=== PATIENT | male | born 1985 | race Two or more races ===

== ENCOUNTER 2022-04-24 22:23 | Emergency (ER) | payer OTHER ==
[2022-04-24 23:12] VITALS: BP 162/109; PULSE 64; RESP 20; TEMP 97.5
--- NOTE | 2022-04-25 01:37 | ED ---
Psych HPI - General Chief Complaint: Psychiatric Symptoms Stated Complaint: psych eval Time Seen by Provider: 04/25/22 01:37 Source: patient Mode of arrival: ambulatory - Related Data Allergies Allergy/AdvReac Type Severity Reaction Status Date / Time No Known Allergies Allergy Verified 04/24/22 23:11 Review of Systems ROS Statement: Those systems with pertinent positive or pertinent negative responses have been documented in the HPI. ROS Other: All systems not noted in ROS Statement are negative. Past Medical History Past Medical History: No Reported History History of Any Multi-Drug Resistant Organisms: None Reported Additional Past Surgical History / Comment(s): plastic surgery on left lip Past Psychological History: ADD/ADHD Smoking Status: Current every day smoker Past Alcohol Use History: Occasional Past Drug Use History: Marijuana General Exam Limitations: no limitations Course Vital Signs 04/24/22 23:01 Temperature 97.5 F L Pulse Rate 64 Respiratory 20 Rate Blood Pressure 162/109 O2 Sat by Pulse 97 Oximetry Disposition Clinical Impression: Depression Disposition: HOME SELF-CARE Condition: Fair Instructions (If sedation given, give patient instructions): Depression (ED) Is patient prescribed a controlled substance at d/c from ED?: No Referrals: None,Stated [Primary Care Provider] - 1-2 days
== END 2022-04-25 06:24 | disposition home or self-care (01) ==
LOC: EC 22:23
DX: F32.A Depression, unspecified (principal); F17.200 Nicotine dependence, unspecified, uncomplicated; F12.90 Cannabis use, unspecified, uncomplicated
CPT/HCPCS: 82075; 99284

== ENCOUNTER 2022-05-21 15:39 | Observation (INO) | payer OTHER ==
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
[2022-05-21 16:08] LABS: Basophils # (A) 0.1 k/uL (0-0.2); Basophils % (A) 1 %; Eosinophils # (A) 0.2 k/uL (0-0.7); Eosinophils % (A) 2 %; HCT 49.1 % (39.0-53.0); HGB 16.1 gm/dL (13.0-17.5); Lymphocytes # (A) 3.9 k/uL (1.0-4.8); Lymphocytes % (A) 37 %; MCH 32.7 pg (25.0-35.0); MCHC 32.7 g/dL (31.0-37.0); MCV 100.1 fL (80.0-100.0); Mean Platelet Volume 7.1; Monocytes # (A) 0.2 k/uL (0-1.0); Monocytes % (A) 1 %; Neutrophils # (A) 5.9 k/uL (1.3-7.7); Neutrophils % (A) 57 %; Platelet Count 395 k/uL (150-450); RBC 4.91 m/uL (4.30-5.90); RDW 11.9 % (11.5-15.5); WBC 10.4 k/uL (3.8-10.6)
[2022-05-21 16:19] LABS: ALT 20 U/L (4-49); AST 32 U/L (17-59); African American GFR (CKD) >90 (>60 ml/min/1.73 sqM); Albumin 4.4 g/dL (3.5-5.0); Alkaline Phosphatase 72 U/L (38-126); Anion Gap 19 mmol/L; Blood Urea Nitrogen 12 mg/dL (9-20); Calcium 8.8 mg/dL (8.4-10.2); Carbon Dioxide 21 mmol/L (22-30); Chloride 108 mmol/L (98-107); Creatine Kinase 205 U/L (55-170); Glucose 82 mg/dL (74-99); Lipase 129 U/L (23-300); Magnesium 1.8 mg/dL (1.6-2.3); Non-African American GFR(CKD) >90 (>60 ml/min/1.73 sqM); Potassium 3.7 mmol/L (3.5-5.1); Sodium 148 mmol/L (137-145); Total Bilirubin 0.5 mg/dL (0.2-1.3); Total Protein 6.7 g/dL (6.3-8.2)
[2022-05-21 16:35] LABS: Alcohol 499 mg/dL
[2022-05-21] MEDS ORDERED: NALOXONE 0.4 MG/ML 1 ML VIAL IV PRN (17:10)
[2022-05-21] MEDS ORDERED: LORazepam 2 MG/ML INJ IV PRN ×3 (17:11)
[2022-05-21] MEDS ORDERED: THIAMINE 100 MG/ML 2 ML VIAL IM STA (17:11)
[2022-05-21] MEDS ORDERED: chlordiazePOXIDE 25 MG CAP PO PRN ×4 (17:25)
[2022-05-21] MEDS: SODIUM CHLORIDE 0.9% 1,000 ML IV SCH (18:28)
--- NOTE | 2022-05-21 18:30 | P.HPIM ---
History of Present Illness H&P Date: 05/21/22 Chief Complaint: ETOH intoxication 36-year-old man with medical history of ADHD and alcohol dependence presented with acute alcohol intoxication. Patient says that he typically drinks a pint of vodka to a fifth of vodka daily, however, he had excessive alcohol intake today because he was perturbed about breaking up with his girlfriend, denies any thoughts of suicide at this time. His review of systems is limited due to severe alcohol intoxication. In the emergency room, patient was afebrile, 146/108, heart rate 101, 99% on room air. CBC was unremarkable. Chemistry show hypernatremia to 148, chloride of 108, bicarb 21. Liver function tests are unremarkable. Creatinine kinase is slightly elevated at 205. Serum alcohol level was 499. See HPI regarding limitation of review of systems Gen: Awake, conversive, but quite intoxicated HEENT: normocephalic, atraumatic, good hearing acuity, dry mucous membranes Resp: good air exchange, breathing comfortably with no accessory muscle use CVS: good distal perfusion x 4, GI: soft, NTTP, ND : no SPT, no CVAT, singletary catheter not present MSK: no pitting edema, no clubbing Neuro: non-focal, moving all extremities Psych: cooperative, euthymic mood Labs and imaging reviewed as above Assessment/plan: Alcohol intoxication Alcohol dependence -Admit to observation -Multivitamin, thiamine, folate -Alcohol cessation counseling -Librium when necessary should patient develop withdrawal symptoms -[facility] protocol ADHD -Hold home Adderall Patient is full code Past Medical History Past Medical History: No Reported History History of Any Multi-Drug Resistant Organisms: None Reported Additional Past Surgical History / Comment(s): plastic surgery on left lip Past Psychological History: ADD/ADHD Smoking Status: Current every day smoker Past Alcohol Use History: Occasional Past Drug Use History: Marijuana Medications and Allergies Home Medications Medication Instructions Recorded Confirmed Type Dextroamphetamine/Amphetamine 30 mg PO BID 05/21/22 05/21/22 History [Adderall] Allergies Allergy/AdvReac Type Severity Reaction Status Date / Time No Known Allergies Allergy Verified 05/21/22 18:07 Physical Exam Osteopathic Statement: *. No significant issues noted on an osteopathic structural exam other than those noted in the History and Physical/Consult. Vitals: Vital Signs Temp Pulse Resp BP Pulse Ox 05/21/22 18:00 88 20 132/87 98 05/21/22 16:52 98 16 132/87 98 05/21/22 15:50 97.4 F L 101 H 16 146/108 99 Intake and Output 05/21/22 05/21/22 05/21/22 06:59 14:59 22:59 Other: Weight 81.647 kg Results CBC & Chem 7: 05/21/22 16:00 05/21/22 16:00 Labs: Abnormal Lab Results - Last 24 Hours (Table) 05/21/22 05/21/22 Range/Units 16:00 16:00 MCV 100.1 H (80.0-100.0) fL Sodium 148 H (137-145) mmol/L Chloride 108 H (98-107) mmol/L Carbon Dioxide 21 L (22-30) mmol/L Creatine Kinase 205 H (55-170) U/L Serum Alcohol 499 H* mg/dL
[2022-05-21] MEDS: THIAMINE 100 MG TAB PO SCH (21:50)
[2022-05-22 03:12] VITALS: RESP 16
[2022-05-22] MEDS: THIAMINE 100 MG TAB PO SCH (07:46)
[2022-05-22] MEDS: SODIUM CHLORIDE 0.9% 1,000 ML IV SCH (07:46)
[2022-05-22 08:00] VITALS: BP 137/84; PULSE 66; TEMP 99
[2022-05-22] MEDS ORDERED: FOLIC ACID 1 MG TAB PO SCH (09:00)
[2022-05-22] MEDS ORDERED: MULTIVITAMINS, THERA 1 EACH TAB PO SCH (09:00)
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
== END 2022-05-22 13:26 | disposition home or self-care (01) ==
LOC: EC 15:39 → 6NMEDSUR 17:10 → 4SSUR 19:14
PROVIDERS: ADMIT Internal Medicine; ATTEND Internal Medicine
DX: F10.229 Alcohol dependence with intoxication, unspecified (principal); E87.0 Hyperosmolality and hypernatremia; F90.9 Attention-deficit hyperactivity disorder, unspecified type; F17.200 Nicotine dependence, unspecified, uncomplicated; Y90.8 Blood alcohol level of 240 mg/100 ml or more; R74.8 Abnormal levels of other serum enzymes; M25.511 Pain in right shoulder; M54.6 Pain in thoracic spine; V18.4XXA Pedal cycle driver injured in noncollision transport accident in traffic accident, initial encounter; Y93.55 Activity, bike riding; Z91.81 History of falling; Z71.41 Alcohol abuse counseling and surveillance of alcoholic; Z79.899 Other long term (current) drug therapy
CPT/HCPCS: 96361 ×3; 96360; 99285; 36415; 80053; 82550; 83690; 83735; 85025; 72070; 73030; G0378 ×3; G0480; 80320

== ENCOUNTER 2023-03-29 10:54 | Emergency (ER) | payer OTHER ==
[2023-03-29 11:12] VITALS: TEMP 98.6
[2023-03-29] MEDS ORDERED: SODIUM CHLORIDE 0.9% 1,000 ML IV STA (11:43)
[2023-03-29] MEDS ORDERED: METOCLOPRAMIDE 5 MG/ML 2 ML VIAL IVP STA (11:43)
[2023-03-29] MEDS ORDERED: LORazepam 2 MG/ML INJ IV STA (11:43)
[2023-03-29 12:34] LABS: Basophils % (A) 0 %; Eosinophils # (A) 0.1 k/uL (0-0.7); Eosinophils % (A) 1 %; HCT 40.6 % (39.0-53.0); HGB 13.8 gm/dL (13.0-17.5); Lymphocytes # (A) 0.5 k/uL (1.0-4.8); Lymphocytes % (A) 3 %; MCH 31.3 pg (25.0-35.0); MCV 92.2 fL (80.0-100.0); Mean Platelet Volume 7.8; Monocytes # (A) 0.4 k/uL (0-1.0); Monocytes % (A) 3 %; Neutrophils % (A) 93 %; Platelet Count 350 k/uL (150-450); RDW 12.2 % (11.5-15.5)
[2023-03-29] MEDS ORDERED: FAMOTIDINE 20 MG/2 ML VIAL IV STA (12:37)
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
[2023-03-29 12:52] LABS: ALT 68 U/L (4-49); AST 78 U/L (17-59); African American GFR (CKD) >90 (>60 ml/min/1.73 sqM); Albumin 3.8 g/dL (3.5-5.0); Alcohol <10 mg/dL; Alkaline Phosphatase 79 U/L (38-126); Amylase 63 U/L (30-110); Anion Gap 15 mmol/L; Blood Urea Nitrogen 18 mg/dL (9-20); Calcium 8.5 mg/dL (8.4-10.2); Carbon Dioxide 24 mmol/L (22-30); Chloride 95 mmol/L (98-107); Glucose 119 mg/dL (74-99); Lipase 146 U/L (23-300); Magnesium 1.3 mg/dL (1.6-2.3); Non-African American GFR(CKD) >90 (>60 ml/min/1.73 sqM); Potassium 3.9 mmol/L (3.5-5.1); Sodium 134 mmol/L (137-145); Total Bilirubin 3.1 mg/dL (0.2-1.3); Total Protein 5.8 g/dL (6.3-8.2)
[2023-03-29 13:00] LABS: INR 1.1 (<1.2); Prothrombin Time 11.5 sec (9.0-12.0)
[2023-03-29] MEDS ORDERED: MAGNESIUM OXIDE 400 MG TAB PO STA (13:06)
[2023-03-29 13:37] VITALS: BP 149/83; PULSE 97; RESP 20
[2023-03-29] MEDS ORDERED: ONDANSETRON 4 MG ODT STARTER PACK 2 TAB BTL PO STA (16:25)
== END 2023-03-29 16:50 | disposition home or self-care (01) ==
LOC: EC 10:54
DX: F10.10 Alcohol abuse, uncomplicated (principal); E83.42 Hypomagnesemia; F17.200 Nicotine dependence, unspecified, uncomplicated; Y90.0 Blood alcohol level of less than 20 mg/100 ml
CPT/HCPCS: 99284 ×2; 96374 ×2; 96375 ×3; 96361 ×2; 36415; 80053; 82150; 83690; 83735; 85025; 85610; G0480; J2060; J2765; S0119; 80320

== ENCOUNTER 2024-05-27 06:00 | Observation (INO) | payer OTHER ==
[~2024-05-27 06:00] MED LIST: SODIUM CHLORIDE 0.9% 1,000 ML BAG ONE
[2024-05-27] MEDS ORDERED: IBUPROFEN 400 MG TAB ONE (16:05)
[2024-05-27] MEDS ORDERED: LORazepam 1 MG TAB ONE (21:14)
[2024-05-27] MEDS ORDERED: CEPHALEXIN 500 MG CAP ONE (21:15)
[2024-05-28] MEDS ORDERED: CEPHALEXIN 500 MG CAP ONE (08:21)
[2024-05-28] MEDS ORDERED: LORazepam 2 MG/ML INJ ONE (17:06)
[2024-05-28] MEDS ORDERED: ceFAZolin 1,000 MG VIAL (IM USE) IM ONE (20:02)
[2024-05-29] MEDS ORDERED: LORazepam 2 MG/ML INJ ONE (10:57)
== END 2024-05-29 15:02 | disposition left against medical advice (07) ==
LOC: UNDOADMOB 06:00 → 4SSUR 06:00 → UNDODISOB 06:00
PROVIDERS: ADMIT Urology; ATTEND Urology
DX: F10.129 Alcohol abuse with intoxication, unspecified (principal); L03.115 Cellulitis of right lower limb; Y90.8 Blood alcohol level of 240 mg/100 ml or more; R45.851 Suicidal ideations; Z59.00 Homelessness unspecified; Z53.29 Procedure and treatment not carried out because of patient's decision for other reasons
CPT/HCPCS: 96374; 96375; 96376; 99285

== ENCOUNTER 2024-05-31 03:37 | Emergency (ER) | payer OTHER ==
[2024-05-31] MEDS ORDERED: ONDANSETRON 4 MG/2 ML VIAL ONE (06:07)
[2024-05-31] MEDS ORDERED: SODIUM CHLORIDE 0.9% 1,000 ML BAG ONE (06:15)
== END 2024-05-31 12:45 | disposition home or self-care (01) ==
LOC: EC 03:37
DX: R11.10 Vomiting, unspecified (principal)
CPT/HCPCS: 96361; 96374; 99283

== ENCOUNTER 2024-06-11 10:46 | Emergency (ER) | payer OTHER ==
[2024-06-11 10:56] VITALS: TEMP 98
--- NOTE | 2024-06-11 11:29 | ED ---
General Adult HPI - General Chief complaint: Alcohol Stated complaint: ETOH Time Seen by Provider: 06/11/24 11:17 Source: patient, EMS, RN notes reviewed Mode of arrival: EMS Limitations: no limitations - History of Present Illness Initial comments: Patient is a 38-year-old male present emergency department with concerns with withdrawal. Patient last drank alcohol around 6 hours ago. Patient states he normally drinks 1 or 2/5 of alcohol daily. Patient has had nausea and vomiting. Patient did fall and hit his head and believes he lost consciousness. Patient is hearing music and seeing spots. Patient has been shaky. - Related Data Previous Rx's Medication Instructions Recorded Magnesium Oxide [Magnesium] 500 mg PO BID #14 cap 06/11/24 Allergies Allergy/AdvReac Type Severity Reaction Status Date / Time No Known Allergies Allergy Verified 06/11/24 12:39 Review of Systems ROS Statement: Those systems with pertinent positive or pertinent negative responses have been documented in the HPI. ROS Other: All systems not noted in ROS Statement are negative. Constitutional: Denies: fever Eyes: Denies: eye pain ENT: Denies: ear pain Respiratory: Denies: cough Cardiovascular: Denies: chest pain Endocrine: Denies: fatigue Gastrointestinal: Denies: abdominal pain Neurological: Denies: headache Psychiatric: Reports: as per HPI. Denies: suicidal thoughts Past Medical History Past Medical History: No Reported History Additional Past Medical History / Comment(s): ETOH History of Any Multi-Drug Resistant Organisms: None Reported Additional Past Surgical History / Comment(s): plastic surgery on left lip Past Psychological History: ADD/ADHD Smoking Status: Current every day smoker Past Alcohol Use History: Abuse, Daily, Heavy Past Drug Use History: Marijuana General Exam Limitations: no limitations General appearance: alert, in no apparent distress Head exam: Present: atraumatic, normocephalic Eye exam: Present: normal appearance, PERRL, EOMI ENT exam: Present: normal oropharynx Neck exam: Present: normal inspection. Absent: tenderness Respiratory exam: Present: normal lung sounds bilaterally Cardiovascular Exam: Present: regular rate, normal rhythm GI/Abdominal exam: Present: soft. Absent: tenderness Extremities exam: Present: normal inspection, full ROM. Absent: tenderness Back exam: Absent: vertebral tenderness Neurological exam: Present: alert. Absent: motor sensory deficit Expanded Neurological exam: Present: protecting the airway Speech: Present: fluid speech Motor strength exam: RUE: 5, LUE: 5, RLE: 5, LLE: 5 Eye Response: (4) open spontaneously Motor Response: (6) obeys commands Verbal Response: (5) oriented Psychiatric exam: Present: normal affect, normal mood Skin exam: Present: normal color Course Vital Signs 06/11/24 06/11/24 10:51 12:21 Temperature 98 F Pulse Rate 97 80 Respiratory 20 18 Rate Blood Pressure 153/116 144/97 O2 Sat by Pulse 99 99 Oximetry Medical Decision Making - Medical Decision Making Was pt. sent in by a medical professional or institution (, PA, DIRECT SERVICE WORKER, urgent care, hospital, or jail...) When possible be specific @ -No Did you speak to anyone other than the patient for history (EMS, parent, family, police, friend...)? What history was obtained from this source @ -No Did you review nursing and triage notes (agree or disagree)? Why? @ -I reviewed and agree with nursing and triage notes Were old charts reviewed (outside hosp., previous admission, EMS record, old EKG, old radiological studies, urgent care reports/EKG's, jail records)? Report findings @ -No old charts were reviewed Differential Diagnosis (chest pain, altered mental status, abdominal pain women, abdominal pain men, vaginal bleeding, weakness, fever, dyspnea, syncope, headache, dizziness, GI bleed, back pain, seizure, CVA, palpatations, mental hea lth, musculoskeletal)? @ -Differential Mental Health Depression, anxiety, bipolar, psychosis, schizophrenia, borderline personality, situational depression, adjustment disorder, behavioral disorder, brain tumor, malingering, substance abuse, encephalopathy, medication reaction, dementia, hypothyroidism, degenerative neurologic disorder, lupus.... This is not meant to be all-inclusive list EKG interpreted by me (3pts min.). @ -As above X-rays interpreted by me (1pt min.). @ -None done CT interpreted by me (1pt min.). @ -CT scan of the brain does not reveal acute intracranial abnormality U/S interpreted by me (1pt. min.). @ -None done What testing was considered but not performed or refused? (CT, X-rays, U/S, labs)? Why? @ -None What meds were considered but not given or refused? Why? @ -None Did you discuss the management of the patient with other professionals (professionals i.e. , PA, DIRECT SERVICE WORKER, lab, RT, psych nurse, social secretary, correctional case records supervisor, teacher, operations officer trust department, returned case inspector)? Give summary @ -No Was smoking cessation discussed for >3mins.? @ -No Was critical care preformed (if so, how long)? @ -No Were there social determinants of health that impacted care today? How? (Ho melessness, low income, unemployed, alcoholism, drug addiction, transportation, low edu. Level, literacy, decrease access to med. care, senior living, rehab)? @ -Patient is homeless and history of alcoholism Was there de-escalation of care discussed even if they declined (Discuss DNR or withdrawal of care, Hospice)? DNR status @ -No What co-morbidities impacted this encounter? (DM, HTN, Smoking, COPD, CAD, Cancer, CVA, ARF, Chemo, Hep., AIDS, mental health diagnosis, sleep apnea, morbid obesity)? @ -Alcoholism Was patient admitted / discharged? Hospital course, mention meds given and route, prescriptions, significant lab abnormalities, going to OR and other pertinent info. @ -Patient presents with concerns for alcohol withdrawal. Patient has had reported shaking and vomiting. None on evaluation or on reevaluation. CIWA is 2. patient is updated on results and recommendation for rehab center. Patient states he is going to go to [facility]. Patient does have low magnesium and advised to continue this for the next week. Prescription provided Undiagnosed new problem with uncertain prognosis? @ -No Drug Therapy requiring intensive monitoring for toxicity (Heparin, Nitro, Insulin, Cardizem)? @ -No Were any procedures done? @ -No Diagnosis/symptom? @ -Alcohol withdrawal, hypomagnesemia Acute, or Chronic, or Acute on Chronic? @ -Acute, acute Uncomplicated (without systemic symptoms) or Complicated (systemic symptoms)? @ -Complicated with hypomagnesemia Side effects of treatment? @ -No Exacerbation, Progression, or Severe Exacerbation? @ -No Poses a threat to life or bodily function? How? (Chest pain, USA, DE, pneumonia, PE, COPD, DKA, ARF, appy, cholecystitis, CVA, Diverticulitis, Homicidal, Suicidal, threat to staff... and all critical care pts) @ -No - Lab Data Result diagrams: 06/11/24 11:56 06/11/24 11:56 Lab Results 06/11/24 06/11/24 Range/Units 11:56 11:56 WBC 7.9 (3.8-10.6) k/uL RBC 4.46 (4.30-5.90) m/uL Hgb 16.0 (13.0-17.5) gm/dL Hct 44.0 (39.0-53.0) % MCV 98.9 (80.0-100.0) fL MCH 35.8 H (25.0-35.0) pg MCHC 36.3 (31.0-37.0) g/dL RDW 13.9 (11.5-15.5) % Plt Count 242 (150-450) k/uL MPV 8.2 Neutrophils % 76 % Lymphocytes % 14 % Monocytes % 6 % Eosinophils % 2 % Basophils % 0 % Neutrophils # 6.1 (1.3-7.7) k/uL Lymphocytes # 1.1 (1.0-4.8) k/uL Monocytes # 0.5 (0-1.0) k/uL Eosinophils # 0.2 (0-0.7) k/uL Basophils # 0.0 (0-0.2) k/uL Sodium 130 L (137-145) mmol/L Potassium 3.5 (3.5-5.1) mmol/L Chloride 98 (98-107) mmol/L Carbon Dioxide 24 (22-30) mmol/L Anion Gap 8 mmol/L BUN 10 (9-20) mg/dL Creatinine 0.67 (0.66-1.25) mg/dL Est GFR (CKD-EPI)AfAm >90 (>60 ml/min/1.73 sqM) Est GFR (CKD-EPI)NonAf >90 (>60 ml/min/1.73 sqM) Glucose 95 (74-99) mg/dL Calcium 9.7 (8.4-10.2) mg/dL Magnesium 1.2 L (1.6-2.3) mg/dL Total Bilirubin 3.5 H (0.2-1.3) mg/dL AST 209 H (17-59) U/L ALT 154 H (4-49) U/L Alkaline Phosphatase 74 (38-126) U/L Total Protein 6.6 (6.3-8.2) g/dL Albumin 4.1 (3.5-5.0) g/dL Amylase 60 (30-110) U/L Lipase 132 (23-300) U/L Serum Alcohol <10 mg/dL Disposition Clinical Impression: Alcohol withdrawal syndrome, Hypomagnesemia Disposition: HOME SELF-CARE Condition: Stable Instructions (If sedation given, give patient instructions): Alcohol Withdrawal (ED) Additional Instructions: Proceed to [facility] for rehab. Magnesium twice daily for the next week and have level rechecked at that point. Prescription sent to pharmacy. Return for seizure, weakness, shaking, uncontrolled vomiting, confusion or hallucinations, worsening symptoms or other concerns. Prescriptions: Magnesium Oxide [Magnesium] 500 mg PO BID #14 cap Is patient prescribed a controlled substance at d/c from ED?: No Referrals: Mando Duran DO [REFERRING] - 1-2 days Forms: AA Meetings [facility] [facility], AA Meetings [address] - [facility], Inp Substance Abuse Facilities, Area PCPs, [facility] Shel[facility] Time of Disposition: 14:01
[2024-06-11 12:07] LABS: Basophils % (A) 0 %; Eosinophils # (A) 0.2 k/uL (0-0.7); Eosinophils % (A) 2 %; Lymphocytes # (A) 1.1 k/uL (1.0-4.8); Lymphocytes % (A) 14 %; MCH 35.8 pg (25.0-35.0); MCHC 36.3 g/dL (31.0-37.0); MCV 98.9 fL (80.0-100.0); Mean Platelet Volume 8.2; Monocytes # (A) 0.5 k/uL (0-1.0); Monocytes % (A) 6 %; Neutrophils # (A) 6.1 k/uL (1.3-7.7); Neutrophils % (A) 76 %; Platelet Count 242 k/uL (150-450); RBC 4.46 m/uL (4.30-5.90); RDW 13.9 % (11.5-15.5); WBC 7.9 k/uL (3.8-10.6)
[2024-06-11 12:21] VITALS: BP 144/97; PULSE 80; RESP 18
[2024-06-11] MEDS: LORazepam 2 MG/ML INJ IV STA (12:23)
[2024-06-11] MEDS: THIAMINE 100 MG/ML 2 ML VIAL IM STA (12:23)
[2024-06-11] MEDS: FAMOTIDINE 20 MG/2 ML VIAL IV STA (12:23)
[2024-06-11] MEDS: SODIUM CHLORIDE 0.9% 1,000 ML IV STA (12:24)
[2024-06-11 12:25] LABS: ALT 154 U/L (4-49); AST 209 U/L (17-59); African American GFR (CKD) >90 (>60 ml/min/1.73 sqM); Albumin 4.1 g/dL (3.5-5.0); Alcohol <10 mg/dL; Alkaline Phosphatase 74 U/L (38-126); Amylase 60 U/L (30-110); Anion Gap 8 mmol/L; Blood Urea Nitrogen 10 mg/dL (9-20); Calcium 9.7 mg/dL (8.4-10.2); Carbon Dioxide 24 mmol/L (22-30); Chloride 98 mmol/L (98-107); Glucose 95 mg/dL (74-99); Lipase 132 U/L (23-300); Magnesium 1.2 mg/dL (1.6-2.3); Non-African American GFR(CKD) >90 (>60 ml/min/1.73 sqM); Potassium 3.5 mmol/L (3.5-5.1); Sodium 130 mmol/L (137-145); Total Bilirubin 3.5 mg/dL (0.2-1.3); Total Protein 6.6 g/dL (6.3-8.2)
[2024-06-11] MEDS: MAGNESIUM OXIDE 400 MG TAB PO STA (13:18)
[2024-06-11] MEDS: MAGNESIUM SULFATE-D5W PMX 1 GM in DEXTROSE/WATER 1 100ML.BAG IVPB SCH (13:26)
--- NOTE | 2024-06-11 13:56 | CT ---
EXAMINATION TYPE: CT brain wo con DATE OF EXAM: 06/11/2024 COMPARISON: None HISTORY: 38-year-old male fall/alcohol withdraw TECHNIQUE: Examination was done in axial plane without intravenous contrast. Coronal and sagittal r econstructions performed. CT DLP: 1138.8 mGycm Automated exposure control for dose reduction was used. FINDINGS: There is no evidence of acute intracranial hemorrhage, acute ischemic changes, mass, mass-effect, or extra-axial fluid collection. There is no effacement of cerebral sulci or basal subarachnoid cister ns. There is no hydrocephalus. There is no midline shift. Degroot-white matter distinction is preserv ed. Comminuted and angulated right-sided nasal bone fracture but without overlying soft tissue swelling, suspected chronic. Paranasal sinuses and mastoid air cells well pneumatized. Orbits and globes appear intact IMPRESSION: No acute intracranial abnormality seen. Comminuted and angulated right sided nasal bone fracture. Cli nically correlate to confirm old injury.
== END 2024-06-11 16:47 | disposition home or self-care (01) ==
LOC: EC 10:46
DX: F10.239 Alcohol dependence with withdrawal, unspecified (principal); E83.42 Hypomagnesemia; F17.200 Nicotine dependence, unspecified, uncomplicated
CPT/HCPCS: 36415; 70450; 80053; 80320; 82150; 83690; 83735; 85025; 96365; 96372; 96375; 99285

== ENCOUNTER 2024-07-20 12:45 | Emergency (ER) | payer OTHER ==
[2024-07-20 13:00] VITALS: TEMP 97.4
--- NOTE | 2024-07-20 13:14 | ED ---
General Adult HPI - General Chief complaint: Alcohol Stated complaint: ETOH Time Seen by Provider: 07/20/24 12:51 Source: patient, EMS, RN notes reviewed Mode of arrival: EMS Limitations: no limitations - History of Present Illness Initial comments: Patient is a 39-year-old male presenting to the emergency department for alcohol intoxication. Patient admits to drinking alcohol, approximately 1/5 of alcohol daily. Patient was found sleeping outside and EMS was called and brought patient to the emergency department. Patient has no complaints. Patient denies injury. - Related Data Previous Rx's Medication Instructions Recorded Magnesium Oxide [Magnesium] 500 mg PO BID #14 cap 06/11/24 Allergies Allergy/AdvReac Type Severity Reaction Status Date / Time No Known Allergies Allergy Verified 07/20/24 12:53 Review of Systems ROS Statement: Those systems with pertinent positive or pertinent negative responses have been documented in the HPI. ROS Other: All systems not noted in ROS Statement are negative. Constitutional: Denies: fever Eyes: Denies: eye pain Respiratory: Denies: dyspnea Cardiovascular: Denies: chest pain Gastrointestinal: Denies: abdominal pain Past Medical History Past Medical History: No Reported History Additional Past Medical History / Comment(s): ETOH History of Any Multi-Drug Resistant Organisms: None Reported Additional Past Surgical History / Comment(s): plastic surgery on left lip Past Psychological History: ADD/ADHD Smoking Status: Current every day smoker Past Alcohol Use History: Abuse, Daily, Heavy Past Drug Use History: Marijuana General Exam Limitations: no limitations General appearance: alert, in no apparent distress Head exam: Present: atraumatic, normocephalic Eye exam: Present: normal appearance, PERRL, EOMI, nystagmus ENT exam: Present: normal oropharynx Neck exam: Present: normal inspection. Absent: tenderness Respiratory exam: Present: normal lung sounds bilaterally Cardiovascular Exam: Present: regular rate, normal rhythm GI/Abdominal exam: Present: soft. Absent: tenderness Extremities exam: Present: normal inspection Neurological exam: Present: alert. Absent: motor sensory deficit Expanded Motor strength exam: RUE: 5, LUE: 5, RLE: 5, LLE: 5 Eye Response: (4) open spontaneously Motor Response: (6) obeys commands Verbal Response: (5) oriented Psychiatric exam: Present: normal affect, normal mood Skin exam: Present: normal color Course Vital Signs 07/20/24 07/20/24 12:50 13:00 Temperature 97.4 F L Pulse Rate 78 Respiratory 16 Rate Blood Pressure 126/80 O2 Sat by Pulse 97 Oximetry Medical Decision Making - Medical Decision Making Was pt. sent in by a medical professional or institution (, ZOLTAN, EMPLOYEE SERVICES MANAGER, urgent ca re, hospital, or [facility]...) When possible be specific @ -No Did you speak to anyone other than the patient for history (EMS, parent, family, police, friend...)? What history was obtained from this source @ -EMS provides history of patient being found Did you review nursing and triage notes (agree or disagree)? Why? @ -I reviewed and agree with nursing and triage notes Were old charts reviewed (outside hosp., previous admission, EMS record, old EKG, old radiological studies, urgent care reports/EKG's, [facility] records)? Report findings @ -No old charts were reviewed Differential Diagnosis (chest pain, altered mental status, abdominal pain women, abdominal pain men, vaginal bleeding, weakness, fever, dyspnea, syncope, headache, dizziness, GI bleed, back pain, seizure, CVA, palpatations, mental health, musculoskeletal)? @ -Differential Dizziness: Benign paroxysmal positional Vertigo, Meniere's disease, otitis media, acoustic neuroma, vertebrobasilar insufficiency, cerebellar stroke, encephalitis, hypovolemic, arrhythmia, coronary artery syndrome, anemia, this is not meant to be an all-inclusive list EKG interpreted by me (3pts min.). @ -As above X-rays interpreted by me (1pt min.). @ -None done CT interpreted by me (1pt min.). @ -None done U/S interpreted by me (1pt. min.). @ -None done What testing was considered but not performed or refused? (CT, X-rays, U/S, labs)? Why? @ -None What meds were considered but not given or refused? Why? @ -None Did you discuss the management of the patient with other professionals (professionals i.e. ZOLTAN Barrientos, EMPLOYEE SERVICES MANAGER, lab, RT, psych nurse, social science teacher, brine mixer operator, teacher, deputy probation officer, supportive employment case manager)? Give summary @ -No Was smoking cessation discussed for >3mins.? @ -No Was critical care preformed (if so, how long)? @ -No Were there social determinants of health that impacted care today? How? (Homelessness, low income, unemployed, alcoholism, drug addiction, transportation, low edu. Level, literacy, decrease access to med. care, [facility], rehab)? @ -No Was there de-escalation of care discussed even if they declined (Discuss DNR or withdrawal of care, Hospice)? DNR status @ -No What co-morbidities impacted this encounter? (DM, HTN, Smoking, COPD, CAD, Cancer, CVA, ARF, Chemo, Hep., AIDS, mental health diagnosis, sleep apnea, morbid obesity)? @ -None Was patient admitted / discharged? Hospital course, mention meds given and route, prescriptions, significant lab abnormalities, going to OR and other pertinent info. @ -Patient presents for alcohol intoxication. Patient is observed for several hours. Patient is ANO x 3 with steady gait. Patient will be discharged and recommended discontinuing alcohol Undiagnosed new problem with uncertain prognosis? @ -No Drug Therapy requiring intensive monitoring for toxicity (Heparin, Nitro, Insulin, Cardizem)? @ -No Were any procedures done? @ -No Diagnosis/symptom? @ -Alcohol intoxication Acute, or Chronic, or Acute on Chronic? @ -Acute on chronic Uncomplicated (without systemic symptoms) or Complicated (systemic symptoms)? @ -Default Side effects of treatment? @ -No Exacerbation, Progression, or Severe Exacerbation? @ -No Poses a threat to life or bodily function? How? (Chest pain, USA, [place], pneumonia, PE, COPD, DKA, ARF, appy, cholecystitis, CVA, Diverticulitis, Homicidal, Suicidal, threat to staff... and all critical care pts) @ -No - Lab Data Lab Results 07/20/24 Range/Units 13:10 Urine Opiates Screen Not Detected (NotDetected) Ur Oxycodone Screen Not Detected (NotDetected) Urine Methadone Screen Not Detected (NotDetected) Ur Barbiturates Screen Not Detected (NotDetected) U Tricyclic Antidepress Not Detected (NotDetected) Ur Phencyclidine Scrn Not Detected (NotDetected) Ur Amphetamines Screen Not Detected (NotDetected) U Methamphetamines Scrn Not Detected (NotDetected) U Benzodiazepines Scrn Detected H (NotDetected) Urine Cocaine Screen Not Detected (NotDetected) U Marijuana (THC) Screen Not Detected (NotDetected) Disposition Clinical Impression: Alcoholic intoxication Disposition: HOME SELF-CARE Condition: Stable Instructions (If sedation given, give patient instructions): Alcohol I ntoxication (ED) Additional Instructions: Discontinue alcohol use. Please follow-up with primary care physician in the next day or 2 for recheck. Return for worsening symptoms or other concerns. No driving. Is patient prescribed a controlled substance at d/c from ED?: No Referrals: Boo Beltran MD [STAFF PHYSICIAN] - 1-2 days Forms: Area PCPs Time of Disposition: 16:29
[2024-07-20 13:46] LABS: Amphetamine Screen,Urine Not Detected (NotDetected); Barbiturate Screen,Urine Not Detected (NotDetected); Benzodiazepines Screen,Urine Detected (NotDetected); Cocaine Screen,Urine Not Detected (NotDetected); Methadone Screen, Urine Not Detected (NotDetected); Opiate Screen,Urine Not Detected (NotDetected); Oxycodone Screen, Urine Not Detected (NotDetected); Phencyclidine Screen,Urine Not Detected (NotDetected); Tricyclic Antidepressant,Urine Not Detected (NotDetected); Urn Cannabinoid Scrn Not Detected (NotDetected)
[2024-07-20 16:59] VITALS: BP 143/95; PULSE 83; RESP 20
== END 2024-07-20 16:59 | disposition home or self-care (01) ==
LOC: EC 12:45
CPT/HCPCS: 80306; 82075; 99284

== ENCOUNTER 2024-07-20 23:56 | Inpatient (IN) | payer OTHER ==
--- NOTE | 2024-07-21 00:08 | ED ---
Psych HPI - General Chief Complaint: Psychiatric Symptoms Stated Complaint: Mental Health, LE Petition Time Seen by Provider: 07/21/24 00:07 Source: patient, police, RN notes reviewed, old records reviewed Mode of arrival: EMS Limitations: no limitations, altered mental status - History of Present Illness Initial Comments: This is a 39-year-old male presenting for police escort in regards to psychiatric illness under petition for psychiatric evaluation and treatment known history of severe alcohol abuse -: days(s) Associated Psychiatric Symptoms: depression, suicidal ideation History of same: Yes Quality: constant Improves With: none Worsens With: none Associated Symptoms: confusion Treatments Prior to Arrival: placed on mental health hold If Self Harm: admits thoughts of self harm - Related Data Previous Rx's Medication Instructions Recorded Omeprazole [PriLOSEC] 20 mg PO AC-BRKFST #30 cap 07/23/24 Allergies Allergy/AdvReac Type Severity Reaction Status Date / Time No Known Allergies Allergy Verified 07/21/24 10:27 Review of Systems ROS Statement: Those systems with pertinent positive or pertinent negative responses have been documented in the HPI. ROS Other: All systems not noted in ROS Statement are negative. Past Medical History Past Medical History: No Reported History Additional Past Medical History / Comment(s): ETOH History of Any Multi-Drug Resistant Organisms: None Reported Additional Past Surgical History / Comment(s): plastic surgery on left lip Past Psychological History: ADD/ADHD Smoking Status: Current every day smoker Past Alcohol Use History: Abuse, Daily, Heavy Past Drug Use History: Marijuana General Exam General appearance: alert, in no apparent distress, appears intoxicated, anxious Head exam: Present: atraumatic, normocephalic, normal inspection Eye exam: Present: normal appearance, PERRL, EOMI. Absent: scleral icterus, conjunctival injection, periorbital swelling ENT exam: Present: normal exam, mucous membranes moist Neck exam: Present: normal inspection. Absent: tenderness, meningismus, lymphadenopathy Respiratory exam: Present: normal lung sounds bilaterally. Absent: respiratory distress, wheezes, rales, rhonchi, stridor Cardiovascular Exam: Present: regular rate, normal rhythm, normal heart sounds. Absent: systolic murmur, diastolic murmur, rubs, gallop, clicks GI/Abdominal exam: Present: soft, normal bowel sounds. Absent: distended, tenderness, guarding, rebound, rigid Extremities exam: Present: normal inspection, full ROM, normal capillary refill. Absent: tenderness, pedal edema, joint swelling, calf tenderness Back exam: Present: normal inspection Neurological exam: Present: alert, oriented X3, CN II-XII intact Psychiatric exam: Present: normal affect, normal mood Skin exam: Present: warm, dry, intact, normal color. Absent: rash Course Vital Signs 07/21/24 07/21/24 07/21/24 00:00 00:51 04:03 Temperature 97.7 F Pulse Rate 101 H 65 81 Respiratory 18 18 15 Rate Blood Pressure 143/101 116/65 118/83 O2 Sat by Pulse 99 96 99 Oximetry - Reevaluation(s) Reevaluation #1: 07/21/24 00:14 Records reviewed Reevaluation #2: 07/21/24 02:52 Patient is severely intoxicated unable to medically clear Reevaluation #3: Was pt. sent in by a medical professional or institution (, PA, GEOLOGIC TECHNICIAN, urgent care, hospital, or [facility]...) When possible be specific @ -no Did you speak to anyone other than the patient for history (EMS, parent, family, police, friend...)? What history was obtained from this source @ -no Did you review nursing and triage notes (agree or disagree)? Why? @ -agree Are old charts reviewed (outside hosp., previous admission, EMS record, old EKG, old radiological studies, urgent care reports/EKG's, [facility] records)? Report findings @ -yes Differential Diagnosis (chest pain, altered mental status, abdominal pain women, abdominal pain men, vaginal bleeding, weakness, fever, dyspnea, syncope, headache, dizziness, GI bleed, back pain, seizure, CVA, palpatations, mental health, musculoskeletal)? @ -prior EKG interpreted by me (3pts min.). @ -yes X-rays interpreted by me (1pt min.). @ -no CT interpreted by me (1pt min.). @ -no U/S interpreted by me (1pt. min.). @ -no What testing was considered but not performed or refused? (CT, X-rays, U/S, labs)? Why? @ -none What meds were considered but not given or refused? Why? @ -none Did you discuss the management of the patient with other professionals (professionals i.e. , PA, GEOLOGIC TECHNICIAN, lab, RT, psych nurse, social services aide, geological engineer, teacher, special service officer, case maker)? Give summary @ -no Was smoking cessation discussed for >3mins.? @ -no Was critical care preformed (if so, how long)? @ -no Were there social determinants of health that impacted care today? How? (Homelessness, low income, unemployed, alcoholism, drug addiction, transportation, low edu. Level, literacy, decrease access to med. care, halfway, rehab)? @ -none Was there de-escalation of care discussed even if they declined (Discuss DNR or withdrawal of care, Hospice)? DNR status @ -no What co-morbidities impacted this encounter? (DM, HTN, Smoking, COPD, CAD, Cancer, CVA, ARF, Chemo, Hep., AIDS, mental health diagnosis, sleep apnea, morbid obesity)? @ -none Was patient admitted / discharged? Hospital course, mention meds given and route, prescriptions, significant lab abnormalities, going to OR and other pertinent info. @ - 39 male will be admitted for severe alcohol intoxication, patient will also need psychiatric evaluation and treatment Admitted alcohol intoxication depression and psychiatric illness Undiagnosed new problem with uncertain prognosis? @ -no Drug Therapy requiring intensive monitoring for toxicity (Heparin, Nitro, Insulin, Cardizem)? @ -no Were any procedures done? @ -no Diagnosis/symptom? @ -Acute alcohol intoxication with depression and suicidal thoughts Acute, or Chronic, or Acute on Chronic? @ -Acute Uncomplicated (without systemic symptoms) or Complicated (systemic symptoms)? @ -Complicated Side effects of treatment? @ -no Exacerbation, Progression, or Severe Exacerbation? @ -exacerbation Poses a threat to life or bodily function? How? (Chest pain, USA, ID, pneumonia, PE, COPD, DKA, ARF, appy, cholecystitis, CVA, Diverticulitis, Homicidal, Suicidal, threat to staff... and all critical care pts) @ -yes Reevaluation #4: Differential Mental Health Depression, anxiety, bipolar, psychosis, schizophrenia, borderline personality, situational depression, adjustment disorder, behavioral disorder, brain tumor, malingering, substance abuse, encephalopathy, medication reaction, dementia, hypothyroidism, degenerative neurologic disorder, lupus.... This is not meant to be all-inclusive list Reevaluation #5: Differential Altered Mental Status: Hypoglycemia, DKA, hypercapnia, ETOH, overdose, CO poisoning, trauma, myxedema coma, HTN encephalopathy, infection, encephalitis, psychosis, intercranial hemorrhage, hepatic encephalopathy, meningitis, CVA, this is not meant to be an all-inclusive list - Consultations Consultation #1: Spoke with [facility] who agrees to admit this patient Medical Decision Making - Medical Decision Making 39 male will be admitted for severe alcohol intoxication, patient will also need psychiatric evaluation and treatment - Lab Data Result diagrams: 07/22/24 02:39 07/23/24 02:37 Lab Results 07/21/24 07/21/24 07/21/24 Range/Units 00:07 00:34 00:34 WBC 7.1 (3.8-10.6) k/uL RBC 4.54 (4.30-5.90) m/uL Hgb 15.9 (13.0-17.5) gm/dL Hct 46.1 (39.0-53.0) % MCV 101.6 H (80.0-100.0) fL MCH 35.1 H (25.0-35.0) pg MCHC 34.5 (31.0-37.0) g/dL RDW 13.2 (11.5-15.5) % Plt Count 264 (150-450) k/uL MPV 7.5 Neutrophils % 49 % Lymphocytes % 38 % Monocytes % 5 % Eosinophils % 4 % Basophils % 0 % Neutrophils # 3.5 (1.3-7.7) k/uL Lymphocytes # 2.7 (1.0-4.8) k/uL Monocytes # 0.4 (0-1.0) k/uL Eosinophils # 0.3 (0-0.7) k/uL Basophils # 0.0 (0-0.2) k/uL Macrocytosis Slight Sodium 143 (137-145) mmol/L Potassium (3.5-5.1) mmol/L Chloride 110 H (98-107) mmol/L Carbon Dioxide 24 (22-30) mmol/L Anion Gap 9 mmol/L BUN 10 (9-20) mg/dL Creatinine 0.59 L (0.66-1.25) mg/dL Est GFR (CKD-EPI)AfAm >90 (>60 ml/min/1.73 sqM) Est GFR (CKD-EPI)NonAf >90 (>60 ml/min/1.73 sqM) Glucose 98 (74-99) mg/dL Calcium 8.6 (8.4-10.2) mg/dL Phosphorus 4.3 (2.5-4.5) mg/dL Magnesium 2.0 (1.6-2.3) mg/dL Total Bilirubin 1.3 (0.2-1.3) mg/dL AST 127 H (17-59) U/L ALT 92 H (4-49) U/L Alkaline Phosphatase 40 (38-126) U/L Total Protein 7.0 (6.3-8.2) g/dL Albumin 4.8 (3.5-5.0) g/dL Lipase 369 H (23-300) U/L Urine Color Yellow Urine Appearance Clear (Clear) Urine pH 6.5 (5.0-8.0) Ur Specific [place] 1.019 (1.001-1.035) Urine Protein Negative (Negative) Urine Glucose (UA) Negative (Negative) Urine Ketones Negative (Negative) Urine Blood Negative (Negative) Urine Nitrite Negative (Negative) Urine Bilirubin Negative (Negative) Urine Urobilinogen <2.0 (<2.0) mg/dL Ur Leukocyte Esterase Negative (Negative) Urine Opiates Screen Not Detected (NotDetected) Ur Oxycodone Screen Not Detected (NotDetected) Urine Methadone Screen Not Detected (NotDetected) Ur Barbiturates Screen Not Detected (NotDetected) U Tricyclic Antidepress Not Detected (NotDetected) Ur Phencyclidine Scrn Not Detected (NotDetected) Ur Amphetamines Screen Not Detected (NotDetected) U Methamphetamines Scrn Not Detected (NotDetected) U Benzodiazepines Scrn Detected H (NotDetected) Urine Cocaine Screen Not Detected (NotDetected) U Marijuana (THC) Screen Not Detected (NotDetected) Serum Alcohol 428 H* mg/dL Disposition Clinical Impression: Depression, Alcoholic intoxication, Suicidal ideation, Acute anxiety Disposition: ADMITTED IP TO THIS HOSP Condition: Fair Is patient prescribed a controlled substance at d/c from ED?: No Time of Disposition: 02:45
[2024-07-21] MEDS: LORazepam 2 MG/ML INJ IV STA (00:43)
[2024-07-21] MEDS: SODIUM CHLORIDE 0.9% 1,000 ML IV STA (00:43)
[2024-07-21 00:51] LABS: ALT 92 U/L (4-49); AST 127 U/L (17-59); African American GFR (CKD) >90 (>60 ml/min/1.73 sqM); Albumin 4.8 g/dL (3.5-5.0); Alkaline Phosphatase 40 U/L (38-126); Anion Gap 9 mmol/L; Blood Urea Nitrogen 10 mg/dL (9-20); Calcium 8.6 mg/dL (8.4-10.2); Carbon Dioxide 24 mmol/L (22-30); Chloride 110 mmol/L (98-107); Glucose 98 mg/dL (74-99); Lipase 369 U/L (23-300); Non-African American GFR(CKD) >90 (>60 ml/min/1.73 sqM); Phosphorus 4.3 mg/dL (2.5-4.5); Sodium 143 mmol/L (137-145); Total Bilirubin 1.3 mg/dL (0.2-1.3)
[2024-07-21 00:52] LABS: Basophils % (A) 0 %; Eosinophils # (A) 0.3 k/uL (0-0.7); Eosinophils % (A) 4 %; HCT 46.1 % (39.0-53.0); HGB 15.9 gm/dL (13.0-17.5); Lymphocytes # (A) 2.7 k/uL (1.0-4.8); Lymphocytes % (A) 38 %; MCH 35.1 pg (25.0-35.0); MCHC 34.5 g/dL (31.0-37.0); MCV 101.6 fL (80.0-100.0); Macrocytosis Slight; Mean Platelet Volume 7.5; Monocytes # (A) 0.4 k/uL (0-1.0); Monocytes % (A) 5 %; Neutrophils # (A) 3.5 k/uL (1.3-7.7); Neutrophils % (A) 49 %; Platelet Count 264 k/uL (150-450); RBC 4.54 m/uL (4.30-5.90); RDW 13.2 % (11.5-15.5); WBC 7.1 k/uL (3.8-10.6)
[2024-07-21 01:11] LABS: Alcohol 428 mg/dL
[2024-07-21] MEDS ORDERED: LORazepam 2 MG/ML INJ IV PRN ×2 (02:50)
[2024-07-21] MEDS ORDERED: LORazepam 0.5 MG TAB PO PRN (02:50)
[2024-07-21] MEDS ORDERED: LORazepam 1 MG TAB PO PRN ×3 (02:50)
[2024-07-21] MEDS ORDERED: ONDANSETRON 4 MG/2 ML VIAL IVP PRN (02:50)
[2024-07-21] MEDS ORDERED: NALOXONE 0.4 MG/ML 1 ML VIAL IV PRN (02:50)
[2024-07-21] MEDS: SODIUM CHLORIDE 0.9% 1,000 ML IV SCH (04:01)
--- NOTE | 2024-07-21 07:30 | P.HPIM ---
History of Present Illness This is a pleasant 39 years old male with past medical history of alcohol Use disorder and intoxication. Presents because he was petitioned by police. Patient could not remember what happened as his alcohol level was elevated 428 on admission. As per staff patient was making suicidal comments in the streets when the police found him and that is why he was petitioned. Patient currently is awake alert, comes, looks withdrawn in his room, with mild tremor from alcohol withdrawal, he looks home, he denies urge to hurt himself this morning. No other new complaint. When I talked to the patient about quitting alcohol he told me he intends to go to alcoholic rehab this coming week on . He smokes about half pack per day and he was counseled to quit and he agrees to the nicotine patch. He uses marijuana but denies other illicit drugs Patient is hemodynamically stable Labs reviewed showing unremarkable CBC, BMP Liver enzymes mildly elevated Serum alcohol level was 428 No images or EKG done or seen in the chart Patient currently was placed on CIWA thiamine Review of Systems Review of systems CONSTITUTIONAL: No fever, no malaise, no fatigue. HEENT: No recent visual problems or hearing problems. Denied any sore throat. CARDIOVASCULAR: No orthopnea, PND, no palpitations, no syncope. PULMONARY: No shortness of breath, no cough, no hemoptysis. GASTROINTESTINAL: No diarrhea, no nausea, no vomiting, no abdominal pain. Normoactive bowel sounds. NEUROLOGICAL: No headaches, no weakness, no numbness. HEMATOLOGICAL: Denies any bleeding or petechiae. GENITOURINARY: Denies any burning micturition, frequency, or urgency. MUSCULOSKELETAL/RHEUMATOLOGICAL: Denies any joint pain, swelling, or any muscle pain. ENDOCRINE: Denies any polyuria or polydipsia. Past Medical History Past Medical History: No Reported History Additional Past Medical History / Comment(s): ETOH History of Any Multi-Drug Resistant Organisms: None Reported Additional Past Surgical History / Comment(s): plastic surgery on left lip Past Psychological History: ADD/ADHD Smoking Status: Current every day smoker Past Alcohol Use History: Abuse, Daily, Heavy Past Drug Use History: Marijuana Medications and Allergies Home Medications Medication Instructions Recorded Confirmed Type Magnesium Oxide [Magnesium] 500 mg PO BID #14 cap 06/11/24 Rx Allergies Allergy/AdvReac Type Severity Reaction Status Date / Time No Known Allergies Allergy Verified 07/20/24 12:53 Physical Exam Vitals: Vital Signs Temp Pulse Resp BP Pulse Ox 07/21/24 04:03 81 15 118/83 99 07/21/24 00:51 65 18 116/65 96 07/21/24 00:00 97.7 F 101 H 18 143/101 99 Intake and Output 07/20/24 07/21/24 07/21/24 22:59 06:59 14:59 Other: Weight 83.915 kg -GENERAL: The patient is alert and oriented x3, not in any acute distress. Well developed, well nourished. Patient is sleepy HEENT: Pupils are round and equally reacting to light. EOMI. No scleral icterus. No conjunctival pallor. Normocephalic, atraumatic. No pharyngeal erythema. No thyromegaly. CARDIOVASCULAR: S1 and S2 present. No murmurs, rubs, or gallops. PULMONARY: Chest is clear to auscultation, no wheezing , no crackles. ABDOMEN: Soft, nontender, nondistended, normoactive bowel sounds. No palpable organomegaly. MUSCULOSKELETAL: No joint swelling or deformity. EXTREMITIES: No cyanosis, clubbing, or pedal edema. NEUROLOGICAL: Gross neurological examination did not reveal any focal deficits. SKIN: No rashes. no petechiae. Results CBC & Chem 7: 07/21/24 00:34 07/21/24 00:34 Labs: Abnormal Lab Results - Last 24 Hours (Table) 07/21/24 07/21/24 Range/Units 00:34 00:34 MCV 101.6 H (80.0-100.0) fL MCH 35.1 H (25.0-35.0) pg Chloride 110 H (98-107) mmol/L Creatinine 0.59 L (0.66-1.25) mg/dL AST 127 H (17-59) U/L ALT 92 H (4-49) U/L Lipase 369 H (23-300) U/L Serum Alcohol 428 H* mg/dL Assessment and Plan Assessment: Alcohol use disorder Severe depression with possible suicidal ideation Metabolic/toxic encephalopathy secondary to above, improving Alcoholic transaminitis Nicotine dependence Substance abuse with marijuana Plan: Continue with CIWA protocol and thiamine Monitor for signs and symptoms of alcohol withdrawal Patient was petitioned by police, CERT was placed and signed in the chart. Psych consult is requested Suicidal precaution Discussed with staff Labs and medication were reviewed.. Continue same treatment. Continue with symptomatic treatment. Monitor labs and vitals. DVT and GI prophylaxis. Further recommendations as per clinical course of the patient DVT prophylaxis: Subcutaneous heparin GI Prophylaxis: Pepcid Prognosis is guarded
[2024-07-21] MEDS: traZODone HCL 50 MG TAB PO ONE (11:27)
[2024-07-21] MEDS: PANTOPRAZOLE 40 MG/10 ML VIAL IV SCH (11:28)
[2024-07-21] MEDS: chlordiazePOXIDE 25 MG CAP PO PRN (11:35)
--- NOTE | 2024-07-21 15:34 | P.CN ---
Psychiatric Consult - . Consult date: 07/21/24 Consult:: 07/21/24 14:40 when the patient was admitted the evaluation was: This is a pleasant 39 years old male with past medical history of alcohol Use disorder and intoxication. Presents because he was petitioned by police. Patient could not remember what happened as his alcohol level was elevated 428 on admission. As per staff patient was making suicidal comments in the streets when the police found him and that is why he was petitioned. Patient currently is awake alert, comes, looks withdrawn in his room, with mild tremor from alcohol withdrawal, he looks home, he denies urge to hurt himself this morning. No other new complaint. When I talked to the patient about quitting alcohol he told me he intends to go to alcoholic rehab this coming week on . He smokes about half pack per day and he was counseled to quit and he agrees to the nicotine patch. He uses marijuana but denies other illicit drugs. The patient was seen chart reviewed and case discussed with nursing staff. History of present illness: When the patient was an abbreviated he made comments about suicidality. However at this point he denies and ongoing suicidal issue does not feel so suicidal at this time does not remember being suicidal. Acknowledges that he has some real stresses in life he is currently homeless. His plan is to go to a homeless long term which she has heard about and then get into a program where he can stay for a while he has skills were his worked in the past he was almost going to start her job but he didn't go to the physical exam he thinks he can get that job. And then slowly solve his problem. He denies a history of having taken antidepressants in the past does not want to take them at this time. He denies any psychotic symptoms urging him to do things he denies any pattern of a bipolar mood swings.he admits to alcohol problem but denies other problems. Objective patient is somewhat tired eye contact down in response times slightly slow. He says "I'm on my game". Is oriented to person place time and circum stance he knows who the president is he could name to the [facility] could subtract 7 from 93 but could not spell world backward he said, " I have trouble spelling things backwards." He did start with D and then got lost. when he was asked how cats and snakes were alikehe said that they have teeth and noses and there are animals. He understands that he is going to have to step alcohol if he is about put his life together. He is not acutely suicidal he does have some problems with alcohol and a plan to work on them know voices telling him to do things nothing that would take away his free well and not even that badly depressed now that his withdrawal is starting to clear. Assessment once he is finished with alcohol withdrawal and is safe from that he could be discharged to the [facility] and begin to work his program. Do not believe he needs medications at this time other than withdrawal medicine. 07/21/24 15:28 07/21/24 15:34
[2024-07-21 16:49] LABS: Appearance,Urine Clear (Clear); Bilirubin,Urine Negative (Negative); Blood,Urine Negative (Negative); Color,Urine Yellow; Glucose,Urine (UA) Negative (Negative); Ketones,Urine Negative (Negative); Leukocyte Esterase,Urine Negative (Negative); Nitrite,Urine Negative (Negative); PH, Urine 6.5 (5.0-8.0); Protein,Urine Negative (Negative); Specific Gravity,Urine 1.019 (1.001-1.035); Urobilinogen,Urine <2.0 mg/dL (<2.0)
[2024-07-21 17:09] LABS: Amphetamine Screen,Urine Not Detected (NotDetected); Barbiturate Screen,Urine Not Detected (NotDetected); Benzodiazepines Screen,Urine Detected (NotDetected); Cocaine Screen,Urine Not Detected (NotDetected); Methadone Screen, Urine Not Detected (NotDetected); Opiate Screen,Urine Not Detected (NotDetected); Oxycodone Screen, Urine Not Detected (NotDetected); Phencyclidine Screen,Urine Not Detected (NotDetected); Tricyclic Antidepressant,Urine Not Detected (NotDetected); Urn Cannabinoid Scrn Not Detected (NotDetected)
[2024-07-22] MEDS: chlordiazePOXIDE 25 MG CAP PO PRN ×3 (01:40→10:26)
[2024-07-22 08:36] LABS: Basophils # (A) 0.01 X 10*3/uL (0.00-0.10); Basophils % (A) 0.2 %; Eosinophils # (A) 0.25 X 10*3/uL (0.04-0.35); Eosinophils % (A) 4.4 %; HCT 39.5 % (39.6-50.0); HGB 13.7 g/dL (13.0-17.0); Lymphocytes # (A) 1.49 X 10*3/uL (0.90-5.00); Lymphocytes % (A) 26.5 %; MCH 35.8 pg (27.0-32.0); MCHC 34.7 g/dL (32.0-37.0); MCV 103.1 FL (80.0-97.0); Mean Platelet Volume 9.7 FL (9.5-12.2); Monocytes # (A) 0.62 X 10*3/uL (0.20-1.00); NRBC Per 100 WBC 0 X 10*3/uL (0.00-0.01); Neutrophils # (A) 3.24 X 10*3/uL (1.80-7.70); Neutrophils % (A) 57.5 %; Platelet Count 192 X 10*3/uL (140-440); RBC 3.83 X 10*6/uL (4.40-5.60); RDW 12.1 % (11.5-14.5); WBC 5.63 X 10*3/uL (4.50-10.00)
[2024-07-22 08:45] LABS: BUN/Creat Ratio 8.89 Ratio (12.00-20.00); Carbon Dioxide 25.1 mmol/L (21.6-31.8); Chloride 107 mmol/L (96-109); Glucose 102 mg/dL (70-110); Magnesium 1.5 mg/dL (1.5-2.4); Phosphorus 3.4 mg/dL (2.4-5.1); Potassium 3.5 mmol/L (3.5-5.5); Sodium 141 mmol/L (135-145)
[2024-07-22 08:46] LABS: ALT 68 U/L (10-49); AST 61 U/L (14-35); Albumin 3.3 g/dL (3.8-4.9); Alkaline Phosphatase 50 U/L (41-126); Calcium 7.7 mg/dL (8.7-10.3); Globulin 1.5 g/dL (1.6-3.3); Total Bilirubin 0.7 mg/dL (0.3-1.2); Total Protein 4.8 g/dL (6.2-8.2)
--- NOTE | 2024-07-22 09:22 | P.PN ---
Subjective This is a pleasant 39 years old male with past medical history of alcohol Use disorder and intoxication. Presents because he was petitioned by police. Patient could not remember what happened as his alcohol level was elevated 428 on admission. As per staff patient was making suicidal comments in the streets when the police found him and that is why he was petitioned. Patient currently is awake alert, comes, looks withdrawn in his room, with mild tremor from alcohol withdrawal, he looks home, he denies urge to hurt himself this morning. No other new complaint. When I talked to the patient about quitting alcohol he told me he intends to go to alcoholic rehab this coming week on . He smokes about half pack per day and he was counseled to quit and he agrees to the nicotine patch. He uses marijuana but denies other illicit drugs Patient is hemodynamically stable Labs reviewed showing unremarkable CBC, BMP Liver enzymes mildly elevated Serum alcohol level was 428 No images or EKG done or seen in the chart Patient currently was placed on CIWA thiamine 07/22 Patient since yesterday was denying suicidal ideation or comments and he was showing motivation to go to rehab and move on with his life. He was evaluated by psychiatrist yesterday, he cleared him from his perspective. Psych service also discontinued the bedside sitter This morning patient is awake alert but complaining from significant tremor and withdrawal symptoms, I talked to the patient and he agrees to stay and get treated for alcohol withdrawal, because yesterday he was thinking of leaving today but now he agrees to stay. He denies respiratory symptoms, abdomen is soft. Discussed with the staff we will going to add Librium and continue close monitoring Check labs in the morning Review of systems CONSTITUTIONAL: No fever, no malaise, no fatigue. HEENT: No recent visual problems or hearing problems. Denied any sore throat. CARDIOVASCULAR: No orthopnea, PND, no palpitations, no syncope. PULMONARY: No shortness of breath, no cough, no hemoptysis. GASTROINTESTINAL: No diarrhea, no nausea, no vomiting, no abdominal pain. Normoactive bowel sounds. NEUROLOGICAL: No headaches, no weakness, no numbness. HEMATOLOGICAL: Denies any bleeding or petechiae. GENITOURINARY: Denies any burning micturition, frequency, or urgency. MUSCULOSKELETAL/RHEUMATOLOGICAL: Denies any joint pain, swelling, or any muscle pain. ENDOCRINE: Denies any polyuria or polydipsia. Active Medications Generic Name Dose Route Start Last Admin Trade Name Freq PRN Reason Stop Dose Admin Chlordiazepoxide HCl 75 mg 07/21/24 02:50 Chlordiazepoxide 25 Mg Cap PO Q4HR PRN Ciwa 8 To 9 Chlordiazepoxide HCl 50 mg 07/21/24 02:50 Chlordiazepoxide 25 Mg Cap PO Q4HR PRN Ciwa 6 To 7 Chlordiazepoxide HCl 25 mg 07/21/24 02:50 07/21/24 16:30 Chlordiazepoxide 25 Mg Cap PO 25 mg Q4HR PRN Administration Ciwa 4 To 5 Chlordiazepoxide HCl 100 mg 07/21/24 02:50 07/22/24 01:46 Chlordiazepoxide 25 Mg Cap PO 100 mg Q4HR PRN Administration Ciwa 10 or greater Sodium Chloride 1,000 mls @ 130 mls/hr 07/21/24 03:00 07/22/24 05:15 Saline 0.9% IV 130 mls/hr .[id number] ADOLFO Administration Lorazepam 2 mg 07/21/24 02:50 Lorazepam 1 Mg Tab PO Q3HR PRN Ciwa 8 To 9 Lorazepam 2 mg 07/21/24 02:50 Lorazepam 1 Mg Tab PO Q2HR PRN Ciwa 10 or greater Lorazepam 1 mg 07/21/24 02:50 Lorazepam 1 Mg Tab PO Q4HR PRN Ciwa 6 To 7 Lorazepam 0.5 mg 07/21/24 02:50 Lorazepam 0.5 Mg Tab PO Q4HR PRN Ciwa 4 To 5 Lorazepam 2 mg 07/21/24 02:50 Lorazepam 2 Mg/Ml Inj IV 07/23/24 02:51 Q10M PRN CIWA 16 or higher Lorazepam 1 mg 07/21/24 02:50 Lorazepam 2 Mg/Ml Inj IV Q2HR PRN CIWA 8 or 9 Lorazepam 1 mg 07/21/24 02:50 Lorazepam 2 Mg/Ml Inj IV Q1HR PRN CIWA 10 to 15 Naloxone HCl 0.2 mg 07/21/24 02:50 Naloxone 0.4 Mg/Ml 1 Ml Vial IV Q2M PRN Opioid Reversal Ondansetron HCl 4 mg 07/21/24 02:50 Ondansetron 4 Mg/2 Ml Vial IVP Q8HR PRN Nausea And Vomiting Pantoprazole Sodium 40 mg 07/21/24 09:00 07/22/24 09:14 Pantoprazole 40 Mg/10 Ml Vial IV Not Given DAILY ADOLFO Objective - Vital Signs Vital signs: Vital Signs Temp 98.9 F 07/22/24 08:00 Pulse 55 L 07/22/24 08:00 Resp 16 07/22/24 08:00 BP 145/91 07/22/24 08:00 Pulse Ox 97 07/22/24 08:00 FiO2 Intake & Output 07/21/24 07/22/24 07/22/24 18:59 06:59 18:59 Output Total 350 750 Balance -350 -750 Weight 83.915 kg Output: Urine 350 750 - Exam -GENERAL: The patient is alert and oriented x3, not in any acute distress. Well developed, well nourished. Tremor HEENT: Pupils are round and equally reacting to light. EOMI. No scleral icterus. No conjunctival pallor. Normocephalic, atraumatic. No pharyngeal erythema. No thyromegaly. CARDIOVASCULAR: S1 and S2 present. No murmurs, rubs, or gallops. PULMONARY: Chest is clear to auscultation, no wheezing , no crackles. ABDOMEN: Soft, nontender, nondistended, normoactive bowel sounds. No palpable organomegaly. MUSCULOSKELETAL: No joint swelling or deformity. EXTREMITIES: No cyanosis, clubbing, or pedal edema. NEUROLOGICAL: Gross neurological examination did not reveal any focal deficits. SKIN: No rashes. no petechiae. - Labs CBC & Chem 7: 07/22/24 02:39 07/22/24 02:39 Labs: Abnormal Lab Results - Last 24 Hours (Table) 07/21/24 07/22/24 07/22/24 Range/Units 00:07 02:39 02:39 RBC 3.83 L (4.40-5.60) X 10*6/uL Hct 39.5 L (39.6-50.0) % MCV 103.1 H (80.0-97.0) FL MCH 35.8 H (27.0-32.0) pg BUN 8.0 L (9.0-27.0) mg/dL BUN/Creatinine Ratio 8.89 L (12.00-20.00) Ratio Calcium 7.7 L (8.7-10.3) mg/dL AST 61 H (14-35) U/L ALT 68 H (10-49) U/L Total Protein 4.8 L (6.2-8.2) g/dL Albumin 3.3 L (3.8-4.9) g/dL Globulin 1.5 L (1.6-3.3) g/dL U Benzodiazepines Scrn Detected H (NotDetected) Assessment and Plan Assessment: Alcohol use disorder depression with possible suicidal ideation, most likely related to substance abuse. This was cleared by psychiatrist Metabolic/toxic encephalopathy secondary to above, improving. Back to normal Alcoholic transaminitis Nicotine dependence Substance abuse with marijuana Plan: Continue with CIWA protocol and thiamine And Librium Patient does not meet criteria for inpatient psych admission, bedside sitter was discontinued by psychiatrist. Monitor for signs and symptoms of alcohol withdrawal Patient was petitioned by police, CERT was placed and signed in the chart. Psych consult is requested Suicidal precaution Discussed with staff Labs and medication were reviewed.. Continue same treatment. Continue with symptomatic treatment. Monitor labs and vitals. DVT and GI prophylaxis. Further recommendations as per clinical course of the patient DVT prophylaxis: Subcutaneous heparin GI Prophylaxis: Pepcid Prognosis is guarded
[2024-07-22] MEDS: LORazepam 2 MG/ML INJ IV PRN (12:38)
[2024-07-22] MEDS: traZODone HCL 100 MG TAB PO PRN (21:02)
[2024-07-22] MEDS ORDERED: traZODone HCL 50 MG TAB PO PRN (22:24)
[2024-07-23 04:30] VITALS: RESP 17
[2024-07-23 07:34] VITALS: BP 130/93; PULSE 62; TEMP 97.6
[2024-07-23 09:24] LABS: Albumin 3.5 g/dL (3.8-4.9); Albumin/Globulin Ratio 2.19 Ratio (1.60-3.17); Bilirubin, Conjugated 0.26 mg/dL (0.20-0.40); Bilirubin,Unconjugated 0.44 mg/dL (0.20-1.00); Globulin 1.6 g/dL (1.6-3.3); Magnesium 1.7 mg/dL (1.5-2.4); Potassium 3.6 mmol/L (3.5-5.5); Total Bilirubin 0.7 mg/dL (0.3-1.2); Total Protein 5.1 g/dL (6.2-8.2)
--- NOTE | 2024-07-23 20:32 | P.DS ---
Providers Date of admission: 07/21/24 02:50 Attending physician: Angelina Dotson Consults: 07/21/24 06:42 Consult Physician Urgent Consulting Provider: Kristie Cortez Consult Reason/Comments: depression , alcoholic , petetioned Do you want consulting provider notified?: Yes Primary care physician: Stated None Hospital Course: Diagnoses: Alcohol use disorder depression with possible suicidal ideation, most likely related to substance abuse. This was cleared by psychiatrist, patient is not suicidal upon discharge Metabolic/toxic encephalopathy secondary to above, improving. Back to normal Alcoholic transaminitis, improving with abstinence from alcohol Nicotine dependence Substance abuse with marijuana Hospital course: This is a pleasant 39 years old male with past medical history of alcohol Use disorder and intoxication. Presents because he was petitioned by police. Patient could not remember what happened as his alcohol level was elevated 428 on admission. As per staff patient was making suicidal comments in the streets when the police found him and that is why he was petitioned. Patient mentation improved and he woke up next day, as his mentation improved patient denies any suicidal or homicidal ideation, no overt signs symptoms of depression. Also patient evaluated by psychiatrist who found him does not meet criteria for inpatient psych admission. And he did him for discharge and follow-up outpatient Patient was treated for alcohol withdrawal for 2 days with WA protocol and Librium, patient showed interval improvement and today his withdrawal symptoms significantly improved, it was minimal, mentation back to normal, tolerates diet well, denies chest pain dyspnea, no abdominal pain. No other GI or symptoms. 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 Problems and management plan were discussed with the patient and he verbalized understanding and acceptance Patient was found stable and can be discharged home in guarded prognosis however he needs follow-up as an outpatient. Patient was instructed to follow up with PCP within one week and patient agrees Physical exam Gen: patient is a AAOx3, no distress CVS: S1-S2, RRR, no murmur Lungs: B/L CTA, no wheezing Abdomen: soft, no distention, no tenderness, positive bowel sounds Extremity: no leg edema or induration Time spent more than 35 minutes Patient Condition at Discharge: Fair Plan - Discharge Summary New Discharge Prescriptions: New Omeprazole [PriLOSEC] 20 mg PO AC-BRKFST #30 cap Discharge Medication List Omeprazole [PriLOSEC] 20 mg PO AC-BRKFST #30 cap 07/23/24 [Rx] Follow up Appointment(s)/Referral(s): None,Stated [Primary Care Provider] - 1-2 days Activity/Diet/Wound Care/Special Instructions: Heart healthy diet Activity is restricted till you see your doctor We recommend you call your health insurance provider to find a nearby PCP, please call to make an appointment in 1 week with your primary care doctor/PCP Discharge Disposition: HOME SELF-CARE
== END 2024-07-23 13:24 | disposition home or self-care (01) | DRG 775 ==
LOC: EC 23:56 → 4SSUR 07-21 02:50 → OBSVTOIN 07-21 02:50 → 4SSUR 07-21 04:09
PROVIDERS: ADMIT Hospitalist; ATTEND Hospitalist
DX: F10.129 Alcohol abuse with intoxication, unspecified (principal); F10.139 Alcohol abuse with withdrawal, unspecified; F17.210 Nicotine dependence, cigarettes, uncomplicated; F12.10 Cannabis abuse, uncomplicated; F32.A Depression, unspecified; F41.9 Anxiety disorder, unspecified; R74.01 Elevation of levels of liver transaminase levels; F90.9 Attention-deficit hyperactivity disorder, unspecified type; G92.8 Other toxic encephalopathy; R45.851 Suicidal ideations; Y90.8 Blood alcohol level of 240 mg/100 ml or more; Z59.01 Sheltered homelessness; Z71.6 Tobacco abuse counseling
CPT/HCPCS: 36415; 80053; 80076; 80306; 80320; 81003; 82075; 83690; 83735; 84100; 84132; 85025; 96361; 96374; 99285

== ENCOUNTER 2024-09-05 16:21 | Emergency (ER) | payer OTHER ==
[2024-09-05 16:39] VITALS: RESP 16; TEMP 97.4
--- NOTE | 2024-09-05 16:42 | ED ---
Alcohol HPI - General Chief Complaint: Alcohol Stated Complaint: ETOH-Fall Time Seen by Provider: 09/05/24 16:24 Source: patient, EMS, RN notes reviewed, old records reviewed Mode of arrival: EMS Limitations: no limitations - History of Present Illness Initial Comments: This is a 39 male who is presenting test for evaluation of pelvic intoxication found sleeping on a park bench, passerby's called for a well check and EMS brings patient to the ER, patient here in the ER states that he feels fine states he spent all night in the hospital yesterday and does not want to stay all day in the hospital again today, patient has no complaints of homicidal or suicidal thoughts. 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 ROS Other: All systems not noted in ROS Statement are negative. Past Medical History Past Medical History: No Reported History Additional Past Medical History / Comment(s): ETOH History of Any Multi-Drug Resistant Organisms: None Reported Additional Past Surgical History / Comment(s): plastic surgery on left lip Past Psychological History: ADD/ADHD Smoking Status: Current every day smoker Past Alcohol Use History: Abuse, Daily, Heavy Past Drug Use History: Marijuana General Exam General appearance: alert, in no apparent distress Head exam: Present: atraumatic, normocephalic, normal inspection Eye exam: Present: normal appearance, PERRL, EOMI. Absent: scleral icterus, conjunctival injection, periorbital swelling ENT exam: Present: normal exam, mucous membranes moist Neck exam: Present: normal inspection. Absent: tenderness, meningismus, lymphadenopathy Respiratory exam: Present: normal lung sounds bilaterally. Absent: respiratory distress, wheezes, rales, rhonchi, stridor Cardiovascular Exam: Present: regular rate, normal rhythm, normal heart sounds. Absent: systolic murmur, diastolic murmur, rubs, gallop, clicks GI/Abdominal exam: Present: soft, normal bowel sounds. Absent: distended, tenderness, guarding, rebound, rigid Extremities exam: Present: normal inspection, full ROM, normal capillary refill. Absent: tenderness, pedal edema, joint swelling, calf tenderness Back exam: Present: normal inspection Neurological exam: Present: alert, oriented X3, CN II-XII intact Psychiatric exam: Present: normal affect, normal mood Skin exam: Present: warm, dry, intact, normal color. Absent: rash Course Vital Signs 09/05/24 16:29 Temperature 97.4 F L Pulse Rate 82 Respiratory 16 Rate Blood Pressure 154/89 O2 Sat by Pulse 96 Oximetry - Reevaluation(s) Reevaluation #1: 09/05/24 16:41 Medical records reviewed Reevaluation #2: 09/05/24 16:41 Patient does not want to be in the hospital refusing hospital observation refusing lab testing or other further evaluations Reevaluation #3: 09/05/24 16:41 Patient informed of results and questions answered, he will be discharged Reevaluation #4: Was pt. sent in by a medical professional or institution (, PA, GRAPHIC PRE PRESS TRADES WORKER, urgent care, hospital, or intermediate...) When possible be specific @ -no Did you speak to anyone other than the patient for history (EMS, parent, family, police, friend...)? What history was obtained from this source @ -no Did you review nursing and triage notes (agree or disagree)? Why? @ -agree Are old charts reviewed (outside hosp., previous admission, EMS record, old EKG, old radiological studies, urgent care reports/EKG's, intermediate records)? Report findings @ -yes Differential Diagnosis (chest pain, altered mental status, abdominal pain women, abdominal pain men, vaginal bleeding, weakness, fever, dyspnea, syncope, headache, dizziness, GI bleed, back pain, seizure, CVA, palpatations, mental health, musculoskeletal)? @ -prior EKG interpreted by me (3pts min.). @ -yes X-rays interpreted by me (1pt min.). @ -yes negative for acute disease CT interpreted by me (1pt min.). @ -no U/S interpreted by me (1pt. min.). @ -no What testing was considered but not performed or refused? (CT, X-rays, U/S, labs)? Why? @ -none What meds were considered but not given or refused? Why? @ -none Did you discuss the management of the patient with other professionals (professionals i.e. , PA, GRAPHIC [employer] PRESS TRADES WORKER, lab, RT, psych nurse, long term care social worker, heat and vent aircraft mechanic, teacher, campus police officer, case worker)? Give summary @ -no Was smoking cessation discussed for >3mins.? @ -no Was critical care preformed (if so, how long)? @ -no Were there social determinants of health that impacted care today? How? (Homelessness, low income, unemployed, alcoholism, drug addiction, transportation, low edu. Level, literacy, decrease access to med. care, retirement, rehab)? @ -none Was there de-escalation of care discussed even if they declined (Discuss DNR or withdrawal of care, Hospice)? DNR status @ -no What co-morbidities impacted this encounter? (DM, HTN, Smoking, COPD, CAD, Cancer, CVA, ARF, Chemo, Hep., AIDS, mental health diagnosis, sleep apnea, morbid obesity)? @ -none Was patient admitted / discharged? Hospital course, mention meds given and route, prescriptions, significant lab abnormalities, going to OR and other pertinent info. @ - Undiagnosed new problem with uncertain prognosis? @ -no Drug Therapy requiring intensive monitoring for toxicity (Heparin, Nitro, Insulin, Cardizem)? @ -no Were any procedures done? @ -no Diagnosis/symptom? @ - Acute, or Chronic, or Acute on Chronic? @ -Acute Uncomplicated (without systemic symptoms) or Complicated (systemic symptoms)? @ -Complicated Side effects of treatment? @ -no Exacerbation, Progression, or Severe Exacerbation? @ -exacerbation Poses a threat to life or bodily function? How? (Chest pain, [place], [place], pneumonia, PE, COPD, DKA, ARF, appy, cholecystitis, CVA, Diverticulitis, Homicidal, Suicidal, threat to staff... and all critical care pts) @ -yes Medical Decision Making - Medical Decision Making 39 male brought to the ER positive intoxication, sleeping in public, patient is awake and alert here in the ER does not want hospital observation, states she does not want food or drink he just wants to be discharged, patient states he spent only in the hospital yesterday and does not want to do that again. Disposition Clinical Impression: Alcoholic intoxication Disposition: HOME SELF-CARE Condition: Fair Instructions (If sedation given, give patient instructions): Alcohol Intoxication (ED) Is patient prescribed a controlled substance at d/c from ED?: No Referrals: None,Stated [Primary Care Provider] - 1-2 days Time of Disposition: 16:45
[2024-09-05 16:59] VITALS: BP 138/95; PULSE 89
== END 2024-09-05 17:03 | disposition home or self-care (01) ==
LOC: EC 16:21
DX: F10.129 Alcohol abuse with intoxication, unspecified (principal); F17.200 Nicotine dependence, unspecified, uncomplicated
CPT/HCPCS: 99284

== ENCOUNTER 2024-09-09 20:22 | Observation (INO) | payer OTHER ==
--- NOTE | 2024-09-09 20:55 | ED ---
Alcohol HPI - General Chief Complaint: Alcohol Stated Complaint: ETOH Time Seen by Provider: 09/09/24 20:45 Source: patient, police, RN notes reviewed Mode of arrival: wheelchair Limitations: altered mental status - History of Present Illness Initial Comments: This is a 39-year-old male with a history of alcohol abuse presenting to the emergency department from police escort with concern of alcohol intoxication. Patient reports that [place] he is [place] and went up to a bystander and requested that they call 911 as he was scared to sleep outside in the cold. Patient states that he drinks at least a pint of vodka per day with his last drink shortly prior to arrival. Patient is quite tearful stating that he is attempted to get help in the past from rehab but would like further assistance at this time. He states he has gone through alcohol withdrawal in the past and DTs. Currently he is denying suicidal, homicidal fabienne ations, auditory visual hallucinations, nausea, vomiting, anxiety or tremors. - Related Data Previous Rx's Medication Instructions Recorded Omeprazole [PriLOSEC] 20 mg PO AC-BRKFST #30 cap 07/23/24 Allergies Allergy/AdvReac Type Severity Reaction Status Date / Time No Known Allergies Allergy Verified 09/09/24 20:30 Review of Systems ROS Statement: Those systems with pertinent positive or pertinent negative responses have been documented in the HPI. ROS Other: All systems not noted in ROS Statement are negative. Past Medical History Past Medical History: No Reported History Additional Past Medical History / Comment(s): ETOH History of Any Multi-Drug Resistant Organisms: None Reported Additional Past Surgical History / Comment(s): plastic surgery on left lip Past Psychological History: ADD/ADHD Smoking Status: Current every day smoker Past Alcohol Use History: Abuse, Daily, Heavy Past Drug Use History: Marijuana General Exam Limitations: altered mental status General appearance: alert, in no apparent distress, appears intoxicated Eye exam: Present: normal appearance, PERRL, EOMI. Absent: scleral icterus, conjunctival injection, periorbital swelling Neck exam: Present: normal inspection. Absent: tenderness, meningismus, lymphadenopathy Respiratory exam: Present: normal lung sounds bilaterally. Absent: respiratory distress, wheezes, rales, rhonchi, stridor Cardiovascular Exam: Present: regular rate, normal rhythm, normal heart sounds. Absent: systolic murmur, diastolic murmur, rubs, gallop, clicks GI/Abdominal exam: Present: soft, normal bowel sounds. Absent: distended, tenderness, guarding, rebound, rigid Extremities exam: Present: normal inspection, full ROM, normal capillary refill. Absent: tenderness, pedal edema, joint swelling, calf tenderness Back exam: Present: normal inspection Psychiatric exam: Present: normal mood, flat affect, suicidal ideation Course Vital Signs 09/09/24 09/09/24 20:28 23:29 Temperature 97.8 F Pulse Rate 105 H 100 Respiratory 20 18 Rate Blood Pressure 135/80 116/81 O2 Sat by Pulse 100 100 Oximetry Medical Decision Making - Medical Decision Making Was pt. sent in by a medical professional or institution (, PA, TUBING MACHINE OPERATOR, urgent care, hospital, or prison...) When possible be specific @ -No Did you speak to anyone other than the patient for history (EMS, parent, family, police, friend...)? What history was obtained from this source @ -No Did you review nursing and triage notes (agree or disagree)? Why? @ -I reviewed and agree with nursing and triage notes Were old charts reviewed (outside hosp., previous admission, EMS record, old EKG, old radiological studies, urgent care reports/EKG's, prison records)? Report findings @ -Reviewed patient's prior emergency department visit where he was offered admission however declined workup and stated that he would like to leave. Differential Diagnosis (chest pain, altered mental status, abdominal pain women, abdominal pain men, vaginal bleeding, weakness, fever, dyspnea, syncope, headache, dizziness, GI bleed, back pain, seizure, CVA, palpatations, mental health, musculoskeletal)? @ -Differential Mental Health Depression, anxiety, bipolar, psychosis, schizophrenia, borderline personality, situational depression, adjustment disorder, behavioral disorder, brain tumor, malingering, substance abuse, encephalopathy, medication reaction, dementia, hypothyroidism, degenerative neurologic disorder, lupus.... This is not meant to be all-inclusive list EKG interpreted by me (3pts min.). @ -None X-rays interpreted by me (1pt min.). @ -None done CT interpreted by me (1pt min.). @ -None done U/S interpreted by me (1pt. min.). @ -None done What testing was considered but not performed or refused? (CT, X-rays, U/S, labs)? Why? @ -None What meds were considered but not given or refused? Why? @ -None Did you discuss the management of the patient with other professionals (professionals i.e. , PA, TUBING MACHINE OPERATOR, lab, RT, psych nurse, social insurance analyst, ground transportation operator, teacher, senior commercial loan officer, corrections caseworker)? Give summary @ -Spoke with on-call physician with sound who has agreed to admission Was smoking cessation discussed for >3mins.? @ -No Was critical care preformed (if so, how long)? @ -No Were there social determinants of health that impacted care today? How? (Homelessness, low income, unemployed, alcoholism, drug addiction, transportation, low edu. Level, literacy, decrease access to med. care, prison, rehab)? @ -No Was there de-escalation of care discussed even if they declined (Discuss DNR or withdrawal of care, Hospice)? DNR status @ -No What co-morbidities impacted this encounter? (DM, HTN, Smoking, COPD, CAD, Cancer, CVA, ARF, Chemo, Hep., AIDS, mental health diagnosis, sleep apnea, morbid obesity)? @ -None Was patient admitted / discharged? Hospital course, mention meds given and route, prescriptions, significant lab abnormalities, going to OR and other pertinent info. @ -Admitted. 39-year-old male with alcohol abuse and intoxication. On discussion patient appears to be intoxicated. Patient is given liter fluid bolus pending laboratory results. patient's serum alcohol remarkable for 370 which correlates to diabetes over 15 hours later. Patient will be admitted to internal medicine with alcohol withdrawal protocol in place and consult to psychiatry in regard to suicidal ideation. Discussed with Dr. Galvez Undiagnosed new problem with uncertain prognosis? @ -No Drug Therapy requiring intensive monitoring for toxicity (Heparin, Nitro, Insulin, Cardizem)? @ -No Were any procedures done? @ -No Diagnosis/symptom? @ -alcohol abuse, impending DTs, suicidal ideation Acute, or Chronic, or Acute on Chronic? @ -acute Uncomplicated (without systemic symptoms) or Complicated (systemic symptoms)? @ -uncomplicated Side effects of treatment? @ -No Exacerbation, Progression, or Severe Exacerbation? @ -No Poses a threat to life or bodily function? How? (Chest pain, USA, DE, pneumonia, PE, COPD, DKA, ARF, appy, cholecystitis, CVA, Diverticulitis, Homicidal, Suic idal, threat to staff... and all critical care pts) @ -No - Lab Data Result diagrams: 09/09/24 21:38 09/09/24 21:38 Lab Results 09/09/24 09/09/24 Range/Units 21:38 21:38 WBC 7.1 (3.8-10.6) k/uL RBC 4.63 (4.30-5.90) m/uL Hgb 15.8 (13.0-17.5) gm/dL Hct 46.3 (39.0-53.0) % MCV 100.0 (80.0-100.0) fL MCH 34.2 (25.0-35.0) pg MCHC 34.2 (31.0-37.0) g/dL RDW 12.1 (11.5-15.5) % Plt Count 268 (150-450) k/uL MPV 7.7 Neutrophils % 60 % Lymphocytes % 32 % Monocytes % 4 % Eosinophils % 3 % Basophils % 0 % Neutrophils # 4.3 (1.3-7.7) k/uL Lymphocytes # 2.3 (1.0-4.8) k/uL Monocytes # 0.3 (0-1.0) k/uL Eosinophils # 0.2 (0-0.7) k/uL Basophils # 0.0 (0-0.2) k/uL Sodium 145 (137-145) mmol/L Potassium 4.6 (3.5-5.1) mmol/L Chloride 110 H (98-107) mmol/L Carbon Dioxide 21 L (22-30) mmol/L Anion Gap 14 mmol/L BUN 13 (9-20) mg/dL Creatinine 0.74 (0.66-1.25) mg/dL Est GFR (CKD-EPI)AfAm >90 (>60 ml/min/1.73 sqM) Est GFR (CKD-EPI)NonAf >90 (>60 ml/min/1.73 sqM) Glucose 67 L (74-99) mg/dL Calcium 9.2 (8.4-10.2) mg/dL Magnesium 1.8 (1.6-2.3) mg/dL Total Bilirubin 1.7 H (0.2-1.3) mg/dL AST 86 H (17-59) U/L ALT 46 (4-49) U/L Alkaline Phosphatase 59 (38-126) U/L Total Protein 7.6 (6.3-8.2) g/dL Albumin 4.9 (3.5-5.0) g/dL Serum Alcohol 370 H* mg/dL Disposition Clinical Impression: Alcohol intoxication, Alcohol abuse, Suicidal ideation Disposition: ADMITTED IP TO THIS [facility] Condition: Serious Decision to Admit Reason: Admit from EC Decision Date: 09/09/24 Decision Time: 23:43
[2024-09-09 21:44] LABS: Basophils % (A) 0 %; Eosinophils # (A) 0.2 k/uL (0-0.7); Eosinophils % (A) 3 %; HCT 46.3 % (39.0-53.0); HGB 15.8 gm/dL (13.0-17.5); Lymphocytes # (A) 2.3 k/uL (1.0-4.8); Lymphocytes % (A) 32 %; MCH 34.2 pg (25.0-35.0); MCHC 34.2 g/dL (31.0-37.0); Mean Platelet Volume 7.7; Monocytes # (A) 0.3 k/uL (0-1.0); Monocytes % (A) 4 %; Neutrophils # (A) 4.3 k/uL (1.3-7.7); Neutrophils % (A) 60 %; Platelet Count 268 k/uL (150-450); RBC 4.63 m/uL (4.30-5.90); RDW 12.1 % (11.5-15.5); WBC 7.1 k/uL (3.8-10.6)
[2024-09-09] MEDS: SODIUM CHLORIDE 0.9% 1,000 ML IV STA (21:45)
[2024-09-09 22:05] LABS: ALT 46 U/L (4-49); African American GFR (CKD) >90 (>60 ml/min/1.73 sqM); Anion Gap 14 mmol/L; Blood Urea Nitrogen 13 mg/dL (9-20); Calcium 9.2 mg/dL (8.4-10.2); Carbon Dioxide 21 mmol/L (22-30); Chloride 110 mmol/L (98-107); Glucose 67 mg/dL (74-99); Non-African American GFR(CKD) >90 (>60 ml/min/1.73 sqM); Sodium 145 mmol/L (137-145); Total Bilirubin 1.7 mg/dL (0.2-1.3)
[2024-09-09 22:34] LABS: AST 86 U/L (17-59); Albumin 4.9 g/dL (3.5-5.0); Alkaline Phosphatase 59 U/L (38-126); Magnesium 1.8 mg/dL (1.6-2.3); Potassium 4.6 mmol/L (3.5-5.1); Total Protein 7.6 g/dL (6.3-8.2)
[2024-09-09 22:49] LABS: Alcohol 370 mg/dL
[2024-09-09] MEDS ORDERED: NALOXONE 0.4 MG/ML 1 ML VIAL IV PRN (23:43)
[2024-09-09] MEDS ORDERED: ONDANSETRON 4 MG/2 ML VIAL IVP PRN (23:43)
[2024-09-09] MEDS ORDERED: LORazepam 1 MG TAB PO PRN (23:44)
[2024-09-09] MEDS ORDERED: LORazepam 2 MG/ML INJ IV PRN ×2 (23:44)
[2024-09-10] MEDS: SODIUM CHLORIDE 0.9% 1,000 ML IV SCH (00:35)
--- NOTE | 2024-09-10 02:38 | P.HPIM ---
History of Present Illness H&P Date: 09/10/24 Chief Complaint: Alcohol intoxication Patient is a 39-year-old male with past medical history of alcohol abuse presented to the emergency department with police escort for alcohol intoxication. Patient is homeless and was sitting [place] the river when he asked a bystander to call 911 as patient was scared to sleep outside in the cold. Patient has a history of alcohol abuse, alcohol withdrawal and delirium tremens. He drinks 1/5 of vodka per day with last drink prior to arrival. Patient denied nausea, vomiting, diarrhea, constipation, fever. Reported chills and urinary incontinence when he came in to the ED. Patient also reported loss of sensation due to the cold weather in his fingers and toes bilaterally. Patient states that he has been dealing with alcohol abuse problem for the past several years. Per ED note, patient stated that he has attempted to get help in the past from rehab but would like further assistance at this time. Patient denies any loss of muscle strength, numbness or tingling. Patient denies homicidal ideations, auditory/visual hallucinations, nausea, vomiting, anxiety. Patient reportedly expressed suicidal ideation in the ED. ED documentation reviewed. In the ED patient was treated with normal saline at 75 cc an hour. Vitals on admission temperature 97.8, heart rate 100, respiratory rate 18, blood pressure 116/81, oxygen saturation at 100% on room air Labs on admission show WBC of 7.1, hemoglobin 15.8, hematocrit 46.3, platelet 268, sodium 145, potassium 4.6, chloride 110, carbon dioxide 21, BUN 13, creatinine 0.74, glucose 67, AST 86, total bili 1.7, serum alcohol 370 Review of systems: Pertinent positives and negatives as discussed in HPI, a complete review of systems was performed and all other systems are negative. PMH: Alcohol abuse PSH: Plastic surgery on left lip FMH: Family history not obtained Allergies: No known drug allergies Social history: Tobacco: Currently every day smoker Alcohol: Heavy alcohol use on a daily basis drinks at least a fifth of vodka per day Recreational drugs: Marijuana Travel: No travel history Sick contacts: No sick contacts Physical examination: Vital signs reviewed General: nontoxic, no distress, appears at stated age, somewhat tremulous Derm: warm, dry, intact Head: atraumatic, normocephalic, symmetric Eyes: EOMI, anicteric sclera Mouth: no lip lesion, mucus membranes moist, no tongue fasciculations noted Cardiovascular: S1 S2 reg, no murmur Lungs: CTA bilateral, no rhonchi, no rales, no accessory muscle use Abdominal: soft, non-tender to palpation Extremities: No cyanosis, clubbing, or pedal edema. Neuro: Alert, Oriented, Gross neurological examination did not reveal any focal deficits. No outstretched hand tremor. Resting tremor noted in left hand. Loss of sensation in fingers and toes bilaterally. Psych: well appearing, appropriate affect Assessment/Plan: 39-year-old male with past medical history of alcohol abuse presented to the emergency department for alcohol intoxication. Active: #. Alcohol intoxication with impending withdrawal Continue IV fluids NS 75 mL/hr CIWA score of 3 at time of interview C/w CIWA with Ativan IVP prn C/w Thiamine, Folic acid, MV Cardiac monitoring Fall precautions, seizure precautions Monitor electrolytes daily Social work consult #. Abnormal LFTs, likely due to above EtOH abuse Monitor CMP for now #. Suicidal ideation Psychiatry consult F: None E: Replete as needed N: Regular diet A: Wheelchair DVT prophylaxis: Lovenox The patient is admitted with an anticipated less than 2 midnight stay for evaluation of alcohol intoxication CODE STATUS: Full code Discussed with: Dr. Gonzalez Anticipated discharge place: Home Past Medical History Past Medical History: No Reported History Additional Past Medical History / Comment(s): ETOH History of Any Multi-Drug Resistant Organisms: None Reported Additional Past Surgical History / Comment(s): plastic surgery on left lip Past Psychological History: ADD/ADHD Smoking Status: Current every day smoker Past Alcohol Use History: Abuse, Daily, Heavy Past Drug Use History: Marijuana Medications and Allergies Home Medications Medication Instructions Recorded Confirmed Type Omeprazole [PriLOSEC] 20 mg PO AC-BRKFST #30 cap 07/23/24 Rx Allergies Allergy/AdvReac Type Severity Reaction Status Date / Time No Known Allergies Allergy Verified 09/09/24 20:30 Physical Exam Vitals: Vital Signs Temp Pulse Resp BP Pulse Ox 09/09/24 23:29 97.8 F 100 18 116/81 100 09/09/24 20:28 105 H 20 135/80 100 Intake and Output 09/09/24 09/09/24 09/10/24 14:59 22:59 06:59 Other: Weight 72.575 kg Results CBC & Chem 7: 09/09/24 21:38 09/09/24 21:38 Labs: Abnormal Lab Results - Last 24 Hours (Table) 09/09/24 Range/Units 21:38 Chloride 110 H (98-107) mmol/L Carbon Dioxide 21 L (22-30) mmol/L Glucose 67 L (74-99) mg/dL Total Bilirubin 1.7 H (0.2-1.3) mg/dL AST 86 H (17-59) U/L Serum Alcohol 370 H* mg/dL
[2024-09-10] MEDS: MULTIVITAMINS, THERA 1 EACH TAB PO SCH (08:47)
[2024-09-10] MEDS: FOLIC ACID 1 MG TAB PO SCH (08:47)
[2024-09-10] MEDS: PANTOPRAZOLE 40 MG/10 ML VIAL IV SCH (08:47)
[2024-09-10] MEDS: THIAMINE 100 MG TAB PO SCH (08:47)
[2024-09-10] MEDS: ENOXAPARIN 40 MG/0.4 ML SYRINGE SQ SCH (08:47)
[2024-09-10] MEDS: LORazepam 2 MG/ML INJ IV PRN (09:01)
[2024-09-10 09:17] LABS: ALT 34 U/L (10-49); AST 47 U/L (14-35); Albumin 3.7 g/dL (3.8-4.9); Albumin/Globulin Ratio 2.31 Ratio (1.60-3.17); Alkaline Phosphatase 47 U/L (41-126); BUN/Creat Ratio 14.86 Ratio (12.00-20.00); Blood Urea Nitrogen 10.4 mg/dL (9.0-27.0); Carbon Dioxide 21.5 mmol/L (21.6-31.8); Chloride 106 mmol/L (96-109); Globulin 1.6 g/dL (1.6-3.3); Glucose 88 mg/dL (70-110); Potassium 3.4 mmol/L (3.5-5.5); Sodium 143 mmol/L (135-145); Total Protein 5.3 g/dL (6.2-8.2)
[2024-09-10] MEDS: POTASSIUM CHLORIDE ER 10 MEQ TAB.ER.PRT PO STA (09:46)
[2024-09-10 15:31] LABS: Amphetamine Screen,Urine Not Detected (NotDetected); Cocaine Screen,Urine Not Detected (NotDetected); Opiate Screen,Urine Not Detected (NotDetected); Phencyclidine Screen,Urine Not Detected (NotDetected); Urn Cannabinoid Scrn Not Detected (NotDetected)
[2024-09-10 15:32] LABS: Barbiturate Screen,Urine Not Detected (NotDetected); Benzodiazepines Screen,Urine Detected (NotDetected); Methadone Screen, Urine Not Detected (NotDetected); Oxycodone Screen, Urine Not Detected (NotDetected); Tricyclic Antidepressant,Urine Not Detected (NotDetected)
[2024-09-10] MEDS: chlordiazePOXIDE 25 MG CAP PO STA (16:01)
[2024-09-10] MEDS: traZODone HCL 50 MG TAB PO PRN (22:39)
[2024-09-11] MEDS: chlordiazePOXIDE 25 MG CAP PO SCH (00:35)
[2024-09-11 09:24] LABS: ALT 34 U/L (10-49); AST 41 U/L (14-35); Albumin 3.7 g/dL (3.8-4.9); Albumin/Globulin Ratio 2.31 Ratio (1.60-3.17); Alkaline Phosphatase 49 U/L (41-126); BUN/Creat Ratio 11.38 Ratio (12.00-20.00); Blood Urea Nitrogen 9.1 mg/dL (9.0-27.0); Calcium 8.9 mg/dL (8.7-10.3); Carbon Dioxide 22.1 mmol/L (21.6-31.8); Chloride 104 mmol/L (96-109); Globulin 1.6 g/dL (1.6-3.3); Glucose 93 mg/dL (70-110); Potassium 3.7 mmol/L (3.5-5.5); Sodium 138 mmol/L (135-145); Total Bilirubin 1.9 mg/dL (0.3-1.2); Total Protein 5.3 g/dL (6.2-8.2)
--- NOTE | 2024-09-11 09:29 | P.PN ---
Subjective Progress Note Date: 09/11/24 Patient is a 39-year-old male with past medical history of alcohol abuse presented to the emergency department with police escort for alcohol intoxication. Patient is homeless and was sitting by the river when he asked a bystander to call 911 as patient was scared to sleep outside in the cold. Patient has a history of alcohol abuse, alcohol withdrawal and delirium tremens. He drinks 1/5 of vodka per day with last drink prior to arrival. Patient denied nausea, vomiting, diarrhea, constipation, fever. Reported chills and urinary incontinence when he came in to the ED. Patient also reported loss of sensation due to the cold weather in his fingers and toes bilaterally. Patient states that he has been dealing with alcohol abuse problem for the past several years. Per ED note, patient stated that he has attempted to get help in the past from rehab but would like further assistance at this time. Patient denies any loss of muscle strength, numbness or tingling. Patient denies homicidal ideations, auditory/visual hallucinations, nausea, vomiting, anxiety. Patient reportedly expressed suicidal ideation in the ED. ED documentation reviewed. In the ED patient was treated with normal saline at 75 cc an hour. Vitals on admission temperature 97.8, heart rate 100, respiratory rate 18, blood pressure 116/81, oxygen saturation at 100% on room air Labs on admission show WBC of 7.1, hemoglobin 15.8, hematocrit 46.3, platelet 268, sodium 145, potassium 4.6, chloride 110, carbon dioxide 21, BUN 13, creatinine 0.74, glucose 67, AST 86, total bili 1.7, serum alcohol 370 09/11/2024 patient seen and examined at bedside. Patient reported still having a headache and tremors on interview. No acute events overnight. Sodium 138 potassium 3.7 bicarb 22.1 BUN 9.1 creatinine 0.8 glucose 93 calcium 8.9 total bilirubin 1.9 AST 41 ALT 34 albumin 3.7. UDS shows positive for benzodiazepines. Review of systems: Pertinent positives and negatives as discussed in HPI, a complete review of systems was performed and all other systems are negative. Pertinent imaging and labs reviewed. Physical examination: Vital signs reviewed General: non toxic, no distress Derm: no unusual rashes/lesions, warm Head: atraumatic, normocephalic, symmetric Eyes: EOMI, anicteric sclera, pupils equal round reactive to light ENT: Nose and ears atraumatic Neck: No cervical lymphadenopathy, trachea midline, supple Mouth: no lip lesion, mucus membranes moist Cardiovascular: S1S2 reg, no murmur Lungs: CTA bilateral, no rhonchi, no rales, no accessory muscle use Abdominal: soft, nontender to palpation, no guarding Ext: muscle strength 5 out of 5 in all 4 extremities grossly, no gross muscle atrophy, no contractures, positive dorsalis pedis pulse bilateral, no edema, generalized tremors Neuro: CN II-XI grossly intact, no gross focal neuro deficits Psych: Alert and oriented x3, appropriate affect and mood Assessment/Plan: 39-year-old male with past medical history of alcohol abuse presented to the emergency department for alcohol intoxication. #. Alcohol intoxication with impending withdrawal Continue IV fluids NS 75 mL/hr C/w CIWA with Ativan IVP prn C/w Thiamine, Folic acid, MV Cardiac monitoring Fall precautions, seizure precautions Monitor electrolytes daily Social work consult #. Abnormal LFTs, likely due to above EtOH abuse Monitor CMP for now #. Suicidal ideation Psychiatry consult Chronic conditions: #. Depression Resume trazodone 50 mg p.o. nightly Potassium now at 3.7#. Hypokalemia, resolved -Potassium 30 mEq p.o. given 09/10 F: 0.9% normal saline 75 cc/h E: Replete as needed N: Regular diet A: Wheelchair DVT prophylaxis: Lovenox The patient is admitted with an anticipated less than 2 midnight stay for evaluation of alcohol intoxication CODE STATUS: Full code Anticipated discharge place: Home Rachelle Mcneill MD PGY-1/[employer] Dictation was produced using [email or web address] dictation software. please excuse any grammatical, word or spelling errors. Objective - Vital Signs Vital signs: Vital Signs Temp 98.0 F 09/11/24 07:24 Pulse 62 09/11/24 07:24 Resp 16 09/11/24 07:24 BP 123/75 09/11/24 07:24 Pulse Ox 96 09/11/24 07:24 FiO2 Intake & Output 09/10/24 09/11/24 09/11/24 18:59 06:59 18:59 Intake Total 3240 Output Total 1700 Balance 1540 Intake: Oral 3240 Output: Urine 1700 Other: Voiding Method Toilet Urinal # Voids 2 - Labs CBC & Chem 7: 09/09/24 21:38 09/10/24 15:46 Labs: Abnormal Lab Results - Last 24 Hours (Table) 09/10/24 09/10/24 Range/Units 04:30 11:30 Potassium 3.4 L (3.5-5.5) mmol/L Carbon Dioxide 21.5 L (21.6-31.8) mmol/L Anion Gap 15.50 H (4.00-12.00) mmol/L Calcium 8.0 L (8.7-10.3) mg/dL AST 47 H (14-35) U/L Total Protein 5.3 L (6.2-8.2) g/dL Albumin 3.7 L (3.8-4.9) g/dL U Benzodiazepines Scrn Detected H (NotDetected)
--- NOTE | 2024-09-11 12:59 | P.CN ---
Psychiatric Consult - . Consult date: 09/11/24 Consult:: 09/11/24 12:39 IDENTIFYING DATA: This patient is a 39-year-old male, he is single, he has no kids, he is homeless and unemployed REASON FOR REFERRAL: Psychiatry was consulted for "SI" HISTORY OF PRESENT ILLNESS: The patient presented to the hospital on 09/09 late at night brought in by police escort. Apparently patient was intoxicated from alcohol blood alcohol level was 370 on admission. Patient reported in the ER that he was been drinking about a pint of vodka a day, he was endorsing depression and also a history of withdrawals and also claimed that he was suicidal. Patient was admitted medically placed on alcohol withdrawal on CIWA protocol. He is also on Librium taper. Patient was seen today laying in bed he had a sitter at his side. He was fairly concrete, poor eye contact. He states that he has been finding it difficult being homeless, claims that he has been homeless since last Monday. States that he asked someone to call to bring him to the hospital as he was not able to sleep outside. He states that he was at [facility] for 2 weeks and then got kicked out due to drinking. He states that he is having some mild depression and endorsing anxiety. Claims that his withdrawal symptoms have been improving. Claims that his sleep has been poor appetite has been fair. At this time patient denies any suicidal or homical ideations, intent or plan. Patient denies any auditory, visual hallucinations and denies any paranoia or delusions. Patients admits to using alcohol daily drinking a pint of vodka a day, denies any other recreational drug use. PAST PSYCHIATRIC HISTORY: Patient has a a history of alcohol use disorder depression and anxiety. Patient claims that he was previously on trazodone 150 mg at nighttime. Patient denies any previous psychiatric hospitalizations. Patient denies any psychiatric outpatient follow-up. Patient denies any history of suicide attempts in the past. Past Medical History: No Reported History Additional Past Medical History / Comment(s): ETOH History of Any Multi-Drug Resistant Organisms: None Reported Additional Past Surgical History / Comment(s): plastic surgery on left lip Past Psychological History: ADD/ADHD Smoking Status: Current every day smoker Past Alcohol Use History: Abuse, Daily, Heavy Past Drug Use History: Marijuana ALLERGIES: as per EMR. CHEMICAL DEPENDENCY HISTORY: as per HPI. FAMILY PSYCHIATRIC/SUBSTANCE USE HISTORY: Denies SOCIAL HISTORY: Patient was born and raised in [facility], claims that he is currently unemployed he is homeless, he is single he has no kids. He completed high school, he denies any legal history. MENTAL STATUS EXAM: General Appearance: Patient appears to have some tattoos, be stated age is alert, temps to be cooperative. Patient appears to have fair hygiene and grooming wearing hospital gown with poor eye contact. Behavior: Patient is calmly lying in bed without any agitated behavior. Speech: Patient's speech is fluent and nonpressured. soft tone Mood/Affect: Patient reports their mood is "[a bit depressed but mostly just anxious", affect is congruent Suicidality/Homicidality: Patient denies having any suicidal or homicidal ideation intent or plan. Perceptions: Patient denies any visual hallucinations and denies any auditory hallucinations Though content/process: There is no evidence of any delusional thought content and thought process is linear and goal-directed. concrete Memory and concentration: AOX3, grossly intact for the purposes of this session. Can spell "WORLD" backwards Judgment and insight: fair IMPRESSIONS: Adjustment disorder mixed depressed mood and anxiety Alcohol use disorder homelessness PLAN: -At this time patient DOES NOT meet criteria for inpatient psychiatric admission. -Would recommend the following medication changes/additions: Continuing to taper down Librium, will decrease down to 20 mg 3 times daily scheduled for alcohol withdrawal. He is not interested in anticraving medication such as ReVia. Agreeable to have his trazodone increased to 100 mg nightly for mood/insomnia. Also agreeable to try Zoloft 50 mg daily for mood/anxiety. -CIWA protocol with PRN Ativan for alcohol withdrawal. Continue to monitor vital signs. -Can discontinue 1:1 sitter at this time as patient is not currently an imminent threat to themselves -vegetable worker to provide patient with outpatient mental health/psychiatry resources for appropriate follow up upon discharge -Furnace Operator And Tender spoke with patient about substance abuse and the harmful effects on medical and mental health, patient verbally understood and agreed. -vegetable worker to provide patient substance use treatment resources including AA/NA meetings in the community. -vegetable worker to provide patient with access line number to call for inpatient substance rehab -Communicated plan to patient's nurse -Psychiatry will sign off at this time -Please contact with any questions. 09/11/24 12:54
[2024-09-11 13:50] VITALS: BP 164/96; PULSE 68; RESP 18; TEMP 97.7
[2024-09-11] MEDS: SERTRALINE 50 MG TAB PO SCH (13:52)
--- NOTE | 2024-09-11 15:39 | P.DS ---
Providers Date of admission: 09/10/24 00:08 Attending physician: Yasmine Gonzalez MD Consults: 09/09/24 23:43 Consult Physician Routine Consulting Provider: Jefferson Gonzales Consult Reason/Comments: SI Do you want consulting provider notified?: Already Contacted Primary care physician: Stated None Hospital Course: Hospital Course: Patient is a 39-year-old male with past medical history of alcohol abuse pre sented to the emergency department with police escort for alcohol intoxication. Labs on admission show WBC of 7.1, hemoglobin 15.8, hematocrit 46.3, platelet 268, sodium 145, potassium 4.6, chloride 110, carbon dioxide 21, BUN 13, creatinine 0.74, glucose 67, AST 86, total bili 1.7, serum alcohol 370 Patient was admitted for the evaluation of alcohol intoxication with impending withdrawal and suicidal ideation. Psychiatry consulted, IV fluids initiated, Ativan per CIWA protocol initiated, providing thiamine folic acid multivitamins, and placed on cardiac monitoring and seizure precautions. Patient also given Librium oral. Patient did not meet criteria for inpatient psychiatric admission and advised patient regarding resources for alcohol intake cessation. Patient symptoms improved throughout hospital stay. Transaminase levels also improved. No new complications occurred. Patient discharged today with sertraline and trazodone for mood stabilization, and advised to pursue alcohol intake cessation on outpatient basis. Final Diagnosis: #. Alcohol intoxication with impending withdrawal, resolved #. Elevated LFTs, likely due to above EtOH abuse, improved #. Adjustment disorder mixed depressed mood and anxiety with suicidal ideation, stable #. Alcohol use disorder Physical examination: Vital signs reviewed General: non toxic, no distress Derm: no unusual rashes/lesions, warm Head: atraumatic, normocephalic, symmetric Eyes: EOMI, anicteric sclera, pupils equal round reactive to light ENT: Nose and ears atraumatic Neck: No cervical lymphadenopathy, trachea midline, supple Mouth: no lip lesion, mucus membranes moist Cardiovascular: S1S2 reg, no murmur Lungs: CTA bilateral, no rhonchi, no rales, no accessory muscle use Abdominal: soft, nondistended, nontender to palpation, no guarding Ext: muscle strength 5 out of 5 in all 4 extremities grossly, no gross muscle atrophy, no contractures, positive dorsalis pedis pulse bilateral, no edema Neuro: CN II-XI grossly intact, no gross focal neuro deficits Psych: Alert, oriented, appropriate affect and mood I saw and evaluated the patient during the dailey and critical portions of this encounter, and discussed the case in detail with the resident author of this note, I agree with the Assessment and Plan, and my changes, if any, are noted below. Psyc cleared for discharge. Hemodynamically stable. Prescribed Sertraline and Trazadone x 10 days on discharged. Advised alcohol cessation. Follow up with PCP within 1-2 days of discharge. Patient Condition at Discharge: Stable Plan - Discharge Summary Discharge Rx Participant: No New Discharge Prescriptions: New traZODone HCL [Desyrel] 100 mg PO HS #10 tab Sertraline [Zoloft] 50 mg PO DAILY #10 tab Continue Omeprazole [PriLOSEC] 20 mg PO AC-BRKFST #30 cap Discontinued traZODone HCL [Desyrel] 50 mg PO HS PRN PRN Reason: Insomnia Discharge Medication List Omeprazole [PriLOSEC] 20 mg PO AC-BRKFST #30 cap 07/23/24 [Rx] Sertraline [Zoloft] 50 mg PO DAILY #10 tab 09/11/24 [Rx] traZODone HCL [Desyrel] 100 mg PO HS #10 tab 09/11/24 [Rx] Follow up Appointment(s)/Referral(s): None,Stated [Primary Care Provider] - 1-2 days Discharge/Stand Alone Forms: AA Meetings [place], [facility] Shelters, Who Do I Call?, Community Resources, Outpatient Counseling Discharge Disposition: HOME SELF-CARE
[2024-09-11] MEDS ORDERED: traZODone HCL 100 MG TAB PO SCH (21:00)
[2024-09-12] MEDS ORDERED: PANTOPRAZOLE 40 MG TABLET PO SCH (07:30)
== END 2024-09-11 14:51 | disposition home or self-care (01) ==
LOC: EC 20:22 → 5NMEDONC 09-10 00:08
PROVIDERS: ADMIT Internal Medicine; ATTEND Internal Medicine
DX: F10.129 Alcohol abuse with intoxication, unspecified (principal); R79.89 Other specified abnormal findings of blood chemistry; R45.851 Suicidal ideations; F43.23 Adjustment disorder with mixed anxiety and depressed mood; E87.6 Hypokalemia; F17.200 Nicotine dependence, unspecified, uncomplicated; Y90.8 Blood alcohol level of 240 mg/100 ml or more; Z56.0 Unemployment, unspecified; Z59.00 Homelessness unspecified; Z79.899 Other long term (current) drug therapy
CPT/HCPCS: 96372; 96374; 96375; 99285; 36415; 80053 ×3; 83735; 84132; 85025; 80306; G0378 ×2; G0480; J2060; J1650; J2470; 80320

== ENCOUNTER 2024-09-12 03:50 | Observation (INO) | payer OTHER ==
[2024-09-12] MEDS ORDERED: ONDANSETRON 4 MG/2 ML VIAL IVP PRN ×2 (04:09→05:09)
[2024-09-12] MEDS: SODIUM CHLORIDE 0.9% 1,000 ML IV STA (04:22)
[2024-09-12 04:27] LABS: Basophils % (A) 0 %; Eosinophils # (A) 0.3 k/uL (0-0.7); Eosinophils % (A) 3 %; HCT 42.7 % (39.0-53.0); HGB 14.7 gm/dL (13.0-17.5); Lymphocytes # (A) 1.7 k/uL (1.0-4.8); Lymphocytes % (A) 20 %; MCH 33.5 pg (25.0-35.0); MCHC 34.3 g/dL (31.0-37.0); MCV 97.5 fL (80.0-100.0); Mean Platelet Volume 7.5; Monocytes # (A) 0.3 k/uL (0-1.0); Monocytes % (A) 4 %; Neutrophils # (A) 6.2 k/uL (1.3-7.7); Neutrophils % (A) 72 %; Platelet Count 303 k/uL (150-450); RBC 4.38 m/uL (4.30-5.90); RDW 12.1 % (11.5-15.5); WBC 8.7 k/uL (3.8-10.6)
[2024-09-12 04:43] LABS: ALT 62 U/L (4-49); AST 86 U/L (17-59); African American GFR (CKD) >90 (>60 ml/min/1.73 sqM); Albumin 4.5 g/dL (3.5-5.0); Alkaline Phosphatase 57 U/L (38-126); Anion Gap 8 mmol/L; Blood Urea Nitrogen 6 mg/dL (9-20); Calcium 9.1 mg/dL (8.4-10.2); Carbon Dioxide 23 mmol/L (22-30); Chloride 111 mmol/L (98-107); Glucose 90 mg/dL (74-99); Lipase 154 U/L (23-300); Magnesium 1.8 mg/dL (1.6-2.3); Non-African American GFR(CKD) >90 (>60 ml/min/1.73 sqM); Potassium 3.9 mmol/L (3.5-5.1); Sodium 142 mmol/L (137-145); Total Bilirubin 0.8 mg/dL (0.2-1.3); Total Protein 6.8 g/dL (6.3-8.2)
[2024-09-12 04:54] LABS: Alcohol 329 mg/dL
[2024-09-12] MEDS ORDERED: NALOXONE 0.4 MG/ML 1 ML VIAL IV PRN (05:09)
--- NOTE | 2024-09-12 05:09 | ED ---
Alcohol HPI - General Chief Complaint: Alcohol Stated Complaint: ETOH Time Seen by Provider: 09/12/24 04:00 Source: EMS Mode of arrival: EMS - History of Present Illness Initial Comments: 39-year-old male presents emergency department for alcohol intoxication. Patient was found [facility] minimally responsive. He did admit to drinking. Patient was just discharged from the hospital. He denies any injuries while intoxicated. Denies any suicidal or homicidal ideations. States that he is homeless. Denies any other drug use. No other alleviating, precipitating or modifying factors - Related Data Previous Rx's Medication Instructions Recorded Omeprazole [PriLOSEC] 20 mg PO AC-BRKFST #30 cap 07/23/24 Sertraline [Zoloft] 50 mg PO DAILY #10 tab 09/11/24 traZODone HCL [Desyrel] 100 mg PO HS #10 tab 09/11/24 Allergies Allergy/AdvReac Type Severity Reaction Status Date / Time No Known Allergies Allergy Verified 09/12/24 06:18 Review of Systems ROS Statement: Those systems with pertinent positive or pertinent negative responses have been documented in the HPI. ROS Other: All systems not noted in ROS Statement are negative. Past Medical History Past Medical History: No Reported History Additional Past Medical History / Comment(s): ETOH History of Any Multi-Drug Resistant Organisms: None Reported Additional Past Surgical History / Comment(s): plastic surgery on left lip Past Psychological History: ADD/ADHD Smoking Status: Current every day smoker Past Alcohol Use History: Abuse, Daily, Heavy Past Drug Use History: Marijuana General Exam General appearance: alert, appears intoxicated Head exam: Present: atraumatic, normocephalic, normal inspection Eye exam: Present: normal appearance, PERRL, EOMI. Absent: scleral icterus, conjunctival injection, periorbital swelling ENT exam: Present: normal exam, mucous membranes moist Neck exam: Present: normal inspection. Absent: tenderness, meningismus, lymphadenopathy Respiratory exam: Present: normal lung sounds bilaterally. Absent: respiratory distress, wheezes, rales, rhonchi, stridor Cardiovascular Exam: Present: regular rate, normal rhythm, normal heart sounds. Absent: systolic murmur, diastolic murmur, rubs, gallop, clicks GI/Abdominal exam: Present: soft, normal bowel sounds. Absent: distended, tenderness, guarding, rebound, rigid Extremities exam: Present: normal inspection, full ROM, normal capillary refill. Absent: tenderness, pedal edema, joint swelling, calf tenderness Back exam: Present: normal inspection Neurological exam: Present: alert, altered, CN II-XII intact Psychiatric exam: Present: normal affect, normal mood Skin exam: Present: warm, dry, intact, normal color. Absent: rash Course Vital Signs 09/12/24 09/12/24 03:54 06:04 Temperature 97.8 F Pulse Rate 90 69 Respiratory 18 18 Rate Blood Pressure 122/97 105/81 O2 Sat by Pulse 98 94 L Oximetry Medical Decision Making - Medical Decision Making Was pt. sent in by a medical professional or institution (, PA, FUNDING COORDINATOR, urgent care, hospital, or prison...) When possible be specific @ -No Did you speak to anyone other than the patient for history (EMS, parent, family, police, friend...)? What history was obtained from this source @ -Spoke with EMS for history Did you review nursing and triage notes (agree or disagree)? Why? @ -I reviewed and agree with nursing and triage notes Were old charts reviewed (outside hosp., previous admission, EMS record, old EKG, old radiological studies, urgent care reports/EKG's, prison records)? Report findings @ -I reviewed the discharge summary from yesterday Differential Diagnosis (chest pain, altered mental status, abdominal pain women, abdominal pain men, vaginal bleeding, weakness, fever, dyspnea, syncope, headache, dizziness, GI bleed, back pain, seizure, CVA, palpatations, mental health, musculoskeletal)? @ -Alcohol intoxication, polysubstance abuse, head injury EKG interpreted by me (3pts min.). @ -Not done X-rays interpreted by me (1pt min.). @ -None done CT interpreted by me (1pt min.). @ -None done U/S interpreted by me (1pt. min.). @ -None done What testing was considered but not performed or refused? (CT, X-rays, U/S, labs)? Why? @ -None What meds were considered but not given or refused? Why? @ -None Did you discuss the management of the patient with other professionals (professionals i.e. , ZOLTAN, FUNDING COORDINATOR, lab, RT, psych nurse, social security benefits interviewer, skiagrapher, teacher, credit or loans officer, sample case porter)? Give summary @ -Spoke with Dr. Gonzalez for admission Was smoking cessation discussed for >3mins.? @ -No Was critical care preformed (if so, how long)? @ -No Were there social determinants of health that impacted care today? How? (Homelessness, low income, unemployed, alcoholism, drug addiction, transportation, low edu. Level, literacy, decrease access to med. care, senior care, rehab)? @ -Patient is homeless Was there de-escalation of care discussed even if they declined (Discuss DNR or withdrawal of care, Hospice)? DNR status @ -No What co-morbidities impacted this encounter? (DM, HTN, Smoking, COPD, CAD, Cancer, CVA, ARF, Chemo, Hep., AIDS, mental health diagnosis, sleep apnea, morbid obesity)? @ -Alcohol abuse Was patient admitted / discharged? Hospital course, mention meds given and route, prescriptions, significant lab abnormalities, going to OR and other pertinent info. @ -Upon arrival patient seen and evaluated in room 3. Thorough history and physical exam was performed. Patient significantly intoxicated. IV is established and he is given intravenous fluids. Alcohol level and basic labs are performed. Patient significantly intoxicated and will be admitted for alcohol detoxification Undiagnosed new problem with uncertain prognosis? @ -No Drug Therapy requiring intensive monitoring for toxicity (Heparin, Nitro, Insulin, Cardizem)? @ -No Were any procedures done? @ -No Diagnosis/symptom? @ -Acute toxic encephalopathy, acute alcohol intoxication Acute, or Chronic, or Acute on Chronic? @ -Acute on chronic Uncomplicated (without systemic symptoms) or Complicated (systemic symptoms)? @ -Complicated Side effects of treatment? @ -No Exacerbation, Progression, or Severe Exacerbation? @ -No Poses a threat to life or bodily function? How? (Chest pain, USA, HI, pneumonia, PE, COPD, DKA, ARF, appy, cholecystitis, CVA, Diverticulitis, Homicidal, Suicidal, threat to staff... and all critical care pts) @ -No - Lab Data Result diagrams: 09/13/24 05:12 09/13/24 05:12 Lab Results 09/12/24 09/12/24 Range/Units 04:20 04:20 WBC 8.7 (3.8-10.6) k/uL RBC 4.38 (4.30-5.90) m/uL Hgb 14.7 (13.0-17.5) gm/dL Hct 42.7 (39.0-53.0) % MCV 97.5 (80.0-100.0) fL MCH 33.5 (25.0-35.0) pg MCHC 34.3 (31.0-37.0) g/dL RDW 12.1 (11.5-15.5) % Plt Count 303 (150-450) k/uL MPV 7.5 Neutrophils % 72 % Lymphocytes % 20 % Monocytes % 4 % Eosinophils % 3 % Basophils % 0 % Neutrophils # 6.2 (1.3-7.7) k/uL Lymphocytes # 1.7 (1.0-4.8) k/uL Monocytes # 0.3 (0-1.0) k/uL Eosinophils # 0.3 (0-0.7) k/uL Basophils # 0.0 (0-0.2) k/uL Sodium 142 (137-145) mmol/L Potassium 3.9 (3.5-5.1) mmol/L Chloride 111 H (98-107) mmol/L Carbon Dioxide 23 (22-30) mmol/L Anion Gap 8 mmol/L BUN 6 L (9-20) mg/dL Creatinine 0.71 (0.66-1.25) mg/dL Est GFR (CKD-EPI)AfAm >90 (>60 ml/min/1.73 sqM) Est GFR (CKD-EPI)NonAf >90 (>60 ml/min/1.73 sqM) Glucose 90 (74-99) mg/dL Calcium 9.1 (8.4-10.2) mg/dL Magnesium 1.8 (1.6-2.3) mg/dL Total Bilirubin 0.8 (0.2-1.3) mg/dL AST 86 H (17-59) U/L ALT 62 H (4-49) U/L Alkaline Phosphatase 57 (38-126) U/L Total Protein 6.8 (6.3-8.2) g/dL Albumin 4.5 (3.5-5.0) g/dL Lipase 154 (23-300) U/L Serum Alcohol 329 H* mg/dL Disposition Clinical Impression: Alcoholic intoxication Disposition: ADMITTED IP TO THIS [facility] Condition: Stable Is patient prescribed a controlled substance at d/c from ED?: No Time of Disposition: 05:09 Decision to Admit Reason: Admit from EC Decision Date: 09/12/24 Decision Time: 05:09
[2024-09-12] MEDS ORDERED: LORazepam 2 MG/ML INJ IV PRN ×2 (05:13)
[2024-09-12] MEDS ORDERED: LORazepam 1 MG TAB PO PRN ×2 (05:13→08:25)
[2024-09-12] MEDS: SODIUM CHLORIDE 0.9% 1,000 ML IV SCH (06:10)
[2024-09-12] MEDS: LORazepam 2 MG/ML INJ IV PRN (07:02)
[2024-09-12] MEDS ORDERED: LORazepam 0.5 MG TAB PO PRN (08:25)
[2024-09-12] MEDS: PANTOPRAZOLE 40 MG TABLET PO SCH (09:28)
[2024-09-12] MEDS: FOLIC ACID 1 MG TAB PO SCH (09:28)
[2024-09-12] MEDS: SERTRALINE 50 MG TAB PO SCH (09:28)
[2024-09-12] MEDS: MULTIVITAMINS, THERA 1 EACH TAB PO SCH (09:28)
--- NOTE | 2024-09-12 14:39 | P.HPIM ---
History of Present Illness H&P Date: 09/12/24 History of Presenting Illness: Patient is a 39-year-old male with a past medical history of daily alcohol abuse. Patient was discharged from our facility on 10/01 after being admitted for alcohol intoxication and after discharge left facility continue to drink and was reportedly found at [facility] minimally responsive EMS was called for transport to the hospital. Patient reports that he is homeless and was sleeping at [facility] because it is cold outside. Patient denies having any injury or complaints at this time. He denies having any headache, lightheadedness, dizziness, chest pain, palpitations, shortness of breath, abdominal pain, nausea, vomiting, or experiencing any numbness/tingling/weakness/swelling in his extremities. Patient admits to daily alcohol use but denies any other drug use. Upon arrival to our facility, patient underwent evaluation in the emergency department. Vital signs upon arrival show blood pressure 122/97, heart rate 90, respiratory rate 18, temperature 97.8 F, and SpO2 of 98% on room air. Labs completed and reviewed. CBC unremarkable. BMP showing hyperchloremia with chloride 111 otherwise normal findings. Blood glucose was 90. Magnesium 1.8. Liver profile showing elevated AST of 86 and ALT of 62. Serum alcohol is elevated at 329. Patient admitted to observation unit under our services for EtOH intoxication pending withdrawal. Review of systems: Pertinent positives and negatives as discussed in HPI, a complete review of systems was performed and all other systems are negative. Physical exam: Vital signs reviewed and stable. General: Nontoxic, no distress and appears stated age. Derm: Skin warm and dry, normal coloration for ethnicity. Head: Atraumatic, normocephalic and symmetric. Eyes: EOM's intact, no lid lag, and anicteric sclera Mouth: no lip lesions, mucus membranes moist Cardiovascular: regular rate and rhythm with normal S1S2, no murmur, positive posterior tibial pulses bilaterally, and cap refill < 2 seconds. Lungs: Respirations even, regular, and unlabored on room air. Lungs CTA bilaterally, no rhonchi, no rales, no wheezing, and no accessory muscle usage. Abdominal: soft, nontender to palpation, no guarding, no appreciable organomegaly Ext: ROM intact. No gross muscle atrophy, no edema, no contractures Neuro: Speech clear, face symmetrical and CN II-XII grossly intact with no noted focal neuro deficits Psych: Alert and oriented to person, place, time, and situation. Appropriate and pleasant affect. Assessment and Plan of Care: Alcohol intoxication in active alcoholic Transaminitis, secondary to daily alcohol abuse -Order placed for monitoring of CIWA scores and patient to be medicated with Ativan 0.5 mg every 4 hours as needed for CIWA score of 4-5, Ativan 1 mg every 4 hours for CIWA score of 6-7, Ativan 2 mg every 3 hours CIWA score of 8-9, and Ativan 2 mg every 2 hours forr CIWA score of 10 or greater. -Continuous IV hydration. -Thiamine 100 mg daily, and Multivitamin daily, and Folate 1 mg daily -Seizure, fall, aspiration, and elopement precautions in place. -Urine drug screen -Continued close monitoring of electrolytes and replace as needed. -Telemetry monitoring. Nicotine dependence -Order placed for nicotine patch 21 mg daily and patient encouraged and strongly educated on the importance of smoking cessation. Data and imaging reviewed: As stated above in HPI CODE STATUS: Full code DVT prophylaxis: Lovenox Anticipated discharge date: Likely within the next [address]: Home Patient was seen independently by Nurse Practitioner. This document was prepared using [employer] dictation software. Please allow for errors in mushroom grower while rare they do occur. Trevin Patel NP rendered care for this patient independently, reviewed the findings and plan as documented in the note above and agree with plan. I did not physically speak with or examine the patient on this date. Past Medical History Past Medical History: No Reported History Additional Past Medical History / Comment(s): ETOH History of Any Multi-Drug Resistant Organisms: None Reported Additional Past Surgical History / Comment(s): plastic surgery on left lip Past Anesthesia/Blood Transfusion Reactions: No Reported Reaction Past Psychological History: ADD/ADHD, Depression Smoking Status: Current every day smoker Past Alcohol Use History: Abuse, Daily, Heavy Additional Past Alcohol Use History / Comment(s): drinks a pint-5th/day. Past Drug Use History: Marijuana Medications and Allergies Home Medications Medication Instructions Recorded Confirmed Type Omeprazole [PriLOSEC] 20 mg PO AC-BRKFST #30 cap 07/23/24 09/12/24 Rx Sertraline [Zoloft] 50 mg PO DAILY #10 tab 09/11/24 09/12/24 Rx traZODone HCL [Desyrel] 100 mg PO HS #10 tab 09/11/24 09/12/24 Rx Allergies Allergy/AdvReac Type Severity Reaction Status Date / Time No Known Allergies Allergy Verified 09/12/24 06:18 Physical Exam Vitals: Vital Signs Temp Pulse Pulse Resp BP BP Pulse Ox 09/12/24 07:53 96.6 F L 97 15 116/62 95 09/12/24 06:37 97.3 F L 16 124/79 09/12/24 06:04 69 18 105/81 94 L 09/12/24 03:54 97.8 F 90 18 122/97 98 Intake and Output 09/11/24 09/12/24 09/12/24 22:59 06:59 14:59 Intake Total 240 Balance 240 Intake: Oral 240 Other: Weight 77.111 kg Results CBC & Chem 7: 09/12/24 04:20 09/12/24 04:20 Labs: Abnormal Lab Results - Last 24 Hours (Table) 09/12/24 Range/Units 04:20 Chloride 111 H (98-107) mmol/L BUN 6 L (9-20) mg/dL AST 86 H (17-59) U/L ALT 62 H (4-49) U/L Serum Alcohol 329 H* mg/dL
[2024-09-12] MEDS: NICOTINE 21MG/24HR PATCH TRANSDERM SCH (17:27)
[2024-09-12] MEDS: ACETAMINOPHEN TAB 325 MG TAB PO PRN (20:51)
[2024-09-12] MEDS: traZODone HCL 100 MG TAB PO SCH (20:51)
[2024-09-13 08:43] LABS: Basophils # (A) 0.02 X 10*3/uL (0.00-0.10); Basophils % (A) 0.4 %; Eosinophils % (A) 5.3 %; HCT 35.2 % (39.6-50.0); Lymphocytes % (A) 33.3 %; MCH 34.5 pg (27.0-32.0); MCHC 34.1 g/dL (32.0-37.0); MCV 101.1 FL (80.0-97.0); Mean Platelet Volume 9.9 FL (9.5-12.2); Monocytes # (A) 0.42 X 10*3/uL (0.20-1.00); Monocytes % (A) 7.4 %; NRBC Per 100 WBC 0 X 10*3/uL (0.00-0.01); Neutrophils # (A) 3.06 X 10*3/uL (1.80-7.70); Neutrophils % (A) 53.4 %; Platelet Count 211 X 10*3/uL (140-440); RBC 3.48 X 10*6/uL (4.40-5.60); RDW 11.5 % (11.5-14.5); WBC 5.71 X 10*3/uL (4.50-10.00)
[2024-09-13 09:03] LABS: ALT 48 U/L (10-49); AST 61 U/L (14-35); Albumin 3.3 g/dL (3.8-4.9); Albumin/Globulin Ratio 2.36 Ratio (1.60-3.17); Alkaline Phosphatase 42 U/L (41-126); Blood Urea Nitrogen 8.8 mg/dL (9.0-27.0); Calcium 8.4 mg/dL (8.7-10.3); Carbon Dioxide 22.5 mmol/L (21.6-31.8); Chloride 107 mmol/L (96-109); Globulin 1.4 g/dL (1.6-3.3); Glucose 84 mg/dL (70-110); Magnesium 1.2 mg/dL (1.5-2.4); Potassium 3.8 mmol/L (3.5-5.5); Sodium 140 mmol/L (135-145); Total Protein 4.7 g/dL (6.2-8.2)
[2024-09-13] MEDS: THIAMINE 100 MG TAB PO SCH (09:35)
[2024-09-13] MEDS: ENOXAPARIN 40 MG/0.4 ML SYRINGE SQ SCH (09:37)
[2024-09-13] MEDS: MAGNESIUM SULFATE-D5W PMX 1 GM in DEXTROSE/WATER 1 100ML.BAG IVPB SCH (13:01)
[2024-09-13 13:04] VITALS: BP 135/76; PULSE 55; RESP 17; TEMP 98.5
--- NOTE | 2024-09-13 18:44 | P.DS ---
Providers Date of admission: 09/12/24 05:12 Expected date of discharge: 09/13/24 Attending physician: Yasmine Gonzalez MD Primary care physician: Stated None Hospital Course: Discharge Diagnosis: Alcohol intoxication in active alcoholic Transaminitis, secondary to daily alcohol abuse Hypomagnesemia Nicotine dependence Hospital Course: Patient is a 39-year-old male with a past medical history of daily alcohol abuse. Patient was discharged from our facility on 10/01 after being admitted for alcohol intoxication and after discharge left facility continue to drink and was reportedly found at [facility] [employer] minimally responsive EMS was called for transport to the hospital. Patient reports that he is homeless and was sleeping at [employer] because it is cold outside. Patient denies having any injury or complaints at this time. He denies having any headache, lightheadedness, dizziness, chest pain, palpitations, shortness of breath, abdominal pain, nausea, vomiting, or experiencing any numbness/tingling/weakness/swelling in his extremities. Patient admits to daily alcohol use but denies any other drug use. Upon arrival to our facility, patient underwent evaluation in the emergency department. Vital signs upon arrival show blood pressure 122/97, heart rate 90, respiratory rate 18, temperature 97.8 F, and SpO2 of 98% on room air. Labs completed and reviewed. CBC unremarkable. BMP showing hyperchloremia with chloride 111 otherwise normal findings. Blood glucose was 90. Magnesium 1.8. Liver profile showing elevated AST of 86 and ALT of 62. Serum alcohol is elevated at 329. Patient admitted to observation unit under our services for EtOH intoxication pending withdrawal. Patient monitored overnight and is clinically sober at this time. His magnesium was replaced. Patient was provided with resources for shelters and was offered a cab voucher for transport to custodial. Patient declining stating he is going to stay at his parents house. Patient showing no signs of withdrawal at this time. Current CIWA score is 0. Patient medically stable for discharge at this time strongly encouraged to avoid any and all alcohol use. Physical Exam: Vital signs reviewed and stable. General: Nontoxic, no distress and appears stated age. Derm: Skin warm and dry, normal coloration for ethnicity. Head: Atraumatic, normocephalic and symmetric. Eyes: EOM's intact, no lid lag, and anicteric sclera Mouth: no lip lesions, mucus membranes moist Cardiovascular: regular rate and rhythm with normal S1S2, no murmur, positive posterior tibial pulses bilaterally, and cap refill < 2 seconds. Lungs: Respirations even, regular, and unlabored on room air. Lungs CTA bilaterally, no rhonchi, no rales, no wheezing, and no accessory muscle usage. Abdominal: soft, nontender to palpation, no guarding, no appreciable organomegaly Ext: ROM intact. No gross muscle atrophy, no edema, no contractures Neuro: Speech clear, face symmetrical and CN II-XII grossly intact with no noted focal neuro deficits Psych: Alert and oriented to person, place, time, and situation. Appropriate and pleasant affect. A total of 31 minutes of time were spent preparing this complex discharge summary. Pt was discharged on 09/13/2024 at 4:44 PM Patient was seen independently by Nurse Practitioner. This document was prepared using [employer] dictation software. Please allow for errors in contractor field hauling while rare they do occur. Trevin Patel NP rendered care for this patient independently, reviewed the f indings and plan as documented in the note above. I did not physically speak with or examine the patient on this date. Patient Condition at Discharge: Stable Plan - Discharge Summary Discharge Rx Participant: No New Discharge Prescriptions: Continue traZODone HCL [Desyrel] 100 mg PO HS #10 tab Sertraline [Zoloft] 50 mg PO DAILY #10 tab Omeprazole [PriLOSEC] 20 mg PO AC-BRKFST #30 cap Discharge Medication List Omeprazole [PriLOSEC] 20 mg PO AC-BRKFST #30 cap 07/23/24 [Rx] Sertraline [Zoloft] 50 mg PO DAILY #10 tab 09/11/24 [Rx] traZODone HCL [Desyrel] 100 mg PO HS #10 tab 09/11/24 [Rx] Follow up Appointment(s)/Referral(s): [facility] [NON-STAFF] - 1 Week Patient Instructions/Handouts: Abuse of Alcohol (DC) Activity/Diet/Wound Care/Special Instructions: Activity: As tolerated. Take breaks as needed. Diet: Heart healthy and carb consistent diet. Avoid salts, or foods with hidden salts such as canned or boxed foods and frozen dinners. Extra salt makes your heart work harder and traps the fluid in your body for longer. Special Instructions: Strongly recommend avoidance of any and all alcohol use. Thank you for allowing us to participate in your care, it was truly a pleasure having you for our patient!!! . Discharge/Stand Alone Forms: AA Meetings [facility], AA Meetings [facility], [facility] Shelters, Community Resources, In Substance Abuse Facilities Discharge Disposition: HOME SELF-CARE
== END 2024-09-13 19:27 | disposition home or self-care (01) ==
LOC: EC 03:50 → 5NMEDONC 05:12
PROVIDERS: ADMIT Internal Medicine; ATTEND Internal Medicine
DX: F10.229 Alcohol dependence with intoxication, unspecified (principal); E83.42 Hypomagnesemia; G92.9 Unspecified toxic encephalopathy; Y90.8 Blood alcohol level of 240 mg/100 ml or more; E87.8 Other disorders of electrolyte and fluid balance, not elsewhere classified; R74.01 Elevation of levels of liver transaminase levels; F17.200 Nicotine dependence, unspecified, uncomplicated; Z79.899 Other long term (current) drug therapy; Z59.00 Homelessness unspecified; Z71.6 Tobacco abuse counseling
CPT/HCPCS: 96361 ×2; 96365; 96366; 96375; 99285; 36415; 80053 ×2; 83690; 83735 ×2; 85025 ×2; G0378 ×2; G0480; J2060; J3475; 80320

== ENCOUNTER 2024-09-24 11:55 | Inpatient (IN) | payer MEDICAID ==
[~2024-09-24 11:55] MED LIST changes: +HALOPERIDOL LACTATE 5 MG/ML 1 ML VIAL IM PRN; +LORazepam 1 MG TAB PO PRN; +LORazepam 2 MG/ML INJ IM PRN; +MAG HYDROX/AL HYDROX/SIMETH 355 ML BOTTLE PO PRN; +MAGNESIUM HYDROXIDE 2,400 MG/30 ML CUP PO PRN; -SODIUM CHLORIDE 0.9% 1,000 ML BAG ONE; +haloperidoL 5 MG TAB PO PRN
[2024-09-24] MEDS: THIAMINE 100 MG TAB PO SCH (12:41)
[2024-09-24] MEDS: ACETAMINOPHEN TAB 325 MG TAB PO PRN (12:41)
[2024-09-24] MEDS: MULTIVITAMINS, THERA 1 EACH TAB PO SCH (12:41)
[2024-09-24] MEDS: FOLIC ACID 1 MG TAB PO SCH (12:41)
[2024-09-24 13:21] LABS: Amorphous Sediment,Urine Moderate /hpf; Appearance,Urine Cloudy (Clear); Bilirubin,Urine Negative (Negative); Blood,Urine Negative (Negative); Color,Urine Yellow; Glucose,Urine (UA) Negative (Negative); Ketones,Urine Negative (Negative); Leukocyte Esterase,Urine Trace (Negative); Mucus,Urine Many /hpf; Nitrite,Urine Negative (Negative); PH, Urine 6.5 (5.0-8.0); Protein,Urine Trace (Negative); RBC,Urine <1 /hpf (0-5); Specific Gravity,Urine 1.029 (1.001-1.035); WBC,Urine 3 /hpf (0-5)
[2024-09-24 22:20] LABS: Urine Alcohol Negative (Negative); Urine Barbiturate Negative (Negative); Urine Cocaine Negative (Negative); Urine Methadone Negative (Negative); Urine Opiates Negative (Negative); Urine Phencyclidine Negative (Negative)
[2024-09-24] MEDS: LORazepam 1 MG TAB PO PRN (23:08)
--- NOTE | 2024-09-25 03:17 | P.CONS ---
History of Present Illness - Reason for Consult Consult date: 09/25/24 - History of Present Illness The patient is a 39-year-old male currently experiencing homelessness with a PMH of alcohol abuse who was transferred to the emergency room from [facility] emergency room where the patient had presented for alcohol intoxication. The patient had reported suicidal ideation to the staff while being severely intoxicated with a serum alcohol level of 518. The patient was admitted to our mental health facility where he was seen and evaluated. Patient notes that he currently drinks 1/5 of hard liquor daily currently and is living in the [facility]. He also reports having a difficult time being homeless right now due to the extreme cold weather. He reports his last drink was 2 days ago. Denies any history of alcohol withdrawal or delirium tremens. Denies any active complaints at the time of interview. Denied experiencing chest discomfort, shortness of breath, fever, chills, cough, nausea, vomiting, abdominal pain, diarrhea. Review of systems: Pertinent positives and negatives as discussed in HPI, a complete review of systems was performed and all other systems are negative. Physical examination: General: non toxic, no distress, appears at stated age, normal weight Derm: no unusual rashes/lesions, no unusual ecchymoses, warm, dry Head: atraumatic, normocephalic, symmetric Eyes: EOMI, no lid lag, anicteric sclera ENT: Nose and ears atraumatic, no thrush, no pharyngeal erythema Neck: trachea midline, supple Mouth: no lip lesion, mucus membranes moist Cardiovascular: S1S2 reg, no murmur, no edema Lungs: CTA bilateral, no rhonchi, no rales , no accessory muscle use Abdominal: soft, nontender to palpation, no guarding Ext: no gross muscle atrophy, no contractures, Neuro: No gross focal neuro deficits noted Psych: Alert, oriented, appropriate affect Assessment: Alcohol abuse Marijuana abuse Depression and suicidal ideation Data Review: Reviewed with urine toxicology positive for benzodiazepines and cannabinoids Plan: Advised on the importance of cessation from alcohol and substance use Defer management of depression and suicidal ideation to the primary psychiatry service Monitor for signs of withdrawal from alcohol Continue with thiamine and folic acid Thank you for allowing us to participate in the care of this patient. We will follow peripherally. Do not hesitate to contact us with questions. Someone can be reached from the [facility] hospitalist group at all hours of the day at [phone]. Past Medical History Past Medical History: No Reported History Additional Past Medical History / Comment(s): ETOH History of Any Multi-Drug Resistant Organisms: None Reported Additional Past Surgical History / Comment(s): plastic surgery on left lip Past Anesthesia/Blood Transfusion Reactions: No Reported Reaction Smoking Status: Former smoker Medications and Allergies Home Medications Medication Instructions Recorded Confirmed Type Omeprazole [PriLOSEC] 20 mg PO DIRECTED 09/24/24 09/24/24 History Sertraline [Zoloft] 50 mg PO DIRECTED 09/24/24 09/24/24 History traZODone HCL [Desyrel] 100 mg PO DIRECTED 09/24/24 09/24/24 History Allergies Allergy/AdvReac Type Severity Reaction Status Date / Time No Known Allergies Allergy Verified 09/24/24 13:16 Physical Exam Vitals: Vital Signs Temp Pulse BP Pulse Ox 09/24/24 12:33 97.8 F 84 116/65 98 Intake and Output 09/24/24 09/24/24 09/25/24 14:59 22:59 06:59 Other: Weight 72.688 kg Results Labs: Abnormal Lab Results - Last 24 Hours (Table) 09/24/24 09/24/24 Range/Units 12:59 12:59 Urine Protein Trace H (Negative) Ur Leukocyte Esterase Trace H (Negative) Amorphous Sediment Moderate H (None) /hpf Urine Mucus Many H (None) /hpf U Benzodiazepines Scrn Positive A (Negative) U Cannabinoids Screen Positive A (Negative)
[2024-09-25 08:22] LABS: Basophils % (A) 1 %; Eosinophils # (A) 0.2 k/uL (0-0.7); Eosinophils % (A) 4 %; HCT 40.2 % (39.0-53.0); Lymphocytes # (A) 1.7 k/uL (1.0-4.8); Lymphocytes % (A) 27 %; MCH 33.2 pg (25.0-35.0); MCHC 32.4 g/dL (31.0-37.0); MCV 102.4 fL (80.0-100.0); Macrocytosis Slight; Mean Platelet Volume 7.5; Monocytes # (A) 0.3 k/uL (0-1.0); Monocytes % (A) 5 %; Neutrophils # (A) 3.7 k/uL (1.3-7.7); Neutrophils % (A) 60 %; Platelet Count 274 k/uL (150-450); RBC 3.93 m/uL (4.30-5.90); RDW 12.6 % (11.5-15.5); WBC 6.2 k/uL (3.8-10.6)
[2024-09-25 08:32] LABS: ALT 112 U/L (4-49); AST 97 U/L (17-59); African American GFR (CKD) >90 (>60 ml/min/1.73 sqM); Albumin 4.1 g/dL (3.5-5.0); Alkaline Phosphatase 44 U/L (38-126); Anion Gap 5 mmol/L; Blood Urea Nitrogen 10 mg/dL (9-20); Carbon Dioxide 28 mmol/L (22-30); Chloride 104 mmol/L (98-107); Glucose 93 mg/dL (74-99); Non-African American GFR(CKD) >90 (>60 ml/min/1.73 sqM); Potassium 4.2 mmol/L (3.5-5.1); Sodium 137 mmol/L (137-145); Total Bilirubin 0.7 mg/dL (0.2-1.3)
[2024-09-25] MEDS: SERTRALINE 50 MG TAB PO SCH (10:04)
[2024-09-25 15:07] LABS: Chol/HDL Ratio 1.89 Ratio; LDL Cholesterol,Calculated 69.6 mg/dL (0.0-131.0)
--- NOTE | 2024-09-25 15:29 | P.HP ---
Psychiatric H&P - . H&P Date: 09/25/24 History & Physical: Allergies Allergy/AdvReac Type Severity Reaction Status Date / Time No Known Allergies Allergy Verified 09/24/24 13:16 Vital Signs Temp 97.8 F 09/24/24 12:33 Pulse 84 09/24/24 12:33 Resp BP 116/65 09/24/24 12:33 Pulse Ox 98 09/24/24 12:33 FiO2 Intake & Output 09/24/24 09/25/24 09/25/24 18:59 06:59 18:59 Weight 72.688 kg Laboratory Last Values Urine Color Yellow 09/24/24 12:59 Urine Appearance Cloudy (Clear) 09/24/24 12:59 Urine pH 6.5 (5.0-8.0) 09/24/24 12:59 Ur Specific [place] 1.029 (1.001-1.035) 09/24/24 12:59 Urine Protein Trace (Negative) H 09/24/24 12:59 Urine Glucose (UA) Negative (Negative) 09/24/24 12:59 Urine Ketones Negative (Negative) 09/24/24 12:59 Urine Blood Negative (Negative) 09/24/24 12:59 Urine Nitrite Negative (Negative) 09/24/24 12:59 Urine Bilirubin Negative (Negative) 09/24/24 12:59 Urine Urobilinogen 3.0 mg/dL (<2.0) 09/24/24 12:59 Ur Leukocyte Esterase Trace (Negative) H 09/24/24 12:59 Urine RBC <1 /hpf (0-5) 09/24/24 12:59 Urine WBC 3 /hpf (0-5) 09/24/24 12:59 Amorphous Sediment Moderate /hpf (None) H 09/24/24 12:59 Urine Mucus Many /hpf (None) H 09/24/24 12:59 Urine Opiates Screen Negative (Negative) 09/24/24 12:59 Urine Methadone Screen Negative (Negative) 09/24/24 12:59 Ur Propoxyphene Screen Negative (Negative) 09/24/24 12:59 Urine Barbiturates Negative (Negative) 09/24/24 12:59 Ur Phencyclidine Scrn Negative (Negative) 09/24/24 12:59 Ur Amphetamine Screen Negative (Negative) 12/17/24 12:59 U Benzodiazepines Scrn Positive (Negative) A 09/24/24 12:59 Urine Cocaine Screen Negative (Negative) 09/24/24 12:59 U Cannabinoids Screen Positive (Negative) A 09/24/24 12:59 Urine Alcohol Negative (Negative) 09/24/24 12:59 U Creatinine Drug Scrn 472.0 mg/dL (>=20.0) 09/24/24 12:59 Dictation was produced using [employer] dictation software. Please excuse any grammatical, word or spelling errors. IDENTIFYING DATA: Patient is a 39 years old homeless male with past psychiatric history of alcohol abuse, he is a transfer from [facility] initially presented with alcohol intoxication, and reported suicidal thoughts. HPI: Patient presented initially to [facility] for alcohol intoxication. Patient was endorsing suicidal ideation and he was transferred to [facility]. His UDS was positive for cannabis and benzodiazepine. Patient was petition by RN since he had nonspecific plans to end his life reported that he is feeling anxious and depressed with suicidal ideation, clinical certification was done as well. Upon evaluation in the unit the patient states that he is currently homeless, reported that he was drinking alcohol and was laying down on the ground behind [employer], states that he was picked up by police, he states that he did not have shoes or coat and did not feel safe to leave the hospital so he that he is suicidal. States that he does not have any suicidal ideation, intention or plan, reported that has been homeless for 2 weeks and prior to that he was at substance use rehab. He states that he has a plan to go stay with a friend. He states that depression and anxiety are at the low to moderate side. Reported that his sleep was not that great since he was sleeping in the street with denied any previous suicidal attempt in the past. He states that he regrets what he said in the emergency room. He admitted to moderate anxiety. He denied any auditory or visual hallucination, paranoia or delusion, denied any manic or hypomanic symptoms. He admits to using alcohol for a long time, and reported multiple inpatient rehab in the past including few weeks ago. PAST PSYCHIATRIC HISTORY: - Inpatient Hospitalizations: Denies - Outpatient Care: Denies - Current Psychotropics: Denies - Prior Psychotropics/Therapy: Zoloft 50 mg p.o. daily, trazodone 100 mg p.o. at bedtime, not compliant only took the meds at the hospital. Adderall 2 yrs ago - Prior Psychiatric dx: depression - Suicidal Attempts: Denies - Trauma History: Denies PMH: as per ER note Past Medical History: No Reported History Additional Past Medical History / Comment(s): ETOH History of Any Multi-Drug Resistant Organisms: None Reported Additional Past Surgical History / Comment(s): plastic surgery on left lip Past Anesthesia/Blood Transfusion Reactions: No Reported Reaction Smoking Status: Former smoker ALLERGIES: as per EMR CHEMICAL DEPENDENCY HISTORY: as per HPI - Tobacco: quit 2 months, 5 cigs per day - Alcohol: 1/5 per day vodka, on and off for all of his life, minor black outs, multiple inpatient rehab, does not consider medication to help - Illicit Drugs: none - Cannabis: 5 times in the past 2 weeks FAMILY PSYCHIATRIC/SUBSTANCE USE HISTORY: pt denies SOCIAL HISTORY: Patient was born and raised in [facility], went to [place] when he was 24 to 36 yo, 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 Unemployed, have food stamps, lost his card, no other financial support. Has HS diploma. Single, no children, parents lives around, not having good connection with them. 1 sister, no relationship. Multiple times in long term for substance related issues, was in long term when he was 23 yo, violation of probation, not currently on probation. MENTAL STATUS EXAM: General Appearance: Patient appears to be at stated age is alert, directable, and attempts to cooperate. Patient appears to have fair hygiene and grooming. Behavior: Patient is seated without any agitated behavior. Speech: Patient's speech is fluent and nonpressured. Mood/Affect: Patient reports their mood is fine, affect is congruent and constricted. Suicidality/Homicidality: Patient denies having any homicidal ideation intent or plan. Denies any suicidal ideations intent or plan Perceptions: Patient denies any visual hallucinations and denies any auditory hallucinations Though content/process: There is no evidence of any delusional thought content and thought process is linear and goal-directed. Memory and concentration: AOX3, grossly intact for the purposes of this session. Can spell "WORLD" backwards Judgment and insight: fair STRENGTHS/WEAKNESSES: strength is that patient is resilient. Weakness is that patient [has poor judgment and is impulsive] INTELLECT: average IMPRESSIONS: -Adjustment disorder with anxious and depressed mood -Anxiety disorder unspecified -Alcohol use disorder -Cannabis use disorder PLAN: -Patient is admitted under voluntary status to MHU for stabilization of psychiatric symptoms and safety. -Medications : Start Zoloft 50 mg p.o. daily Start trazodone 50 mg p.o. at bedtime -Ativan and Haldol PRN for agitation/aggression -Started thiamine, MVM for etoh use -CIWA protocol with Ativan PRN for ETOH withdrawal. -Patient was counselled on substance abuse and desired to cut back on use -Offer patient subtance use rehab however patient declined at this time -Patient was informed of the risks, benefits and side effects of the medication and patient verbally consented to taking the medications. Patient signed med consent form and was placed in chart. -Internal Medicine consult to perform medical evaluation and physical. -NRT -nicotine patch -SW on board for discharge planning. Encourage patient to participate in groups to work on coping skills. 09/25/24 15:14
[2024-09-25] MEDS: traZODone HCL 50 MG TAB PO SCH (21:23)
--- NOTE | 2024-09-26 15:22 | P.PN ---
Progress Note - Text Progress Note Date: 09/26/24 Dictation was produced using [employer] dictation software. Please excuse any grammatical, word or spelling errors. Interval History: States that he is feeling "okay" today, he reported that depression and anxiety at the moderate side, he rated depression at 8 per 10, and anxiety at 9 per 10. He reported that he does not have any current suicidal or homicidal thoughts or behavior, reported that he slept well overnight and admitted to lack of sleep prior to coming to the hospital giving his current situation of being homeless. Admitted to good appetite. He denied any current auditory or visual hallucination. He states that he tried to get in contact with friend that he was planning to stay with however he was out of town. He states that he does not know what he will do when he leaves from here and reported " [facility] Is updated that we will try to get him enrolled with [facility] better outpatient support. He states that he has been taking his medication, denied any current side effects. He is getting along well with everyone in the unit. No other concern at this time. MENTAL STATUS EXAM: General Appearance: Patient appears to be at stated age is alert, directable, and attempts to cooperate. Patient appears to have fair hygiene and grooming. Behavior: Patient is seated without any agitated behavior. Speech: Patient's speech is fluent and nonpressured. Mood/Affect: Patient reports their mood is okay, affect is congruent and constricted. Suicidality/Homicidality: Patient denies having any homicidal ideation intent or plan. Denies any suicidal ideations intent or plan Perceptions: Patient denies any visual hallucinations and denies any auditory hallucinations Though content/process: There is no evidence of any delusional thought content and thought process is linear and goal-directed. Memory and concentration: AOX3, grossly intact for the purposes of this session. Can spell "WORLD" backwards Judgment and insight: fair IMPRESSIONS: -Adjustment disorder with anxious and depressed mood -Anxiety disorder unspecified -Alcohol use disorder -Cannabis use disorder PLAN: -Patient is admitted under voluntary status to MHU for stabilization of psychiatric symptoms and safety. -Medications : Continue Zoloft 50 mg p.o. daily Increase trazodone to 100 mg p.o. at bedtime -Ativan and Haldol PRN for agitation/aggression -Started thiamine, MVM for etoh use -CIWA protocol with Ativan PRN for ETOH withdrawal. -Patient was counselled on substance abuse and desired to cut back on use -Offer patient subtance use rehab however patient declined at this time -Patient was informed of the risks, benefits and side effects of the medication and patient verbally consented to taking the medications. Patient signed med consent form and was placed in chart. -Internal Medicine consult to perform medical evaluation and physical. -NRT -nicotine patch -SW on board for discharge planning. Encourage patient to participate in groups to work on coping skills.
[2024-09-26] MEDS: traZODone HCL 100 MG TAB PO SCH (21:57)
--- NOTE | 2024-09-27 12:43 | P.PN ---
Progress Note - Text Progress Note Date: 09/27/24 Dictation was produced using [employer] dictation software. Please excuse any grammatical, word or spelling errors. Interval History: Patient states that he will have high depression and anxiety, rated both today at 89 per 10. He reported that he slept well overnight, admitted to good appetite. States that he continue to be overwhelmed about his living situation, reported that he would like to have outpatient follow-up when he leaves. Was educated on considering inpatient rehab for alcohol use however declined at this time. Will continue to encourage patient. He denied any current suicidal, homicidal thoughts or behavior. Denied any AVH. Reported that he has been taking his medication, denied any side effects, reported that he is feeling better since we increased trazodone. He is getting along well with everyone in the unit. No other concern at this time. MENTAL STATUS EXAM: General Appearance: Patient appears to be at stated age is alert, directable, and attempts to cooperate. Patient appears to have fair hygiene and grooming. Behavior: Patient is seated without any agitated behavior. Speech: Patient's speech is fluent and nonpressured. Mood/Affect: Patient reports their mood is okay, affect is congruent and constricted. Suicidality/Homicidality: Patient denies having any homicidal ideation intent or plan. Denies any suicidal ideations intent or plan Perceptions: Patient denies any visual hallucinations and denies any auditory hallucinations Though content/process: There is no evidence of any delusional thought content and thought process is linear and goal-directed. Memory and concentration: AOX3, grossly intact for the purposes of this session. Can spell "WORLD" backwards Judgment and insight: fair IMPRESSIONS: -Adjustment disorder with anxious and depressed mood -Anxiety disorder unspecified -Alcohol use disorder -Cannabis use disorder PLAN: -Patient is admitted under voluntary status to MHU for stabilization of psychiatric symptoms and safety. -Medications : Continue Zoloft 50 mg p.o. daily Continue trazodone 100 mg p.o. at bedtime -Ativan and Haldol PRN for agitation/aggression -Started thiamine, MVM for etoh use -CIWA protocol with Ativan PRN for ETOH withdrawal. -Patient was counselled on substance abuse and desired to cut back on use -Offer patient subtance use rehab however patient declined at this time -Patient was informed of the risks, benefits and side effects of the medication and patient verbally consented to taking the medications. Patient signed med consent form and was placed in chart. -Internal Medicine consult to perform medical evaluation and physical. -NRT -nicotine patch -SW on board for discharge planning. Encourage patient to participate in groups to work on coping skills. Patient is tentative for discharge on Monday if he continue to improve over the weekend.
[2024-09-27] MEDS: IBUPROFEN 600 MG TAB PO PRN (21:46)
[2024-09-28 06:51] VITALS: RESP 17
--- NOTE | 2024-09-28 12:34 | P.PN ---
Progress Note - Text Progress Note Date: 09/28/24 Interval history: Patient was seen laying in his bed today and was directable and agreeable to speak with underwriter mortgage loan. He states that he is doing a bit better today. Claims that he was feeling like he was having an upset stomach yesterday mild nausea however today that is improving. He was fairly concrete, superficial. Claims that his mood and anxiety been improving since yesterday. Claims that he slept fairly last night has an improving affect and appetite. At this time patient denies any suicidal or homicidal ideations intent or plan. Denies any Auditory or visual hallucinations. Patient denies any side effects from the medications and has been compliant with meds. Mental status exam: General Appearance: Patient appears to be stated age is alert, directable, and cooperative. Behavior: No agitated behavior. Patient is calm and directable ems to cooperate Speech: Patient's speech is fluent and nonpressured. Mood/Affect: Mood is improving mildly, affect is congruent and improving Suicidality/Homicidality: Patient denies having any suicidal or homicidal ideation intent or plan. Perceptions: Patient denies any auditory or visual hallucinations. Though content/process: There is no evidence of any delusional thought content and thought process is linear and goal-directed. Focused on medications Memory and concentration: AOX3, grossly intact for the purposes of this session Judgment and insight: improving mildly Assessment/Plan: Continue with current diagnosis. Patient continues to meet criteria for inpatient psychiatric admission for symptom stabilization and safety. Patient will be maintained on current psychotropic medication regimen. Monitor for medication compliance and for any psychotropic medication side effects. Will continue to monitor ongoing response to treatment. Encouraged participation in milieu.
[2024-09-29 08:31] VITALS: TEMP 97
--- NOTE | 2024-09-29 11:19 | P.PN ---
Progress Note - Text Progress Note Date: 09/29/24 Interval history: Patient was seen laying in his bed today and was directable and agreeable to speak with bid writer. He states that he is doing a bit better today and did not report any overnight complaints.. Claims that his mood and anxiety been improving. He was fairly concrete, superficial, improving. Claims that he slept fairly last night has an improving affect and appetite. At this time patient denies any suicidal or homicidal ideations intent or plan. Denies any Auditory or visual hallucinations. Patient denies any side effects from the medications and has been compliant with meds. Mental status exam: General Appearance: Patient appears to be stated age is alert, directable, and cooperative. Behavior: No agitated behavior. Patient is calm and directable ems to cooperate, improving Speech: Patient's speech is fluent and nonpressured. Mood/Affect: Mood is improving mildly, affect is congruent and improving Suicidality/Homicidality: Patient denies having any suicidal or homicidal ideation intent or plan. Perceptions: Patient denies any auditory or visual hallucinations. Though content/process: There is no evidence of any delusional thought content and thought process is linear and goal-directed. less Focused on medications Memory and concentration: AOX3, grossly intact for the purposes of this session Judgment and insight: improving mildly Assessment/Plan: Continue with current diagnosis. Patient continues to meet criteria for inpatient psychiatric admission for symptom stabilization and safety. Patient will be maintained on current psychotropic medication regimen. Monitor for medication compliance and for any psychotropic medication side effects. Will continue to monitor ongoing response to treatment. Encouraged participation in milieu.
[2024-09-30 08:33] VITALS: BP 105/68; PULSE 68
--- NOTE | 2024-09-30 14:09 | P.DS ---
Providers Date of admission: 09/24/24 11:55 Expected date of discharge: 09/30/24 Attending physician: Kristie Cortez MD Consults: 09/24/24 01:09 Consult Physician Routine Consulting Provider: Sandra Townsend Consult Reason/Comments: H&P and medical Do you want consulting provider notified?: Yes Primary care physician: Stated None - Discharge Diagnosis(es) (1) Adjustment disorder with mixed anxiety and depressed mood Current Visit: Yes Status: Acute Priority: High (2) Cannabis use disorder Current Visit: Yes Status: Acute Priority: Medium (3) Alcohol abuse Current Visit: Yes Status: Acute Priority: High Hospital Course: Admission HPI: Admission note was completed by Dr. Garcia "Patient presented initially to [facility] for alcohol intoxication. Patient was endorsing suicidal ideation and he was transferred to [facility]. His UDS was positive for cannabis and benzodiazepine. Patient was petition by RN since he had nonspecific plans to end his life reported that he is feeling anxious and depressed with suicidal ideation, clinical certification was done as well. Upon evaluation in the unit the patient states that he is currently homeless, reported that he was drinking alcohol and was laying down on the ground behind [employer], states that he was picked up by police, he states that he did not have shoes or coat and did not feel safe to leave the hospital so he that he is suicidal. States that he does not have any suicidal ideation, intention or plan, reported that has been homeless for 2 weeks and prior to that he was at substance use rehab. He states that he has a plan to go stay with a friend. He states that depression and anxiety are at the low to moderate side. Reported that his sleep was not that great since he was sleeping in the street with denied any previous suicidal attempt in the past. He states that he regrets what he said in the emergency room. He admitted to moderate anxiety. He denied any auditory or visual hallucination, paranoia or delusion, denied any manic or hypomanic symptoms. He admits to using alcohol for a long time, and reported multiple inpatient rehab in the past including few weeks ago." Hospital course: Upon admission to the unit patient was directable and agreeable to commence treatment and signed adult voluntary form.. Patient got along well with other patients on the unit and followed unit protocol. Patient was compliant with the medications and denied any side effects throughout hospital course. Patient was started on Zoloft 50 mg daily for depression/anxiety, trazodone 100 mg at bedtime for sleep. Patient spoke of his stressors and engaged in therapy both group and individual. Patient was also seen by medical team for history and physical exam. Throughout the course of the hospitalization patient gradually improved with regards to mood, anxiety, sleep and returned back to their baseline level of functioning. On the day of discharge patient denied any suicidal or homicidal ideations intent or plan denied any auditory or visual hallucinations. The patient denied any access to guns or weapons. Patient denied any paranoia and did not endorse any delusions. Patient does have a significant history of substance abuse and was counseled on abstaining from all substances including alcohol and marijuana. Patient was offered however declined inpatient substance-abuse rehab. Patient was also counseled on the medications and need for regular compliance and was encouraged to follow-up with their outpatient appointment for mental health and also for primary care. Patient to be discharged home with friend today with [facility] follow-up. Mental status exam: General Appearance: Patient appears to be stated age is alert, pleasant, and cooperative. Patient is in no acute distress and has improved hygiene and grooming Behavior: Patient is calmly seated without any agitated behavior. Speech: Patient's speech is fluent and nonpressured. Mood/Affect: Patient reports their mood is "better", affect is congruent and euthymic. Suicidality/Homicidality: Patient denies having any suicidal or homicidal ideation intent or plan. Perceptions: Patient denies any auditory or visual hallucinations. Though content/process: There is no evidence of any delusional thought content and thought process is linear and goal-directed. Memory and concentration: AOX3, grossly intact for the purposes of this session. Can spell "WORLD" backwards correctly. Judgment and insight: improved with guarded prognosis Impression: Adjustment disorder with anxious and depressed mood Alcohol abuse Cannabis use disorder Plan: -Continue with discharge today as patient has improved and stabilized psychiatrically and is not currently an imminent threat to themself and/or others. Patient will remain at chronically elevated risk for harm to self and/or others due to their impulsivity and substance abuse. -Continue medications: Zoloft 50 mg daily, trazodone 100 mg at bedtime -Patient was counseled on the need for medication compliance and appropriate follow-up at mental health and also primary care for medical issues. Patient verbalized understanding and agreed. -Social work to help coordinate patients discharge today. also to ensure safe home environment that guns/weapons are either removed from the home or locked away. Social work also to arrange for patients follow up appointments with [facility] for psychiatric care along with follow up with primary care provider. -Patient counseled on abstaining from recreational drugs and marijuana and alcohol. Was informed/educated on the adverse effects on their physical and mental health. Patient verbally agreed and understood. Patient was offered substance abuse treatment however declined at this time. -Patient was instructed to return to the hospital or seek immediate medical care if their psychiatric or medical symptoms do worsen or reoccur. Abnormal Labs 09/24/24 09/24/24 09/25/24 12:59 12:59 07:47 RBC 3.93 L MCV 102.4 H AST ALT Total Protein HDL Cholesterol Urine Protein Trace H Ur Leukocyte Esterase Trace H Amorphous Sediment Moderate H Urine Mucus Many H U Benzodiazepines Scrn Positive A U Cannabinoids Screen Positive A 09/25/24 07:47 RBC MCV AST 97 H ALT 112 H Total Protein 6.0 L HDL Cholesterol 101.00 H Urine Protein Ur Leukocyte Esterase Amorphous Sediment Urine Mucus U Benzodiazepines Scrn U Cannabinoids Screen Vital Signs Temp 97.0 F L 09/29/24 08:30 Pulse 68 09/30/24 08:00 Resp 17 09/28/24 05:00 BP 105/68 09/30/24 08:00 Pulse Ox 100 09/30/24 08:00 FiO2 Intake & Output 09/29/24 09/30/24 09/30/24 18:59 06:59 18:59 Weight 72.5 kg Allergies Allergy/AdvReac Type Severity Reaction Status Date / Time No Known Allergies Allergy Verified 09/24/24 13:16 Patient Condition at Discharge: Stable Plan - Discharge Summary New Discharge Prescriptions: New Folic Acid 1 mg PO DAILY 30 Days #30 tab Multivitamins, Thera [Multivitamin (formulary)] 1 each PO DAILY 30 Days #30 tab Thiamine [Vitamin B-1] 100 mg PO DAILY 30 Days #30 tab traZODone HCL [Desyrel] 100 mg PO HS 30 Days #30 tab Sertraline [Zoloft] 50 mg PO DAILY 30 Days #30 tab Continue traZODone HCL [Desyrel] 100 mg PO DIRECTED Sertraline [Zoloft] 50 mg PO DIRECTED Discontinued Omeprazole [PriLOSEC] 20 mg PO DIRECTED Discharge Medication List Sertraline [Zoloft] 50 mg PO DIRECTED 09/24/24 [History] traZODone HCL [Desyrel] 100 mg PO DIRECTED 09/24/24 [History] Folic Acid 1 mg PO DAILY 30 Days #30 tab 09/30/24 [Rx] Multivitamins, Thera [Multivitamin (formulary)] 1 each PO DAILY 30 Days #30 tab 09/30/24 [Rx] Sertraline [Zoloft] 50 mg PO DAILY 30 Days #30 tab 09/30/24 [Rx] Thiamine [Vitamin B-1] 100 mg PO DAILY 30 Days #30 tab 09/30/24 [Rx] traZODone HCL [Desyrel] 100 mg PO HS 30 Days #30 tab 09/30/24 [Rx] Follow up Appointment(s)/Referral(s): [facility] [Outside] - 10/03/24 10:00 am (with [facility]) Activity/Diet/Wound Care/Special Instructions: [facility] Discharge Info Avoid the use of street drugs and alcohol. Take all medications as prescribed. When you are in need of refills on your medications, please contact your outpatient medical provider and/or outpatient psychiatrist. Please go to your scheduled outpatient appointments for aftercare treatment. If symptoms return or become worse, call the crisis line at or and/or visit the nearest emergency room for assistance. National Suicide and Crisis Lifeline - call or text 439
[2024-09-30 15:02] VITALS: BMI 22.9
== END 2024-09-30 16:33 | disposition home or self-care (01) | DRG 755 ==
LOC: 3MHU 11:55
PROVIDERS: ADMIT Psychiatry & Neurology Psychiatry; ATTEND Psychiatry & Neurology Psychiatry
DX: F43.23 Adjustment disorder with mixed anxiety and depressed mood (principal); F12.10 Cannabis abuse, uncomplicated; F10.129 Alcohol abuse with intoxication, unspecified; R45.851 Suicidal ideations; Y90.8 Blood alcohol level of 240 mg/100 ml or more; Z59.00 Homelessness unspecified; Z87.891 Personal history of nicotine dependence; Z56.0 Unemployment, unspecified; Z79.899 Other long term (current) drug therapy
CPT/HCPCS: 80053; 80061; 80306; 81001; 83036; 84443; 85025

== ENCOUNTER 2024-11-02 17:04 | Inpatient (IN) | payer MEDICAID, OTHER ==
[2024-11-02] MEDS ORDERED: LORazepam 1 MG TAB PO PRN ×3 (17:24)
[2024-11-02] MEDS ORDERED: LORazepam 0.5 MG TAB PO PRN (17:24)
[2024-11-02] MEDS ORDERED: LORazepam 2 MG/ML INJ IV PRN ×3 (17:24)
--- NOTE | 2024-11-02 17:25 | ED ---
Psych HPI - General Chief Complaint: Psychiatric Symptoms Stated Complaint: Back pain/Mental Health/ETOH Time Seen by Provider: 11/02/24 17:09 Source: patient, EMS, RN notes reviewed, old records reviewed Mode of arrival: EMS - History of Present Illness Initial Comments: This is a 39-year-old male with multiple complaints including suicidal thoughts. Patient is severely intoxicated MD Complaint: suicidal ideation, feels depressed -: unknown Associated Psychiatric Symptoms: depression, suicidal ideation History of same: Yes Quality: constant Improves With: none Worsens With: none Context: recent alcohol abuse Associated Symptoms: denies other symptoms Treatments Prior to Arrival: placed on mental health hold If Self Harm: admits thoughts of self harm - Related Data Previous Rx's Medication Instructions Recorded Folic Acid 1 mg PO DAILY 30 Days #30 tab 09/30/24 Acetaminophen Tab [Tylenol] 650 mg PO Q8HR PRN 15 Days #90 tab 11/07/24 Ibuprofen [Motrin] 800 mg PO TID PRN 15 Days #45 tab 11/07/24 Multivitamins, Thera [Multivitamin 1 each PO DAILY tab 11/07/24 (formulary)] Sertraline [Zoloft] 100 mg PO DAILY 30 Days #30 tab 11/07/24 Thiamine [Vitamin B-1] 100 mg PO DAILY tab 11/07/24 traZODone HCL 150 mg PO HS 30 Days #30 tab 11/07/24 Allergies Allergy/AdvReac Type Severity Reaction Status Date / Time No Known Allergies Allergy Verified 11/02/24 19:54 Review of Systems ROS Statement: Those systems with pertinent positive or pertinent negative responses have been documented in the HPI. ROS Other: All systems not noted in ROS Statement are negative. Past Medical History Past Medical History: No Reported History Additional Past Medical History / Comment(s): ETOH History of Any Multi-Drug Resistant Organisms: None Reported Additional Past Surgical History / Comment(s): plastic surgery on left lip Past Anesthesia/Blood Transfusion Reactions: No Reported Reaction Past Psychological History: ADD/ADHD Smoking Status: Current every day smoker Past Alcohol Use History: Abuse Past Drug Use History: Marijuana General Exam General appearance: alert, in no apparent distress, appears intoxicated, anxious Head exam: Present: atraumatic, normocephalic, normal inspection Eye exam: Present: normal appearance, PERRL, EOMI. Absent: scleral icterus, conjunctival injection, periorbital swelling ENT exam: Present: normal exam, mucous membranes moist Neck exam: Present: normal inspection. Absent: tenderness, meningismus, lymphadenopathy Respiratory exam: Present: normal lung sounds bilaterally. Absent: respiratory distress, wheezes, rales, rhonchi, stridor Cardiovascular Exam: Present: regular rate, normal rhythm, normal heart sounds. Absent: systolic murmur, diastolic murmur, rubs, gallop, clicks GI/Abdominal exam: Present: soft, normal bowel sounds. Absent: distended, tenderness, guarding, rebound, rigid Extremities exam: Present: normal inspection, full ROM, normal capillary refill. Absent: tenderness, pedal edema, joint swelling, calf tenderness Back exam: Present: normal inspection Neurological exam: Present: alert, oriented X3, CN II-XII intact Psychiatric exam: Present: normal affect, normal mood Skin exam: Present: warm, dry, intact, normal color. Absent: rash Course Vital Signs 11/02/24 11/02/24 11/03/24 17:08 19:36 05:47 Temperature 98.4 F 97.7 F Pulse Rate 100 73 57 L Respiratory 20 18 20 Rate Blood Pressure 134/78 137/74 156/90 O2 Sat by Pulse 96 97 97 Oximetry - Reevaluation(s) Reevaluation #1: 11/02/24 17:58 Medical records reviewed Reevaluation #2: Patient is medically clear for psychiatric evaluation Reevaluation #3: Patient has no new complaints here in the ER Reevaluation #4: Was pt. sent in by a medical professional or institution (, PA, CORPORATE CONSULTANT, urgent care, hospital, or assisted...) When possible be specific @ -no Did you speak to anyone other than the patient for history (EMS, parent, family, police, friend...)? What history was obtained from this source @ -no Did you review nursing and triage notes (agree or disagree)? Why? @ -agree Are old charts reviewed (outside hosp., previous admission, EMS record, old EKG, old radiological studies, urgent care reports/EKG's, assisted records)? Report findings @ -yes Differential Diagnosis (chest pain, altered mental status, abdominal pain women, abdominal pain men, vaginal bleeding, weakness, fever, dyspnea, syncope, headache, dizziness, GI bleed, back pain, seizure, CVA, palpatations, mental health, musculoskeletal)? @ -prior EKG interpreted by me (3pts min.). @ -no X-rays interpreted by me (1pt min.). @ -yes negative for acute disease CT interpreted by me (1pt min.). @ -no U/S interpreted by me (1pt. min.). @ -no What testing was considered but not performed or refused? (CT, X-rays, U/S, labs)? Why? @ -none What meds were considered but not given or refused? Why? @ -none Did you discuss the management of the patient with other professionals (professionals i.e. Dr., PA, CORPORATE CONSULTANT, lab, RT, psych nurse, older adult social work specialist, mineralogy professor, teacher, juvenile corrections officer, gearcase assembler)? Give summary @ -no Was smoking cessation discussed for >3mins.? @ -no Was critical care preformed (if so, how long)? @ -no Were there social determinants of health that impacted care today? How? (Homelessness, low income, unemployed, alcoholism, drug addiction, transportation, low edu. Level, literacy, decrease access to med. care, penitentiary, rehab)? @ -none Was there de-escalation of care discussed even if they declined (Discuss DNR or withdrawal of care, Hospice)? DNR status @ -no What co-morbidities impacted this encounter? (DM, HTN, Smoking, COPD, CAD, Cancer, CVA, ARF, Chemo, Hep., AIDS, mental health diagnosis, sleep apnea, morbid obesity)? @ -none Was patient admitted / discharged? Hospital course, mention meds given and route, prescriptions, significant lab abnormalities, going to OR and other pertinent info. @ - 39 male with alcohol intoxication will be admitted for psychiatric evaluation and treatment Admitted Undiagnosed new problem with uncertain prognosis? @ -no Drug Therapy requiring intensive monitoring for toxicity (Heparin, Nitro, Insulin, Cardizem)? @ -no Were any procedures done? @ -no Diagnosis/symptom? @ -Severe alcohol intoxication Acute, or Chronic, or Acute on Chronic? @ -Acute Uncomplicated (without systemic symptoms) or Complicated (systemic symptoms)? @ -Complicated Side effects of treatment? @ -no Exacerbation, Progression, or Severe Exacerbation? @ -exacerbation Poses a threat to life or bodily function? How? (Chest pain, USA, CA, pneumonia, PE, COPD, DKA, ARF, appy, cholecystitis, CVA, Diverticulitis, Homicidal, Suicidal, threat to staff... and all critical care pts) @ -yes severe intoxication Reevaluation #5: Differential Mental Health Depression, anxiety, bipolar, psychosis, schizophrenia, borderline personality, situational depression, adjustment disorder, behavioral disorder, brain tumor, malingering, substance abuse, encephalopathy, medication reaction, dementia, hypothyroidism, degenerative neurologic disorder, lupus.... This is not meant to be all-inclusive list Medical Decision Making - Medical Decision Making 39 male with alcohol intoxication will be admitted for psychiatric evaluation and treatment - Lab Data Result diagrams: 11/02/24 17:47 11/02/24 17:47 Lab Results 11/02/24 11/02/24 11/02/24 Range/Units 17:47 17:47 17:47 WBC 10.6 (3.8-10.6) k/uL RBC 4.68 (4.30-5.90) m/uL Hgb 15.3 (13.0-17.5) gm/dL Hct 46.1 (39.0-53.0) % MCV 98.5 (80.0-100.0) fL MCH 32.7 (25.0-35.0) pg MCHC 33.2 (31.0-37.0) g/dL RDW 11.8 (11.5-15.5) % Plt Count 359 (150-450) k/uL MPV 6.7 Neutrophils % 74 % Lymphocytes % 20 % Monocytes % 3 % Eosinophils % 1 % Basophils % 0 % Neutrophils # 7.9 H (1.3-7.7) k/uL Lymphocytes # 2.1 (1.0-4.8) k/uL Monocytes # 0.3 (0-1.0) k/uL Eosinophils # 0.1 (0-0.7) k/uL Basophils # 0.0 (0-0.2) k/uL Sodium 142 (137-145) mmol/L Potassium 3.6 (3.5-5.1) mmol/L Chloride 102 (98-107) mmol/L Carbon Dioxide 23 (22-30) mmol/L Anion Gap 17 mmol/L BUN 5 L (9-20) mg/dL Creatinine 0.73 (0.66-1.25) mg/dL Est GFR (CKD-EPI)AfAm >90 (>60 ml/min/1.73 sqM) Est GFR (CKD-EPI)NonAf >90 (>60 ml/min/1.73 sqM) Glucose 115 H (74-99) mg/dL Calcium 10.1 (8.4-10.2) mg/dL Phosphorus 2.6 (2.5-4.5) mg/dL Magnesium 1.9 (1.6-2.3) mg/dL Total Bilirubin 0.7 (0.2-1.3) mg/dL AST 33 (17-59) U/L ALT 22 (4-49) U/L Alkaline Phosphatase 60 (38-126) U/L Total Protein 7.1 (6.3-8.2) g/dL Albumin 4.7 (3.5-5.0) g/dL Lipase 108 (23-300) U/L Urine Color Colorless Urine Appearance Clear (Clear) Urine pH 6.0 (5.0-8.0) Ur Specific [place] 1.001 (1.001-1.035) Urine Protein Negative (Negative) Urine Glucose (UA) Negative (Negative) Urine Ketones Negative (Negative) Urine Blood Negative (Negative) Urine Nitrite Negative (Negative) Urine Bilirubin Negative (Negative) Urine Urobilinogen <2.0 (<2.0) mg/dL Ur Leukocyte Esterase Negative (Negative) Urine Opiates Screen Not Detected (NotDetected) Ur Oxycodone Screen Not Detected (NotDetected) Urine Methadone Screen Not Detected (NotDetected) Ur Barbiturates Screen Not Detected (NotDetected) U Tricyclic Antidepress Not Detected (NotDetected) Ur Phencyclidine Scrn Not Detected (NotDetected) Ur Amphetamines Screen Not Detected (NotDetected) U Methamphetamines Scrn Not Detected (NotDetected) U Benzodiazepines Scrn Not Detected (NotDetected) Urine Cocaine Screen Not Detected (NotDetected) U Marijuana (THC) Screen Detected H (NotDetected) Serum Alcohol mg/dL SARS-CoV-2 (PCR) (Not Detectd) 11/02/24 11/03/24 Range/Units 18:46 05:57 WBC (3.8-10.6) k/uL RBC (4.30-5.90) m/uL Hgb (13.0-17.5) gm/dL Hct (39.0-53.0) % MCV (80.0-100.0) fL MCH (25.0-35.0) pg MCHC (31.0-37.0) g/dL RDW (11.5-15.5) % Plt Count (150-450) k/uL MPV Neutrophils % % Lymphocytes % % Monocytes % % Eosinophils % % Basophils % % Neutrophils # (1.3-7.7) k/uL Lymphocytes # (1.0-4.8) k/uL Monocytes # (0-1.0) k/uL Eosinophils # (0-0.7) k/uL Basophils # (0-0.2) k/uL Sodium (137-145) mmol/L Potassium (3.5-5.1) mmol/L Chloride (98-107) mmol/L Carbon Dioxide (22-30) mmol/L Anion Gap mmol/L BUN (9-20) mg/dL Creatinine (0.66-1.25) mg/dL Est GFR (CKD-EPI)AfAm (>60 ml/min/1.73 sqM) Est GFR (CKD-EPI)NonAf (>60 ml/min/1.73 sqM) Glucose (74-99) mg/dL Calcium (8.4-10.2) mg/dL Phosphorus (2.5-4.5) mg/dL Magnesium (1.6-2.3) mg/dL Total Bilirubin (0.2-1.3) mg/dL AST (17-59) U/L ALT (4-49) U/L Alkaline Phosphatase (38-126) U/L Total Protein (6.3-8.2) g/dL Albumin (3.5-5.0) g/dL Lipase (23-300) U/L Urine Color Urine Appearance (Clear) Urine pH (5.0-8.0) Ur Specific [place] (1.001-1.035) Urine Protein (Negative) Urine Glucose (UA) (Negative) Urine Ketones (Negative) Urine Blood (Negative) Urine Nitrite (Negative) Urine Bilirubin (Negative) Urine Urobilinogen (<2.0) mg/dL Ur Leukocyte Esterase (Negative) Urine Opiates Screen (NotDetected) Ur Oxycodone Screen (NotDetected) Urine Methadone Screen (NotDetected) Ur Barbiturates Screen (NotDetected) U Tricyclic Antidepress (NotDetected) Ur Phencyclidine Scrn (NotDetected) Ur Amphetamines Screen (NotDetected) U Methamphetamines Scrn (NotDetected) U Benzodiazepines Scrn (NotDetected) Urine Cocaine Screen (NotDetected) U Marijuana (THC) Screen (NotDetected) Serum Alcohol 261 H* mg/dL SARS-CoV-2 (PCR) Not Detected (Not Detectd) - Radiology Data Radiology results: report reviewed (X-ray chest with ribs negative for acute disease), image reviewed Disposition Clinical Impression: Alcohol use disorder, severe, dependence, Major depressive disorder without psychotic features, Depression, Alcohol abuse, Adjustment disorder with mixed anxiety and depressed mood, Acute anxiety, Suicidal ideation Disposition: TRANSFER TO PSYCH HOSP/UNIT Condition: Fair Is patient prescribed a controlled substance at d/c from ED?: No
[2024-11-02 17:55] LABS: Appearance,Urine Clear (Clear); Bilirubin,Urine Negative (Negative); Blood,Urine Negative (Negative); Color,Urine Colorless; Glucose,Urine (UA) Negative (Negative); Ketones,Urine Negative (Negative); Leukocyte Esterase,Urine Negative (Negative); Nitrite,Urine Negative (Negative); Protein,Urine Negative (Negative); Specific Gravity,Urine 1.001 (1.001-1.035); Urobilinogen,Urine <2.0 mg/dL (<2.0)
[2024-11-02 17:59] LABS: Basophils % (A) 0 %; Eosinophils # (A) 0.1 k/uL (0-0.7); Eosinophils % (A) 1 %; HCT 46.1 % (39.0-53.0); HGB 15.3 gm/dL (13.0-17.5); Lymphocytes # (A) 2.1 k/uL (1.0-4.8); Lymphocytes % (A) 20 %; MCH 32.7 pg (25.0-35.0); MCHC 33.2 g/dL (31.0-37.0); MCV 98.5 fL (80.0-100.0); Mean Platelet Volume 6.7; Monocytes # (A) 0.3 k/uL (0-1.0); Monocytes % (A) 3 %; Neutrophils # (A) 7.9 k/uL (1.3-7.7); Neutrophils % (A) 74 %; Platelet Count 359 k/uL (150-450); RBC 4.68 m/uL (4.30-5.90); RDW 11.8 % (11.5-15.5); WBC 10.6 k/uL (3.8-10.6)
[2024-11-02 18:06] LABS: Amphetamine Screen,Urine Not Detected (NotDetected); Barbiturate Screen,Urine Not Detected (NotDetected); Benzodiazepines Screen,Urine Not Detected (NotDetected); Cocaine Screen,Urine Not Detected (NotDetected); Methadone Screen, Urine Not Detected (NotDetected); Opiate Screen,Urine Not Detected (NotDetected); Oxycodone Screen, Urine Not Detected (NotDetected); Phencyclidine Screen,Urine Not Detected (NotDetected); Tricyclic Antidepressant,Urine Not Detected (NotDetected); Urn Cannabinoid Scrn Detected (NotDetected)
[2024-11-02] MEDS: SODIUM CHLORIDE 0.9% 500 ML 500 ML IV STA (18:12)
[2024-11-02] MEDS: SODIUM CHLORIDE 0.9% 1,000 ML IV STA (18:13)
[2024-11-02 18:14] LABS: ALT 22 U/L (4-49); AST 33 U/L (17-59); African American GFR (CKD) >90 (>60 ml/min/1.73 sqM); Albumin 4.7 g/dL (3.5-5.0); Alkaline Phosphatase 60 U/L (38-126); Anion Gap 17 mmol/L; Blood Urea Nitrogen 5 mg/dL (9-20); Calcium 10.1 mg/dL (8.4-10.2); Carbon Dioxide 23 mmol/L (22-30); Chloride 102 mmol/L (98-107); Glucose 115 mg/dL (74-99); Lipase 108 U/L (23-300); Magnesium 1.9 mg/dL (1.6-2.3); Non-African American GFR(CKD) >90 (>60 ml/min/1.73 sqM); Phosphorus 2.6 mg/dL (2.5-4.5); Potassium 3.6 mmol/L (3.5-5.1); Sodium 142 mmol/L (137-145); Total Bilirubin 0.7 mg/dL (0.2-1.3); Total Protein 7.1 g/dL (6.3-8.2)
[2024-11-03] MEDS: ACETAMINOPHEN TAB 500 MG TAB PO STA (05:25)
[2024-11-03] MEDS: LIDOCAINE 4% PATCH TOPICAL ONE (05:44)
--- NOTE | 2024-11-03 06:49 | XR ---
Chest and right ribs. HISTORY: Chest pain following fall. COMPARISON: None TECHNIQUE: 5 views of the right ribs and chest were obtained. FINDINGS: The lungs are clear. No pleural effusion or pneumothorax. Heart and pulmonary vasculature are normal. The osseous structures are intact. There is a healed right sixth rib laterally. There are no acute ri b fractures. IMPRESSION: 1. No acute cardiopulmonary disease. No pleural effusion or pneumothorax. 2. No acute rib fractures. Healed right sixth rib fracture. [facility], , 11/03/2024 6:47 AM
[2024-11-03] MEDS ORDERED: MAGNESIUM HYDROXIDE 2,400 MG/30 ML CUP PO PRN (07:53)
[2024-11-03] MEDS ORDERED: MAG HYDROX/AL HYDROX/SIMETH 355 ML BOTTLE PO PRN (07:53)
[2024-11-03] MEDS ORDERED: haloperidoL 5 MG TAB PO PRN (07:56)
[2024-11-03] MEDS ORDERED: HALOPERIDOL LACTATE 5 MG/ML 1 ML VIAL IM PRN (07:58)
[2024-11-03] MEDS ORDERED: LORazepam 1 MG TAB PO PRN ×4 (08:03→10:30)
[2024-11-03] MEDS ORDERED: LORazepam 2 MG/ML INJ IV PRN (08:03)
[2024-11-03] MEDS ORDERED: LORazepam 2 MG/ML INJ IM PRN (08:11)
[2024-11-03] MEDS ORDERED: PROCHLORPERAZINE INJ 10 MG/2 ML VIAL IM PRN (08:31)
[2024-11-03] MEDS: IBUPROFEN 600 MG TAB PO PRN (08:33)
[2024-11-03] MEDS: LORazepam 1 MG TAB PO PRN (08:33)
[2024-11-03] MEDS: SERTRALINE 100 MG TAB PO SCH (08:33)
[2024-11-03] MEDS ORDERED: ONDANSETRON ODT 8 MG TAB.RAPDIS PO PRN (08:50)
[2024-11-03] MEDS: KETOROLAC 15 MG/ML 1 ML VIAL IM STA (08:56)
[2024-11-03] MEDS ORDERED: THIAMINE 100 MG TAB PO SCH (09:00)
[2024-11-03] MEDS ORDERED: FOLIC ACID 1 MG TAB PO SCH (09:00)
[2024-11-03] MEDS ORDERED: MULTIVITAMINS, THERA 1 EACH TAB PO SCH (09:00)
[2024-11-03] MEDS: NICOTINE 21MG/24HR PATCH TRANSDERM SCH (09:11)
[2024-11-03] MEDS: chlordiazePOXIDE 25 MG CAP PO SCH (10:34)
--- NOTE | 2024-11-03 11:26 | P.CON ---
Consult Note - . Consult date: 11/03/24 Assessment/Plan:: Patient is a 39-year-old male with past medical history of alcoholism, homelessness,, recurrent admissions for alcohol intoxication, depression, anxiety, cannabis use disorder, who presented to the ER on 11/02/2024 with suicidal thoughts, was severely intoxicated with alcohol, was admitted to psychiatry unit. IM consulted for medical management. Patient usually drinks 1/5 of hard liquor daily, homeless right now, has been drinking more heavily in the past 5 days, also slipped on the ice and hurt the right side of his back. Denies chest pain, shortness of breath, fevers, chills, cough, abdominal pain. Admits having nausea He mentioned that he previously had alcohol withdrawal with mostly symptoms of shakiness, although also reported having hallucinations. Pertinent positives and negatives as discussed in HPI, a complete review of systems was performed and all other systems are negative. Patient seen and examined at bedside. Complaining of right-sided back pain Vital signs reviewed General: nontoxic, no distress, appears at stated age Derm: warm, dry Head: atraumatic, normocephalic, symmetric Eyes: EOMI, no lid lag, anicteric sclera, pupils equal round reactive to light ENT: Nose and ears atraumatic Neck: No thyromegaly, supple Mouth: no lip lesion, mucus membranes moist Cardiovascular: S1S2 reg, no murmur, no edema Lungs: clear to auscultation bilateral, no rhonchi, no rales, no wheeze, no accessory muscle use Abdominal: soft, nontender to palpation, no guarding, no appreciable organomegaly Ext: no gross muscle atrophy, muscle strength muscle strength 5 out of 5 in all 4 extremities, no contractures Right-sided back tenderness Neuro: CN II-XII grossly intact Psych: Alert, oriented, appropriate affect Data reviewed: CBC unremarkable, CMP with normal electrolytes, creatinine, normal AST and ALT, UA negative for UTI, urine toxicology positive for THC, serum alcohol 261, negative COVID Assessment/Plan: Alcohol intoxication Pending alcohol withdrawal Depression Suicidal ideations Marijuana use disorder -Management of depression, suicidal ideations defer to the primary psychiatry team -CIWA with Ativan, monitor for signs of withdrawal -Continue multivitamins, thiamine, folic acid -Nausea symptomatic management -Advised on the importance of cessation from alcohol, substance use, patient states that he is willing to quit Right-sided back pain, musculoskeletal -No fracture -Continue Tylenol, ibuprofen
--- NOTE | 2024-11-03 14:09 | P.HP ---
Psychiatric H&P - . H&P Date: 11/03/24 History & Physical: Allergies Allergy/AdvReac Type Severity Reaction Status Date / Time No Known Allergies Allergy Verified 11/02/24 19:54 Vital Signs Temp 97.9 F 11/03/24 08:46 Pulse 67 11/03/24 08:46 Resp 18 11/03/24 08:46 BP 135/90 11/03/24 08:46 Pulse Ox 97 11/03/24 08:46 FiO2 Intake & Output 11/02/24 11/03/24 11/03/24 18:59 06:59 18:59 Output Total 700 Balance -700 Weight 74.843 kg 72.802 kg Output: Urine 700 Other: # Bowel Movements 0 Laboratory Last Values WBC 10.6 k/uL (3.8-10.6) 11/02/24 17:47 RBC 4.68 m/uL (4.30-5.90) 11/02/24 17:47 Hgb 15.3 gm/dL (13.0-17.5) 11/02/24 17:47 Hct 46.1 % (39.0-53.0) 11/02/24 17:47 MCV 98.5 fL (80.0-100.0) 11/02/24 17:47 MCH 32.7 pg (25.0-35.0) 11/02/24 17:47 MCHC 33.2 g/dL (31.0-37.0) 11/02/24 17:47 RDW 11.8 % (11.5-15.5) 11/02/24 17:47 Plt Count 359 k/uL (150-450) 11/02/24 17:47 MPV 6.7 11/02/24 17:47 Neutrophils % 74 % 11/02/24 17:47 Lymphocytes % 20 % 11/02/24 17:47 Monocytes % 3 % 11/02/24 17:47 Eosinophils % 1 % 11/02/24 17:47 Basophils % 0 % 11/02/24 17:47 Neutrophils # 7.9 k/uL (1.3-7.7) H 11/02/24 17:47 Lymphocytes # 2.1 k/uL (1.0-4.8) 11/02/24 17:47 Monocytes # 0.3 k/uL (0-1.0) 11/02/24 17:47 Eosinophils # 0.1 k/uL (0-0.7) 11/02/24 17:47 Basophils # 0.0 k/uL (0-0.2) 11/02/24 17:47 Sodium 142 mmol/L (137-145) 11/02/24 17:47 Potassium 3.6 mmol/L (3.5-5.1) 11/02/24 17:47 Chloride 102 mmol/L (98-107) 11/02/24 17:47 Carbon Dioxide 23 mmol/L (22-30) 11/02/24 17:47 Anion Gap 17 mmol/L 11/02/24 17:47 BUN 5 mg/dL (9-20) L 11/02/24 17:47 Creatinine 0.73 mg/dL (0.66-1.25) 11/02/24 17:47 Est GFR (CKD-EPI)AfAm >90 (>60 ml/min/1.73 sqM) 11/02/24 17:47 Est GFR (CKD-EPI)NonAf >90 (>60 ml/min/1.73 sqM) 11/02/24 17:47 Glucose 115 mg/dL (74-99) H 11/02/24 17:47 Calcium 10.1 mg/dL (8.4-10.2) 11/02/24 17:47 Phosphorus 2.6 mg/dL (2.5-4.5) 11/02/24 17:47 Magnesium 1.9 mg/dL (1.6-2.3) 11/02/24 17:47 Total Bilirubin 0.7 mg/dL (0.2-1.3) 11/02/24 17:47 AST 33 U/L (17-59) 11/02/24 17:47 ALT 22 U/L (4-49) 11/02/24 17:47 Alkaline Phosphatase 60 U/L (38-126) 11/02/24 17:47 Total Protein 7.1 g/dL (6.3-8.2) 11/02/24 17:47 Albumin 4.7 g/dL (3.5-5.0) 11/02/24 17:47 Lipase 108 U/L (23-300) 11/02/24 17:47 Urine Color Colorless 11/02/24 17:47 Urine Appearance Clear (Clear) 11/02/24 17:47 Urine pH 6.0 (5.0-8.0) 11/02/24 17:47 Ur Specific [place] 1.001 (1.001-1.035) 11/02/24 17:47 Urine Protein Negative (Negative) 11/02/24 17:47 Urine Glucose (UA) Negative (Negative) 11/02/24 17:47 Urine Ketones Negative (Negative) 11/02/24 17:47 Urine Blood Negative (Negative) 11/02/24 17:47 Urine Nitrite Negative (Negative) 11/02/24 17:47 Urine Bilirubin Negative (Negative) 11/02/24 17:47 Urine Urobilinogen <2.0 mg/dL (<2.0) 11/02/24 17:47 Ur Leukocyte Esterase Negative (Negative) 11/02/24 17:47 Urine Opiates Screen Not Detected (NotDetected) 11/02/24 17:47 Ur Oxycodone Screen Not Detected (NotDetected) 11/02/24 17:47 Urine Methadone Screen Not Detected (NotDetected) 11/02/24 17:47 Ur Barbiturates Screen Not Detected (NotDetected) 11/02/24 17:47 U Tricyclic Antidepress Not Detected (NotDetected) 11/02/24 17:47 Ur Phencyclidine Scrn Not Detected (NotDetected) 11/02/24 17:47 Ur Amphetamines Screen Not Detected (NotDetected) 11/02/24 17:47 U Methamphetamines Scrn Not Detected (NotDetected) 11/02/24 17:47 U Benzodiazepines Scrn Not Detected (NotDetected) 11/02/24 17:47 Urine Cocaine Screen Not Detected (NotDetected) 11/02/24 17:47 U Marijuana (THC) Screen Detected (NotDetected) H 11/02/24 17:47 Serum Alcohol 261 mg/dL H* 11/02/24 18:46 SARS-CoV-2 (PCR) Not Detected (Not Detectd) 11/03/24 05:57 11/03/24 14:03 IDENTIFYING DATA: Patient is a 39 years old homeless male, presented with alcohol intoxication, and reported suicidal thoughts. Patient is single has no kids he is unemployed HPI: Patient presented to the ER earlier today, he was intoxicated from alcohol had a blood alcohol level of 261. He was reporting depression suicidal thoughts. He was recently released from the mental health unit over a week ago. He claims that he "got drunk" and then also slipped on the ice about 2 days ago and hurt his hip and back. Claims that he still dealing with back pain. Claims that he is upset revealing homeless, which is a constant stressor and also claims that recently he lost his phone which she is upset about. He had fairly poor eye contact, appeared to be disheveled in appearance, soft tone of voice. He states he has been drinking about 1/5 of vodka a day for the past 5 or so days. Claims that he does have a history of delirium tremens and hallucinations as well. Claims that he still feeling fairly depressed, was having suicidal thoughts however he has no specific plan at this time. Denying any homicidal ideations. Claims that his sleep and appetite are poor. He denied any auditory or visual hallucination, paranoia or delusion, denied any manic or hypomanic symptoms. He admits to using alcohol for a long time, currently drinking as noted above. And reported multiple inpatient rehab. Claims that he smokes marijuana regularly, also smokes cigarettes. Denies any other recreational drug use. PAST PSYCHIATRIC HISTORY: - Inpatient Hospitalizations: Last psychiatrically admitted in September 2024 - Outpatient Care: Claims he goes to [facility] - Current Psychotropics: He is currently on Zoloft and trazodone. - Prior Psychotropics/Therapy: Zoloft 50 mg p.o. daily, trazodone 100 mg p.o. at bedtime, not compliant only took the meds at the hospital. Adderall 2 yrs ago - Prior Psychiatric dx: depression and anxiety and also substance use - Suicidal Attempts: Denies - Trauma History: Denies PMH: as per ER note Past Medical History: No Reported History Additional Past Medical History / Comment(s): ETOH History of Any Multi-Drug Resistant Organisms: None Reported Additional Past Surgical History / Comment(s): plastic surgery on left lip Past Anesthesia/Blood Transfusion Reactions: No Reported Reaction Smoking Status: Former smoker ALLERGIES: as per EMR CHEMICAL DEPENDENCY HISTORY: as per HPI FAMILY PSYCHIATRIC/SUBSTANCE USE HISTORY: pt denies SOCIAL HISTORY: Patient was born and raised in [facility], went to [place] when he was 24 to 36 yo, 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 Unemployed, have food stamps, lost his card, no other financial support. Has HS diploma. Single, no children, parents lives around, not having good connection with them. 1 sister, no relationship. Multiple times in detention for substance related issues, was in detention when he was 23 yo, violation of probation, not currently on probation. He is currently homeless. MENTAL STATUS EXAM: General Appearance: Patient appears to have several tattoos, slouched position sitting down, poor eye contact. stated age is alert, directable, and attempts to cooperate. Patient appears to have poor hygiene and grooming. Behavior: Patient is seated without any agitated behavior. Attempts to cooperate. Speech: Patient's speech is fluent and nonpressured. Soft tone, monotone Mood/Affect: Patient reports their mood is depressed and anxious, affect is congruent and constricted. Suicidality/Homicidality: Patient denies having any homicidal ideation intent or plan. Admits to having suicidal ideations no intent or plan Perceptions: Patient denies any visual hallucinations and denies any auditory hallucinations Though content/process: There is no evidence of any delusional thought content and thought process is linear and goal-directed. [place], poverty of content. Minimizing. Memory and concentration: AOX3, grossly intact for the purposes of this session. Can spell "WORLD" backwards Judgment and insight: poor/impulsive STRENGTHS/WEAKNESSES: strength is that patient is resilient. Weakness is that patient [has poor judgment and is impulsive] INTELLECT: average IMPRESSIONS: Major depressive disorder, without psychotic features Anxiety disorder unspecified Alcohol use disorder, severe dependence, currently in withdrawal Cannabis use disorder Nicotine dependence Homelessness PLAN: -Patient is admitted under voluntary status to MHU for stabilization of psychiatric symptoms and safety. -Medications : Zoloft 100 mg p.o. daily for mood/anxiety trazodone 100 mg p.o. at bedtime for mood/insomnia Librium scheduled 50 mg 3 times daily for alcohol withdrawal, with plan to taper off He is refusing any anticraving medications at this time. -Ativan and Haldol PRN for agitation/aggression -thiamine, MVM for etoh use -CIWA protocol with Ativan PRN for ETOH withdrawal. -Patient was counselled on substance abuse and desired to cut back on use -Offer patient subtance use rehab however patient declined at this time -Patient was informed of the risks, benefits and side effects of the medication and patient verbally consented to taking the medications. Patient signed med consent form and was placed in chart. -Internal Medicine consult to perform medical evaluation and physical. -NRT -nicotine patch -SW on board for discharge planning. Encourage patient to participate in groups to work on coping skills. 11/03/24 14:06
[2024-11-03] MEDS ORDERED: traZODone HCL 50 MG TAB PO SCH (21:00)
[2024-11-03] MEDS: traZODone HCL 100 MG TAB PO SCH (21:24)
[2024-11-03] MEDS: ACETAMINOPHEN TAB 325 MG TAB PO PRN (21:25)
[2024-11-04 07:23] LABS: ALT 15 U/L (4-49); AST 19 U/L (17-59); Albumin 3.5 g/dL (3.5-5.0); Alkaline Phosphatase 52 U/L (38-126); Bilirubin, Delta 0.1 mg/dL (0.0-0.2); Bilirubin,Unconjugated 1.2 mg/dL (0.0-1.1); Total Bilirubin 1.3 mg/dL (0.2-1.3); Total Protein 5.7 g/dL (6.3-8.2)
[2024-11-04] MEDS: THIAMINE 100 MG TAB PO SCH (08:00)
[2024-11-04] MEDS: MULTIVITAMINS, THERA 1 EACH TAB PO SCH (08:00)
[2024-11-04] MEDS: FOLIC ACID 1 MG TAB PO SCH (08:00)
--- NOTE | 2024-11-04 11:58 | P.PN ---
Progress Note - Text Progress Note Date: 11/04/24 Interval history: Patient was seen today for psychiatric follow-up. He was taking part in group today doing a word search. States that he is still in some pain from the fall. Claims that he received a shot yesterday of ketorolac and that helped. He was agreeable to try that again later on today. Claims that his withdrawal symptoms have been improving, was agreeable to have the Librium decreased. States that his mood and anxiety have been mildly improving since yesterday, remains to have poor affect and poor eye contact. Hygiene and grooming improving. Claims that he is eating a bit better. States that he slept about 4 or 5 hours last night interrupted. At this time he is denying any auditory or visual hallucinations denying any suicidal homicidal ideations intent or plan. Not reporting any side effects with the medications. MENTAL STATUS EXAM: General Appearance: Patient appears to have several tattoos, slouched position sitting down, poor eye contact. stated age is alert, directable, and attempts to cooperate. Patient appears to have improving hygiene and grooming. Behavior: Patient is seated without any agitated behavior. Attempts to cooperate. Speech: Patient's speech is fluent and nonpressured. Soft tone, monotone, improving mildly Mood/Affect: Patient reports their mood is depressed, affect is congruent and constricted. Improving mildly Suicidality/Homicidality: Patient denies having any homicidal ideation intent or plan. Admits to having suicidal ideations no intent or plan Perceptions: Patient denies any visual hallucinations and denies any auditory hallucinations Though content/process: There is no evidence of any delusional thought content a nd thought process is linear and goal-directed. [place], poverty of content. Focused on his pain Memory and concentration: AOX3, grossly intact for the purposes of this session Judgment and insight: poor/impulsive, improving mildly IMPRESSIONS: Major depressive disorder, without psychotic features Anxiety disorder unspecified Alcohol use disorder, severe dependence, currently in withdrawal Cannabis use disorder Nicotine dependence Homelessness PLAN: -Patient is admitted under voluntary status to [facility]HU for stabilization of psychiatric symptoms and safety. -Medications : Zoloft 100 mg p.o. daily for mood/anxiety Increase trazodone 150 mg p.o. at bedtime for mood/insomnia Continuing with tapering Librium scheduled 25 mg 4 times daily for alcohol withdrawal -Ativan and Haldol PRN for agitation/aggression -thiamine, MVM for etoh use -CIWA protocol with Ativan PRN for ETOH withdrawal. -NRT -nicotine patch -SW on board for discharge planning. Encourage patient to participate in groups to work on coping skills. possible discharge -monday if he is improving. refusing rehab at this time
[2024-11-04] MEDS: chlordiazePOXIDE 25 MG CAP PO SCH (12:51)
[2024-11-04 15:19] LABS: Chol/HDL Ratio 2.15 Ratio; LDL Cholesterol,Calculated 71.5 mg/dL (0.0-131.0); VLDL Calculation 16.68 mg/dL (5.00-40.00)
[2024-11-04] MEDS: KETOROLAC 15 MG/ML 1 ML VIAL IM ONE (18:19)
[2024-11-04] MEDS: traZODone HCL 50 MG TAB PO SCH (21:18)
[2024-11-05 07:09] VITALS: RESP 14
[2024-11-05 11:20] VITALS: BMI 23.7
--- NOTE | 2024-11-05 12:28 | P.PN ---
Progress Note - Text Progress Note Date: 11/05/24 Interval history: Patient was seen today for psychiatric follow-up. Claims that he is going to groups during the day. Claims that his pain is also improving since yesterday. He claims that the Motrin has been helping more received the ketorolac injection yesterday. Claims that he is sleeping a bit better with the increased dose and trazodone. He is claiming that the withdrawals have been improving. Claims that the depression and anxiety have also been improving. Claims that he has a friend that he can stay with and would like to go there straight from the hospital. Improving affect and improving eye contact. Hygiene and grooming improving. Claims that he is eating a bit better. States that he slept about 6 hours last night uninterrupted. At this time he is denying any auditory or visual hallucinations denying any suicidal homicidal ideations intent or plan. Not reporting any side effects with the medications. MENTAL STATUS EXAM: General Appearance: Patient appears to have several tattoos, slouched position sitting down, improving eye contact. stated age is alert, directable, and attempts to cooperate. Patient appears to have improving hygiene and grooming. Behavior: Patient is seated without any agitated behavior. Attempts to cooperate. Speech: Patient's speech is fluent and nonpressured. Soft tone, monotone, improving mildly Mood/Affect: Patient reports their mood is depressed, improving mildly, affect is congruent and constricted. Improving mildly Suicidality/Homicidality: Patient denies having any homicidal ideation intent or plan. Denies any suicidal ideations no intent or plan Perceptions: Patient denies any visual hallucinations and denies any auditory hallucinations Though content/process: There is no evidence of any delusional thought content and thought process is linear and goal-directed. Focused on pain. Memory and concentration: AOX3, grossly intact for the purposes of this session Judgment and insight: poor/impulsive, improving mildly IMPRESSIONS: Major depressive disorder, without psychotic features Anxiety disorder unspecified Alcohol use disorder, severe dependence, currently in withdrawal Cannabis use disorder Nicotine dependence Homelessness PLAN: -Patient is admitted under voluntary status to [facility]HU for stabilization of psychiatric symptoms and safety. -Medications : Zoloft 100 mg p.o. daily for mood/anxiety trazodone 150 mg p.o. at bedtime for mood/insomnia Continuing with tapering Librium scheduled 20 mg 3 times daily for alcohol withdrawal -Ativan and Haldol PRN for agitation/aggression -thiamine, MVM for etoh use -CIWA protocol with Ativan PRN for ETOH withdrawal. -NRT -nicotine patch -SW on board for discharge planning. Encourage patient to participate in groups to work on coping skills. possible discharge if he is improving. refusing rehab at this time
[2024-11-06 06:59] VITALS: TEMP 98.1
--- NOTE | 2024-11-06 11:39 | P.PN ---
Progress Note - Text Progress Note Date: 11/06/24 Interval history: Patient was seen today for psychiatric follow-up. Was participating in group today. Claims that he is doing a bit better today with regards to his mood and anxiety. States that his withdrawals are also improving. We spoke about decreasing Librium which she is okay with. States that he was able to sleep fairly last night has been showering every day. Claims that his appetite is also improving. He remains fairly focused on discharge likely tomorrow. Hygiene and grooming improving. Claims that he is eating a bit better. At this time he is denying any auditory or visual hallucinations denying any suicidal homicidal ideations intent or plan. Not reporting any side effects with the medications. Claims that he is still having mild pain at this time, was requesting an increase in his Motrin dose. MENTAL STATUS EXAM: General Appearance: Patient appears to have several tattoos, slouched position sitting down, improving eye contact. stated age is alert, directable, and attempts to cooperate. Patient appears to have improving hygiene and grooming. Behavior: Patient is seated without any agitated behavior. Attempts to cooperate. Speech: Patient's speech is fluent and nonpressured. Soft tone, monotone, improving mildly Mood/Affect: Patient reports their mood is improving mildly, affect is congruent Improving mildly Suicidality/Homicidality: Patient denies having any homicidal ideation intent or plan. Denies any suicidal ideations no intent or plan Perceptions: Patient denies any visual hallucinations and denies any auditory hallucinations Though content/process: There is no evidence of any delusional thought content and thought process is linear and goal-directed. Memory and concentration: AOX3, grossly intact for the purposes of this session Judgment and insight: poor, improving mildly IMPRESSIONS: Major depressive disorder, without psychotic features Anxiety disorder unspecified Alcohol use disorder, severe dependence, currently in withdrawal Cannabis use disorder Nicotine dependence Homelessness PLAN: -Patient is admitted under voluntary status to [facility] for stabilization of psychiatric symptoms and safety. -Medications : Zoloft 100 mg p.o. daily for mood/anxiety trazodone 150 mg p.o. at bedtime for mood/insomnia Continuing with tapering Librium scheduled 10 mg 4 times daily for alcohol withdrawal, last dose will be tomorrow morning prior to discharge -Ativan and Haldol PRN for agitation/aggression -thiamine, MVM for etoh use -CIWA protocol with Ativan PRN for ETOH withdrawal. -NRT -nicotine patch -SW on board for discharge planning. Encourage patient to participate in groups to work on coping skills. possible discharge if he is improving. refusing rehab at this time
[2024-11-06] MEDS: IBUPROFEN 800 MG TAB PO PRN (21:48)
[2024-11-07 08:41] VITALS: BP 124/83; PULSE 105
--- NOTE | 2024-11-07 11:05 | P.DS ---
Providers Date of admission: 11/03/24 07:42 Expected date of discharge: 11/07/24 Attending physician: Jefferson Gonzales MD Consults: 11/03/24 07:58 Consult Physician Routine Consulting Provider: [facility] Consult Reason/Comments: H & P w/medical management Do you want consulting provider notified?: Yes Primary care physician: Stated None - Discharge Diagnosis(es) (1) Major depressive disorder without psychotic features Current Visit: Yes Status: Acute Priority: High (2) Anxiety disorder Current Visit: Yes Status: Acute Priority: Medium (3) Alcohol use disorder, severe, dependence Current Visit: Yes Status: Acute Priority: High (4) Cannabis use disorder Current Visit: Yes Status: Acute Priority: Medium (5) Homelessness Current Visit: Yes Status: Acute Priority: Medium (6) Nicotine dependence Current Visit: Yes Status: Acute Priority: Low Hospital Course: Admission HPI: Admission note was completed by proposal manager writer "Patient is a 39 years old homeless male, presented with alcohol intoxication, and reported suicidal thoughts. Patient is single has no kids he is unemployed. Patient presented to the ER earlier today, he was intoxicated from alcohol had a blood alcohol level of 261. He was reporting depression suicidal thoughts. He was recently released from the mental health unit over a week ago. He claims that he "got drunk" and then also slipped on the ice about 2 days ago and hurt his hip and back. Claims that he still dealing with back pain. Claims that he is upset revealing homeless, which is a constant stressor and also claims that recently he lost his phone which she is upset about. He had fairly poor eye contact, appeared to be disheveled in appearance, soft tone of voice. He states he has been drinking about 1/5 of vodka a day for the past 5 or so days. Claims that he does have a history of delirium tremens and hallucinations as well. Claims that he still feeling fairly depressed, was having suicidal thoughts however he has no specific plan at this time. Denying any homicidal ideations. Claims that his sleep and appetite are poor. He denied any auditory or visual hallucination, paranoia or delusion, denied any manic or hypomanic symptoms. He admits to using alcohol for a long time, currently drinking as noted above. And reported multiple inpatient rehab. Claims that he smokes marijuana regularly, also smokes cigarettes. Denies any other recreational drug use." Hospital course: Upon admission to the unit patient was directable and agreeable to commence treatment and signed adult voluntary form. Patient was initially isolative, depressed however with time and treatment eventually got along well with other patients on the unit and followed unit protocol. Patient was compliant with the medications and denied any side effects throughout hospital course. Patient was started on Librium for alcohol withdrawal however was gradually tapered off. Patient was also on [facility] protocol with as needed Ativan. Patient was started on Zoloft increased to dose of 100 mg daily for mood/anxiety, trazodone 150 mg nightly for mood/insomnia. Patient was offered anticraving medications for alcohol use however declined. Patient spoke of his stressors and engaged in therapy both group and individual. Patient was also seen by medical team for history and physical exam. Patient did have a x-ray of his hip and back which did not show any acute fractures. Patient was treated for back pain with Tylenol and NSAIDs which gradually improved with rest and treatment while on the unit. Throughout the course of the hospitalization patient gradually improved with regards to mood, anxiety, withdrawals, suicidal thoughts, sleep and returned back to their baseline level of functioning. On the day of discharge patient denied any suicidal or homicidal ideations intent or plan denied any auditory or visual hallucinations. Patient endorsed wanting to live for their health and sobriety. The patient denied any access to guns or weapons. Patient denied any paranoia and did not endorse any delusions. Patient does have a significant history of substance abuse and was counseled on abstaining from all substances including alcohol and marijuana. Patient was offered however declined inpatient substance-abuse rehab. Patient elected to do outpatient substance use treatment program through their outpatient provider.. Patient was also counseled on the medications and need for regular compliance and was encouraged to follow-up with their outpatient appointment for mental health and also for primary care. Mental status exam: General Appearance: Patient appears to be thin, stated age is alert, pleasant, and cooperative. Patient is in no acute distress and has improved hygiene and grooming Behavior: Patient is calmly seated without any agitated behavior. Speech: Patient's speech is fluent and nonpressured. Mood/Affect: Patient reports their mood is "good", affect is congruent and improving Suicidality/Homicidality: Patient denies having any suicidal or homicidal ideation intent or plan. Perceptions: Patient denies any auditory or visual hallucinations. Though content/process: There is no evidence of any delusional thought content and thought process is linear and goal-directed. More future oriented Memory and concentration: AOX3, grossly intact for the purposes of this session. Can spell "WORLD" backwards correctly. Judgment and insight: improved with guarded prognosis Impression: Major depressive disorder, without psychotic features Anxiety disorder unspecified Alcohol use disorder severe dependence Cannabis use disorder Homelessness Nicotine dependence Plan: -Continue with discharge today as patient has improved and stabilized psychiatrically and is not currently an imminent threat to themself and/or others. Patient will remain at chronically elevated risk for harm to self and/or others due to their impulsivity and substance abuse. -Continue medications: Zoloft 100 mg daily for mood/anxiety, trazodone 150 mg nightly for mood/insomnia. Patient was discontinued off of Librium and Ativan. Patient refusing any anticraving medications. Patient will also be discharged with as needed Tylenol and Motrin for back pain. -Patient was counseled on the need for medication compliance and appropriate follow-up at mental health and also primary care for medical issues. Patient verbalized understanding and agreed. -Social work to help coordinate patients discharge today he claims that he will be going to his friend's house, will also be given the [facility] information. also to ensure safe home environment that guns/weapons are either removed from the home or locked away. Social work also to arrange for patients follow up appointments with [facility] for psychiatric care along with follow up with primary care provider. -Patient counseled on abstaining from recreational drugs and marijuana and alcohol. Was informed/educated on the adverse effects on their physical and mental health. Patient verbally agreed and understood. Patient was offered substance abuse treatment however declined at this time. -Patient was instructed to return to the hospital or seek immediate medical care if their psychiatric or medical symptoms do worsen or reoccur. Allergies Allergy/AdvReac Type Severity Reaction Status Date / Time No Known Allergies Allergy Verified 11/02/24 19:54 Laboratory Results WBC 10.6 k/uL (3.8-10.6) 11/02/24 17:47 RBC 4.68 m/uL (4.30-5.90) 11/02/24 17:47 Hgb 15.3 gm/dL (13.0-17.5) 11/02/24 17:47 Hct 46.1 % (39.0-53.0) 11/02/24 17:47 MCV 98.5 fL (80.0-100.0) 11/02/24 17:47 MCH 32.7 pg (25.0-35.0) 11/02/24 17:47 MCHC 33.2 g/dL (31.0-37.0) 11/02/24 17:47 RDW 11.8 % (11.5-15.5) 11/02/24 17:47 Plt Count 359 k/uL (150-450) 11/02/24 17:47 MPV 6.7 11/02/24 17:47 Neutrophils % 74 % 11/02/24 17:47 Lymphocytes % 20 % 11/02/24 17:47 Monocytes % 3 % 11/02/24 17:47 Eosinophils % 1 % 11/02/24 17:47 Basophils % 0 % 11/02/24 17:47 Neutrophils # 7.9 k/uL (1.3-7.7) H 11/02/24 17:47 Lymphocytes # 2.1 k/uL (1.0-4.8) 11/02/24 17:47 Monocytes # 0.3 k/uL (0-1.0) 11/02/24 17:47 Eosinophils # 0.1 k/uL (0-0.7) 11/02/24 17:47 Basophils # 0.0 k/uL (0-0.2) 11/02/24 17:47 Sodium 142 mmol/L (137-145) 11/02/24 17:47 Potassium 3.6 mmol/L (3.5-5.1) 11/02/24 17:47 Chloride 102 mmol/L (98-107) 11/02/24 17:47 Carbon Dioxide 23 mmol/L (22-30) 11/02/24 17:47 Anion Gap 17 mmol/L 11/02/24 17:47 BUN 5 mg/dL (9-20) L 11/02/24 17:47 Creatinine 0.73 mg/dL (0.66-1.25) 11/02/24 17:47 Est GFR (CKD-EPI)AfAm >90 (>60 ml/min/1.73 sqM) 11/02/24 17:47 Est GFR (CKD-EPI)NonAf >90 (>60 ml/min/1.73 sqM) 11/02/24 17:47 Glucose 115 mg/dL (74-99) H 11/02/24 17:[address] Glu mg/dL 88 mg/dL 11/04/24 06:44 Hemoglobin A1c 4.7 % (<=6.0) 11/04/24 06:44 Calcium 10.1 mg/dL (8.4-10.2) 11/02/24 17:47 Phosphorus 2.6 mg/dL (2.5-4.5) 11/02/24 17:47 Magnesium 1.9 mg/dL (1.6-2.3) 11/02/24 17:47 Total Bilirubin 1.3 mg/dL (0.2-1.3) 11/04/24 06:44 Conjugated Bilirubin 0.0 mg/dL (0.0-0.3) 11/04/24 06:44 Unconjugated Bilirubin 1.2 mg/dL (0.0-1.1) H 11/04/24 06:44 Delta Bilirubin 0.1 mg/dL (0.0-0.2) 11/04/24 06:44 AST 19 U/L (17-59) 11/04/24 06:44 ALT 15 U/L (4-49) 11/04/24 06:44 Alkaline Phosphatase 52 U/L (38-126) 11/04/24 06:44 Total Protein 5.7 g/dL (6.3-8.2) L 11/04/24 06:44 Albumin 3.5 g/dL (3.5-5.0) 11/04/24 06:44 Triglycerides 83.40 mg/dL (0.00-149.00) 11/04/24 06:44 Cholesterol 165.00 mg/dL (0.00-200.00) 11/04/24 06:44 LDL Cholesterol, Calc 71.5 mg/dL (0.0-131.0) 11/04/24 06:44 VLDL Cholesterol, Calc 16.68 mg/dL (5.00-40.00) 11/04/24 06:44 HDL Cholesterol 76.80 mg/dL (40.00-60.00) H 11/04/24 06:44 Cholesterol/HDL Ratio 2.15 Ratio 11/04/24 06:44 Lipase 108 U/L (23-300) 11/02/24 17:47 TSH 0.940 mIU/L (0.465-4.680) 11/04/24 06:44 Urine Color Colorless 11/02/24 17:47 Urine Appearance Clear (Clear) 11/02/24 17:47 Urine pH 6.0 (5.0-8.0) 11/02/24 17:47 Ur Specific [place] 1.001 (1.001-1.035) 11/02/24 17:47 Urine Protein Negative (Negative) 11/02/24 17:47 Urine Glucose (UA) Negative (Negative) 11/02/24 17:47 Urine Ketones Negative (Negative) 11/02/24 17:47 Urine Blood Negative (Negative) 11/02/24 17:47 Urine Nitrite Negative (Negative) 11/02/24 17:47 Urine Bilirubin Negative (Negative) 11/02/24 17:47 Urine Urobilinogen <2.0 mg/dL (<2.0) 11/02/24 17:47 Ur Leukocyte Esterase Negative (Negative) 11/02/24 17:47 Urine Opiates Screen Not Detected (NotDetected) 11/02/24 17:47 Ur Oxycodone Screen Not Detected (NotDetected) 11/02/24 17:47 Urine Methadone Screen Not Detected (NotDetected) 11/02/24 17:47 Ur Barbiturates Screen Not Detected (NotDetected) 11/02/24 17:47 U Tricyclic Antidepress Not Detected (NotDetected) 11/02/24 17:47 Ur Phencyclidine Scrn Not Detected (NotDetected) 11/02/24 17:47 Ur Amphetamines Screen Not Detected (NotDetected) 11/02/24 17:47 U Methamphetamines Scrn Not Detected (NotDetected) 11/02/24 17:47 U Benzodiazepines Scrn Not Detected (NotDetected) 11/02/24 17:47 Urine Cocaine Screen Not Detected (NotDetected) 11/02/24 17:47 U Marijuana (THC) Screen Detected (NotDetected) H 11/02/24 17:47 Serum Alcohol 261 mg/dL H* 11/02/24 18:46 SARS-CoV-2 (PCR) Not Detected (Not Detectd) 11/03/24 05:57 Vital Signs Temp 98.1 F 11/06/24 06:58 Pulse 105 H 11/07/24 08:39 Resp 14 11/05/24 07:08 BP 124/83 11/07/24 08:39 Pulse Ox 99 11/06/24 06:58 FiO2 Patient Condition at Discharge: Stable Plan - Discharge Summary Discharge Rx Participant: No New Discharge Prescriptions: New Ibuprofen [Motrin] 800 mg PO TID PRN 15 Days #45 tab PRN Reason: Severe Pain (Scale 7 To 10) Multivitamins, Thera [Multivitamin (formulary)] 1 each PO DAILY tab Acetaminophen Tab [Tylenol] 650 mg PO Q8HR PRN 15 Days #90 tab PRN Reason: Mild Pain (Scale 1 To 3) Thiamine [Vitamin B-1] 100 mg PO DAILY tab Continue Folic Acid 1 mg PO DAILY 30 Days #30 tab traZODone HCL 150 mg PO HS 30 Days #30 tab Sertraline [Zoloft] 100 mg PO DAILY 30 Days #30 tab Discharge Medication List Folic Acid 1 mg PO DAILY 30 Days #30 tab 09/30/24 [Rx] Acetaminophen Tab [Tylenol] 650 mg PO Q8HR PRN 15 Days #90 tab 11/07/24 [Rx] Ibuprofen [Motrin] 800 mg PO TID PRN 15 Days #45 tab 11/07/24 [Rx] Multivitamins, Thera [Multivitamin (formulary)] 1 each PO DAILY tab 11/07/24 [Rx] Sertraline [Zoloft] 100 mg PO DAILY 30 Days #30 tab 11/07/24 [Rx] Thiamine [Vitamin B-1] 100 mg PO DAILY tab 11/07/24 [Rx] traZODone HCL 150 mg PO HS 30 Days #30 tab 11/07/24 [Rx] Follow up Appointment(s)/Referral(s): [facility] [Outside] - 11/12/24 9:00 am (11/12/2024 9:00AM - 10:00AM BRIAN SMITH 11/19/2024 10:00AM - 11:00AM JOHN CARDOZA 11/27/2024 1:00PM - 1:30PM LUCIANA GUERRERO [facility] [NON-STAFF] - 1 Week Patient Instructions/Handouts: How to Stop Smoking (DC), Depression (DC), Abuse of Alcohol (DC), Anxiety (GEN) Activity/Diet/Wound Care/Special Instructions: [facility] Discharge Info Avoid the use of street drugs and alcohol. Take all medications as prescribed. When you are in need of refills on your medications, please contact your outpatient medical provider and/or outpatient psychiatrist. Please go to your scheduled outpatient appointments for aftercare treatment. If symptoms return or become worse, call the crisis line at or and/or visit the nearest emergency room for assistance. National Suicide and Crisis Lifeline - call or text 668 Discharge Disposition: OTHER INSTITUTION NOT DEFINED
== END 2024-11-07 12:15 | disposition home or self-care (01) | DRG 751 ==
LOC: EC 17:04 → 3MHU 11-03 07:42
PROVIDERS: ADMIT Psychiatry & Neurology Psychiatry; ATTEND Psychiatry & Neurology Psychiatry
DX: F32.9 Major depressive disorder, single episode, unspecified (principal); F41.9 Anxiety disorder, unspecified; G47.00 Insomnia, unspecified; R45.851 Suicidal ideations; F10.229 Alcohol dependence with intoxication, unspecified; F10.239 Alcohol dependence with withdrawal, unspecified; F12.10 Cannabis abuse, uncomplicated; F17.200 Nicotine dependence, unspecified, uncomplicated; Y90.8 Blood alcohol level of 240 mg/100 ml or more; Z56.0 Unemployment, unspecified; Z59.00 Homelessness unspecified; Z79.899 Other long term (current) drug therapy; W00.0XXA Fall on same level due to ice and snow, initial encounter; M54.9 Dorsalgia, unspecified; Z71.3 Dietary counseling and surveillance; Z71.51 Drug abuse counseling and surveillance of drug abuser; Z71.41 Alcohol abuse counseling and surveillance of alcoholic; Z71.89 Other specified counseling; Z28.310 Unvaccinated for COVID-19; Z28.21 Immunization not carried out because of patient refusal; Z53.29 Procedure and treatment not carried out because of patient's decision for other reasons
CPT/HCPCS: 36415; 80053; 80061; 80076; 80306; 80320; 81003; 82075; 83036; 83690; 83735; 84100; 84443; 85025; 87635; 96360; 96361; 99285

== ENCOUNTER 2024-12-17 00:15 | Emergency (ER) | payer OTHER ==
[2024-12-17 00:22] VITALS: BP 149/78; PULSE 100; RESP 18; TEMP 97.9
[2024-12-17] MEDS ORDERED: LORazepam 1 MG TAB PO PRN ×3 (00:23)
[2024-12-17] MEDS ORDERED: LORazepam 0.5 MG TAB PO PRN (00:23)
[2024-12-17] MEDS ORDERED: LORazepam 2 MG/ML INJ IV PRN ×3 (00:23)
[2024-12-17] MEDS ORDERED: chlordiazePOXIDE 25 MG CAP PO PRN ×4 (00:23)
--- NOTE | 2024-12-17 00:30 | ED ---
Alcohol HPI - General Chief Complaint: Nausea/Vomiting/Diarrhea Stated Complaint: nausea Time Seen by Provider: 12/17/24 00:23 Source: patient, RN notes reviewed, old records reviewed Mode of arrival: ambulatory - History of Present Illness Initial Comments: This is a 39 male who presents to the ER today for evaluation regards to homelessness, alcohol intoxication. Patient states he had some nausea and vomiting and general not feeling well. 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) Previous Visits for Alcohol Intoxication?: Yes Recent Trauma: Yes Associated Symptoms: nausea, hematemesis Chronic Alcohol Use: Yes - Related Data Home Medications Medication Instructions Recorded Confirmed Multivitamins, Thera [Multivitamin 1 tab PO DAILY 11/11/24 11/14/24 (formulary)] Previous Rx's Medication Instructions Recorded Folic Acid 1 mg PO DAILY 30 Days #30 tab 09/30/24 Acetaminophen Tab [Tylenol] 650 mg PO Q8HR PRN 15 Days #90 tab 11/07/24 Ibuprofen [Motrin] 800 mg PO TID PRN 15 Days #45 tab 11/07/24 Sertraline [Zoloft] 100 mg PO DAILY 30 Days #30 tab 11/07/24 Thiamine [Vitamin B-1] 100 mg PO DAILY tab 11/07/24 traZODone HCL 150 mg PO HS 30 Days #30 tab 11/07/24 chlordiazePOXIDE HCl [Librium] 20 mg PO TID #6 cap 11/13/24 Allergies Allergy/AdvReac Type Severity Reaction Status Date / Time No Known Allergies Allergy Verified 11/19/24 18:49 Review of Systems ROS Statement: Those systems with pertinent positive or pertinent negative responses have been documented in the HPI. ROS Other: All systems not noted in ROS Statement are negative. Past Medical History Past Medical History: No Reported History Additional Past Medical History / Comment(s): ETOH History of Any Multi-Drug Resistant Organisms: None Reported Additional Past Surgical History / Comment(s): plastic surgery on left lip Past Anesthesia/Blood Transfusion Reactions: No Reported Reaction Past Psychological History: ADD/ADHD Smoking Status: Current every day smoker, Vaper Past Alcohol Use History: Abuse, Daily Past Drug Use History: Marijuana General Exam General appearance: appears intoxicated Head exam: Present: atraumatic, normocephalic, normal inspection Eye exam: Present: normal appearance, PERRL, EOMI. Absent: scleral icterus, conjunctival injection, periorbital swelling ENT exam: Present: normal exam, mucous membranes moist Neck exam: Present: normal inspection. Absent: tenderness, meningismus, lymphadenopathy Respiratory exam: Present: normal lung sounds bilaterally. Absent: respiratory distress, wheezes, rales, rhonchi, stridor Cardiovascular Exam: Present: regular rate, normal rhythm, normal heart sounds. Absent: systolic murmur, diastolic murmur, rubs, gallop, clicks GI/Abdominal exam: Present: soft, normal bowel sounds. Absent: distended, tenderness, guarding, rebound, rigid Extremities exam: Present: normal inspection, full ROM, normal capillary refill. Absent: tenderness, pedal edema, joint swelling, calf tenderness Back exam: Present: normal inspection Neurological exam: Present: alert, oriented X3, CN II-XII intact Psychiatric exam: Present: normal affect, normal mood Skin exam: Present: warm, dry, intact, normal color. Absent: rash Course Vital Signs 12/17/24 00:17 Temperature 97.9 F Pulse Rate 100 Respiratory 18 Rate Blood Pressure 149/78 O2 Sat by Pulse 98 Oximetry - Reevaluation(s) Reevaluation #1: 12/17/24 00:46 Medical records reviewed Reevaluation #2: 12/17/24 00:46 Patient symptoms continue to improve here in the ER Reevaluation #3: 12/17/24 00:46 Patient informed of results questions answered Reevaluation #4: Was pt. sent in by a medical professional or institution (, PA, HUMAN RESOURCES INTERN, urgent care, hospital, or group home...) When possible be specific @ -no Did you speak to anyone other than the patient for history (EMS, parent, family, police, friend...)? What history was obtained from this source @ -no Did you review nursing and triage notes (agree or disagree)? Why? @ -agree Are old charts reviewed (outside hosp., previous admission, EMS record, old EKG, old radiological studies, urgent care reports/EKG's, group home records)? Report findings @ -yes Differential Diagnosis (chest pain, altered mental status, abdominal pain women, abdominal pain men, vaginal bleeding, weakness, fever, dyspnea, syncope, headache, dizziness, GI bleed, back pain, seizure, CVA, palpatations, mental health, musculoskeletal)? @ -prior EKG interpreted by me (3pts min.). @ -yes X-rays interpreted by me (1pt min.). @ -yes negative for acute disease CT interpreted by me (1pt min.). @ -no U/S interpreted by me (1pt. min.). @ -no What testing was considered but not performed or refused? (CT, X-rays, U/S, labs)? Why? @ -none What meds were considered but not given or refused? Why? @ -none Did you discuss the management of the patient with other professionals (professionals i.e. Dr., PA, HUMAN RESOURCES INTERN, lab, RT, psych nurse, high school social science teacher, aerial photogrammetrist, teacher, code enforcement officer, disease case manager)? Give summary @ -no Was smoking cessation discussed for >3mins.? @ -no Was critical care preformed (if so, how long)? @ -no Were there social determinants of health that impacted care today? How? (Homelessness, low income, unemployed, alcoholism, drug addiction, tr ansportation, low edu. Level, literacy, decrease access to med. care, halfway, rehab)? @ -none Was there de-escalation of care discussed even if they declined (Discuss DNR or withdrawal of care, Hospice)? DNR status @ -no What co-morbidities impacted this encounter? (DM, HTN, Smoking, COPD, CAD, Cancer, CVA, ARF, Chemo, Hep., AIDS, mental health diagnosis, sleep apnea, morbid obesity)? @ -none Was patient admitted / discharged? Hospital course, mention meds given and route, prescriptions, significant lab abnormalities, going to OR and other pertinent info. @ - Undiagnosed new problem with uncertain prognosis? @ -no Drug Therapy requiring intensive monitoring for toxicity (Heparin, Nitro, Insulin, Cardizem)? @ -no Were any procedures done? @ -no Diagnosis/symptom? @ - Acute, or Chronic, or Acute on Chronic? @ -Acute Uncomplicated (without systemic symptoms) or Complicated (systemic symptoms)? @ -Complicated Side effects of treatment? @ -no Exacerbation, Progression, or Severe Exacerbation? @ -exacerbation Poses a threat to life or bodily function? How? (Chest pain, USA, MS, pneumonia, PE, COPD, DKA, ARF, appy, cholecystitis, CVA, Diverticulitis, Homicidal, Suicidal, threat to staff... and all critical care pts) @ -yes Medical Decision Making - Medical Decision Making 39 male to the ER for evaluation of altered mental status weakness and homelessness. Alcohol intoxication, patient does not want inpatient admission does not want to detox he is not homicidal or suicidal and can be discharged Disposition Clinical Impression: Alcohol abuse, Alcoholic intoxication Disposition: HOME SELF-CARE Condition: Fair Instructions (If sedation given, give patient instructions): Alcohol Intoxication (ED), Abuse of Alcohol (ED) Is patient prescribed a controlled substance at d/c from ED?: No Referrals: None,Stated [Primary Care Provider] - 1-2 days
[2024-12-17] MEDS: LORazepam 2 MG/ML INJ IV STA (00:35)
[2024-12-17] MEDS: PANTOPRAZOLE 40 MG/10 ML VIAL IV STA (00:35)
[2024-12-17] MEDS: ONDANSETRON 4 MG/2 ML VIAL IVP STA (00:35)
[2024-12-17] MEDS: SODIUM CHLORIDE 0.9% 1,000 ML IV STA (00:40)
[2024-12-17 00:49] LABS: Basophils # (A) 0.1 k/uL (0-0.2); Basophils % (A) 1 %; Eosinophils # (A) 0.2 k/uL (0-0.7); Eosinophils % (A) 1 %; HCT 51.5 % (39.0-53.0); HGB 16.4 gm/dL (13.0-17.5); Lymphocytes # (A) 4.6 k/uL (1.0-4.8); Lymphocytes % (A) 35 %; MCH 32.3 pg (25.0-35.0); MCHC 31.8 g/dL (31.0-37.0); MCV 101.5 fL (80.0-100.0); Macrocytosis Slight; Monocytes # (A) 0.6 k/uL (0-1.0); Monocytes % (A) 4 %; Neutrophils # (A) 7.3 k/uL (1.3-7.7); Neutrophils % (A) 56 %; Platelet Count 459 k/uL (150-450); RBC 5.07 m/uL (4.30-5.90)
[2024-12-17 01:02] LABS: ALT 40 U/L (4-49); AST 44 U/L (17-59); African American GFR (CKD) >90 (>60 ml/min/1.73 sqM); Albumin 5.2 g/dL (3.5-5.0); Alkaline Phosphatase 124 U/L (38-126); Anion Gap 19 mmol/L; Blood Urea Nitrogen 14 mg/dL (9-20); Calcium 9.5 mg/dL (8.4-10.2); Carbon Dioxide 23 mmol/L (22-30); Chloride 99 mmol/L (98-107); Glucose 82 mg/dL (74-99); Lipase 146 U/L (23-300); Magnesium 2.1 mg/dL (1.6-2.3); Non-African American GFR(CKD) >90 (>60 ml/min/1.73 sqM); Phosphorus 3.6 mg/dL (2.5-4.5); Potassium 4.1 mmol/L (3.5-5.1); Sodium 141 mmol/L (137-145); Total Bilirubin 0.8 mg/dL (0.2-1.3); Total Protein 7.9 g/dL (6.3-8.2)
[2024-12-17] MEDS ORDERED: MULTIVITAMINS, THERA 1 EACH TAB PO SCH (09:00)
[2024-12-17] MEDS ORDERED: FOLIC ACID 1 MG TAB PO SCH (09:00)
== END 2024-12-17 07:25 | disposition home or self-care (01) ==
LOC: EC 00:15
DX: F10.129 Alcohol abuse with intoxication, unspecified (principal); F17.290 Nicotine dependence, other tobacco product, uncomplicated
CPT/HCPCS: 36415; 80053; 83690; 83735; 84100; 85025; 96360; 99284

== ENCOUNTER 2024-12-18 05:37 | Observation (INO) | payer OTHER ==
--- NOTE | 2024-12-18 06:46 | ED ---
Psych HPI - General Chief Complaint: Psychiatric Symptoms Stated Complaint: Mental Health, ETOH Time Seen by Provider: 12/18/24 05:57 Source: patient, RN notes reviewed Mode of arrival: ambulatory Limitations: no limitations - History of Present Illness Initial Comments: 39-year-old male presents emergency department with police for psychiatric evaluation. Patient reportedly made some suicidal threats to other people. Patient was petition by police patient denies suicide ideation at this time does not alcohol abuse. Denies any physical complaints asthma to marijuana use. Denies being homicidal. - Related Data Home Medications Medication Instructions Recorded Confirmed Multivitamins, Thera [Multivitamin 1 tab PO DAILY 11/11/24 11/14/24 (formulary)] Previous Rx's Medication Instructions Recorded Folic Acid 1 mg PO DAILY 30 Days #30 tab 09/30/24 Acetaminophen Tab [Tylenol] 650 mg PO Q8HR PRN 15 Days #90 tab 11/07/24 Ibuprofen [Motrin] 800 mg PO TID PRN 15 Days #45 tab 11/07/24 Sertraline [Zoloft] 100 mg PO DAILY 30 Days #30 tab 11/07/24 Thiamine [Vitamin B-1] 100 mg PO DAILY tab 11/07/24 traZODone HCL 150 mg PO HS 30 Days #30 tab 11/07/24 chlordiazePOXIDE HCl [Librium] 20 mg PO TID #6 cap 11/13/24 Allergies Allergy/AdvReac Type Severity Reaction Status Date / Time No Known Allergies Allergy Verified 12/18/24 05:42 Review of Systems ROS Statement: Those systems with pertinent positive or pertinent negative responses have been documented in the HPI. ROS Other: All systems not noted in ROS Statement are negative. Past Medical History Past Medical History: No Reported History Additional Past Medical History / Comment(s): ETOH History of Any Multi-Drug Resistant Organisms: None Reported Additional Past Surgical History / Comment(s): plastic surgery on left lip Past Anesthesia/Blood Transfusion Reactions: No Reported Reaction Past Psychological History: ADD/ADHD Smoking Status: Current every day smoker, Vaper Past Alcohol Use History: Abuse, Daily Past Drug Use History: Marijuana General Exam Limitations: no limitations General appearance: alert, in no apparent distress, appears intoxicated Head exam: Present: atraumatic, normocephalic, normal inspection Eye exam: Present: normal appearance, PERRL, EOMI. Absent: scleral icterus, conjunctival injection, periorbital swelling ENT exam: Present: normal exam, normal oropharynx, mucous membranes moist Neck exam: Present: normal inspection, full ROM. Absent: tenderness, meningismus, lymphadenopathy Respiratory exam: Present: normal lung sounds bilaterally. Absent: respiratory distress, wheezes, rales, rhonchi, stridor Cardiovascular Exam: Present: regular rate, normal rhythm, normal heart sounds. Absent: systolic murmur, diastolic murmur, rubs, gallop, clicks GI/Abdominal exam: Present: soft, normal bowel sounds. Absent: distended, tenderness, guarding, rebound, rigid Neurological exam: Present: alert, oriented X3, CN II-XII intact, reflexes normal. Absent: motor sensory deficit Psychiatric exam: Present: flat affect Skin exam: Present: warm, dry, intact, normal color. Absent: rash Course Vital Signs 12/18/24 12/18/24 05:42 06:51 Temperature 97.3 F L 97.5 F L Pulse Rate 67 73 Respiratory 18 18 Rate Blood Pressure 143/89 97/62 O2 Sat by Pulse 94 L 95 Oximetry Medical Decision Making - Medical Decision Making Was pt. sent in by a medical professional or institution (, PA, CORE MAKER, urgent care, hospital, or half-way...) When possible be specific @ -No Did you speak to anyone other than the patient for history (EMS, parent, family, police, friend...)? What history was obtained from this source @ -No Did you review nursing and triage notes (agree or disagree)? Why? @ -I reviewed and agree with nursing and triage notes Were old charts reviewed (outside hosp., previous admission, EMS record, old EKG, old radiological studies, urgent care reports/EKG's, half-way records)? Report findings @ -No old charts were reviewed Differential Diagnosis (chest pain, altered mental status, abdominal pain women, abdominal pain men, vaginal bleeding, weakness, fever, dyspnea, syncope, headache, dizziness, GI bleed, back pain, seizure, CVA, palpatations, mental health, musculoskeletal)? @ -Differential Mental Health Depression, anxiety, bipolar, psychosis, schizophrenia, borderline personality, situational depression, adjustment disorder, behavioral disorder, brain tumor, malingering, substance abuse, encephalopathy, medication reaction, dementia, hypothyroidism, degenerative neurologic disorder, lupus.... This is not meant to be all-inclusive list EKG interpreted by me (3pts min.). @ -None X-rays interpreted by me (1pt min.). @ -None done CT interpreted by me (1pt min.). @ -None done U/S interpreted by me (1pt. min.). @ -None done What testing was considered but not performed or refused? (CT, X-rays, U/S, labs)? Why? @ -None What meds were considered but not given or refused? Why? @ -None Did you discuss the management of the patient with other professionals (professionals i.e. DrElif, PA, CORE MAKER, lab, RT, psych nurse, social services technician, bander, teacher, fire officer, case folder)? Give summary @ -EM for admission Was smoking cessation discussed for >3mins.? @ -No Was critical care preformed (if so, how long)? @ -No Were there social determinants of health that impacted care today? How? (Homelessness, low income, unemployed, alcoholism, drug addiction, trans portation, low edu. Level, literacy, decrease access to med. care, skilled nursing, rehab)? @ -No Was there de-escalation of care discussed even if they declined (Discuss DNR or withdrawal of care, Hospice)? DNR status @ -No What co-morbidities impacted this encounter? (DM, HTN, Smoking, COPD, CAD, Cancer, CVA, ARF, Chemo, Hep., AIDS, mental health diagnosis, sleep apnea, morbid obesity)? @ -None Was patient admitted / discharged? Hospital course, mention meds given and route, prescriptions, significant lab abnormalities, going to OR and other pertinent info. @ -Admitted patient has blood alcohol 386 patient is currently petition will be admitted for psychiatric evaluation pending sobriety. Undiagnosed new problem with uncertain prognosis? @ -No Drug Therapy requiring intensive monitoring for toxicity (Heparin, Nitro, Insulin, Cardizem)? @ -No Were any procedures done? @ -No Diagnosis/symptom? @ -Alcohol intoxication, depression, Acute, or Chronic, or Acute on Chronic? @ -Acute Uncomplicated (without systemic symptoms) or Complicated (systemic symptoms)? @ -Uncomplicated Side effects of treatment? @ -No Exacerbation, Progression, or Severe Exacerbation? @ -No Poses a threat to life or bodily function? How? (Chest pain, USA, MA, pneumonia, PE, COPD, DKA, ARF, appy, cholecystitis, CVA, Diverticulitis, Homicidal, Suicidal, threat to staff... and all critical care pts) @ -No - Lab Data Result diagrams: 12/18/24 06:41 12/18/24 06:41 Lab Results 12/18/24 12/18/24 Range/Units 06:41 06:41 WBC 8.4 (3.8-10.6) k/uL RBC 5.02 (4.30-5.90) m/uL Hgb 16.2 (13.0-17.5) gm/dL Hct 50.9 (39.0-53.0) % MCV 101.5 H (80.0-100.0) fL MCH 32.3 (25.0-35.0) pg MCHC 31.9 (31.0-37.0) g/dL RDW 13.3 (11.5-15.5) % Plt Count 379 (150-450) k/uL MPV 7.5 Neutrophils % 67 % Lymphocytes % 27 % Monocytes % 3 % Eosinophils % 1 % Basophils % 0 % Neutrophils # 5.7 (1.3-7.7) k/uL Lymphocytes # 2.3 (1.0-4.8) k/uL Monocytes # 0.3 (0-1.0) k/uL Eosinophils # 0.1 (0-0.7) k/uL Basophils # 0.0 (0-0.2) k/uL Macrocytosis Slight Sodium 146 H (137-145) mmol/L Potassium 4.1 (3.5-5.1) mmol/L Chloride 103 (98-107) mmol/L Carbon Dioxide 26 (22-30) mmol/L Anion Gap 17 mmol/L BUN 14 (9-20) mg/dL Creatinine 0.81 (0.66-1.25) mg/dL Est GFR (CKD-EPI)AfAm >90 (>60 ml/min/1.73 sqM) Est GFR (CKD-EPI)NonAf >90 (>60 ml/min/1.73 sqM) Glucose 91 (74-99) mg/dL Calcium 9.1 (8.4-10.2) mg/dL Magnesium 2.0 (1.6-2.3) mg/dL Total Bilirubin 0.7 (0.2-1.3) mg/dL AST 51 (17-59) U/L ALT 44 (4-49) U/L Alkaline Phosphatase 106 (38-126) U/L Total Protein 7.2 (6.3-8.2) g/dL Albumin 4.7 (3.5-5.0) g/dL Serum Alcohol 386 H* mg/dL Disposition Clinical Impression: Alcoholic intoxication, Depression Disposition: ADMITTED IP TO THIS HOSP Referrals: None,Stated [Primary Care Provider] - 1-2 days Time of Disposition: 09:22
[2024-12-18 07:20] LABS: ALT 44 U/L (4-49); AST 51 U/L (17-59); African American GFR (CKD) >90 (>60 ml/min/1.73 sqM); Albumin 4.7 g/dL (3.5-5.0); Alkaline Phosphatase 106 U/L (38-126); Anion Gap 17 mmol/L; Blood Urea Nitrogen 14 mg/dL (9-20); Calcium 9.1 mg/dL (8.4-10.2); Carbon Dioxide 26 mmol/L (22-30); Chloride 103 mmol/L (98-107); Glucose 91 mg/dL (74-99); Non-African American GFR(CKD) >90 (>60 ml/min/1.73 sqM); Potassium 4.1 mmol/L (3.5-5.1); Sodium 146 mmol/L (137-145); Total Bilirubin 0.7 mg/dL (0.2-1.3); Total Protein 7.2 g/dL (6.3-8.2)
[2024-12-18 07:29] LABS: Basophils % (A) 0 %; Eosinophils # (A) 0.1 k/uL (0-0.7); Eosinophils % (A) 1 %; HCT 50.9 % (39.0-53.0); HGB 16.2 gm/dL (13.0-17.5); Lymphocytes # (A) 2.3 k/uL (1.0-4.8); Lymphocytes % (A) 27 %; MCH 32.3 pg (25.0-35.0); MCHC 31.9 g/dL (31.0-37.0); MCV 101.5 fL (80.0-100.0); Macrocytosis Slight; Mean Platelet Volume 7.5; Monocytes # (A) 0.3 k/uL (0-1.0); Monocytes % (A) 3 %; Neutrophils # (A) 5.7 k/uL (1.3-7.7); Neutrophils % (A) 67 %; Platelet Count 379 k/uL (150-450); RBC 5.02 m/uL (4.30-5.90); RDW 13.3 % (11.5-15.5); WBC 8.4 k/uL (3.8-10.6)
[2024-12-18] MEDS ORDERED: NALOXONE 0.4 MG/ML 1 ML VIAL IV PRN (09:23)
[2024-12-18] MEDS ORDERED: LORazepam 2 MG/ML INJ IV PRN ×3 (09:24)
[2024-12-18] MEDS ORDERED: LORazepam 0.5 MG TAB PO PRN (09:24)
[2024-12-18] MEDS: SODIUM CHLORIDE 0.9% 1,000 ML IV SCH (09:33)
[2024-12-18 13:45] LABS: Amphetamine Screen,Urine Not Detected (NotDetected); Barbiturate Screen,Urine Not Detected (NotDetected); Benzodiazepines Screen,Urine Not Detected (NotDetected); Cocaine Screen,Urine Not Detected (NotDetected); Methadone Screen, Urine Not Detected (NotDetected); Opiate Screen,Urine Not Detected (NotDetected); Oxycodone Screen, Urine Not Detected (NotDetected); Phencyclidine Screen,Urine Not Detected (NotDetected); Tricyclic Antidepressant,Urine Not Detected (NotDetected); Urn Cannabinoid Scrn Detected (NotDetected)
[2024-12-18] MEDS ORDERED: LORazepam 1 MG TAB PO PRN ×3 (13:51)
--- NOTE | 2024-12-18 13:54 | P.HPIM ---
History of Present Illness H&P Date: 12/18/24 History of present illness; patient is a 39-year-old gentleman past medical history significant for alcohol abuse who was brought to the ER by police for psychiatric evaluation and suicidal ideations. Patient was recently undergoing alcohol rehab and was discharged. Patient stated that he went back to drinking fifth of liquor a day. Patient stated that he he has been going through a lot of stress at home. Patient stated that he consumed alcohol and went to gym to workout. Patient apparently made some suicidal threats to people over there. Police was called and patient brought to the ER. Patient denies any auditory or visual hallucination. Patient denies any homicidal thoughts. Initial lab work done in the ER showed WBC 8.4, hemoglobin 16.2, platelet count 379, sodium 146, potassium 4.1, BUN 14, creatinine 0.81, AST 15, ALT 44 urine drug screen positive for marijuana Serum alcohol level 386 Patient admitted to internal medicine service REVIEW OF SYSTEMS: CONSTITUTIONAL: No fever, no malaise, no fatigue. HEENT: No recent visual problems or hearing problems. Denied any sore throat. CARDIOVASCULAR: No chest pain, orthopnea, PND, no palpitations, no syncope. PULMONARY: No shortness of breath, no cough, no hemoptysis. GASTROINTESTINAL: No diarrhea, no nausea, no vomiting, no abdominal pain. NEUROLOGICAL: No headaches, no weakness, no numbness. HEMATOLOGICAL: Denies any bleeding or petechiae. GENITOURINARY: Denies any burning micturition, frequency, or urgency. MUSCULOSKELETAL/RHEUMATOLOGICAL: Denies any joint pain, swelling, or any muscle pain. ENDOCRINE: Denies any polyuria or polydipsia. The rest of the 14-point review of systems is negative. PHYSICAL EXAMINATION: GENERAL: The patient is alert and oriented x3, toxic looking HEENT: Pupils are round and equally reacting to light. EOMI. No scleral icterus. No conjunctival pallor. Normocephalic, atraumatic. No pharyngeal erythema. No thyromegaly. CARDIOVASCULAR: S1 and S2 present. No murmurs, rubs, or gallops. PULMONARY: Chest is clear to auscultation, no wheezing or crackles. ABDOMEN: Soft, nontender, nondistended, normoactive bowel sounds. No palpable organomegaly. MUSCULOSKELETAL: No joint swelling or deformity. EXTREMITIES: No cyanosis, clubbing, or pedal edema. NEUROLOGICAL: Gross neurological examination did not reveal any focal deficits. SKIN: No rashes. Assessment and plan Alcohol intoxication Impending alcohol detox Suicidal ideations Monitor vital signs Monitor CBC Monitor CMP Seizure precaution Suicide precautions Ordered CIWA protocol Ordered antiemetics Ordered high-dose thiamine and folic acid Ordered symptom triggered Ativan therapy Psych consulted Labs and medication were reviewed.. Continue same treatment. Continue with symptomatic treatment. Resume home medication. Monitor labs and vitals. DVT and GI prophylaxis. Further recommendations as per clinical course of the patient Dictation was produced using [employer] dictation software. please excuse any grammatical, word or spelling errors. Past Medical History Past Medical History: No Reported History Additional Past Medical History / Comment(s): ETOH History of Any Multi-Drug Resistant Organisms: None Reported Additional Past Surgical History / Comment(s): plastic surgery on left lip Past Anesthesia/Blood Transfusion Reactions: No Reported Reaction Past Psychological History: ADD/ADHD Smoking Status: Current every day smoker, Vaper Past Alcohol Use History: Abuse, Daily Past Drug Use History: Marijuana Medications and Allergies Home Medications Medication Instructions Recorded Confirmed Type traZODone HCL 150 mg PO HS 30 Days #30 tab 11/07/24 12/18/24 Rx Allergies Allergy/AdvReac Type Severity Reaction Status Date / Time No Known Allergies Allergy Verified 12/18/24 09:57 Physical Exam Vitals: Vital Signs Temp Pulse Pulse Resp BP BP Pulse Ox 12/18/24 12:07 97.6 F 93 16 147/90 98 12/18/24 11:17 98.8 F 72 18 126/72 98 12/18/24 06:51 97.5 F L 73 18 97/62 95 12/18/24 05:42 97.3 F L 67 18 143/89 94 L Intake and Output 12/17/24 12/18/24 12/18/24 22:59 06:59 14:59 Other: Weight 77.111 kg Results CBC & Chem 7: 12/18/24 06:41 12/18/24 06:41 Labs: Abnormal Lab Results - Last 24 Hours (Table) 12/18/24 12/18/24 12/18/24 Range/Units 06:41 06:41 13:14 MCV 101.5 H (80.0-100.0) fL Sodium 146 H (137-145) mmol/L U Marijuana (THC) Screen Detected H (NotDetected) Serum Alcohol 386 H* mg/dL
--- NOTE | 2024-12-18 14:04 | P.CN ---
Psychiatric Consult - . Consult date: 12/18/24 Consult:: 12/18/24 12:59 IDENTIFYING DATA: Patient is a 39 years old male, presented with alcohol intoxication, and reported suicidal thoughts. Patient is single has no kids he is unemployed Reason for consultation: Depression HPI: Patient presented to the hospital yesterday was petitioned by police for psychiatric evaluation. Apparently patient was intoxicated at [employer], was endorsing suicidal ideations, blood alcohol level was 386 he was intoxicated. He has had several medical and psychiatric admissions for alcohol use and depression. Patient was admitted medically, business writer saw patient at the bedside. Patient claims that he "regret coming to the hospital". Claims that he realizes he should not be drinking. He claims that he was doing well, he was at [facility] rehab for over 2 weeks and came back to the area. States that he relapsed recently on alcohol drinking about 1/5 of vodka. States that he is having very minor withdrawal symptoms very minor tremors, denies any other symptoms no withdrawal seizures. Claims that his sleep and appetite are fair. Not reporting any depression or anxiety at this time. He was fairly future oriented talked about wanting to be discharged so he can try to find a job and claims that he has stable housing now where he can live with a friend in [place]. Claims that he smokes marijuana occasionally, claims that he quit smoking cigarettes recently. He uses alcohol as noted above. Denies any other recreational drug use. PAST PSYCHIATRIC HISTORY: - Inpatient Hospitalizations: Last psychiatrically admitted in October 2024 - Outpatient Care: Claims he goes to [facility], recently missed his appointment - Current Psychotropics: He is currently on Zoloft and trazodone. States that he missed a few doses before coming into the hospital. - Prior Psychotropics/Therapy: Zoloft 100 mg p.o. daily, trazodone 150 mg p.o. at bedtime. 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 Unemployed, have food stamps, lost his card, no other financial support. Has HS diploma. Single, no children, parents lives around, not having good connection with them. 1 sister, no relationship. Multiple times in [facility] for substance related issues, was in [facility] when he was 23 yo, violation of probation, not currently on probation. He is currently staying at a friend's house in [place] MENTAL STATUS EXAM: General Appearance: Patient appears to have several tattoos, slouched position sitting down, fair eye contact. stated age is alert, directable, and attempts to cooperate. Patient appears to have poor hygiene and grooming. Behavior: Patient is laying in bed without any agitated behavior. Attempts to cooperate. focused on discharge Speech: Patient's speech is fluent and nonpressured. Soft tone, monotone Mood/Affect: Patient reports their mood is "fine", affect is congruent and constricted. Suicidality/Homicidality: Patient denies having any homicidal ideation intent or plan. denies any suicidal ideations no intent or plan Perceptions: Patient denies any visual hallucinations and denies any auditory hallucinations Though content/process: There is no evidence of any delusional thought content and thought process is linear and goal-directed. Sayre, focused on discharge, more future oriented. Memory and concentration: AOX3, grossly intact for the purposes of this session Judgment and insight: poor/impulsive chronically, improving mildly IMPRESSIONS: alxcohol use disorder severe dependence depressive disorder Anxiety disorder unspecified Cannabis use disorder PLAN: -At this time patient DOES NOT meet criteria for inpatient psychiatric admission. -Would recommend the following medication changes/additions: Restarted back on home medications Zoloft 100 mg daily for mood/anxiety, trazodone 150 mg nightly for insomnia/mood. Patient can be given a 2-week supply of these medications, then he can [facility]-up with [facility] for further refills and monitoring. patient was offered anticravings medications for etoh however patient declined them -WA protocol with PRN Ativan for alcohol withdrawal. Continue to monitor vital signs. -Cannot leave AMA at this time. Patient will need a petition and certification if attempting to leave AMA. -Tie Inspector spoke with patient about substance abuse and the harmful effects on medical and mental health, patient verbally understood and agreed. -curtain worker to provide patient substance use treatment resources including AA/NA meetings in the community. -curtain worker to provide patient with access line number to call for inpatient substance rehab -Communicated plan to patient's nurse -Psychiatry will sign off at this time -Please contact with any questions. 12/18/24 14:03
[2024-12-18] MEDS ORDERED: LORazepam 1 MG/0.5 ML VIAL IV PRN ×2 (14:07→14:12)
[2024-12-18] MEDS: SERTRALINE 100 MG TAB PO SCH (14:30)
[2024-12-18] MEDS: THIAMINE 500 MG in SODIUM CHLORIDE 0.9% 50 ML IVPB SCH (18:49)
[2024-12-18] MEDS: LORazepam 1 MG TAB PO PRN (18:49)
[2024-12-18] MEDS: ONDANSETRON 4 MG/2 ML VIAL IVP PRN (18:53)
[2024-12-18] MEDS: traZODone HCL 50 MG TAB PO SCH (19:45)
[2024-12-18] MEDS: LORazepam 1 MG/0.5 ML VIAL IV PRN (19:53)
[2024-12-19 07:57] VITALS: BP 125/76; PULSE 62; RESP 17; TEMP 98.1
[2024-12-19] MEDS ORDERED: THIAMINE 100 MG TAB PO SCH (09:00)
[2024-12-19] MEDS: FOLIC ACID 1 MG TAB PO SCH (09:08)
--- NOTE | 2024-12-19 13:08 | P.DS ---
Providers Date of admission: 12/18/24 09:28 Expected date of discharge: 12/19/24 Attending physician: Angelina Dotson Consults: 12/18/24 09:23 Consult Physician Routine Consulting Provider: Psychiatry - [facility] Psychiatry Consult Reason/Comments: depression Do you want consulting provider notified?: Yes Primary care physician: Stated None Hospital Course: Discharge diagnoses; Alcohol intoxication Impending alcohol detox Suicidal ideations Hospital course; patient is a 39-year-old gentleman past medical history significant for alcohol abuse who was brought to the ER by police for psychiatric evaluation and suicidal ideations. Patient was recently undergoing alcohol rehab and was discharged. Patient stated that he went back to drinking fifth of liquor a day. Patient stated that he he has been going through a lot of stress at home. Patient stated that he consumed alcohol and went to gym to workout. Patient apparently made some suicidal threats to people over there. Police was called and patient brought to the ER. Patient denies any auditory or visual hallucination. Patient denies any homicidal thoughts. Initial lab work done in the ER showed WBC 8.4, hemoglobin 16.2, platelet count 379, sodium 146, potassium 4.1, BUN 14, creatinine 0.81, AST 15, ALT 44 urine drug screen positive for marijuana Serum alcohol level 386 Patient admitted to internal medicine service Patient was eval by psychiatry, they recommended that patient does not meet criteria for inpatient psych admission. Patient was cleared by psychiatry for discharge. PHYSICAL EXAMINATION: GENERAL: The patient is alert and oriented x3, not in any acute distress. Well developed, well nourished. HEENT: Pupils are round and equally reacting to light. EOMI. No scleral icterus. No conjunctival pallor. Normocephalic, atraumatic. No pharyngeal erythema. No thyromegaly. CARDIOVASCULAR: S1 and S2 present. No murmurs, rubs, or gallops. PULMONARY: Chest is clear to auscultation, no wheezing or crackles. ABDOMEN: Soft, nontender, nondistended, normoactive bowel sounds. No palpable organomegaly. MUSCULOSKELETAL: No joint swelling or deformity. EXTREMITIES: No cyanosis, clubbing, or pedal edema. NEUROLOGICAL: Gross neurological examination did not reveal any focal deficits. SKIN: No rashes. Dictation was produced using [employer] software. please excuse any grammatical, word or spelling errors. Patient Condition at Discharge: Fair Plan - Discharge Summary New Discharge Prescriptions: New Thiamine [Vitamin B-1] 100 mg PO DAILY 30 Days #30 tablet Folic Acid 1 mg PO DAILY 30 Days #30 tab Sertraline [Zoloft] 100 mg PO DAILY 30 Days #30 tab Continue traZODone HCL 150 mg PO HS 30 Days #30 tab Discharge Medication List traZODone HCL 150 mg PO HS 30 Days #30 tab 11/07/24 [Rx] Folic Acid 1 mg PO DAILY 30 Days #30 tab 12/19/24 [Rx] Sertraline [Zoloft] 100 mg PO DAILY 30 Days #30 tab 12/19/24 [Rx] Thiamine [Vitamin B-1] 100 mg PO DAILY 30 Days #30 tablet 12/19/24 [Rx] Follow up Appointment(s)/Referral(s): None,Stated [Primary Care Provider] - 1-2 days Discharge/Stand Alone Forms: AA Ed Jay, Who Do I Call?, Community Resources, Outpatient Counseling, Inp Substance Abuse Facilities, Area PCPs Discharge Disposition: HOME SELF-CARE
[2024-12-20 18:02] LABS: Alcohol 386 mg/dL
== END 2024-12-19 12:00 | disposition home or self-care (01) ==
LOC: EC 05:37 → 6NMEDSUR 09:28
PROVIDERS: ADMIT Hospitalist; ATTEND Hospitalist
DX: F10.129 Alcohol abuse with intoxication, unspecified (principal); R45.851 Suicidal ideations; F32.A Depression, unspecified; F41.9 Anxiety disorder, unspecified; F12.10 Cannabis abuse, uncomplicated; F17.290 Nicotine dependence, other tobacco product, uncomplicated; Y90.8 Blood alcohol level of 240 mg/100 ml or more; Z56.0 Unemployment, unspecified; Z79.899 Other long term (current) drug therapy
CPT/HCPCS: 96365 ×2; 96366; 96375; 82075; 99285; 36415; 80053; 83735; 85025; 80306; G0378 ×2; G0480; J2060; J3411 ×2; J2405; 80320

== ENCOUNTER 2024-12-21 05:32 | Emergency (ER) | payer OTHER ==
--- NOTE | 2024-12-21 06:14 | ED ---
Headache HPI - General Chief Complaint: Headache Stated Complaint: headache Time Seen by Provider: 12/21/24 05:50 Source: patient, RN notes reviewed Mode of arrival: ambulatory Limitations: no limitations - History of Present Illness Initial Comments: 39-year-old male presenting to the emergency department for chief complaint of a headache that has been ongoing over the past few hours described as a throbbing sensation. He denies fevers, neck stiffness, cough, congestion, rhinorrhea. Patient states that he is currently homeless and walked from [place]. Additionally, patient is requesting food and water. He denies attempting medications to alleviate symptoms. - Related Data Previous Rx's Medication Instructions Recorded traZODone HCL 150 mg PO HS 30 Days #30 tab 11/07/24 Folic Acid 1 mg PO DAILY 30 Days #30 tab 12/19/24 Sertraline [Zoloft] 100 mg PO DAILY 30 Days #30 tab 12/19/24 Thiamine [Vitamin B-1] 100 mg PO DAILY 30 Days #30 tablet 12/19/24 Allergies Allergy/AdvReac Type Severity Reaction Status Date / Time No Known Allergies Allergy Verified 12/21/24 05:40 Review of Systems ROS Statement: Those systems with pertinent positive or pertinent negative responses have been documented in the HPI. ROS Other: All systems not noted in ROS Statement are negative. Past Medical History Past Medical History: No Reported History Additional Past Medical History / Comment(s): ETOH History of Any Multi-Drug Resistant Organisms: None Reported Additional Past Surgical History / Comment(s): plastic surgery on left lip Past Anesthesia/Blood Transfusion Reactions: No Reported Reaction Past Psychological History: ADD/ADHD Smoking Status: Current every day smoker, Vaper Past Alcohol Use History: Abuse, Daily Past Drug Use History: Marijuana General Exam Limitations: no limitations General appearance: alert, in no apparent distress Eye exam: Present: normal appearance, PERRL, EOMI. Absent: scleral icterus, conjunctival injection, periorbital swelling ENT exam: Present: normal exam, mucous membranes moist Neck exam: Present: normal inspection. Absent: tenderness, meningismus, lymphadenopathy Respiratory exam: Present: normal lung sounds bilaterally. Absent: respiratory distress, wheezes, rales, rhonchi, stridor Cardiovascular Exam: Present: regular rate, normal rhythm, normal heart sounds. Absent: systolic murmur, diastolic murmur, rubs, gallop, clicks GI/Abdominal exam: Present: soft, normal bowel sounds. Absent: distended, tenderness, guarding, rebound, rigid Extremities exam: Present: normal inspection, full ROM, normal capillary refill. Absent: tenderness, pedal edema, joint swelling, calf tenderness Neurological exam: Present: alert, oriented X3, CN II-XII intact Course Vital Signs 12/21/24 12/21/24 12/21/24 05:38 05:51 06:42 Temperature 97.4 F L 97.7 F Pulse Rate 75 64 77 Respiratory 18 16 18 Rate Blood Pressure 138/95 121/80 111/66 O2 Sat by Pulse 98 97 99 Oximetry Medical Decision Making - Medical Decision Making Was pt. sent in by a medical professional or institution (, PA, MANAGER WEB, urgent care, hospital, or jail...) When possible be specific @ -No Did you speak to anyone other than the patient for history (EMS, parent, family, police, friend...)? What history was obtained from this source @ -No Did you review nursing and triage notes (agree or disagree)? Why? @ -I reviewed and agree with nursing and triage notes Were old charts reviewed (outside hosp., previous admission, EMS record, old EKG, old radiological studies, urgent care reports/EKG's, jail records)? Report findings @ -No old charts were reviewed Differential Diagnosis (chest pain, altered mental status, abdominal pain women, abdominal pain men, vaginal bleeding, weakness, fever, dyspnea, syncope, headache, dizziness, GI bleed, back pain, seizure, CVA, palpatations, mental health, musculoskeletal)? @ -Differential Headache: Migraine, tension, cluster, carbon monoxide, central venous thrombosis, pension karma temporal arteritis, acute closure glaucoma, intercranial hemorrhage, mastoiditis, sinusitis, head injury, this is not meant to be an all-inclusive list. EKG interpreted by me (3pts min.). @ -None X-rays interpreted by me (1pt min.). @ -None done CT interpreted by me (1pt min.). @ -None done U/S interpreted by me (1pt. min.). @ -None done What testing was considered but not performed or refused? (CT, X-rays, U/S, labs)? Why? @ -None What meds were considered but not given or refused? Why? @ -None Did you discuss the management of the patient with other professionals (professionals i.e. , PA, MANAGER WEB, lab, RT, psych nurse, social sciences chair, site administrator, teacher, front desk officer, case resolution specialist)? Give summary @ -No Was smoking cessation discussed for >3mins.? @ -No Was critical care preformed (if so, how long)? @ -No Were there social determinants of health that impacted care today? How? (Homelessness, low income, unemployed, alcoholism, drug addiction, transportation, low edu. Level, literacy, decrease access to med. care, residential, rehab)? @ -No Was there de-escalation of care discussed even if they declined (Discuss DNR or withdrawal of care, Hospice)? DNR status @ -No What co-morbidities impacted this encounter? (DM, HTN, Smoking, COPD, CAD, Cancer, CVA, ARF, Chemo, Hep., AIDS, mental health diagnosis, sleep apnea, morbid obesity)? @ -None Was patient admitted / discharged? Hospital course, mention meds given and route, prescriptions, significant lab abnormalities, going to OR and other pertinent info. @ -Discharge. 39-year-old presenting with headache. Overall is well-appearing. Vitals are stable. Provided with food in addition to supportive treatment for headache. On reevaluation patient states that he is feeling better. He is discharged in stable condition. Case discussed with Dr. Galvez Undiagnosed new problem with uncertain prognosis? @ -No Drug Therapy requiring intensive monitoring for toxicity (Heparin, Nitro, Insulin, Cardizem)? @ -No Were any procedures done? @ -No Diagnosis/symptom? @ -headache Acute, or Chronic, or Acute on Chronic? @ -acute Uncomplicated (without systemic symptoms) or Complicated (systemic symptoms)? @ -uncomplicated Side effects of treatment? @ -No Exacerbation, Progression, or Severe Exacerbation? @ -No Poses a threat to life or bodily function? How? (Chest pain, [place], [place], pneumonia, PE, COPD, DKA, ARF, appy, cholecystitis, CVA, Diverticulitis, Homicidal, Suicidal, threat to staff... and all critical care pts) @ -No Disposition Clinical Impression: Headache Disposition: HOME SELF-CARE Condition: Good Instructions (If sedation given, give patient instructions): Acute Headache (ED) Additional Instructions: Please return to the Emergency Department if symptoms worsen or any other concerns. Is patient prescribed a controlled substance at d/c from ED?: No Referrals: None,Stated [Primary Care Provider] - 1-2 days Time of Disposition: 08:08
[2024-12-21 06:49] VITALS: RESP 18; TEMP 97.7
[2024-12-21] MEDS: ACETAMINOPHEN TAB 500 MG TAB PO STA (06:49)
[2024-12-21] MEDS: KETOROLAC 15 MG/ML 1 ML VIAL IVP STA (07:47)
[2024-12-21] MEDS: ONDANSETRON 4 MG/2 ML VIAL IVP STA (07:48)
[2024-12-21] MEDS: SODIUM CHLORIDE 0.9% 1,000 ML IV STA (07:49)
[2024-12-21 08:33] VITALS: BP 109/70; PULSE 65
== END 2024-12-21 08:46 | disposition home or self-care (01) ==
LOC: EC 05:32
DX: R51.9 Headache, unspecified (principal); Z59.00 Homelessness unspecified; F17.290 Nicotine dependence, other tobacco product, uncomplicated
CPT/HCPCS: 99284; 96374; 96375; 96361; J2405; J1885

== ENCOUNTER 2024-12-21 18:08 | Emergency (ER) | payer OTHER ==
[2024-12-21 19:18] VITALS: RESP 18
--- NOTE | 2024-12-21 19:44 | ED ---
Alcohol HPI - General Source: patient, RN notes reviewed, old records reviewed Mode of arrival: ambulatory Limitations: no limitations - History of Present Illness MD Complaint: alcohol intoxication Last Drink: just PHARMACY STUDENT -: minute(s) Previous Visits for Alcohol Intoxication?: Yes Recent Trauma: Yes Treatments Prior to Arrival: none Chronic Alcohol Use: Yes <Nile Maravilla - Last Filed: 12/21/24 21:50> <Piero Pearce - Last Filed: 12/22/24 06:30> - General Chief Complaint: Alcohol Stated Complaint: ETOH Time Seen by Provider: 12/21/24 19:40 - History of Present Illness Initial Comments: This is a 39 male to the ED who complains of ETOH itnoxication today. Multiple recent ER visits for alcohol intoxication (Nile Maravilla) 39-year-old male presenting for alcohol intoxication, patient is able to answer simple questions but is significantly intoxicated without complaint at the time of my initial evaluation. Patient well-known to this emergency department. (Piero Pearce) - Related Data Previous Rx's Medication Instructions Recorded traZODone HCL 150 mg PO HS 30 Days #30 tab 11/07/24 Folic Acid 1 mg PO DAILY 30 Days #30 tab 12/19/24 Sertraline [Zoloft] 100 mg PO DAILY 30 Days #30 tab 12/19/24 Thiamine [Vitamin B-1] 100 mg PO DAILY 30 Days #30 tablet 12/19/24 Allergies Allergy/AdvReac Type Severity Reaction Status Date / Time No Known Allergies Allergy Verified 12/21/24 19:18 Review of Systems ROS Other: All systems not noted in ROS Statement are negative. <Nile Maravilla - Last Filed: 12/21/24 21:50> ROS Other: All systems not noted in ROS Statement are negative. <Piero Pearce - Last Filed: 12/22/24 06:30> ROS Statement: Those systems with pertinent positive or pertinent negative responses have been documented in the HPI. Past Medical History Past Medical History: No Reported History Additional Past Medical History / Comment(s): ETOH History of Any Multi-Drug Resistant Organisms: None Reported Additional Past Surgical History / Comment(s): plastic surgery on left lip Past Anesthesia/Blood Transfusion Reactions: No Reported Reaction Past Psychological History: ADD/ADHD Smoking Status: Current every day smoker, Vaper Past Alcohol Use History: Abuse, Daily, Heavy Past Drug Use History: Marijuana <Nile Maravilla - Last Filed: 12/21/24 21:50> General Exam Limitations: no limitations General appearance: alert, in no apparent distress Head exam: Present: atraumatic, normocephalic, normal inspection Eye exam: Present: normal appearance, PERRL, EOMI. Absent: scleral icterus, conjunctival injection, periorbital swelling ENT exam: Present: normal exam, mucous membranes moist Neck exam: Present: normal inspection. Absent: tenderness, meningismus, lymphadenopathy Respiratory exam: Present: normal lung sounds bilaterally. Absent: respiratory distress, wheezes, rales, rhonchi, stridor Cardiovascular Exam: Present: regular rate, normal rhythm, normal heart sounds. Absent: systolic murmur, diastolic murmur, rubs, gallop, clicks GI/Abdominal exam: Present: soft, normal bowel sounds. Absent: distended, tenderness, guarding, rebound, rigid Extremities exam: Present: normal inspection, full ROM, normal capillary refill. Absent: tenderness, pedal edema, joint swelling, calf tenderness Back exam: Present: normal inspection Neurological exam: Present: alert, oriented X3, CN II-XII intact Psychiatric exam: Present: normal affect, normal mood Skin exam: Present: warm, dry, intact, normal color. Absent: rash <Nile Maravilla - Last Filed: 12/21/24 21:50> Course <Nile Maravilla - Last Filed: 12/21/24 21:50> <Piero Pearce - Last Filed: 12/22/24 06:30> Vital Signs 12/21/24 19:16 Temperature 98.1 F Pulse Rate 69 Respiratory 18 Rate Blood Pressure 139/92 O2 Sat by Pulse 99 Oximetry - Reevaluation(s) Reevaluation #1: 12/21/24 21:50 Medical records reviewed (Nile Maravilla) Reevaluation #2: 12/22/24 06:28 Patient observed in the emergency department for 12 hours, patient is sober and requesting discharge (Piero Pearce) Medical Decision Making <Piero Pearce - Last Filed: 12/22/24 06:30> - Medical Decision Making Was pt. sent in by a medical professional or institution (, ZOLTAN, EXOTIC DANCER, urgent care, hospital, or half-way...) When possible be specific @ -No Did you speak to anyone other than the patient for history (EMS, parent, family, police, friend...)? What history was obtained from this source @ -No Did you review nursing and triage notes (agree or disagree)? Why? @ -I reviewed and agree with nursing and triage notes Were old charts reviewed (outside hosp., previous admission, EMS record, old EKG, old radiological studies, urgent care reports/EKG's, half-way records)? Report findings @ -No old charts were reviewed Differential Diagnosis alcohol intoxication EKG interpreted by me (3pts min.). @ -As above X-rays interpreted by me (1pt min.). @ -None done CT interpreted by me (1pt min.). @ -None done U/S interpreted by me (1pt. min.). @ -None done What testing was considered but not performed or refused? (CT, X-rays, U/S, labs)? Why? @ -None What meds were considered but not given or refused? Why? @ -None Did you discuss the management of the patient with other professionals (professionals i.e. ZOLTAN Barrientos, EXOTIC DANCER, lab, RT, psych nurse, social sciences department chair, half sole fitter, teacher, plain clothes police officer, casework specialist)? Give summary @ -No Was smoking cessation discussed for >3mins.? @ -No Was critical care preformed (if so, how long)? @ -No Were there social determinants of health that impacted care today? How? (Homelessness, low income, unemployed, alcoholism, drug addiction, transportation, low edu. Level, literacy, decrease access to med. care, [facility], rehab)? @ -No Was there de-escalation of care discussed even if they declined (Discuss DNR or withdrawal of care, Hospice)? DNR status @ -No What co-morbidities impacted this encounter? (DM, HTN, Smoking, COPD, CAD, Cancer, CVA, ARF, Chemo, Hep., AIDS, mental health diagnosis, sleep apnea, morbid obesity)? @ -Alcohol abuse Was patient admitted / discharged? Hospital course, mention meds given and route, prescriptions, significant lab abnormalities, going to OR and other pertinent info. @ -39-year-old male with acute alcohol intoxication. Patient allowed to sleep in the emergency department awaiting sobriety and reevaluation. Patient is fed and is clinically sober stable for discharge. No complaints. Undiagnosed new problem with uncertain prognosis? @ -No Drug Therapy requiring intensive monitoring for toxicity (Heparin, Nitro, Insulin, Cardizem)? @ -No Were any procedures done? @ -No Diagnosis/symptom? @Alcohol intoxication Acute, or Chronic, or Acute on Chronic? @Acute on chronic Uncomplicated (without systemic symptoms) or Complicated (systemic symptoms)? @ -Default Side effects of treatment? @ -No Exacerbation, Progression, or Severe Exacerbation? @ -No Poses a threat to life or bodily function? How? (Chest pain, [place], [place], pneumonia, PE, COPD, DKA, ARF, appy, cholecystitis, CVA, Diverticulitis, Homicidal, Suicidal, threat to staff... and all critical care pts) @ -No (Piero Pearce) Disposition <Nile Maravilla - Last Filed: 12/21/24 21:50> Is patient prescribed a controlled substance at d/c from ED?: No Time of Disposition: 06:30 <Piero Pearce - Last Filed: 12/22/24 06:30> Clinical Impression: Alcohol abuse, Homelessness, Alcoholic intoxication Disposition: HOME SELF-CARE Condition: Fair Instructions (If sedation given, give patient instructions): Alcohol Intoxication (ED) Referrals: None,Stated [Primary Care Provider] - 1-2 days
[2024-12-22 06:43] VITALS: BP 130/85; PULSE 75; TEMP 98.5
== END 2024-12-22 06:43 | disposition home or self-care (01) ==
LOC: EC 18:08
DX: F10.129 Alcohol abuse with intoxication, unspecified (principal); Z59.00 Homelessness unspecified; F17.290 Nicotine dependence, other tobacco product, uncomplicated
CPT/HCPCS: 99284

== ENCOUNTER 2024-12-23 01:03 | Emergency (ER) | payer OTHER ==
--- NOTE | 2024-12-23 01:21 | ED ---
General Adult HPI - General Source: patient, EMS, RN notes reviewed Mode of arrival: EMS <Riri Newton - Last Filed: 12/23/24 02:15> <Piero Pearce - Last Filed: 12/23/24 02:50> - General Chief complaint: Recheck/Abnormal Lab/Rx Stated complaint: ETOH Time Seen by Provider: 12/23/24 01:19 - History of Present Illness Initial comments: 39-year-old male well-known to ER with history of chronic alcoholism presenting for acute alcohol intoxication. States he drinks about 1/5 per day. He states he was sitting on a bench for approximately 2 hours when he started to not feel well, then he believes he either went to a [place] [facility] or [employer] and asked them to call EMS. Denies any specific medical complaints. Denies suicidal or h omicidal ideation. States he is homeless and has nowhere to go. (Riri Newton) - Related Data Previous Rx's Medication Instructions Recorded traZODone HCL 150 mg PO HS 30 Days #30 tab 11/07/24 Folic Acid 1 mg PO DAILY 30 Days #30 tab 12/19/24 Sertraline [Zoloft] 100 mg PO DAILY 30 Days #30 tab 12/19/24 Thiamine [Vitamin B-1] 100 mg PO DAILY 30 Days #30 tablet 12/19/24 Allergies Allergy/AdvReac Type Severity Reaction Status Date / Time No Known Allergies Allergy Verified 12/23/24 01:10 Review of Systems ROS Other: All systems not noted in ROS Statement are negative. <Riri Newton - Last Filed: 12/23/24 02:15> ROS Other: All systems not noted in ROS Statement are negative. <Piero Pearce - Last Filed: 12/23/24 02:50> ROS Statement: Those systems with pertinent positive or pertinent negative responses have been documented in the HPI. Past Medical History Past Medical History: No Reported History Additional Past Medical History / Comment(s): ETOH History of Any Multi-Drug Resistant Organisms: None Reported Additional Past Surgical History / Comment(s): plastic surgery on left lip Past Anesthesia/Blood Transfusion Reactions: No Reported Reaction Past Psychological History: ADD/ADHD Smoking Status: Vaper Past Alcohol Use History: Abuse, Daily, Heavy <Riri Newton - Last Filed: 12/23/24 02:15> General Exam General appearance: alert, in no apparent distress, appears intoxicated Head exam: Present: atraumatic, normocephalic, normal inspection Respiratory exam: Present: normal lung sounds bilaterally. Absent: respiratory distress, wheezes, rales, rhonchi, stridor Cardiovascular Exam: Present: regular rate, normal rhythm, normal heart sounds. Absent: systolic murmur, diastolic murmur, rubs, gallop, clicks GI/Abdominal exam: Present: soft, normal bowel sounds. Absent: distended, tenderness, guarding, rebound, rigid Neurological exam: Present: alert, oriented X3 Psychiatric exam: Present: normal affect, normal mood. Absent: homicidal ideation, suicidal ideation Skin exam: Present: warm, dry, intact, normal color. Absent: rash <Riri Newton - Last Filed: 12/23/24 02:15> Course Vital Signs 12/23/24 01:04 Temperature 97.2 F L Pulse Rate 67 Respiratory 18 Rate Blood Pressure 126/78 O2 Sat by Pulse 98 Oximetry Medical Decision Making <AmanRiri - Last Filed: 12/23/24 02:15> - Medical Decision Making Was pt. sent in by a medical professional or institution (ZOLTAN Barrientos, INCLUSION TEACHER, urgent care, hospital, or [facility]...) When possible be specific @ -No Did you speak to anyone other than the patient for history (EMS, parent, family, police, friend...)? What history was obtained from this source @ -No Did you review nursing and triage notes (agree or disagree)? Why? @ -I reviewed and agree with nursing and triage notes Were old charts reviewed (outside hosp., previous admission, EMS record, old EKG, old radiological studies, urgent care reports/EKG's, [facility] records)? Report findings @ -No old charts were reviewed Differential Diagnosis (chest pain, altered mental status, abdominal pain women, abdominal pain men, vaginal bleeding, weakness, fever, dyspnea, syncope, headache, dizziness, GI bleed, back pain, seizure, CVA, palpatations, mental health, musculoskeletal)? @ -Not applicable EKG interpreted by me (3pts min.). @ -None X-rays interpreted by me (1pt min.). @ -None done CT interpreted by me (1pt min.). @ -None done U/S interpreted by me (1pt. min.). @ -None done What testing was considered but not performed or refused? (CT, X-rays, U/S, labs)? Why? @ -None What meds were considered but not given or refused? Why? @ -None Did you discuss the management of the patient with other professionals (professionals i.e. Dr., PA, INCLUSION TEACHER, lab, RT, psych nurse, social worker palliative care, landscape specialist, teacher, business services officer, bilingual case manager)? Give summary @ -No Was smoking cessation discussed for >3mins.? @ -No Was critical care preformed (if so, how long)? @ -No Were there social determinants of health that impacted care today? How? (Homelessness, low income, unemployed, alcoholism, drug addiction, transportation, low edu. Level, literacy, decrease access to med. care, skilled nursing, rehab)? @ -Homelessness Was there de-escalation of care discussed even if they declined (Discuss DNR or withdrawal of care, Hospice)? DNR status @ -No What co-morbidities impacted this encounter? (DM, HTN, Smoking, COPD, CAD, Cancer, CVA, ARF, Chemo, Hep., AIDS, mental health diagnosis, sleep apnea, morbid obesity)? @ -Alcohol use disorder Was patient admitted / discharged? Hospital course, mention meds given and ro iliamna, prescriptions, significant lab abnormalities, going to OR and other pertinent info. @ -Discharge. 39-year-old male with history of alcohol use disorder presenting for acute alcohol intoxication. Drinks approximately a fifth of alcohol per day. No other medical complaints at this time. Denies suicidal or homicidal ideation. Patient will sleep in the ER and will be discharged safely when c linically sober. Case was discussed with my ED attending Dr. Pearce. Undiagnosed new problem with uncertain prognosis? @ -No Drug Therapy requiring intensive monitoring for toxicity (Heparin, Nitro, Insulin, Cardizem)? @ -No Were any procedures done? @ -No Diagnosis/symptom? @ -Acute alcohol intoxication Acute, or Chronic, or Acute on Chronic? @ -Acute Uncomplicated (without systemic symptoms) or Complicated (systemic symptoms)? @ -Uncomplicated Side effects of treatment? @ -No Exacerbation, Progression, or Severe Exacerbation? @ -No Poses a threat to life or bodily function? How? (Chest pain, [place], [place], pneumonia, PE, COPD, DKA, ARF, appy, cholecystitis, CVA, Diverticulitis, Homicidal, Suicidal, threat to staff... and all critical care pts) @ -No (Riri Newton) Disposition Is patient prescribed a controlled substance at d/c from ED?: No Time of Disposition: 01:36 <Riri Newton - Last Filed: 12/23/24 02:15> Time of Disposition: 06:30 <Piero Pearce - Last Filed: 12/23/24 02:50> Clinical Impression: Acute alcohol intoxication Disposition: HOME SELF-CARE Condition: Stable Additional Instructions: Please return to the Emergency Department if symptoms worsen or any other concerns. Referrals: None,Stated [Primary Care Provider] - 1-2 days
[2024-12-23 07:04] VITALS: BP 112/67; PULSE 72; RESP 16; TEMP 97.8
== END 2024-12-23 07:04 | disposition home or self-care (01) ==
LOC: EC 01:03
DX: F10.129 Alcohol abuse with intoxication, unspecified (principal); F17.290 Nicotine dependence, other tobacco product, uncomplicated; Z59.00 Homelessness unspecified
CPT/HCPCS: 99284

== ENCOUNTER 2024-12-23 23:30 | Observation (INO) | payer OTHER ==
--- NOTE | 2024-12-24 00:03 | ED ---
Alcohol HPI - General Chief Complaint: Alcohol Stated Complaint: Hypothermia Time Seen by Provider: 12/23/24 23:55 Source: patient, EMS, RN notes reviewed Mode of arrival: EMS Limitations: no limitations - History of Present Illness Initial Comments: 39-year-old male with history of homelessness and alcohol use disorder presenting via EMS with concerns for hypothermia. Patient has history of alcohol use disorder in his been seen in the ER in the past 2 days for acute alcohol intoxication. Patient is very intoxicated on examination and states he was walking around in [place] for feeling "frozen". He believes he walked into the store and asked them to call EMS. - Related Data Previous Rx's Medication Instructions Recorded traZODone HCL 150 mg PO HS 30 Days #30 tab 11/07/24 Folic Acid 1 mg PO DAILY 30 Days #30 tab 12/19/24 Sertraline [Zoloft] 100 mg PO DAILY 30 Days #30 tab 12/19/24 Thiamine [Vitamin B-1] 100 mg PO DAILY 30 Days #30 tablet 12/19/24 Allergies Allergy/AdvReac Type Severity Reaction Status Date / Time No Known Allergies Allergy Verified 12/23/24 23:35 Review of Systems ROS Statement: Those systems with pertinent positive or pertinent negative responses have been documented in the HPI. ROS Other: All systems not noted in ROS Statement are negative. Past Medical History Past Medical History: No Reported History Additional Past Medical History / Comment(s): ETOH History of Any Multi-Drug Resistant Organisms: None Reported Additional Past Surgical History / Comment(s): plastic surgery on left lip Past Anesthesia/Blood Transfusion Reactions: No Reported Reaction Past Psychological History: ADD/ADHD Smoking Status: Vaper Past Alcohol Use History: Abuse, Daily, Heavy General Exam Limitations: no limitations General appearance: alert, in no apparent distress, appears intoxicated Head exam: Present: atraumatic, normocephalic, normal inspection Eye exam: Present: normal appearance, PERRL, EOMI. Absent: scleral icterus, conjunctival injection, periorbital swelling ENT exam: Present: normal exam, mucous membranes moist Respiratory exam: Present: normal lung sounds bilaterally. Absent: respiratory distress, wheezes, rales, rhonchi, stridor Cardiovascular Exam: Present: regular rate, normal rhythm, normal heart sounds. Absent: systolic murmur, diastolic murmur, rubs, gallop, clicks Neurological exam: Present: alert, oriented X3 Psychiatric exam: Present: normal affect, normal mood Skin exam: Present: warm, dry, intact, normal color. Absent: rash Course Vital Signs 12/23/24 12/23/24 12/24/24 23:31 23:36 00:56 Temperature 97.7 F Pulse Rate 75 63 Respiratory 16 18 Rate Blood Pressure 119/73 125/75 O2 Sat by Pulse 97 98 Oximetry Medical Decision Making - Medical Decision Making Was pt. sent in by a medical professional or institution (ZOLTAN Barrientos, ANTHROPOLOGY DEPARTMENT CHAIR, urgent care, hospital, or care home...) When possible be specific @ -No Did you speak to anyone other than the patient for history (EMS, parent, family, police, friend...)? What history was obtained from this source @ -No Did you review nursing and triage notes (agree or disagree)? Why? @ -I reviewed and agree with nursing and triage notes Were old charts reviewed (outside hosp., previous admission, EMS record, old EKG, old radiological studies, urgent care reports/EKG's, care home records)? Report findings @ -No old charts were reviewed Differential Diagnosis (chest pain, altered mental status, abdominal pain women, abdominal pain men, vaginal bleeding, weakness, fever, dyspnea, syncope, headache, dizziness, GI bleed, back pain, seizure, CVA, palpatations, mental health, musculoskeletal)? @ -Acute alcohol intoxication, hypothermia, frostbite, trench foot EKG interpreted by me (3pts min.). @ -As above X-rays interpreted by me (1pt min.). @ -None done CT interpreted by me (1pt min.). @ -None done U/S interpreted by me (1pt. min.). @ -None done What testing was considered but not performed or refused? (CT, X-rays, U/S, labs)? Why? @ -None What meds were considered but not given or refused? Why? @ -None Did you discuss the management of the patient with other professionals (professionals i.e. ZOLTAN Barrientos, ANTHROPOLOGY DEPARTMENT CHAIR, lab, RT, psych nurse, manager social responsibility, station operator, teacher, correctional security officer, dependency case manager)? Give summary @ -I spoke with Dr. Patterson from [facility] who accepts admission for acute alcohol intoxication Was smoking cessation discussed for >3mins.? @ -No Was critical care preformed (if so, how long)? @ -No Were there social determinants of health that impacted care today? How? (Homelessness, low income, unemployed, alcoholism, drug addiction, transp ortation, low edu. Level, literacy, decrease access to med. care, detention, rehab)? @ -Homelessness Was there de-escalation of care discussed even if they declined (Discuss DNR or withdrawal of care, Hospice)? DNR status @ -No What co-morbidities impacted this encounter? (DM, HTN, Smoking, COPD, CAD, Ca ncer, CVA, ARF, Chemo, Hep., AIDS, mental health diagnosis, sleep apnea, morbid obesity)? @ -Alcohol use disorder Was patient admitted / discharged? Hospital course, mention meds given and route, prescriptions, significant lab abnormalities, going to OR and other pertinent info. @ - admitted. 39-year-old male with history of homelessness and alcohol use disorder presents via EMS for concerns for hypokalemia. Patient is clearly intoxicated on examination. Patient has been seen the past few days in the ER for acute alcohol intoxication. Temperature upon arrival is 97.7. Physical examination is unremarkable. EKG reveals normal sinus rhythm with no ST changes. Lab work remarkable for elevated LFTs otherwise unremarkable. Serum alcohol is 486, will be sober in 21 hours at 9 PM on 318. Patient will be admitted to medicine for acute alcohol intoxication and CIWA protocol will be initiated. Case was discussed with my ED attending Dr. Coppola. Undiagnosed new problem with uncertain prognosis? @ -No Drug Therapy requiring intensive monitoring for toxicity (Heparin, Nitro, Insulin, Cardizem)? @ -No Were any procedures done? @ -No Diagnosis/symptom? @ -Acute alcohol intoxication Acute, or Chronic, or Acute on Chronic? @ -Acute Uncomplicated (without systemic symptoms) or Complicated (systemic symptoms)? @ -Uncomplicated Side effects of treatment? @ -No Exacerbation, Progression, or Severe Exacerbation? @ -No Poses a threat to life or bodily function? How? (Chest pain, USA, OR, pneumonia, PE, COPD, DKA, ARF, appy, cholecystitis, CVA, Diverticulitis, Homicidal, Suicidal, threat to staff... and all critical care pts) @ -Possibly - Lab Data Result diagrams: 12/24/24 00:06 12/24/24 00:06 Lab Results 12/24/24 12/24/24 Range/Units 00:06 00:06 WBC 6.8 (3.8-10.6) k/uL RBC 5.27 (4.30-5.90) m/uL Hgb 16.9 (13.0-17.5) gm/dL Hct 53.6 H (39.0-53.0) % MCV 101.7 H (80.0-100.0) fL MCH 32.0 (25.0-35.0) pg MCHC 31.5 (31.0-37.0) g/dL RDW 13.0 (11.5-15.5) % Plt Count 347 (150-450) k/uL MPV 7.6 Neutrophils % 46 % Lymphocytes % 46 % Monocytes % 3 % Eosinophils % 2 % Basophils % 0 % Neutrophils # 3.1 (1.3-7.7) k/uL Lymphocytes # 3.1 (1.0-4.8) k/uL Monocytes # 0.2 (0-1.0) k/uL Eosinophils # 0.2 (0-0.7) k/uL Basophils # 0.0 (0-0.2) k/uL Macrocytosis Slight Sodium 147 H (137-145) mmol/L Potassium 4.2 (3.5-5.1) mmol/L Chloride 105 (98-107) mmol/L Carbon Dioxide 26 (22-30) mmol/L Anion Gap 16 mmol/L BUN 7 L (9-20) mg/dL Creatinine 0.56 L (0.66-1.25) mg/dL Est GFR (CKD-EPI)AfAm >90 (>60 ml/min/1.73 sqM) Est GFR (CKD-EPI)NonAf >90 (>60 ml/min/1.73 sqM) Glucose 99 (74-99) mg/dL Calcium 9.7 (8.4-10.2) mg/dL Total Bilirubin 0.7 (0.2-1.3) mg/dL AST 75 H (17-59) U/L ALT 63 H (4-49) U/L Alkaline Phosphatase 87 (38-126) U/L Total Protein 7.7 (6.3-8.2) g/dL Albumin 5.0 (3.5-5.0) g/dL Serum Alcohol 486 H* mg/dL - EKG Data -: EKG Interpreted by Me EKG Comments: EKG reveals ventricular with no ST changes. Ventricular rate 74 bpm, AL interval 136, QRS duration 89, QT/QTc 420/447 Disposition Clinical Impression: Acute alcohol intoxication Disposition: ADMITTED IP TO THIS HOSP Referrals: None,Stated [Primary Care Provider] - 1-2 days Time of Disposition: 03:15
[2024-12-24 00:31] LABS: Basophils % (A) 0 %; Eosinophils # (A) 0.2 k/uL (0-0.7); Eosinophils % (A) 2 %; HCT 53.6 % (39.0-53.0); HGB 16.9 gm/dL (13.0-17.5); Lymphocytes # (A) 3.1 k/uL (1.0-4.8); Lymphocytes % (A) 46 %; MCHC 31.5 g/dL (31.0-37.0); MCV 101.7 fL (80.0-100.0); Macrocytosis Slight; Mean Platelet Volume 7.6; Monocytes # (A) 0.2 k/uL (0-1.0); Monocytes % (A) 3 %; Neutrophils # (A) 3.1 k/uL (1.3-7.7); Neutrophils % (A) 46 %; Platelet Count 347 k/uL (150-450); RBC 5.27 m/uL (4.30-5.90); WBC 6.8 k/uL (3.8-10.6)
[2024-12-24 00:58] LABS: ALT 63 U/L (4-49); AST 75 U/L (17-59); African American GFR (CKD) >90 (>60 ml/min/1.73 sqM); Alkaline Phosphatase 87 U/L (38-126); Anion Gap 16 mmol/L; Blood Urea Nitrogen 7 mg/dL (9-20); Calcium 9.7 mg/dL (8.4-10.2); Carbon Dioxide 26 mmol/L (22-30); Chloride 105 mmol/L (98-107); Glucose 99 mg/dL (74-99); Non-African American GFR(CKD) >90 (>60 ml/min/1.73 sqM); Potassium 4.2 mmol/L (3.5-5.1); Sodium 147 mmol/L (137-145); Total Bilirubin 0.7 mg/dL (0.2-1.3); Total Protein 7.7 g/dL (6.3-8.2)
[2024-12-24 01:23] LABS: Alcohol 486 mg/dL
[2024-12-24] MEDS ORDERED: NALOXONE 0.4 MG/ML 1 ML VIAL IV PRN (03:10)
[2024-12-24] MEDS ORDERED: ONDANSETRON 4 MG/2 ML VIAL IVP PRN (03:10)
[2024-12-24] MEDS ORDERED: KETOROLAC 15 MG/ML 1 ML VIAL IVP PRN (03:10)
[2024-12-24] MEDS ORDERED: HYDROmorphone 1 MG/ML 1 ML SYRINGE IVP PRN (03:10)
[2024-12-24] MEDS ORDERED: IBUPROFEN 400 MG TAB PO PRN (03:10)
[2024-12-24] MEDS ORDERED: LORazepam 1 MG TAB PO PRN ×4 (03:11)
[2024-12-24] MEDS ORDERED: LORazepam 0.5 MG TAB PO PRN (03:11)
[2024-12-24] MEDS: SODIUM CHLORIDE 0.9% 1,000 ML IV SCH (04:17)
[2024-12-24 11:41] LABS: African American GFR (CKD) >90 (>60 ml/min/1.73 sqM); Anion Gap 11 mmol/L; Blood Urea Nitrogen 8 mg/dL (9-20); Calcium 8.8 mg/dL (8.4-10.2); Carbon Dioxide 28 mmol/L (22-30); Chloride 103 mmol/L (98-107); Glucose 137 mg/dL (74-99); Non-African American GFR(CKD) >90 (>60 ml/min/1.73 sqM); Potassium 3.9 mmol/L (3.5-5.1); Sodium 142 mmol/L (137-145)
[2024-12-24 12:27] VITALS: BP 143/103; PULSE 85; RESP 16; TEMP 97.8
--- NOTE | 2024-12-25 10:26 | P.HPIM ---
History of Present Illness H&P Date: 12/24/24 This is a 39-year-old male who presented to the emergency department with alcohol intoxication and alcohol level was 486 on admission, sodium was 147, BUN/creatinine within normal limits at 0.56 and CBC was within normal limits. Patient does not have a primary care provider and reports is homeless although stays with friends and family and has been hospitalized very frequently and multiple ER visits for alcohol intoxication. Patient has no desire to quit and has been to rehab previously and does not want to go there. Patient denies any suicidal or homicidal ideation and reports he wants to leave. Patient does have a steady gait is alert and oriented and will be discharged. Patient denies any significant past medical history other than ADD/ADHD, heavy daily alcohol abuse, vapor, occasional marijuana. REVIEW OF SYSTEMS: CONSTITUTIONAL: No fever, no malaise, no fatigue. HEENT: No recent visual problems or hearing problems. Denied any sore throat. CARDIOVASCULAR: No chest pain, orthopnea, PND, no palpitations, no syncope. PULMONARY: No shortness of breath, no cough, no hemoptysis. GASTROINTESTINAL: No diarrhea, no nausea, no vomiting, no abdominal pain. NEUROLOGICAL: No headaches, no weakness, no numbness. HEMATOLOGICAL: Denies any bleeding or petechiae. GENITOURINARY: Denies any burning micturition, frequency, or urgency. MUSCULOSKELETAL/RHEUMATOLOGICAL: Denies any joint pain, swelling, or any muscle pain. ENDOCRINE: Denies any polyuria or polydipsia. The rest of the 14-point review of systems is negative. PHYSICAL EXAMINATION: GENERAL: The patient is alert and oriented x3, mildly anxious on exam as he wants to leave. Well developed, well nourished. HEENT: Pupils are round and equally reacting to light. EOMI. No scleral icterus. No conjunctival pallor. Normocephalic, atraumatic. No pharyngeal erythema. No thyromegaly. CARDIOVASCULAR: S1 and S2 present. No murmurs, rubs, or gallops. PULMONARY: Chest is clear to auscultation, no wheezing or crackles. ABDOMEN: Soft, nontender, nondistended, normoactive bowel sounds. No palpable organomegaly. MUSCULOSKELETAL: No joint swelling or deformity. EXTREMITIES: No cyanosis, clubbing, or pedal edema. NEUROLOGICAL: Gross neurological examination did not reveal any focal deficits. Steady gait on exam SKIN: No rashes. Assessment: Acute alcohol intoxication with concerns of acute alcohol withdrawal, alcohol level 486 on admission Hypernatremia, 147, improved with gentle hydration at 142 Transaminitis with an AST of 75, ALT is 63, secondary to continued ongoing alcohol abuse Vaping Noncompliance with medications and outpatient follow-up THC use History of ADD/ADHD GI prophylaxis DVT prophylaxis Full code Plan: Patient was admitted for alcohol intoxication started on CIWA protocol and reports to feeling well and would like to go home. Gait is steady on exam as patient has been up and down to the bathroom multiple times and reports he is not intoxicated and denies feeling of any withdrawals. Patient reports he was able to eat his breakfast this morning and would like to go home. Discussed with the patient about complete alcohol cessation and quitting alcohol and patient has no desire other than reporting that he will not drink alcohol until later today. Patient is medically stable and will be discharged today. Discussed with the patient about outpatient resources including inpatient alcohol rehab and patient reports he has been there before and has no desire to return Patient denies any suicidal or homicidal ideations and would like to leave. Patient has had multiple hospitalizations and frequent ER visits for continued ongoing alcohol abuse including multiple visits each week and sometimes a few times each day as patient also leaves AGAINST MEDICAL ADVICE very frequently Patient was instructed to establish with a primary care provider outpatient and strongly recommend at least a AA meetings and complete alcohol cessation. Patient again reports he has no desire to quit The impression and plan of care has been dictated by Rachelle Vieira, Nurse Practitioner as directed. Dr. Mauri MD I have performed a history and examination and MDM of this patient, discussed the same with the dictator, and agree with the dictator's assessment and plan a s written ,documented as a scribe. Based on total visit time, I have performed more than 50% of the visit. Past Medical History Past Medical History: No Reported History Additional Past Medical History / Comment(s): ETOH History of Any Multi-Drug Resistant Organisms: None Reported Additional Past Surgical History / Comment(s): plastic surgery on left lip Past Anesthesia/Blood Transfusion Reactions: No Reported Reaction Past Psychological History: ADD/ADHD Smoking Status: Vaper Past Alcohol Use History: Abuse, Daily, Heavy Medications and Allergies Home Medications Medication Instructions Recorded Confirmed Type Folic Acid 1 mg PO DAILY 30 Days #30 tab 12/19/24 12/24/24 Rx Sertraline [Zoloft] 100 mg PO DAILY 30 Days #30 tab 12/19/24 12/24/24 Rx Allergies Allergy/AdvReac Type Severity Reaction Status Date / Time No Known Allergies Allergy Verified 12/24/24 18:46 Physical Exam Vitals: Vital Signs Temp Pulse Resp BP Pulse Ox 12/24/24 07:26 68 18 12/24/24 06:00 68 16 104/71 97 12/24/24 04:00 66 16 102/61 97 12/24/24 02:00 68 18 114/81 97 12/24/24 00:56 63 18 125/75 98 12/23/24 23:36 75 16 119/73 97 12/23/24 23:31 97.7 F Intake and Output 12/23/24 12/24/24 12/24/24 22:59 06:59 14:59 Other: Weight 77.111 kg Results CBC & Chem 7: 12/24/24 00:06 12/24/24 10:24 Labs: Abnormal Lab Results - Last 24 Hours (Table) 12/24/24 12/24/24 Range/Units 00:06 00:06 Hct 53.6 H (39.0-53.0) % MCV 101.7 H (80.0-100.0) fL Sodium 147 H (137-145) mmol/L BUN 7 L (9-20) mg/dL Creatinine 0.56 L (0.66-1.25) mg/dL AST 75 H (17-59) U/L ALT 63 H (4-49) U/L Serum Alcohol 486 H* mg/dL
--- NOTE | 2024-12-25 10:28 | P.DS ---
Providers Date of admission: 12/24/24 06:02 Expected date of discharge: 12/24/24 Attending physician: Angelina Dotson Primary care physician: Stated None Hospital Course: Final diagnosis Acute alcohol intoxication with concerns of acute alcohol withdrawal, alcohol level 486 on admission Hypernatremia, 147, improved with gentle hydration at 142 Transaminitis with an AST of 75, ALT is 63, secondary to continued ongoing alcohol abuse Vaping Noncompliance with medications and outpatient follow-up THC use History of ADD/ADHD GI prophylaxis DVT prophylaxis Full code Discharge disposition Patient is being discharged in a stable condition with guarded prognosis to home . Patient will follow-up with Dr. Daniel Dotson to establish in the outpatient setting upon discharge. Patient is to continue with complete alcohol cessation and strongly recommend inpatient or at least partial outpatient alcohol rehab. Patient has reported he has no desire to go to these as he has been before and they do not help.. Total time taken is greater than 35 minutes. Hospital course This is a 39-year-old male who presented to the emergency department with alcohol intoxication and alcohol level was 486 on admission, sodium was 147, BUN/creatinine within normal limits at 0.56 and CBC was within normal limits. Patient does not have a primary care provider and reports is homeless although stays with friends and family and has been hospitalized very frequently and multiple ER visits for alcohol intoxication. Patient has no desire to quit and has been to rehab previously and does not want to go there. Patient denies any suicidal or homicidal ideation and reports he wants to leave. Patient does have a steady gait is alert and oriented and will be discharged. Patient denies any significant past medical history other than ADD/ADHD, heavy daily alcohol abuse, vapor, occasional marijuana. Currently no reports of chest pain, shortness of breath, or palpitations. Patient is afebrile. No reports of nausea or vomiting and patient is tolerating diet. Patient will be discharged today. Extremely high risk for readmissions as patient is noncompliant with continued alcohol abuse and has no desire to quit. PHYSICAL EXAMINATION: GENERAL: The patient is alert and oriented x3, mildly anxious on exam as he wants to leave. Well developed, well nourished. HEENT: Pupils are round and equally reacting to light. EOMI. No scleral icterus. No conjunctival pallor. Normocephalic, atraumatic. No pharyngeal erythema. No thyromegaly. CARDIOVASCULAR: S1 and S2 present. No murmurs, rubs, or gallops. PULMONARY: Chest is clear to auscultation, no wheezing or crackles. ABDOMEN: Soft, nontender, nondistended, normoactive bowel sounds. No palpable organomegaly. MUSCULOSKELETAL: No joint swelling or deformity. EXTREMITIES: No cyanosis, clubbing, or pedal edema. NEUROLOGICAL: Gross neurological examination did not reveal any focal deficits. Steady gait on exam SKIN: No rashes. Please refer to medication reconciliation sheet for a list of medications. The impression and plan of care has been dictated by Rachelle Vieira, Nurse Practitioner as directed. Dr. Mauri MD I have performed a history and examination and MDM of this patient, discussed the same with the dictator, and agree with the dictator's assessment and plan as written ,documented as a scribe. Based on total visit time, I have performed more than 50% of the visit. Patient Condition at Discharge: Fair Plan - Discharge Summary New Discharge Prescriptions: Continue Folic Acid 1 mg PO DAILY 30 Days #30 tab Sertraline [Zoloft] 100 mg PO DAILY 30 Days #30 tab Discharge Medication List Folic Acid 1 mg PO DAILY 30 Days #30 tab 12/19/24 [Rx] Sertraline [Zoloft] 100 mg PO DAILY 30 Days #30 tab 12/19/24 [Rx] Follow up Appointment(s)/Referral(s): Mehdi Martinez Jr, [Doctor of Osteopathic Medicine] - 1 Week (Contact a primary care office to become established with a provider. ) Patient Instructions/Handouts: Abuse of Alcohol (DC) Discharge/Stand Alone Forms: AA [facility], Outpatient Counseling, Inp Substance Abuse Facilities, Area PCPs Discharge Disposition: HOME SELF-CARE
== END 2024-12-24 12:35 | disposition home or self-care (01) ==
LOC: EC 23:30 → 6NMEDSUR 12-24 06:02
PROVIDERS: ADMIT Hospitalist; ATTEND Hospitalist
DX: F10.129 Alcohol abuse with intoxication, unspecified (principal); E87.0 Hyperosmolality and hypernatremia; R74.01 Elevation of levels of liver transaminase levels; F90.9 Attention-deficit hyperactivity disorder, unspecified type; Z79.899 Other long term (current) drug therapy; Z91.148 Patient's other noncompliance with medication regimen for other reason; Z59.00 Homelessness unspecified; Y90.8 Blood alcohol level of 240 mg/100 ml or more
CPT/HCPCS: 99284; 36415; 93005; 80053; 80048; 85025; G0378; G0480; 80320

== ENCOUNTER 2024-12-24 18:04 | Observation (INO) | payer OTHER ==
--- NOTE | 2024-12-24 18:38 | ED ---
General Adult HPI - General Chief complaint: Alcohol Stated complaint: ETOH,Suicidal Time Seen by Provider: 12/24/24 18:08 Source: patient, EMS Mode of arrival: EMS Limitations: no limitations - History of Present Illness Initial comments: Dictation was produced using [employer] dictation software. please excuse any grammatical, word or spelling errors. Chief Complaint: 39-year-old alcoholic homeless male presents to the emergency department for alcohol intoxication History of Present Illness: Patient 39-year-old male arrives via EMS. Patient here for alcohol intoxication. Was recently admitted left AMA earlier today. Patient states he drinks at least 1/5 of alcohol daily. Denies any pain. Denies any suicidal homicidal ideation. Patient is a poor historian secondary to inebriation The ROS documented in this emergency department record has been reviewed and confirmed by me. Those systems with pertinent positive or negative responses gaona ve been documented in the HPI. All other systems are other negative and/or noncontributory. - Related Data Previous Rx's Medication Instructions Recorded Folic Acid 1 mg PO DAILY 30 Days #30 tab 12/19/24 Sertraline [Zoloft] 100 mg PO DAILY 30 Days #30 tab 12/19/24 Allergies Allergy/AdvReac Type Severity Reaction Status Date / Time No Known Allergies Allergy Verified 12/24/24 18:46 Review of Systems ROS Statement: Those systems with pertinent positive or pertinent negative responses have been documented in the HPI. ROS Other: All systems not noted in ROS Statement are negative. Past Medical History Past Medical History: No Reported History Additional Past Medical History / Comment(s): ETOH History of Any Multi-Drug Resistant Organisms: None Reported Additional Past Surgical History / Comment(s): plastic surgery on left lip Past Anesthesia/Blood Transfusion Reactions: No Reported Reaction Past Psychological History: ADD/ADHD Smoking Status: Vaper Past Alcohol Use History: Abuse, Daily, Heavy General Exam - General Exam Comments Initial Comments: PHYSICAL EXAM: General Impression: Alert and oriented x3, not in acute distress, smells of EtOH HEENT: Normocephalic atraumatic, extra-ocular movements intact, pupils equal and reactive to light bilaterally, mucous membranes moist. Cardiovascular: Heart regular rate and rhythm Chest: Able to complete full sentences, no retractions, no tachypnea Abdomen: abdomen soft, non-tender, non-distended, no organomegaly Musculoskeletal: Pulses present and equal in all extremities, no peripheral edema Motor: no focal deficits noted Neurological: CN II-XII grossly intact, no focal motor or sensory deficits noted Skin: Intact with no visualized rashes Psych: Normal affect and mood Limitations: no limitations Course Vital Signs 12/24/24 18:17 Temperature 97.6 F Pulse Rate 82 Respiratory 20 Rate Blood Pressure 133/111 O2 Sat by Pulse 99 Oximetry EKG Findings - EKG Comments: EKG Findings:: My EKG interpretation: Ventricular rate 100, sinus tachycardia,. 136, QRS 94, QTc 4 6. No LA prolongation, no QTC prolongation, no ST or T-wave changes noted. Overall, this EKG is unremarkable Medical Decision Making - Medical Decision Making Was pt. sent in by a medical professional or institution (, PA, [employer]M CONSULTANT, urgent care, hospital, or [facility]...) When possible be specific @ -No Did you speak to anyone other than the patient for history (EMS, parent, family, police, friend...)? What history was obtained from this source @ -No Did you review nursing and triage notes (agree or disagree)? Why? @ -I reviewed and agree with nursing and triage notes Were old charts reviewed (outside hosp., previous admission, EMS record, old EKG, old radiological studies, urgent care reports/EKG's, [facility] records)? Report findings @ -No old charts were reviewed Differential Diagnosis (chest pain, altered mental status, abdominal pain women, abdominal pain men, vaginal bleeding, musculoskeletal, weakness, fever, dyspnea, syncope, headache, dizziness, GI bleed, back pain, seizure, CVA, palpatations, mental health)? @ -Differential Altered Mental Status: Hypoglycemia, DKA, hypercapnia, ETOH, overdose, CO poisoning, trauma, myxedema coma, HTN encephalopathy, infection, encephalitis, psychosis, intercranial hemorrhage, hepatic encephalopathy, meningitis, CVA, this is not meant to be an all-inclusive list EKG interpreted by me (3pts min.). @ -None done X-rays interpreted by me (1pt min.). @ -None done CT interpreted by me (1pt min.). @ -None done U/S interpreted by me (1pt. min.). @ -None done What testing was considered but not performed or refused? (CT, X-rays, U/S, labs)? Why? @ -None What meds were considered but not given or refused? Why? @ -None Was smoking cessation discussed for >3mins.? @ -No Were there social determinants of health that impacted care today? How? (Homelessness, low income, unemployed, alcoholism, drug addiction, transpo rtation, low edu. Level, literacy, decrease access to med. care, residential, rehab)? @ -Alcoholism Was there de-escalation of care discussed even if they declined (Discuss DNR or withdrawal of care, Hospice)? DNR status @ -No What co-morbidities impacted this encounter? (DM, HTN, Smoking, COPD, CAD, Can cer, CVA, ARF, Chemo, Hep., AIDS, mental health diagnosis, sleep apnea, morbid obesity)? @ -None Was patient admitted / discharged? Hospital course, mention meds given and route, prescriptions, significant lab abnormalities, going to OR and other pertinent info. @ -39-year-old male presents to the emergency department for alcohol intoxication. Patient well-known to the emergency department for frequent presentations for alcohol related issues. Vital signs stable. Physical examination shows a inebriated male in no acute distress. Patient sleeping at the bedside will be admitted for alcohol intoxication. Labs shows hyponatremia 146, serum alcohol of 551. No acidosis. Case discussed with hospitalist for admission Did you discuss the management of the patient with other professionals (professionals i.e. , PA, [employer]M CONSULTANT, lab, RT, psych nurse, pediatric social worker, imaging assistant, teacher, classifications officer cc/cm, shoe parts caser)? Give summary @ -No Was critical care preformed (if so, how long)? @ -No Undiagnosed new problem with uncertain prognosis? @ -No Drug Therapy requiring intensive monitoring for toxicity (Heparin, Nitro, Insulin, Cardizem)? @ -No Were any procedures done? @ -No Diagnosis/symptom? Acute, or Chronic, or Acute on Chronic? Uncomplicated (without systemic symptoms) or Complicated (systemic symptoms)? @ -Alcohol intoxication Side effects of treatment? @ -No Exacerbation, Progression, or Severe Exacerbation? @ -No Poses a threat to life or bodily function? How? (Chest pain, USA, MD, pneumonia, PE, COPD, DKA, ARF, appy, cholecystitis, CVA, Diverticulitis, Homicidal, Suicidal, threat to staff... and all critical care pts) @ -yes - Lab Data Result diagrams: 12/24/24 18:16 12/24/24 18:16 Lab Results 12/24/24 12/24/24 Range/Units 18:16 18:16 WBC 10.9 H (3.8-10.6) k/uL RBC 4.87 (4.30-5.90) m/uL Hgb 15.8 (13.0-17.5) gm/dL Hct 48.0 (39.0-53.0) % MCV 98.7 (80.0-100.0) fL MCH 32.4 (25.0-35.0) pg MCHC 32.8 (31.0-37.0) g/dL RDW 12.6 (11.5-15.5) % Plt Count 344 (150-450) k/uL MPV 7.2 Neutrophils % 60 % Lymphocytes % 31 % Monocytes % 4 % Eosinophils % 2 % Basophils % 0 % Neutrophils # 6.5 (1.3-7.7) k/uL Lymphocytes # 3.4 (1.0-4.8) k/uL Monocytes # 0.4 (0-1.0) k/uL Eosinophils # 0.3 (0-0.7) k/uL Basophils # 0.0 (0-0.2) k/uL Sodium 146 H (137-145) mmol/L Potassium 4.2 (3.5-5.1) mmol/L Chloride 104 (98-107) mmol/L Carbon Dioxide 30 (22-30) mmol/L Anion Gap 12 mmol/L BUN 7 L (9-20) mg/dL Creatinine 0.64 L (0.66-1.25) mg/dL Est GFR (CKD-EPI)AfAm >90 (>60 ml/min/1.73 sqM) Est GFR (CKD-EPI)NonAf >90 (>60 ml/min/1.73 sqM) Glucose 129 H (74-99) mg/dL Calcium 9.1 (8.4-10.2) mg/dL Magnesium 1.9 (1.6-2.3) mg/dL Total Bilirubin 0.7 (0.2-1.3) mg/dL AST 104 H (17-59) U/L ALT 72 H (4-49) U/L Alkaline Phosphatase 92 (38-126) U/L Total Protein 7.0 (6.3-8.2) g/dL Albumin 4.6 (3.5-5.0) g/dL Lipase 237 (23-300) U/L Serum Alcohol 551 H* mg/dL Disposition Clinical Impression: Alcohol intoxication Disposition: ADMITTED IP TO THIS HOSP Condition: Fair Referrals: None,Stated [Primary Care Provider] - 1-2 days Decision Time: 21:19
[2024-12-24 18:40] LABS: Basophils % (A) 0 %; Eosinophils # (A) 0.3 k/uL (0-0.7); Eosinophils % (A) 2 %; HGB 15.8 gm/dL (13.0-17.5); Lymphocytes # (A) 3.4 k/uL (1.0-4.8); Lymphocytes % (A) 31 %; MCH 32.4 pg (25.0-35.0); MCHC 32.8 g/dL (31.0-37.0); MCV 98.7 fL (80.0-100.0); Mean Platelet Volume 7.2; Monocytes # (A) 0.4 k/uL (0-1.0); Monocytes % (A) 4 %; Neutrophils # (A) 6.5 k/uL (1.3-7.7); Neutrophils % (A) 60 %; Platelet Count 344 k/uL (150-450); RBC 4.87 m/uL (4.30-5.90); RDW 12.6 % (11.5-15.5); WBC 10.9 k/uL (3.8-10.6)
[2024-12-24 18:43] LABS: ALT 72 U/L (4-49); AST 104 U/L (17-59); African American GFR (CKD) >90 (>60 ml/min/1.73 sqM); Albumin 4.6 g/dL (3.5-5.0); Alkaline Phosphatase 92 U/L (38-126); Anion Gap 12 mmol/L; Blood Urea Nitrogen 7 mg/dL (9-20); Calcium 9.1 mg/dL (8.4-10.2); Carbon Dioxide 30 mmol/L (22-30); Chloride 104 mmol/L (98-107); Glucose 129 mg/dL (74-99); Lipase 237 U/L (23-300); Magnesium 1.9 mg/dL (1.6-2.3); Non-African American GFR(CKD) >90 (>60 ml/min/1.73 sqM); Potassium 4.2 mmol/L (3.5-5.1); Sodium 146 mmol/L (137-145); Total Bilirubin 0.7 mg/dL (0.2-1.3)
[2024-12-24] MEDS ORDERED: NALOXONE 0.4 MG/ML 1 ML VIAL IV PRN (21:08)
[2024-12-24] MEDS ORDERED: LORazepam 2 MG/ML INJ IV PRN ×2 (21:09)
[2024-12-24] MEDS: SODIUM CHLORIDE 0.9% 1,000 ML IV SCH (21:16)
[2024-12-24] MEDS ORDERED: LORazepam 1 MG/0.5 ML VIAL IV PRN ×2 (23:06→23:07)
[2024-12-24] MEDS: LORazepam 2 MG/ML INJ IV PRN (23:12)
[2024-12-24] MEDS: LORazepam 1 MG/0.5 ML VIAL IV PRN (23:12)
[2024-12-25] MEDS: traZODone HCL 50 MG TAB PO SCH (02:37)
[2024-12-25 02:42] LABS: Alcohol 551 mg/dL
[2024-12-25 07:31] VITALS: RESP 16
[2024-12-25] MEDS ORDERED: LORazepam 1 MG TAB PO PRN (07:57)
[2024-12-25] MEDS ORDERED: LORazepam 0.5 MG TAB PO PRN (07:57)
--- NOTE | 2024-12-25 08:08 | P.HPIM ---
History of Present Illness H&P Date: 12/25/24 History of Presenting Illness: Patient is a 39-year-old male with a past medical history of daily alcohol abuse reportedly drinking 1/5 or more of liquor daily and nicotine dependence. He reports recently undergoing treatment at inpatient drug and alcohol r ehabilitation facility and was discharged 2 weeks ago. Patient states he is homeless and has been drinking at least 1/5 of alcohol daily. Reports he does not want to go back to rehab and plans for discharge once clinically sober. Patient informed that he will be clinically sober between 12 and 1 PM today and will plan for discharge after lunch. Patient states he was brought to the ER for alcohol intoxication by EMS, reports that he loves vodka and knows that he needs to get his life in order but again declined assistance with placement in rehab. Patient denies having any headache, lightheadedness, dizziness, chest pain, palpitations, shortness of breath, cough or congestion, nausea, vomiting, abdominal pain, or experiencing any numbness/tingling/weakness/swelling in his extremities. Upon arrival to our facility, patient underwent evaluation in the emergency department. Vital signs upon arrival show blood pressure 133/111, heart rate 82, respiratory rate 20, temp 97.6 F, and SpO2 of 99% on room air. EKG was completed showing normal sinus rhythm at 70 bpm with no significant T wave or ST abnormality showing no signs of acute ischemia upon personal review and interpretation. Labs completed and reviewed. CBC showing mild leukocytosis with WBC count of 10.9 otherwise normal findings. BMP showing mild hyponatremia with sodium of 146, anion gap of 12, blood glucose 129, and magnesium 1.9,. Liver profile showing elevated AST of 104 and ALT of 72 otherwise normal findings. Serum alcohol level was 551. Patient admitted under our services for alcohol intoxication. Review of systems: Pertinent positives and negatives as discussed in HPI, a complete review of systems was performed and all other systems are negative. Physical exam: Vital signs reviewed and stable. General: Nontoxic, no distress and appears stated age. Derm: Skin warm and dry, normal coloration for ethnicity. Head: Atraumatic, normocephalic and symmetric. Eyes: EOM's intact, no lid lag, and anicteric sclera Mouth: no lip lesions, mucus membranes moist Cardiovascular: regular rate and rhythm with normal S1S2, no murmur, positive posterior tibial pulses bilaterally, and cap refill < 2 seconds. Lungs: Respirations even, regular, and unlabored on room air. Lungs CTA bilaterally, no rhonchi, no rales, no wheezing, and no accessory muscle usage. Abdominal: soft, nontender to palpation, no guarding, no appreciable organomegaly Ext: ROM intact. No gross muscle atrophy, no edema, no contractures Neuro: Speech clear, face symmetrical and CN II-XII grossly intact with no noted focal neuro deficits Psych: Alert and oriented to person, place, time, and situation. Appropriate and pleasant affect. Assessment and Plan of Care: Alcohol intoxication in active alcoholic -Order placed for monitoring of CIWA scores and patient to be medicated with Ativan 0.5 mg every 4 hours as needed for CIWA score of 4-5, Ativan 1 mg every 4 hours for CIWA score of 6-7, Ativan 2 mg every 3 hours CIWA score of 8-9, and Ativan 2 mg every 2 hours forr CIWA score of 10 or greater. -Continuous IV hydration. -Thiamine 100 mg daily, and Multivitamin daily, and Folate 1 mg daily -Seizure, fall, aspiration, and elopement precautions in place. -Continued close monitoring of electrolytes and replace as needed. -Telemetry monitoring. Nicotine dependence -Recommend smoking cessation. Patient declined nicotine patch stating they do not help. Data and imaging reviewed: -As stated above in HPI The patient is admitted with an anticipated less than 2 midnight stay for evaluation of alcohol intoxication CODE STATUS: Full code Discussed with: Patient and RN Anticipated discharge date: Likely within the next 24 hours. Patient requesting discharge once clinically sober. Anticipated discharge place: Patient provided with information on local homeless shelters by social work and arrangements were made. Patient was seen independently by Nurse Practitioner. This document was prepared using [employer] dictation software. Please allow for errors in phys therapist while rare they do occur. Trevin Patel NP rendered care for this patient independently, reviewed the findings and plan as documented in the note above and agree with plan. I did not physically speak with or examine the patient on this date. Past Medical History Past Medical History: No Reported History Additional Past Medical History / Comment(s): ETOH History of Any Multi-Drug Resistant Organisms: None Reported Additional Past Surgical History / Comment(s): plastic surgery on left lip Past Anesthesia/Blood Transfusion Reactions: No Reported Reaction Smoking Status: Current every day smoker Medications and Allergies Home Medications Medication Instructions Recorded Confirmed Type Folic Acid 1 mg PO DAILY 30 Days #30 tab 12/19/24 12/24/24 Rx Sertraline [Zoloft] 100 mg PO DAILY 30 Days #30 tab 12/19/24 12/24/24 Rx Allergies Allergy/AdvReac Type Severity Reaction Status Date / Time No Known Allergies Allergy Verified 12/24/24 18:46 Physical Exam Vitals: Vital Signs Temp Pulse Pulse Resp BP BP Pulse Ox 12/25/24 07:29 97.8 F 69 16 131/80 98 12/25/24 02:00 95.5 F L 79 14 135/90 97 12/24/24 23:02 95.5 F L 79 14 135/90 97 12/24/24 22:00 16 12/24/24 21:41 97.2 F L 71 17 111/70 96 12/24/24 18:17 97.6 F 82 20 133/111 99 Intake and Output 12/24/24 12/25/24 12/25/24 22:59 06:59 14:59 Intake Total 2160 Balance 2160 Intake: Oral 2160 Other: Weight 80.286 kg 80.286 kg Results CBC & Chem 7: 12/25/24 09:16 12/24/24 18:16 Labs: Abnormal Lab Results - Last 24 Hours (Table) 12/24/24 12/24/24 Range/Units 18:16 18:16 WBC 10.9 H (3.8-10.6) k/uL Sodium 146 H (137-145) mmol/L BUN 7 L (9-20) mg/dL Creatinine 0.64 L (0.66-1.25) mg/dL Glucose 129 H (74-99) mg/dL AST 104 H (17-59) U/L ALT 72 H (4-49) U/L Serum Alcohol 551 H* mg/dL Thrombosis Risk Factor Assmnt - Choose All That Apply Any of the Below Risk Factors Present?: Yes Each Factor Represents 1 point: Obesity (BMI >25) Other Risk Factors: No Other congenital or acquired thrombophilia - If yes, enter type in comment: No Thrombosis Risk Factor Assessment Total Risk Factor Score: 1 Thrombosis Risk Factor Assessment Level: Low Risk
[2024-12-25] MEDS: FOLIC ACID 1 MG TAB PO SCH (09:04)
[2024-12-25] MEDS: MULTIVITAMINS, THERA 1 EACH TAB PO SCH (09:04)
[2024-12-25] MEDS: SERTRALINE 100 MG TAB PO SCH (09:04)
[2024-12-25 09:30] LABS: Basophils % (A) 0 %; Eosinophils % (A) 5 %; HCT 42.9 % (39.0-53.0); HGB 13.9 gm/dL (13.0-17.5); Lymphocytes % (A) 28 %; MCHC 32.4 g/dL (31.0-37.0); MCV 98.7 fL (80.0-100.0); Mean Platelet Volume 7.5; Monocytes % (A) 5 %; Neutrophils % (A) 60 %; Platelet Count 254 k/uL (150-450); RBC 4.35 m/uL (4.30-5.90); RDW 12.6 % (11.5-15.5)
[2024-12-25 09:31] LABS: Eosinophils # (A) 0.3 k/uL (0-0.7); Lymphocytes # (A) 1.4 k/uL (1.0-4.8); Monocytes # (A) 0.2 k/uL (0-1.0)
[2024-12-25] MEDS: MAGNESIUM SULFATE-D5W PMX 1 GM in DEXTROSE/WATER 1 100ML.BAG IVPB ONE (11:44)
[2024-12-25] MEDS: MAGNESIUM OXIDE 400 MG TAB PO STA (11:44)
[2024-12-25 12:07] VITALS: BP 128/76; PULSE 72; TEMP 98.1
--- NOTE | 2024-12-25 12:35 | P.DS ---
Providers Date of admission: 12/24/24 21:09 Expected date of discharge: 12/25/24 Attending physician: Josefina Patterson MD Primary care physician: Stated None Hospital Course: Discharge Diagnosis: Alcohol intoxication in active alcoholic Upon arrival. Patient clinically sober. CIWA score is 1. During discharge denies wanting to go to rehab. Provided with outpatient community resources available to him. Patient strongly encouraged cessation of any and all alcohol use. Transaminitis, secondary to daily alcohol abuse. Hypomagnesemia, replaced. Nicotine dependence Hospital Course: Patient is a 39-year-old male with a past medical history of daily alcohol abuse reportedly drinking 1/5 or more of liquor daily and nicotine dependence. He reports recently undergoing treatment at inpatient drug and alcohol rehabilitation facility and was discharged 2 weeks ago. Patient states he is homeless and has been drinking at least 1/5 of alcohol daily. Reports he does not want to go back to rehab and plans for discharge once clinically sober. Patient informed that he will be clinically sober between 12 and 1 PM today and will plan for discharge after lunch. Patient states he was brought to the ER for alcohol intoxication by EMS, reports that he loves vodka and knows that he needs to get his life in order but again declined assistance with placement in rehab. Patient denies having any headache, lightheadedness, dizziness, chest pain, palpitations, shortness of breath, cough or congestion, nausea, vomiting, abdominal pain, or experiencing any numbness/tingling/weakness/swelling in his extremities. Upon arrival to our facility, patient underwent evaluation in the emergency department. Vital signs upon arrival show blood pressure 133/111, heart rate 82, respiratory rate 20, temp 97.6 F, and SpO2 of 99% on room air. EKG was completed showing normal sinus rhythm at 70 bpm with no significant T wave or ST abnormality showing no signs of acute ischemia upon personal review and interpretation. Labs completed and reviewed. CBC showing mild leukocytosis with WBC count of 10.9 otherwise normal findings. BMP showing mild hyponatremia with sodium of 146, anion gap of 12, blood glucose 129, and magnesium 1.9,. Liver profile showing elevated AST of 104 and ALT of 72 otherwise normal findings. Serum alcohol level was 551. Patient admitted under our services for alcohol intoxication and provided with aggressive IV fluid hydration. Patient denied any symptoms of alcohol withdrawal. Current CIWA score is 1. Patient alert and oriented to person, place, time, and situation. Denies having any complaints or needs at this time. Denies suicidal or homicidal ideations. Patient was provided with list of local homeless shelters and arrangements were made by social work. Patient declined assistance with placement in drug and alcohol rehabilitation facility. He was provided with outpatient community resources available to him including AA meetings, counseling, and the list of inpatient drug and alcohol rehabilitation facilities if he changes his mind. Patient is clinically sober and medically optimized for discharge at this time. Physical exam: Vital signs reviewed and stable. General: Nontoxic, no distress and appears stated age. Derm: Skin warm and dry, normal coloration for ethnicity. Head: Atraumatic, normocephalic and symmetric. Eyes: EOM's intact, no lid lag, and anicteric sclera Mouth: no lip lesions, mucus membranes moist Cardiovascular: regular rate and rhythm with normal S1S2, no murmur, positive posterior tibial pulses bilaterally, and cap refill < 2 seconds. Lungs: Respirations even, regular, and unlabored on room air. Lungs CTA bilaterally, no rhonchi, no rales, no wheezing, and no accessory muscle usage. Abdominal: soft, nontender to palpation, no guarding, no appreciable organomegaly Ext: ROM intact. No gross muscle atrophy, no edema, no contractures Neuro: Speech clear, face symmetrical and CN II-XII grossly intact with no noted focal neuro deficits Psych: Alert and oriented to person, place, time, and situation. Appropriate and pleasant affect. A total of 31 minutes of time were spent preparing this complex discharge kirill franklin Pt was discharged on 12/25/2024 at 12:28 PM Patient was seen independently by Nurse Practitioner. This document was prepared using [employer] dictation software. Please allow for errors in cash accounting clerk while rare they do occur. Trevin Patel NP rendered care for this patient independently, reviewed the findings and plan as documented in the note above. I did not physically speak with or examine the patient on this date. Patient Condition at Discharge: Stable Plan - Discharge Summary New Discharge Prescriptions: New Multivitamins, Thera [Multivitamin (formulary)] 1 each PO DAILY 30 Days #30 tab Thiamine [Vitamin B-1] 100 mg PO DAILY 30 Days #30 tab Continue Folic Acid 1 mg PO DAILY 30 Days #30 tab Sertraline [Zoloft] 100 mg PO DAILY 30 Days #30 tab Discharge Medication List Folic Acid 1 mg PO DAILY 30 Days #30 tab 12/19/24 [Rx] Sertraline [Zoloft] 100 mg PO DAILY 30 Days #30 tab 12/19/24 [Rx] Multivitamins, Thera [Multivitamin (formulary)] 1 each PO DAILY 30 Days #30 tab 12/25/24 [Rx] Thiamine [Vitamin B-1] 100 mg PO DAILY 30 Days #30 tab 12/25/24 [Rx] Follow up Appointment(s)/Referral(s): [facility] [NON-STAFF] - 1 Week Patient Instructions/Handouts: Alcohol Intoxication (DC), Abuse of Alcohol (DC), Alcohol Withdrawal (DC) Activity/Diet/Wound Care/Special Instructions: Activity: As tolerated. Diet: Resume regular diet. Special Instructions: Strongly recommend cessation of any and all alcohol use. You were provided with a list of inpatient substance abuse facilities if you choose to change your mind, please reach out to one of the facilities as provided. You are also being provided with community resources available to you including outpatient counseling, AA meetings, and local shelters. Thank you for allowing us to participate in your care, it was truly a pleasure having you for our patient!!! . Discharge/Stand Alone Forms: AA Meetings [facility] Shelters, Community Resources, Outpatient Counseling, In Substance Abuse Facilities Discharge Disposition: HOME SELF-CARE
[2024-12-26] MEDS ORDERED: THIAMINE 100 MG TAB PO SCH (09:00)
== END 2024-12-25 13:20 | disposition home or self-care (01) ==
LOC: EC 18:04 → 5NMEDONC 21:09
PROVIDERS: ADMIT Internal Medicine; ATTEND Internal Medicine
DX: F10.220 Alcohol dependence with intoxication, uncomplicated (principal); E87.1 Hypo-osmolality and hyponatremia; E83.42 Hypomagnesemia; D72.829 Elevated white blood cell count, unspecified; Y90.8 Blood alcohol level of 240 mg/100 ml or more; R74.01 Elevation of levels of liver transaminase levels; E66.9 Obesity, unspecified; Z68.26 Body mass index [BMI] 26.0-26.9, adult; F17.290 Nicotine dependence, other tobacco product, uncomplicated; Z59.00 Homelessness unspecified; Z79.899 Other long term (current) drug therapy
CPT/HCPCS: 96374; 82075; 99285; 36415; 93005; 80053; 83690; 83735 ×2; 85025 ×2; G0378 ×2; G0480; J2060; J3475; 80320

== ENCOUNTER 2024-12-25 21:28 | Emergency (ER) | payer OTHER ==
--- NOTE | 2024-12-25 22:10 | ED ---
Alcohol HPI - General Chief Complaint: Alcohol Stated Complaint: ETOH Time Seen by Provider: 12/25/24 21:31 Source: patient, EMS Mode of arrival: EMS Limitations: no limitations - History of Present Illness Initial Comments: Patient is a 39-year-old man brought by EMS because he was found apparently intoxicated and passed out on a business property. The patient admits to drinking a lot of alcohol today. He states that he is drinking because he is ho meless and depressed. Patient denies falling or any injury. 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 -: hour(s) Previous Visits for Alcohol Intoxication?: Yes Recent Trauma: No Associated Symptoms: depression Treatments Prior to Arrival: none Chronic Alcohol Use: Yes - Related Data Previous Rx's Medication Instructions Recorded Folic Acid 1 mg PO DAILY 30 Days #30 tab 12/19/24 Sertraline [Zoloft] 100 mg PO DAILY 30 Days #30 tab 12/19/24 Multivitamins, Thera [Multivitamin 1 each PO DAILY 30 Days #30 tab 12/25/24 (formulary)] Thiamine [Vitamin B-1] 100 mg PO DAILY 30 Days #30 tab 12/25/24 Allergies Allergy/AdvReac Type Severity Reaction Status Date / Time No Known Allergies Allergy Verified 12/25/24 21:37 Review of Systems ROS Statement: Those systems with pertinent positive or pertinent negative responses have been documented in the HPI. ROS Other: All systems not noted in ROS Statement are negative. Constitutional: Denies: fever, chills Eyes: Denies: vision change Respiratory: Denies: cough, dyspnea Cardiovascular: Denies: chest pain, palpitations Gastrointestinal: Denies: abdominal pain, nausea, vomiting Genitourinary: Denies: dysuria, hematuria Musculoskeletal: Denies: back pain Neurological: Denies: headache, weakness Psychiatric: Reports: depression. Denies: auditory hallucinations, visual hallucinations, homicidal thoughts, suicidal thoughts Past Medical History Past Medical History: No Reported History Additional Past Medical History / Comment(s): ETOH History of Any Multi-Drug Resistant Organisms: None Reported Additional Past Surgical History / Comment(s): plastic surgery on left lip Past Anesthesia/Blood Transfusion Reactions: No Reported Reaction Past Psychological History: ADD/ADHD Smoking Status: Current every day smoker Past Alcohol Use History: Abuse, Daily, Heavy Past Drug Use History: None Reported General Exam Limitations: no limitations General appearance: alert, in no apparent distress Head exam: Present: atraumatic, normocephalic Eye exam: Present: normal appearance. Absent: scleral icterus, conjunctival injection ENT exam: Present: normal oropharynx Neck exam: Present: normal inspection Respiratory exam: Present: normal lung sounds bilaterally. Absent: respiratory distress, wheezes, rales, rhonchi, stridor, accessory muscle use Cardiovascular Exam: Present: regular rate, normal rhythm, normal heart sounds. Absent: systolic murmur, diastolic murmur, rubs, gallop GI/Abdominal exam: Present: soft. Absent: distended, tenderness, guarding, rebound, rigid, organomegaly, mass, pulsatile mass Extremities exam: Present: normal inspection, normal capillary refill. Absent: pedal edema, calf tenderness Back exam: Present: normal inspection. Absent: CVA tenderness (R), CVA tenderness (L) Neurological exam: Present: alert, oriented X3, CN II-XII intact. Absent: motor sensory deficit Skin exam: Present: warm, dry, intact, normal color. Absent: rash Course Vital Signs 12/25/24 12/25/24 12/26/24 21:30 23:34 01:00 Temperature 97.7 F Pulse Rate 63 75 66 Respiratory 18 16 16 Rate Blood Pressure 142/107 123/76 92/58 O2 Sat by Pulse 98 98 98 Oximetry 12/26/24 12/26/24 02:00 03:00 Temperature Pulse Rate 63 66 Respiratory 16 16 Rate Blood Pressure 111/73 112/76 O2 Sat by Pulse 98 98 Oximetry Medical Decision Making - Lab Data Result diagrams: 12/25/24 23:35 12/25/24 23:35 Lab Results 12/25/24 12/25/24 Range/Units 23:35 23:35 WBC 5.7 (3.8-10.6) k/uL RBC 4.30 (4.30-5.90) m/uL Hgb 13.8 (13.0-17.5) gm/dL Hct 43.0 (39.0-53.0) % MCV 99.9 (80.0-100.0) fL MCH 32.1 (25.0-35.0) pg MCHC 32.1 (31.0-37.0) g/dL RDW 13.0 (11.5-15.5) % Plt Count 249 (150-450) k/uL MPV 8.2 Neutrophils % 54 % Lymphocytes % 37 % Monocytes % 4 % Eosinophils % 3 % Basophils % 0 % Neutrophils # 3.1 (1.3-7.7) k/uL Lymphocytes # 2.1 (1.0-4.8) k/uL Monocytes # 0.2 (0-1.0) k/uL Eosinophils # 0.2 (0-0.7) k/uL Basophils # 0.0 (0-0.2) k/uL Sodium 142 (137-145) mmol/L Potassium 4.1 (3.5-5.1) mmol/L Chloride 104 (98-107) mmol/L Carbon Dioxide 26 (22-30) mmol/L Anion Gap 12 mmol/L BUN 6 L (9-20) mg/dL Creatinine 0.60 L (0.66-1.25) mg/dL Est GFR (CKD-EPI)AfAm >90 (>60 ml/min/1.73 sqM) Est GFR (CKD-EPI)NonAf >90 (>60 ml/min/1.73 sqM) Glucose 90 (74-99) mg/dL Calcium 8.6 (8.4-10.2) mg/dL Total Bilirubin 0.8 (0.2-1.3) mg/dL AST 158 H (17-59) U/L ALT 97 H (4-49) U/L Alkaline Phosphatase 66 (38-126) U/L Total Protein 6.4 (6.3-8.2) g/dL Albumin 4.0 (3.5-5.0) g/dL Serum Alcohol 382 H* mg/dL Disposition Clinical Impression: Alcoholic intoxication Disposition: HOME SELF-CARE Condition: Good Instructions (If sedation given, give patient instructions): Alcohol Intoxication (ED) Is patient prescribed a controlled substance at d/c from ED?: No Referrals: None,Stated [Primary Care Provider] - 1-2 days
[2024-12-25 23:54] LABS: Basophils % (A) 0 %; Eosinophils # (A) 0.2 k/uL (0-0.7); Eosinophils % (A) 3 %; HGB 13.8 gm/dL (13.0-17.5); Lymphocytes # (A) 2.1 k/uL (1.0-4.8); Lymphocytes % (A) 37 %; MCH 32.1 pg (25.0-35.0); MCHC 32.1 g/dL (31.0-37.0); MCV 99.9 fL (80.0-100.0); Mean Platelet Volume 8.2; Monocytes # (A) 0.2 k/uL (0-1.0); Monocytes % (A) 4 %; Neutrophils # (A) 3.1 k/uL (1.3-7.7); Neutrophils % (A) 54 %; Platelet Count 249 k/uL (150-450); WBC 5.7 k/uL (3.8-10.6)
[2024-12-26 00:11] LABS: ALT 97 U/L (4-49); AST 158 U/L (17-59); African American GFR (CKD) >90 (>60 ml/min/1.73 sqM); Alkaline Phosphatase 66 U/L (38-126); Anion Gap 12 mmol/L; Blood Urea Nitrogen 6 mg/dL (9-20); Calcium 8.6 mg/dL (8.4-10.2); Carbon Dioxide 26 mmol/L (22-30); Chloride 104 mmol/L (98-107); Glucose 90 mg/dL (74-99); Non-African American GFR(CKD) >90 (>60 ml/min/1.73 sqM); Potassium 4.1 mmol/L (3.5-5.1); Sodium 142 mmol/L (137-145); Total Bilirubin 0.8 mg/dL (0.2-1.3); Total Protein 6.4 g/dL (6.3-8.2)
[2024-12-26 01:17] LABS: Alcohol 382 mg/dL
[2024-12-26 06:31] VITALS: BP 114/74; PULSE 61; RESP 18; TEMP 97.8
== END 2024-12-26 06:29 | disposition home or self-care (01) ==
LOC: EC 21:28
DX: F10.129 Alcohol abuse with intoxication, unspecified (principal); F17.200 Nicotine dependence, unspecified, uncomplicated; Z59.00 Homelessness unspecified; Y90.8 Blood alcohol level of 240 mg/100 ml or more
CPT/HCPCS: 99284; 36415; 80053; 85025; G0480; 80320

== ENCOUNTER 2024-12-29 23:21 | Observation (INO) | payer OTHER ==
--- NOTE | 2024-12-29 23:49 | ED ---
Alcohol HPI - General Chief Complaint: Alcohol Stated Complaint: ETOH Time Seen by Provider: 12/29/24 23:27 Source: patient, EMS, RN notes reviewed Mode of arrival: EMS Limitations: no limitations - History of Present Illness Initial Comments: This is a 39-year-old male with history of EtOH abuse presenting for alcohol intoxication. Patient states he drank an entire fifth of Trell today prior to being picked up by EMS. Patient states he is homeless and unsure what he was doing prior to being picked up or why he was picked up. Patient states he has spent time at [facility] from until today was unable to provide the reason why he was admitted. Denies significant trauma, pain, dyspnea, chest pain, headache, neck pain, abdominal pain, N/V/D, dizziness. Denies SI/HI, drug use. 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 Recent Trauma: Yes (Left knee abrasion) Treatments Prior to Arrival: none Chronic Alcohol Use: Yes - Related Data Previous Rx's Medication Instructions Recorded Folic Acid 1 mg PO DAILY 30 Days #30 tab 12/19/24 Sertraline [Zoloft] 100 mg PO DAILY 30 Days #30 tab 12/19/24 Multivitamins, Thera [Multivitamin 1 each PO DAILY 30 Days #30 tab 12/25/24 (formulary)] Thiamine [Vitamin B-1] 100 mg PO DAILY 30 Days #30 tab 12/25/24 Allergies Allergy/AdvReac Type Severity Reaction Status Date / Time No Known Allergies Allergy Verified 12/25/24 21:37 Review of Systems ROS Statement: Those systems with pertinent positive or pertinent negative responses have been documented in the HPI. ROS Other: All systems not noted in ROS Statement are negative. Past Medical History Past Medical History: No Reported History Additional Past Medical History / Comment(s): ETOH History of Any Multi-Drug Resistant Organisms: None Reported Additional Past Surgical History / Comment(s): plastic surgery on left lip Past Anesthesia/Blood Transfusion Reactions: No Reported Reaction Past Psychological History: ADD/ADHD Smoking Status: Current every day smoker Past Alcohol Use History: Abuse, Daily, Heavy Past Drug Use History: None Reported General Exam Limitations: no limitations General appearance: alert, in no apparent distress, appears intoxicated Head exam: Present: atraumatic, normocephalic, normal inspection Eye exam: Present: normal appearance, PERRL, EOMI. Absent: scleral icterus, conjunctival injection, periorbital swelling ENT exam: Present: normal exam, mucous membranes moist Neck exam: Present: normal inspection. Absent: tenderness, meningismus, lymphadenopathy Respiratory exam: Present: normal lung sounds bilaterally. Absent: respiratory distress, wheezes, rales, rhonchi, stridor, accessory muscle use, decreased breath sounds, prolonged expiratory Cardiovascular Exam: Present: regular rate, normal rhythm, normal heart sounds. Absent: systolic murmur, diastolic murmur, rubs, gallop, clicks GI/Abdominal exam: Present: soft, normal bowel sounds. Absent: distended, tenderness, guarding, rebound, rigid Extremities exam: Present: normal inspection, full ROM, normal capillary refill, other (Positive left superior patellar abrasion without overlying crepitus, ecchymosis, deformity). Absent: tenderness, pedal edema, joint swelling, calf tenderness Back exam: Present: normal inspection Neurological exam: Present: alert, oriented X3, CN II-XII intact Psychiatric exam: Present: normal affect, normal mood Skin exam: Present: warm, dry, intact, normal color. Absent: rash Course Vital Signs 12/29/24 12/30/24 23:24 00:44 Temperature 97.6 F Pulse Rate 62 61 Respiratory 16 17 Rate Blood Pressure 130/103 117/83 O2 Sat by Pulse 97 95 Oximetry Medical Decision Making - Medical Decision Making Was pt. sent in by a medical professional or institution (ZOLTAN Barrientos, REGIONAL CONTROLLER, urgent care, hospital, or senior care...) When possible be specific @ -No Did you speak to anyone other than the patient for history (EMS, parent, family, police, friend...)? What history was obtained from this source @ -No Did you review nursing and triage notes (agree or disagree)? Why? @ -I reviewed and agree with nursing and triage notes Were old charts reviewed (outside hosp., previous admission, EMS record, old EKG, old radiological studies, urgent care reports/EKG's, senior care records)? Report findings @ -No old charts were reviewed Differential Diagnosis (chest pain, altered mental status, abdominal pain women, abdominal pain men, vaginal bleeding, weakness, fever, dyspnea, syncope, headache, dizziness, GI bleed, back pain, seizure, CVA, palpatations, mental health, musculoskeletal)? @ -Differential Altered Mental Status: Hypoglycemia, DKA, hypercapnia, ETOH, overdose, CO poisoning, trauma, myxedema coma, HTN encephalopathy, infection, encephalitis, psychosis, intercranial hemorrhage, hepatic encephalopathy, meningitis, CVA, this is not meant to be an all-inclusive list EKG interpreted by me (3pts min.). @ -Not done X-rays interpreted by me (1pt min.). @ -None done CT interpreted by me (1pt min.). @ -None done U/S interpreted by me (1pt. min.). @ -Liver ultrasound results pending later this a.m. What testing was considered but not performed or refused? (CT, X-rays, U/S, labs)? Why? @ -None What meds were considered but not given or refused? Why? @ -None Did you discuss the management of the patient with other professionals (professionals i.e. , PA, REGIONAL CONTROLLER, lab, RT, psych nurse, health and social care teacher, consultant technology, teacher, special loan officer, outsole caser)? Give summary @ -Spoke to Dr. Gonzalez from [facility] [place] who agreed to obs admission. Was smoking cessation discussed for >3mins.? @ -No Was critical care preformed (if so, how long)? @ -No Were there social determinants of health that impacted care today? How? (Homelessness, low income, unemployed, alcoholism, drug addiction, transportation, low edu. Level, literacy, decrease access to med. care, assisted, rehab)? @ -Alcoholism, homelessness Was there de-escalation of care discussed even if they declined (Discuss DNR or withdrawal of care, Hospice)? DNR status @ -No What co-morbidities impacted this encounter? (DM, HTN, Smoking, COPD, CAD, Cancer, CVA, ARF, Chemo, Hep., AIDS, mental health diagnosis, sleep apnea, morbid obesity)? @ -None Was patient admitted / discharged? Hospital course, mention meds given and route, prescriptions, significant lab abnormalities, going to OR and other pertinent info. @ -Lab work shows elevated LFTs in 200s, several times over what is usual for patient. Serum EtOH 366. Spoke to Dr. Gonzalez from [facility] [place] who agreed to obs admission. Liver ultrasound scheduled for a.m. Discussed patient with Dr. Richter. Undiagnosed new problem with uncertain prognosis? @ -Elevated LFTs Drug Therapy requiring intensive monitoring for toxicity (Heparin, Nitro, Insulin, Cardizem)? @ -No Were any procedures done? @ -No Diagnosis/symptom? @ -EtOH intoxication Acute, or Chronic, or Acute on Chronic? @ -Acute Uncomplicated (without systemic symptoms) or Complicated (systemic symptoms)? @ -Uncomplicated Side effects of treatment? @ -No Exacerbation, Progression, or Severe Exacerbation? @ -No Poses a threat to life or bodily function? How? (Chest pain, [place], [place], pneumonia, PE, COPD, DKA, ARF, appy, cholecystitis, CVA, Diverticulitis, Homicidal, Suicidal, threat to staff... and all critical care pts) @ -No - Lab Data Result diagrams: 12/30/24 00:09 12/30/24 00:07 Lab Results 12/30/24 12/30/24 12/30/24 Range/Units 00:07 00:09 01:34 WBC 7.0 (3.8-10.6) k/uL RBC 5.06 (4.30-5.90) m/uL Hgb 16.7 (13.0-17.5) gm/dL Hct 49.8 (39.0-53.0) % MCV 98.5 (80.0-100.0) fL MCH 32.9 (25.0-35.0) pg MCHC 33.4 (31.0-37.0) g/dL RDW 13.1 (11.5-15.5) % Plt Count 224 (150-450) k/uL MPV 7.4 Neutrophils % 68 % Lymphocytes % 21 % Monocytes % 5 % Eosinophils % 2 % Basophils % 0 % Neutrophils # 4.8 (1.3-7.7) k/uL Lymphocytes # 1.4 (1.0-4.8) k/uL Monocytes # 0.4 (0-1.0) k/uL Eosinophils # 0.2 (0-0.7) k/uL Basophils # 0.0 (0-0.2) k/uL Sodium 145 (137-145) mmol/L Potassium 4.4 (3.5-5.1) mmol/L Chloride 104 (98-107) mmol/L Carbon Dioxide 25 (22-30) mmol/L Anion Gap 16 mmol/L BUN 7 L (9-20) mg/dL Creatinine 0.66 (0.66-1.25) mg/dL Est GFR (CKD-EPI)AfAm >90 (>60 ml/min/1.73 sqM) Est GFR (CKD-EPI)NonAf >90 (>60 ml/min/1.73 sqM) Glucose 96 (74-99) mg/dL Calcium 9.8 (8.4-10.2) mg/dL Phosphorus 4.5 (2.5-4.5) mg/dL Magnesium 2.2 (1.6-2.3) mg/dL Total Bilirubin 0.7 (0.2-1.3) mg/dL AST 282 H (17-59) U/L ALT 239 H (4-49) U/L Alkaline Phosphatase 84 (38-126) U/L Total Protein 7.8 (6.3-8.2) g/dL Albumin 4.9 (3.5-5.0) g/dL Lipase 162 (23-300) U/L Urine Opiates Screen Not Detected (NotDetected) Ur Oxycodone Screen Not Detected (NotDetected) Urine Methadone Screen Not Detected (NotDetected) Ur Barbiturates Screen Not Detected (NotDetected) U Tricyclic Antidepress Not Detected (NotDetected) Ur Phencyclidine Scrn Not Detected (NotDetected) Ur Amphetamines Screen Not Detected (NotDetected) U Methamphetamines Scrn Not Detected (NotDetected) U Benzodiazepines Scrn Detected H (NotDetected) Urine Cocaine Screen Not Detected (NotDetected) U Marijuana (THC) Screen Not Detected (NotDetected) Serum Alcohol 366 H* mg/dL Disposition Clinical Impression: Acute alcohol intoxication, LFT elevation Disposition: HOME SELF-CARE Condition: Good Instructions (If sedation given, give patient instructions): Alcohol Intoxica tion (ED), Alcohol Use Disorder (ED) Additional Instructions: Follow-up with primary care for further liver evaluation related to elevated LFTs Is patient prescribed a controlled substance at d/c from ED?: No Referrals: None,Stated [Primary Care Provider] - 1-2 days Boo Beltran MD [STAFF PHYSICIAN] - 1-2 days Time of Disposition: 02:01 Decision Date: 12/30/24 Decision Time: 02:01
[2024-12-30 00:39] LABS: ALT 239 U/L (4-49); AST 282 U/L (17-59); African American GFR (CKD) >90 (>60 ml/min/1.73 sqM); Albumin 4.9 g/dL (3.5-5.0); Alkaline Phosphatase 84 U/L (38-126); Anion Gap 16 mmol/L; Blood Urea Nitrogen 7 mg/dL (9-20); Calcium 9.8 mg/dL (8.4-10.2); Carbon Dioxide 25 mmol/L (22-30); Chloride 104 mmol/L (98-107); Glucose 96 mg/dL (74-99); Lipase 162 U/L (23-300); Magnesium 2.2 mg/dL (1.6-2.3); Non-African American GFR(CKD) >90 (>60 ml/min/1.73 sqM); Phosphorus 4.5 mg/dL (2.5-4.5); Potassium 4.4 mmol/L (3.5-5.1); Sodium 145 mmol/L (137-145); Total Bilirubin 0.7 mg/dL (0.2-1.3); Total Protein 7.8 g/dL (6.3-8.2)
[2024-12-30] MEDS: SODIUM CHLORIDE 0.9% 1,000 ML IV STA (00:40)
[2024-12-30 00:49] LABS: Basophils % (A) 0 %; Eosinophils # (A) 0.2 k/uL (0-0.7); Eosinophils % (A) 2 %; HCT 49.8 % (39.0-53.0); HGB 16.7 gm/dL (13.0-17.5); Lymphocytes # (A) 1.4 k/uL (1.0-4.8); Lymphocytes % (A) 21 %; MCH 32.9 pg (25.0-35.0); MCHC 33.4 g/dL (31.0-37.0); MCV 98.5 fL (80.0-100.0); Mean Platelet Volume 7.4; Monocytes # (A) 0.4 k/uL (0-1.0); Monocytes % (A) 5 %; Neutrophils # (A) 4.8 k/uL (1.3-7.7); Neutrophils % (A) 68 %; Platelet Count 224 k/uL (150-450); RBC 5.06 m/uL (4.30-5.90); RDW 13.1 % (11.5-15.5)
[2024-12-30 01:23] LABS: Alcohol 366 mg/dL
[2024-12-30 02:40] LABS: Amphetamine Screen,Urine Not Detected (NotDetected); Barbiturate Screen,Urine Not Detected (NotDetected); Benzodiazepines Screen,Urine Detected (NotDetected); Cocaine Screen,Urine Not Detected (NotDetected); Methadone Screen, Urine Not Detected (NotDetected); Opiate Screen,Urine Not Detected (NotDetected); Oxycodone Screen, Urine Not Detected (NotDetected); Phencyclidine Screen,Urine Not Detected (NotDetected); Tricyclic Antidepressant,Urine Not Detected (NotDetected); Urn Cannabinoid Scrn Not Detected (NotDetected)
[2024-12-30] MEDS: SODIUM CHLORIDE 0.9% 500 ML 500 ML IV STA (03:02)
[2024-12-30] MEDS ORDERED: NALOXONE 0.4 MG/ML 1 ML VIAL IV PRN (04:41)
[2024-12-30] MEDS ORDERED: LORazepam 2 MG/ML INJ IV PRN ×3 (04:42)
--- NOTE | 2024-12-30 06:05 | P.HPIM ---
History of Present Illness H&P Date: 12/30/24 Patient is a 39-year-old male with a PMH of alcohol abuse who presents to the emergency room with alcohol intoxication. The patient reports a lifelong history of alcohol use and currently drinks 1/5 of hard liquor daily. He reports that his last drink was earlier today. He had previously been trying to cut down on his drinking and was sober for 2 to 3 days. Of note, the patient was recently discharged from the hospital on 12/25 for alcohol intoxication. He denies any additional complaints at the time of interview. Denied experiencing chest discomfort, shortness of breath, fever, chills, cough, nausea, vomiting, abdominal pain, diarrhea. Laboratory evaluation was reviewed with WBC count 7.0, hemoglobin 16.7, platelet count 224, sodium 145, BUN 7, creatinine 0.66, AST 282, and ALT 239 with urine toxicology positive for benzodiazepines with serum alcohol level 366. ED documentation reviewed and case discussed with ED provider. Review of systems: Pertinent positives and negatives as discussed in HPI, a complete review of systems was performed and all other systems are negative. Physical examination: Vital signs reviewed General: non toxic, no distress, appears at stated age, normal weight Derm: no unusual rashes/lesions, warm Head: atraumatic, normocephalic, symmetric Eyes: EOMI, no lid lag, anicteric sclera, pupils equal round reactive to light ENT: Nose and ears atraumatic Neck: No cervical lymphadenopathy, trachea midline, supple Mouth: no lip lesion, mucus membranes moist Cardiovascular: S1S2 reg, no murmur, positive dorsalis pedis pulse bilateral, no edema Lungs: CTA bilateral, no rhonchi, no rales, no accessory muscle use Abdominal: soft, nontender to palpation, no guarding Ext: muscle strength 5 out of 5 in all 4 extremities grossly, no gross muscle atrophy, no contractures, Neuro: CN II-XI grossly intact, no gross focal neuro deficits Psych: Alert, oriented, appropriate affect Assessment: Alcohol intoxication, impending withdrawal Transaminitis Imaging: None performed Data Review: Laboratory evaluation was reviewed with WBC count 7.0, hemoglobin 16.7, platelet count 224, sodium 145, BUN 7, creatinine 0.66, AST 282, and ALT 239 with urine toxicology positive for benzodiazepines with serum alcohol level 366. Plan: Continue to monitor for alcohol withdrawal with CIWA protocol with Ativan IV push Monitor electrolytes daily Cardiac monitoring Continue IV fluids with normal saline DVT prophylaxis: Lovenox subcu The patient is admitted with an anticipated less than 2 midnight stay for evaluation of EtOh CODE STATUS: Full Code Discussed with: Patient Anticipated discharge place: Home Past Medical History Past Medical History: No Reported History Additional Past Medical History / Comment(s): ETOH History of Any Multi-Drug Resistant Organisms: None Reported Additional Past Surgical History / Comment(s): plastic surgery on left lip Past Anesthesia/Blood Transfusion Reactions: No Reported Reaction Past Psychological History: ADD/ADHD Smoking Status: Current every day smoker Past Alcohol Use History: Abuse, Daily, Heavy Past Drug Use History: None Reported Medications and Allergies Home Medications Medication Instructions Recorded Confirmed Type Folic Acid 1 mg PO DAILY 30 Days #30 tab 12/19/24 12/24/24 Rx Sertraline [Zoloft] 100 mg PO DAILY 30 Days #30 tab 12/19/24 12/24/24 Rx Multivitamins, Thera [Multivitamin 1 each PO DAILY 30 Days #30 tab 12/25/24 Rx (formulary)] Thiamine [Vitamin B-1] 100 mg PO DAILY 30 Days #30 tab 12/25/24 Rx Allergies Allergy/AdvReac Type Severity Reaction Status Date / Time No Known Allergies Allergy Verified 12/25/24 21:37 Physical Exam Vitals: Vital Signs Temp Pulse Resp BP Pulse Ox 12/30/24 00:44 97.6 F 61 17 117/83 95 12/29/24 23:24 62 16 130/103 97 Intake and Output 12/29/24 12/29/24 12/30/24 14:59 22:59 06:59 Other: Weight 77.111 kg Results CBC & Chem 7: 12/30/24 00:09 12/30/24 00:07 Labs: Abnormal Lab Results - Last 24 Hours (Table) 12/30/24 12/30/24 Range/Units 00:07 01:34 BUN 7 L (9-20) mg/dL AST 282 H (17-59) U/L ALT 239 H (4-49) U/L U Benzodiazepines Scrn Detected H (NotDetected) Serum Alcohol 366 H* mg/dL
[2024-12-30] MEDS: SODIUM CHLORIDE 0.9% 1,000 ML IV SCH ×2 (06:07→06:40)
[2024-12-30] MEDS: ENOXAPARIN 40 MG/0.4 ML SYRINGE SQ SCH (09:16)
--- NOTE | 2024-12-30 11:55 | P.DS ---
Providers Date of admission: 12/30/24 04:42 Expected date of discharge: 12/30/24 Attending physician: Yasmine Gonzalez MD Primary care physician: Stated None Hospital Course: Discharge Diagnosis: Alcohol intoxication in active alcoholic Upon arrival. Patient clinically sober. CIWA score is 0. During discharge denies wanting to go to rehab. Provided with outpatient community resources available to him. Patient strongly encouraged cessation of any and all alcohol use. Transaminitis, secondary to daily alcohol abuse. Nicotine dependence Hospital Course: Patient is a 39-year-old male with a past medical history of daily alcohol abuse reportedly drinking 1/5 or more of liquor daily and nicotine dependence. . Patient states he is homeless and has been drinking at least 1/5 of alcohol daily. Reports he does not want to go back to rehab and plans for discharge once clinically sober. Patient was just seen at our facility and discharged for same complaint on 12/25/2024. Patient informed that he will be clinically sober around 12 and will plan for discharge after lunch. Patient states he was brought to the ER for alcohol intoxication by EMS, reports that he loves vodka and knows that he needs to get his life in order but again declined assistance with placement in rehab. Patient denies having any headache, lightheadedness, dizziness, chest pain, palpitations, shortness of breath, cough or congestion, nausea, vomiting, abdominal pain, or experiencing any numbness/tingling/weakness/swelling in his extremities. Upon arrival to our facility, patient underwent evaluation in the emergency department. Vital signs upon arrival show blood pressure 130/103, heart rate 62, respiratory rate 16, temp 97.6 F, and SpO2 of 97% on room air. Labs completed and reviewed. CBC unremarkable. BMP normal findings. Blood glucose 96. Magnesium 2.2. Liver profile showing elevated AST of 282 and ALT of 239. Lipase normal findings at 162. Urine drug screen positive for benzodiazepines. Serum alcohol level was elevated at 366. Patient admitted under services for medical detox. Patient denied any symptoms of alcohol withdrawal. Current CIWA score is 0. Patient alert and oriented to person, place, time, and situation. Denies having any complaints or needs at this time. Denies suicidal or homicidal ideations. Patient was provided with list of local homeless shelters and arrangements were made by social work. Patient declined assistance with placement in drug and alcohol rehabilitation facility. He was provided with outpatient community resources available to him including AA meetings, counseling, and the list of inpatient drug and alcohol rehabilitation facilities if he changes his mind. Patient is clinically sober and medically optimized for discharge at this time. Physical exam: Vital signs reviewed and stable. General: Nontoxic, no distress and appears stated age. Derm: Skin warm and dry, normal coloration for ethnicity. Head: Atraumatic, normocephalic and symmetric. Eyes: EOM's intact, no lid lag, and anicteric sclera Mouth: no lip lesions, mucus membranes moist Cardiovascular: regular rate and rhythm with normal S1S2, no murmur, positive posterior tibial pulses bilaterally, and cap refill < 2 seconds. Lungs: Respirations even, regular, and unlabored on room air. Lungs CTA bilaterally, no rhonchi, no rales, no wheezing, and no accessory muscle usage. Abdominal: soft, nontender to palpation, no guarding, no appreciable organomegaly Ext: ROM intact. No gross muscle atrophy, no edema, no contractures Neuro: Speech clear, face symmetrical and CN II-XII grossly intact with no noted focal neuro deficits Psych: Alert and oriented to person, place, time, and situation. Appropriate and pleasant affect. A total of 31 minutes of time were spent preparing this complex discharge summary. Pt was discharged on 12/30/2024 at 11:55 AM Patient was seen independently by Nurse Practitioner. This document was prepared using Hex[employer] dictation software. Please allow for errors in stone paver while rare they do occur. Trevin Patel NP rendered care for this patient independently, reviewed the findings and plan as documented in the note above. I did not physically speak with or examine the patient on this date. Patient Condition at Discharge: Stable Plan - Discharge Summary New Discharge Prescriptions: No Action Multivitamins, Thera [Multivitamin (formulary)] 1 tab PO DAILY Folic Acid 1 mg PO DAILY 30 Days #30 tab Sertraline [Zoloft] 100 mg PO DAILY 30 Days #30 tab Thiamine [Vitamin B-1] 100 mg PO DAILY 30 Days #30 tab Discharge Medication List Folic Acid 1 mg PO DAILY 30 Days #30 tab 12/19/24 [Rx] Sertraline [Zoloft] 100 mg PO DAILY 30 Days #30 tab 12/19/24 [Rx] Thiamine [Vitamin B-1] 100 mg PO DAILY 30 Days #30 tab 12/25/24 [Rx] Multivitamins, Thera [Multivitamin (formulary)] 1 tab PO DAILY 12/30/24 [History] Follow up Appointment(s)/Referral(s): Boo Beltran MD [STAFF PHYSICIAN] - 1-2 days None,Stated [Primary Care Provider] - 1-2 days Patient Instructions/Handouts: Alcohol Intoxication (ED), Alcohol Use Disorder (ED) Activity/Diet/Wound Care/Special Instructions: Follow-up with primary care for further liver evaluation related to elevated LFTs STRONGLY recommend cessation of alcohol use and reconsideration of going to inpatient rehab center. Discharge/Stand Alone Forms: AA [facility] [place], [facility] Resources, Outpatient Counseling, In Substance Abuse Facilities Discharge Disposition: HOME SELF-CARE
[2024-12-30 13:19] VITALS: BP 145/98; PULSE 60; RESP 18; TEMP 98.9
== END 2024-12-30 13:25 | disposition home or self-care (01) ==
LOC: EC 23:21 → 6NMEDSUR 12-30 04:42
PROVIDERS: ADMIT Internal Medicine; ATTEND Internal Medicine
DX: F10.229 Alcohol dependence with intoxication, unspecified (principal); F10.239 Alcohol dependence with withdrawal, unspecified; R74.01 Elevation of levels of liver transaminase levels; F17.200 Nicotine dependence, unspecified, uncomplicated; Y90.8 Blood alcohol level of 240 mg/100 ml or more; Z79.899 Other long term (current) drug therapy; Z59.00 Homelessness unspecified
CPT/HCPCS: 96360; 96361; 99285; 36415; 80053; 83690; 83735; 84100; 85025; 80306; G0378; G0480; 80320

== ENCOUNTER 2024-12-31 18:31 | Observation (INO) | payer OTHER ==
--- NOTE | 2024-12-31 19:03 | ED ---
Alcohol HPI - General Source: patient, EMS, RN notes reviewed Mode of arrival: EMS Limitations: no limitations <Shayla Gerardo - Last Filed: 12/31/24 19:05> <Esther Hawkins - Last Filed: 01/03/25 03:25> - General Chief Complaint: Alcohol Stated Complaint: ETOH Time Seen by Provider: 12/31/24 18:45 - History of Present Illness Initial Comments: Quick [id number] male with history of alcohol abuse presenting via EMS for acute intoxication. Patient states that he had over 1/5 of vodka prior to arrival. (Shayla Gerardo) 39-year-old male presenting with acute alcohol intoxication. Patient has history of alcohol use disorder, he drinks a fifth per day. Reports that he has 1/5 of vodka prior to arrival. He is intoxicated and incoherent. Cannot obtain thorough history at this time. (Esther Hawkins) - Related Data Home Medications Medication Instructions Recorded Confirmed Folic Acid 1 mg PO DIRECTED 01/02/25 01/02/25 Thiamine [Vitamin B-1] 100 mg PO DIRECTED 01/02/25 01/02/25 Allergies Allergy/AdvReac Type Severity Reaction Status Date / Time No Known Allergies Allergy Verified 01/02/25 16:31 Review of Systems ROS Other: All systems not noted in ROS Statement are negative. <Shayla Gerardo - Last Filed: 12/31/24 19:05> ROS Other: All systems not noted in ROS Statement are negative. <Esther Hawkins - Last Filed: 01/03/25 03:25> ROS Statement: Those systems with pertinent positive or pertinent negative responses have been documented in the HPI. Past Medical History Past Medical History: No Reported History Additional Past Medical History / Comment(s): ETOH History of Any Multi-Drug Resistant Organisms: None Reported Additional Past Surgical History / Comment(s): plastic surgery on left lip Past Anesthesia/Blood Transfusion Reactions: No Reported Reaction Past Psychological History: ADD/ADHD Smoking Status: Current every day smoker Past Alcohol Use History: Abuse, Daily, Heavy Past Drug Use History: None Reported <Shayla Gerardo - Last Filed: 12/31/24 19:05> General Exam Limitations: no limitations <Shayla Gerardo - Last Filed: 12/31/24 19:05> General appearance: appears intoxicated Head exam: Present: atraumatic, normocephalic, normal inspection Eye exam: Absent: periorbital swelling Neck exam: Present: normal inspection Respiratory exam: Absent: respiratory distress Cardiovascular Exam: Present: regular rate Neurological exam: Present: alert, altered Skin exam: Present: normal color <Esther Hawkins - Last Filed: 01/03/25 03:25> - General Exam Comments Initial Comments: Visual Physical Exam Vital signs reviewed General: Well-appearing, appears intoxicated, no acute distress. Head: Normocephalic, atraumatic Eyes: PERRLA, EOMI ENT: Airway patent Chest: Nonlabored breathing Skin: No visual rash, normal skin tone Neuro: Alert and oriented 3 Musculoskeletal: No gross abnormalities (Shayla Gerardo) Course Vital Signs 12/31/24 12/31/24 12/31/24 18:35 21:52 23:29 Temperature 98.2 F 97.5 F L Pulse Rate 67 70 86 Respiratory 18 18 Rate Blood Pressure 123/79 107/82 130/95 O2 Sat by Pulse 98 99 99 Oximetry 01/01/25 01/01/25 01/01/25 00:27 01:51 03:40 Temperature Pulse Rate 75 78 79 Respiratory 18 18 18 Rate Blood Pressure 104/58 101/56 98/70 O2 Sat by Pulse 98 95 95 Oximetry 01/01/25 01/01/25 01/01/25 04:48 06:00 08:40 Temperature 97.4 F L Pulse Rate 79 84 80 Respiratory 18 18 Rate Blood Pressure 107/72 118/67 122/70 O2 Sat by Pulse 96 98 97 Oximetry 01/01/25 11:32 Temperature 98.1 F Pulse Rate 72 Respiratory 18 Rate Blood Pressure 128/84 O2 Sat by Pulse 99 Oximetry Medical Decision Making <Shayla Gerardo - Last Filed: 12/31/24 19:05> - Lab Data Result diagrams: 12/31/24 21:10 12/31/24 21:10 <Esther Hawkins - Last Filed: 01/03/25 03:25> - Medical Decision Making I completed the quick note portion of this chart signed Shayla Gerardo PA-C (Shayla Gerardo) Was pt. sent in by a medical professional or institution (ZOLTAN Barrientos, LAY UPS ASSEMBLER, urgent care, hospital, or long-term...) When possible be specific @ -No Did you speak to anyone other than the patient for history (EMS, parent, family, police, friend...)? What history was obtained from this source @ -No Did you review nursing and triage notes (agree or disagree)? Why? @ -I reviewed and agree with nursing and triage notes Were old charts reviewed (outside hosp., previous admission, EMS record, old EKG, old radiological studies, urgent care reports/EKG's, long-term records)? Report findings @ -No old charts were reviewed Differential Diagnosis (chest pain, altered mental status, abdominal pain women, abdominal pain men, vaginal bleeding, weakness, fever, dyspnea, syncope, headache, dizziness, GI bleed, back pain, seizure, CVA, palpatations, mental health, musculoskeletal)? @ -Not applicable EKG interpreted by me (3pts min.). @ -As above X-rays interpreted by me (1pt min.). @ -None done CT interpreted by me (1pt min.). @ -None done U/S interpreted by me (1pt. min.). @ -None done What testing was considered but not performed or refused? (CT, X-rays, U/S, labs)? Why? @ -None What meds were considered but not given or refused? Why? @ -None Did you discuss the management of the patient with other professionals (professionals i.e. ZOLTAN Barrientos, LAY UPS ASSEMBLER, lab, RT, psych nurse, aids social worker, diamond assorter, teacher, accounts officer, case management manager)? Give summary @ -Spoke with the [facility] provider on-call who accepts admission Was smoking cessation discussed for >3mins.? @ -No Was critical care preformed (if so, how long)? @ -No Were there social determinants of health that impacted care today? How? (Homelessness, low income, unemployed, alcoholism, drug addiction, transportation, low edu. Level, literacy, decrease access to med. care, half-way, rehab)? @ -No Was there de-escalation of care discussed even if they declined (Discuss DNR or withdrawal of care, Hospice)? DNR status @ -No What co-morbidities impacted this encounter? (DM, HTN, Smoking, COPD, CAD, Cancer, CVA, ARF, Chemo, Hep., AIDS, mental health diagnosis, sleep apnea, morbid obesity)? @ -None Was patient admitted / discharged? Hospital course, mention meds given and route, prescriptions, significant lab abnormalities, going to OR and other pert ne info. @ -39-year-old male presenting with alcohol intoxication. History of alcoholism. Lab work shows transaminitis consistent with his daily alcohol use. Sodium is 148. Serum alcohol is 464. Patient will be admitted for observation. I discussed this case with my attending Dr. Contreras Undiagnosed new problem with uncertain prognosis? @ -No Drug Therapy requiring intensive monitoring for toxicity (Heparin, Nitro, Insulin, Cardizem)? @ -No Were any procedures done? @ -No Diagnosis/symptom? @ -Alcohol intoxication Acute, or Chronic, or Acute on Chronic? @ -Acute Uncomplicated (without systemic symptoms) or Complicated (systemic symptoms)? @ -Complicated Side effects of treatment? @ -No Exacerbation, Progression, or Severe Exacerbation? @ -No Poses a threat to life or bodily function? How? (Chest pain, [place], [place], pneumonia, PE, COPD, DKA, ARF, appy, cholecystitis, CVA, Diverticulitis, Homicidal, Suicidal, threat to staff... and all critical care pts) @ -Yes (Esther Hawkins) - Lab Data Lab Results 12/31/24 12/31/24 Range/Units 21:10 21:10 WBC 6.3 (3.8-10.6) k/uL RBC 4.54 (4.30-5.90) m/uL Hgb 15.1 (13.0-17.5) gm/dL Hct 45.1 (39.0-53.0) % MCV 99.3 (80.0-100.0) fL MCH 33.3 (25.0-35.0) pg MCHC 33.6 (31.0-37.0) g/dL RDW 13.7 (11.5-15.5) % Plt Count 273 (150-450) k/uL MPV 7.3 Neutrophils % 57 % Lymphocytes % 34 % Monocytes % 4 % Eosinophils % 3 % Basophils % 0 % Neutrophils # 3.6 (1.3-7.7) k/uL Lymphocytes # 2.1 (1.0-4.8) k/uL Monocytes # 0.2 (0-1.0) k/uL Eosinophils # 0.2 (0-0.7) k/uL Basophils # 0.0 (0-0.2) k/uL Sodium 148 H (137-145) mmol/L Potassium 4.1 (3.5-5.1) mmol/L Chloride 107 (98-107) mmol/L Carbon Dioxide 27 (22-30) mmol/L Anion Gap 14 mmol/L BUN 11 (9-20) mg/dL Creatinine 0.71 (0.66-1.25) mg/dL Est GFR (CKD-EPI)AfAm >90 (>60 ml/min/1.73 sqM) Est GFR (CKD-EPI)NonAf >90 (>60 ml/min/1.73 sqM) Glucose 87 (74-99) mg/dL Calcium 9.0 (8.4-10.2) mg/dL Magnesium 2.0 (1.6-2.3) mg/dL Total Bilirubin 0.5 (0.2-1.3) mg/dL AST 288 H (17-59) U/L ALT 294 H (4-49) U/L Alkaline Phosphatase 83 (38-126) U/L Total Protein 7.3 (6.3-8.2) g/dL Albumin 4.7 (3.5-5.0) g/dL Serum Alcohol 464 H* mg/dL Disposition <Shayla Gerardo - Last Filed: 12/31/24 19:05> Time of Disposition: 23:37 <Esther Hawkins - Last Filed: 01/03/25 03:25> Clinical Impression: Alcohol abuse, Alcoholic intoxication Disposition: ADMITTED IP TO THIS HOSP Condition: Fair
[2024-12-31 21:24] LABS: Basophils % (A) 0 %; Eosinophils # (A) 0.2 k/uL (0-0.7); Eosinophils % (A) 3 %; HCT 45.1 % (39.0-53.0); HGB 15.1 gm/dL (13.0-17.5); Lymphocytes # (A) 2.1 k/uL (1.0-4.8); Lymphocytes % (A) 34 %; MCH 33.3 pg (25.0-35.0); MCHC 33.6 g/dL (31.0-37.0); MCV 99.3 fL (80.0-100.0); Mean Platelet Volume 7.3; Monocytes # (A) 0.2 k/uL (0-1.0); Monocytes % (A) 4 %; Neutrophils # (A) 3.6 k/uL (1.3-7.7); Neutrophils % (A) 57 %; Platelet Count 273 k/uL (150-450); RBC 4.54 m/uL (4.30-5.90); RDW 13.7 % (11.5-15.5); WBC 6.3 k/uL (3.8-10.6)
[2024-12-31 21:37] LABS: ALT 294 U/L (4-49); AST 288 U/L (17-59); African American GFR (CKD) >90 (>60 ml/min/1.73 sqM); Albumin 4.7 g/dL (3.5-5.0); Alkaline Phosphatase 83 U/L (38-126); Anion Gap 14 mmol/L; Blood Urea Nitrogen 11 mg/dL (9-20); Carbon Dioxide 27 mmol/L (22-30); Chloride 107 mmol/L (98-107); Glucose 87 mg/dL (74-99); Non-African American GFR(CKD) >90 (>60 ml/min/1.73 sqM); Potassium 4.1 mmol/L (3.5-5.1); Sodium 148 mmol/L (137-145); Total Bilirubin 0.5 mg/dL (0.2-1.3); Total Protein 7.3 g/dL (6.3-8.2)
[2024-12-31 22:20] LABS: Alcohol 464 mg/dL
[2024-12-31] MEDS ORDERED: LORazepam 2 MG/ML INJ IV PRN ×2 (22:45)
[2024-12-31] MEDS: SODIUM CHLORIDE 0.9% 1,000 ML IV ONE (23:06)
[2024-12-31] MEDS: SODIUM CHLORIDE 0.9% 1,000 ML IV SCH (23:08)
[2024-12-31] MEDS ORDERED: NALOXONE 0.4 MG/ML 1 ML VIAL IV PRN (23:33)
[2024-12-31] MEDS ORDERED: ONDANSETRON 4 MG/2 ML VIAL IVP PRN (23:33)
[2024-12-31] MEDS: LORazepam 2 MG/ML INJ IV PRN (23:36)
[2025-01-01] MEDS: chlordiazePOXIDE 25 MG CAP PO SCH (12:06)
[2025-01-01 14:06] VITALS: BP 159/98; PULSE 67; RESP 16; TEMP 97.6
--- NOTE | 2025-01-01 22:16 | P.HPIM ---
History of Present Illness H&P Date: 01/01/25 This is a 39-year-old male who presented to the emergency department via EMS and reports he does not recall how he got here although was brought here for alcohol intoxication. Patient has no primary care provider and reports he is homeless and has no family and support and reports to drinking heavily daily. 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 Patient with no significant past medical history other than significant alcohol abuse with elevated LFTs secondary to continued ongoing abuse. Patient was started on CIWA protocol and admitted with an alcohol level of 464. REVIEW OF SYSTEMS: CONSTITUTIONAL: No fever, no malaise, no fatigue. HEENT: No recent visual problems or hearing problems. Denied any sore throat. CARDIOVASCULAR: No chest pain, orthopnea, PND, no palpitations, no syncope. PULMONARY: No shortness of breath, no cough, no hemoptysis. GASTROINTESTINAL: No diarrhea, no nausea, no vomiting, no abdominal pain. NEUROLOGICAL: No headaches, no weakness, no numbness. HEMATOLOGICAL: Denies any bleeding or petechiae. GENITOURINARY: Denies any burning micturition, frequency, or urgency. MUSCULOSKELETAL/RHEUMATOLOGICAL: Denies any joint pain, swelling, or any muscle pain. ENDOCRINE: Denies any polyuria or polydipsia. The rest of the 14-point review of systems is negative. PHYSICAL EXAMINATION: GENERAL: The patient is alert and oriented x3, not in any acute distress. Mildly anxious. Well developed, well nourished. HEENT: Pupils are round and equally reacting to light. EOMI. No scleral icterus. No conjunctival pallor. Normocephalic, atraumatic. No pharyngeal erythema. No thyromegaly. CARDIOVASCULAR: S1 and S2 present. No murmurs, rubs, or gallops. PULMONARY: Chest is clear to auscultation, no wheezing or crackles. ABDOMEN: Soft, nontender, nondistended, normoactive bowel sounds. No palpable organomegaly. MUSCULOSKELETAL: No joint swelling or deformity. EXTREMITIES: No cyanosis, clubbing, or pedal edema. NEUROLOGICAL: Gross neurological examination did not reveal any focal deficits. SKIN: No rashes. Assessment: Acute alcohol intoxication with concerns of acute alcohol withdrawal Transaminitis secondary to continued ongoing alcohol abuse Noncompliance with medications and follow-up History of ADD/ADHD History of continued ongoing nicotine abuse GI prophylaxis DVT prophylaxis Full code Plan: Patient was admitted on CIWA protocol for alcohol intoxication with an alcohol level above 400 maintained on IV fluids Patient is awake, alert and oriented x 3 reports he does not recall how he got here and reports he drinks heavily daily and has no close contacts and reports his mother recently moved somewhere in [place] although will not tell him where she is. Discussed alcohol rehab and alcohol cessation patient reports he has been to these before and they have not helped. Patient was started on Librium and continue CIWA protocol. Patient has not required Ativan since last night. Patient with a steady gait is requesting to go home The impression and plan of care has been dictated by Rachelle Vieira, Nurse Practitioner as directed. Dr. Ana MD I have performed a history and examination and MDM of this patient, discussed the same with the dictator, and agree with the dictator's assessment and plan as written ,documented as a scribe. Based on total visit time, I have performed more than 50% of the visit. Past Medical History Past Medical History: No Reported History Additional Past Medical History / Comment(s): ETOH History of Any Multi-Drug Resistant Organisms: None Reported Additional Past Surgical History / Comment(s): plastic surgery on left lip Past Anesthesia/Blood Transfusion Reactions: No Reported Reaction Past Psychological History: ADD/ADHD Smoking Status: Current every day smoker Past Alcohol Use History: Abuse, Daily, Heavy Past Drug Use History: None Reported Medications and Allergies Home Medications Medication Instructions Recorded Confirmed Type No Known Home Medications 01/01/25 01/01/25 History Allergies Allergy/AdvReac Type Severity Reaction Status Date / Time No Known Allergies Allergy Verified 01/01/25 20:55 Physical Exam Vitals: Vital Signs Temp Pulse Resp BP Pulse Ox 01/01/25 08:40 80 18 122/70 97 01/01/25 06:00 97.4 F L 84 18 118/67 98 01/01/25 04:48 79 107/72 96 01/01/25 03:40 79 18 98/70 95 01/01/25 01:51 78 18 101/56 95 01/01/25 00:27 75 18 104/58 98 12/31/24 23:29 86 18 130/95 99 12/31/24 21:52 97.5 F L 70 107/82 99 12/31/24 18:35 98.2 F 67 18 123/79 98 Intake and Output 12/31/24 01/01/25 01/01/25 22:59 06:59 14:59 Other: Weight 86.183 kg Results CBC & Chem 7: 12/31/24 21:10 12/31/24 21:10 Labs: Abnormal Lab Results - Last 24 Hours (Table) 12/31/24 Range/Units 21:10 Sodium 148 H (137-145) mmol/L AST 288 H (17-59) U/L ALT 294 H (4-49) U/L Serum Alcohol 464 H* mg/dL Assessment and Plan Time with Patient: Greater than 30
--- NOTE | 2025-01-01 22:21 | P.DS ---
Providers Date of admission: 01/01/25 00:00 Expected date of discharge: 01/01/25 Attending physician: Angelina Dotson Primary care physician: Stated None Hospital Course: Final diagnosis Acute alcohol intoxication with concerns of acute alcohol withdrawal Transaminitis secondary to continued ongoing alcohol abuse Noncompliance with medications and follow-up History of ADD/ADHD History of continued ongoing nicotine abuse GI prophylaxis DVT prophylaxis Full code Discharge disposition Patient is being discharged in a stable condition with guarded prognosis to home although patient reports he is homeless. Resources were provided for shelters and patient reports he is aware of all the shelters. Patient will follow-up with Dr. Daniel Dotson to establish in the outpatient setting upon discharge. Patient is to continue with complete alcohol cessation and strongly recommend inpatient alcohol rehab. Total time taken is greater than 35 minutes. Hospital course This is a 39-year-old male who presented to the emergency department via EMS and reports he does not recall how he got here although was brought here for alcohol intoxication. Patient has no primary care provider and reports he is homeless and has no family and support and reports to drinking heavily daily. 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 Patient with no significant past medical history other than significant alcohol abuse with elevated LFTs secondary to continued ongoing abuse. Patient was started on CIWA protocol and admitted with an alcohol level of 464. After physical examination and lengthy discussion regarding alcohol use and resources and support, patient continues to request to go home. Patient is alert and oriented x 3 with a steady gait, has been tolerating diet and denies any chest pain or shortness of breath. Patient will be discharged. Extremely high risk for hospitalization and readmission as patient continues to abuse alcohol. Patient has had multiple hospitalizations and ER visits this year. Overall prognosis is guarded. PHYSICAL EXAMINATION: GENERAL: The patient is alert and oriented x3, not in any acute distress. Mildly anxious. Well developed, well nourished. HEENT: Pupils are round and equally reacting to light. EOMI. No scleral icterus. No conjunctival pallor. Normocephalic, atraumatic. No pharyngeal erythema. No thyromegaly. CARDIOVASCULAR: S1 and S2 present. No murmurs, rubs, or gallops. PULMONARY: Chest is clear to auscultation, no wheezing or crackles. ABDOMEN: Soft, nontender, nondistended, normoactive bowel sounds. No palpable organomegaly. MUSCULOSKELETAL: No joint swelling or deformity. EXTREMITIES: No cyanosis, clubbing, or pedal edema. NEUROLOGICAL: Gross neurological examination did not reveal any focal deficits. SKIN: No rashes. Please refer to medication reconciliation sheet for a list of medications. The impression and plan of care has been dictated by Rachelle Vieira, Nurse Practitioner as directed. Dr. Ana MD I have performed a history and examination and MDM of this patient, discussed the same with the dictator, and agree with the dictator's assessment and plan as written ,documented as a scribe. Based on total visit time, I have performed more than 50% of the visit. Patient Condition at Discharge: Fair Plan - Discharge Summary New Discharge Prescriptions: No Action No Known Home Medications Discharge Medication List No Known Home Medications 01/01/25 [History] Follow up Appointment(s)/Referral(s): Tamar Holland MD [STAFF PHYSICIAN] - 1 Week Activity/Diet/Wound Care/Special Instructions: Activity limited until follow-up Follow-up and establish with a primary care provider Strongly recommend complete alcohol cessation Strongly recommend inpatient alcohol rehab Discharge/Stand Alone Forms: AA Meetings [place], [facility], Outpatient Counseling, In Substance Abuse Facilities Discharge Disposition: HOME SELF-CARE
== END 2025-01-01 16:02 | disposition home or self-care (01) ==
LOC: EC 18:31 → 6NMEDSUR 01-01
PROVIDERS: ADMIT Hospitalist; ATTEND Hospitalist
DX: F10.229 Alcohol dependence with intoxication, unspecified (principal); R74.01 Elevation of levels of liver transaminase levels; Y90.8 Blood alcohol level of 240 mg/100 ml or more; F90.9 Attention-deficit hyperactivity disorder, unspecified type; F17.200 Nicotine dependence, unspecified, uncomplicated; Z91.148 Patient's other noncompliance with medication regimen for other reason; Z91.199 Patient's noncompliance with other medical treatment and regimen due to unspecified reason; Z59.00 Homelessness unspecified
CPT/HCPCS: 96361 ×2; 96374; 99285; 36415; 80053; 83735; 85025; G0378; G0480; J2060; 80320

== ENCOUNTER 2025-01-01 18:40 | Observation (INO) | payer OTHER ==
[2025-01-01] MEDS ORDERED: LORazepam 2 MG/ML INJ IV PRN ×2 (19:42)
--- NOTE | 2025-01-01 19:44 | ED ---
Alcohol HPI - General Chief Complaint: Alcohol Stated Complaint: ETOH Time Seen by Provider: 01/01/25 19:43 Source: patient, EMS, RN notes reviewed, old records reviewed Mode of arrival: EMS Limitations: altered mental status - History of Present Illness Initial Comments: 39-year-old male presented to the ER via EMS for evaluation of alcohol intoxication. Patient was discharged this morning after being admitted for alcohol intoxication. History is limited given patient is altered. Majority of history is provided by nurse. She states patient was found by police sleeping at a bus stop and intoxicated. Patient admitted to nurse he drank a pint of vodka today. Patient states to me he "has not drank in 1 month". Patient has no acute complaints. - Related Data Home Medications Medication Instructions Recorded Confirmed Folic Acid 1 mg PO DIRECTED 01/02/25 01/02/25 Thiamine [Vitamin B-1] 100 mg PO DIRECTED 01/02/25 01/02/25 Allergies Allergy/AdvReac Type Severity Reaction Status Date / Time No Known Allergies Allergy Verified 01/02/25 16:31 Review of Systems ROS Statement: Those systems with pertinent positive or pertinent negative responses have been documented in the HPI. ROS Other: All systems not noted in ROS Statement are negative. Past Medical History Past Medical History: No Reported History Additional Past Medical History / Comment(s): ETOH History of Any Multi-Drug Resistant Organisms: None Reported Additional Past Surgical History / Comment(s): plastic surgery on left lip Past Anesthesia/Blood Transfusion Reactions: No Reported Reaction Past Psychological History: ADD/ADHD Smoking Status: Current every day smoker Past Alcohol Use History: Abuse, Daily, Heavy Past Drug Use History: None Reported General Exam Limitations: altered mental status General appearance: alert, in no apparent distress, appears intoxicated Respiratory exam: Present: normal lung sounds bilaterally. Absent: respiratory distress, wheezes, rales, rhonchi, stridor Cardiovascular Exam: Present: regular rate, normal rhythm, normal heart sounds. Absent: systolic murmur, diastolic murmur, rubs, gallop, clicks GI/Abdominal exam: Present: soft, normal bowel sounds. Absent: distended, tenderness, guarding, rebound, rigid Extremities exam: Present: normal inspection, full ROM, normal capillary refill. Absent: tenderness, pedal edema, joint swelling, calf tenderness Neurological exam: Present: alert, oriented X3, CN II-XII intact Skin exam: Present: warm, dry, intact, normal color. Absent: rash Course Vital Signs 01/01/25 01/02/25 01/02/25 18:43 00:36 06:56 Temperature 98.2 F 98.9 F 98.6 F Pulse Rate 98 87 76 Respiratory 20 16 16 Rate Blood Pressure 138/108 130/68 108/64 O2 Sat by Pulse 96 98 98 Oximetry - Reevaluation(s) Reevaluation #1: 01/02/25 00:49 Case discussed with [facility] physician, Dr. Gonzalez, for admission. Medical Decision Making - Medical Decision Making Was pt. sent in by a medical professional or institution (, PA, MARKETING COMMUNICATIONS LEADER, urgent care, hospital, or shelter...) When possible be specific @ -No Did you speak to anyone other than the patient for history (EMS, parent, family, police, friend...)? What history was obtained from this source @ -I spoke with the nurse who spoke with EMS who provided majority of HPI as patient is altered. Did you review nursing and triage notes (agree or disagree)? Why? @ -I reviewed and agree with nursing and triage notes Were old charts reviewed (outside hosp., previous admission, EMS record, old EKG, old radiological studies, urgent care reports/EKG's, shelter records)? Report findings @ -Yes, I reviewed ER visit and admission from 01-01-2025. Patient admitted for alcohol intoxication. Differential Diagnosis (chest pain, altered mental status, abdominal pain women, abdominal pain men, vaginal bleeding, weakness, fever, dyspnea, syncope, headache, dizziness, GI bleed, back pain, seizure, CVA, palpatations, mental health, musculoskeletal)? @ -Alcohol intoxication, alcohol abuse, drug intoxication, overdose... This list is not meant to be all-inclusive EKG interpreted by me (3pts min.). @ -None done X-rays interpreted by me (1pt min.). @ -None done CT interpreted by me (1pt min.). @ -None done U/S interpreted by me (1pt. min.). @ -None done What testing was considered but not performed or refused? (CT, X-rays, U/S, labs)? Why? @ -None What meds were considered but not given or refused? Why? @ -None Did you discuss the management of the patient with other professionals (pro fessionals i.e. , PA, MARKETING COMMUNICATIONS LEADER, lab, RT, psych nurse, renal social worker, candy cutter machine, teacher, chief accounting officer, hospice case manager)? Give summary @ -Yes, admission discussed with [facility] Was smoking cessation discussed for >3mins.? @ -No Was critical care preformed (if so, how long)? @ -No Were there social determinants of health that impacted care today? How? (Homelessness, low income, unemployed, alcoholism, drug addiction, transportation, low edu. Level, literacy, decrease access to med. care, penitentiary, rehab)? @ -Alcoholism Was there de-escalation of care discussed even if they declined (Discuss DNR or withdrawal of care, Hospice)? DNR status @ -No What co-morbidities impacted this encounter? (DM, HTN, Smoking, COPD, CAD, Cancer, CVA, ARF, Chemo, Hep., AIDS, mental health diagnosis, sleep apnea, morbid obesity)? @ -Alcoholism Was patient admitted / discharged? Hospital course, mention meds given and rout e, prescriptions, significant lab abnormalities, going to OR and other pertinent info. @ -Admitted. 39-year-old male presented the ER via EMS for evaluation of alcohol intoxication. Upon my evaluation, patient is resting comfortably no signs of acute distress. Patient does appear intoxicated. Laboratory studies showing a serum alcohol of 433. Transaminitis likely due to dehydration and alcohol use. Patient started on CIWA protocol and Ativan protocol. Patient given 1500 normal saline IV fluid bolus in the emergency department. Seizure precautions in place. Given patient's serum alcohol level admission discussed with [facility]. Patient agreeable for admission. Social work on consult. Case discussed with ED attending, Dr. Rosas Undiagnosed new problem with uncertain prognosis? @ -No Drug Therapy requiring intensive monitoring for toxicity (Heparin, Nitro, Insulin, Cardizem)? @ -No Were any procedures done? @ -No Diagnosis/symptom? @ -Alcohol intoxication Acute, or Chronic, or Acute on Chronic? @ -Acute Uncomplicated (without systemic symptoms) or Complicated (systemic symptoms)? @ -Complicated Side effects of treatment? @ -No Exacerbation, Progression, or Severe Exacerbation? @ -No Poses a threat to life or bodily function? How? (Chest pain, [place], [place], pneumonia, PE, COPD, DKA, ARF, appy, cholecystitis, CVA, Diverticulitis, Homicidal, Suicidal, threat to staff... and all critical care pts) @ -Yes, alcohol withdrawal can lead to seizures. - Lab Data Result diagrams: 01/01/25 19:54 01/02/25 06:20 Lab Results 01/01/25 01/01/25 01/01/25 Range/Units 19:54 19:54 19:54 WBC 8.0 (3.8-10.6) k/uL RBC 4.43 (4.30-5.90) m/uL Hgb 14.4 (13.0-17.5) gm/dL Hct 43.9 (39.0-53.0) % MCV 99.2 (80.0-100.0) fL MCH 32.6 (25.0-35.0) pg MCHC 32.9 (31.0-37.0) g/dL RDW 13.5 (11.5-15.5) % Plt Count 256 (150-450) k/uL MPV 7.2 Neutrophils % 64 % Lymphocytes % 25 % Monocytes % 6 % Eosinophils % 3 % Basophils % 0 % Neutrophils # 5.2 (1.3-7.7) k/uL Lymphocytes # 2.0 (1.0-4.8) k/uL Monocytes # 0.5 (0-1.0) k/uL Eosinophils # 0.2 (0-0.7) k/uL Basophils # 0.0 (0-0.2) k/uL Sodium 146 H (137-145) mmol/L Potassium 4.1 (3.5-5.1) mmol/L Chloride 106 (98-107) mmol/L Carbon Dioxide 26 (22-30) mmol/L Anion Gap 14 mmol/L BUN 8 L (9-20) mg/dL Creatinine 0.64 L (0.66-1.25) mg/dL Est GFR (CKD-EPI)AfAm >90 (>60 ml/min/1.73 sqM) Est GFR (CKD-EPI)NonAf >90 (>60 ml/min/1.73 sqM) Glucose 102 H (74-99) mg/dL Plasma Lactic Acid Ashok 2.0 (0.7-2.0) mmol/L Calcium 9.0 (8.4-10.2) mg/dL Total Bilirubin 0.8 (0.2-1.3) mg/dL AST 176 H (17-59) U/L ALT 233 H (4-49) U/L Alkaline Phosphatase 76 (38-126) U/L Total Protein 7.0 (6.3-8.2) g/dL Albumin 4.6 (3.5-5.0) g/dL Serum Alcohol 443 H* mg/dL Disposition Clinical Impression: Acute alcohol intoxication Disposition: ADMITTED IP TO THIS HOSP Condition: Stable Time of Disposition: 06:18
[2025-01-01 20:06] LABS: Basophils % (A) 0 %; Eosinophils # (A) 0.2 k/uL (0-0.7); Eosinophils % (A) 3 %; HCT 43.9 % (39.0-53.0); HGB 14.4 gm/dL (13.0-17.5); Lymphocytes % (A) 25 %; MCH 32.6 pg (25.0-35.0); MCHC 32.9 g/dL (31.0-37.0); MCV 99.2 fL (80.0-100.0); Mean Platelet Volume 7.2; Monocytes # (A) 0.5 k/uL (0-1.0); Monocytes % (A) 6 %; Neutrophils # (A) 5.2 k/uL (1.3-7.7); Neutrophils % (A) 64 %; Platelet Count 256 k/uL (150-450); RBC 4.43 m/uL (4.30-5.90); RDW 13.5 % (11.5-15.5)
[2025-01-01 20:21] LABS: ALT 233 U/L (4-49); AST 176 U/L (17-59); African American GFR (CKD) >90 (>60 ml/min/1.73 sqM); Albumin 4.6 g/dL (3.5-5.0); Alkaline Phosphatase 76 U/L (38-126); Anion Gap 14 mmol/L; Blood Urea Nitrogen 8 mg/dL (9-20); Carbon Dioxide 26 mmol/L (22-30); Chloride 106 mmol/L (98-107); Glucose 102 mg/dL (74-99); Non-African American GFR(CKD) >90 (>60 ml/min/1.73 sqM); Potassium 4.1 mmol/L (3.5-5.1); Sodium 146 mmol/L (137-145); Total Bilirubin 0.8 mg/dL (0.2-1.3)
[2025-01-01] MEDS: THIAMINE 100 MG/ML 2 ML VIAL IM STA (20:24)
[2025-01-01] MEDS: SODIUM CHLORIDE 0.9% 1,000 ML IV ONE (20:24)
[2025-01-01 20:43] LABS: Alcohol 443 mg/dL
[2025-01-01] MEDS: LORazepam 2 MG/ML INJ IV PRN (21:46)
[2025-01-01] MEDS: SODIUM CHLORIDE 0.9% 500 ML 500 ML IV ONE (22:07)
[2025-01-01] MEDS ORDERED: NALOXONE 0.4 MG/ML 1 ML VIAL IV PRN (23:19)
--- NOTE | 2025-01-02 02:36 | P.HPIM ---
History of Present Illness H&P Date: 01/02/25 Patient is a 39-year-old male with a PMH of EtOH abuse and multiple recent hospitalizations for alcohol intoxication who now presents to the emergency room with alcohol intoxication. The patient was admitted to the hospital on 12/30 and subsequently discharged later that day and again admitted yesterday and was discharged later in the day. He reports drinking 1/5 of vodka earlier today. He denies any additional complaints at the time of interview. Patient denied experiencing chest discomfort, shortness of breath, fever, chills, cough, nausea, vomiting, abdominal pain, diarrhea. In the emergency room, serum alcohol level was 443 with sodium 146, BUN 8, creatinine 0.64, glucose 102, AST 176, and ALT 233. ED documentation reviewed and case discussed with ED provider. Review of systems: Pertinent positives and negatives as discussed in HPI, a complete review of systems was performed and all other systems are negative. Physical examination: Vital signs reviewed General: non toxic, intoxicated male, no distress, appears at stated age, normal weight Derm: no unusual rashes/lesions, warm Head: atraumatic, normocephalic, symmetric Eyes: EOMI, no lid lag, anicteric sclera, pupils equal round reactive to light ENT: Nose and ears atraumatic Neck: No cervical lymphadenopathy, trachea midline, supple Mouth: no lip lesion, mucus membranes moist Cardiovascular: S1S2 reg, no murmur, positive dorsalis pedis pulse bilateral, no edema Lungs: CTA bilateral, no rhonchi, no rales, no accessory muscle use Abdominal: soft, nontender to palpation, no guarding Ext: muscle strength 5 out of 5 in all 4 extremities grossly, no gross muscle atrophy, no contractures, Neuro: CN II-XI grossly intact, no gross focal neuro deficits Psych: Sleepy, oriented, appropriate affect Assessment: Alcohol intoxication Hypernatremia, mild Transaminitis, likely due to EtOH abuse Imaging: None performed Data Review: In the emergency room, serum alcohol level was 443 with sodium 146, BUN 8, creatinine 0.64, glucose 102, AST 176, and ALT 233. Plan: Continue with CIWA protocol with Ativan IV push Cardiac monitoring Monitor electrolytes daily Continue with IV fluids normal saline 100 mL/h Seizure precautions Fall precautions Continue with thiamine and multivitamin DVT prophylaxis: Lovenox subcu The patient is admitted with an anticipated fewer than 2 midnight stay for evaluation of alcohol intoxication CODE STATUS: Full Code Discussed with: Patient Anticipated discharge place: Home Past Medical History Past Medical History: No Reported History Additional Past Medical History / Comment(s): ETOH History of Any Multi-Drug Resistant Organisms: None Reported Additional Past Surgical History / Comment(s): plastic surgery on left lip Past Anesthesia/Blood Transfusion Reactions: No Reported Reaction Past Psychological History: ADD/ADHD Smoking Status: Current every day smoker Past Alcohol Use History: Abuse, Daily, Heavy Past Drug Use History: None Reported Medications and Allergies Home Medications Medication Instructions Recorded Confirmed Type No Known Home Medications 01/01/25 01/01/25 History Allergies Allergy/AdvReac Type Severity Reaction Status Date / Time No Known Allergies Allergy Verified 01/01/25 20:55 Physical Exam Vitals: Vital Signs Temp Pulse Resp BP Pulse Ox 01/02/25 00:36 98.9 F 87 16 130/68 98 01/01/25 18:43 98.2 F 98 20 138/108 96 Intake and Output 01/01/25 01/01/25 01/02/25 14:59 22:59 06:59 Other: Weight 68.039 kg Results CBC & Chem 7: 01/01/25 19:54 01/01/25 19:54 Labs: Abnormal Lab Results - Last 24 Hours (Table) 01/01/25 Range/Units 19:54 Sodium 146 H (137-145) mmol/L BUN 8 L (9-20) mg/dL Creatinine 0.64 L (0.66-1.25) mg/dL Glucose 102 H (74-99) mg/dL AST 176 H (17-59) U/L ALT 233 H (4-49) U/L Serum Alcohol 443 H* mg/dL
[2025-01-02] MEDS: SODIUM CHLORIDE 0.9% 1,000 ML IV SCH (03:02)
[2025-01-02 07:13] LABS: ALT 187 U/L (4-49); AST 148 U/L (17-59); African American GFR (CKD) >90 (>60 ml/min/1.73 sqM); Albumin 3.5 g/dL (3.5-5.0); Albumin/Globulin Ratio 1.7; Alkaline Phosphatase 67 U/L (38-126); Anion Gap 8 mmol/L; Blood Urea Nitrogen 7 mg/dL (9-20); Calcium 8.2 mg/dL (8.4-10.2); Carbon Dioxide 28 mmol/L (22-30); Chloride 106 mmol/L (98-107); Globulin 2.1 g/dL; Glucose 83 mg/dL (74-99); Non-African American GFR(CKD) >90 (>60 ml/min/1.73 sqM); Potassium 3.6 mmol/L (3.5-5.1); Sodium 142 mmol/L (137-145); Total Bilirubin 0.4 mg/dL (0.2-1.3); Total Protein 5.6 g/dL (6.3-8.2)
[2025-01-02] MEDS ORDERED: LORazepam 1 MG/0.5 ML VIAL IV PRN ×3 (08:04→08:05)
[2025-01-02 08:08] VITALS: BP 120/76; PULSE 60; RESP 20; TEMP 97.7
[2025-01-02] MEDS: MULTIVITAMINS, THERA 1 EACH TAB PO SCH (08:58)
[2025-01-02] MEDS: ENOXAPARIN 40 MG/0.4 ML SYRINGE SQ SCH (08:58)
--- NOTE | 2025-01-02 11:14 | P.DS ---
Providers Date of admission: 01/01/25 23:28 Attending physician: Yasmine Gonzalez MD Primary care physician: Stated None Hospital Course: Discharge Diagnosis: Alcohol intoxication in active Transaminitis, secondary to daily alcohol abuse. Nicotine dependence Hospital Course: Patient is a 39-year-old male with a past medical history of daily alcohol abuse reportedly drinking 1/5 or more of liquor daily and nicotine dependence. The patient was admitted to the hospital on 12/30 and subsequently discharged later that day and again admitted yesterday and was discharged later in the day. He reports drinking 1/5 of vodka earlier today. He denies any additional complaints at the time of interview. Patient denied experiencing chest discomfort, shortness of breath, fever, chills, cough, nausea, vomiting, abdominal pain, diarrhea. In the emergency room, serum alcohol level was 443 with sodium 146, BUN 8, creatinine 0.64, glucose 102, AST 176, and ALT 233.. Patient states he is homeless . Reports he does not want to go back to rehab. Patient admitted under services for medical detox. Patient denied any symptoms of alcohol withdrawal. Current CIWA score is 0. Patient alert and oriented to person, place, time, and situation. Denies having any complaints or needs at this time. Denies suicidal or homicidal ideations. Patient was provided with list of local homeless shelters and arrangements were made by social work. Patient declined assistance with placement in drug and alcohol rehabilitation facility. He was provided with outpatient community resources available to him including AA meetings, counseling, and the list of inpatient drug and alcohol rehabilitation facilities if he changes his mind. Patient is clinically sober and medically optimized for discharge at this time. Public Works Technician spoke with patient about substance abuse and the harmful effects on medical and mental health, patient verbally understood and agreed. He states that he plans to go back to his custodial, he will try to cut down on alcohol, plans to find a job. Prognosis is poor, patient is a very high readmission risk, we discussed all of the above. Patient seen and examined at bedside.[] Vital signs reviewed and stable. General: Nontoxic, no distress and appears stated age. Derm: Skin warm and dry, normal coloration for ethnicity. Head: Atraumatic, normocephalic and symmetric. Eyes: EOM's intact, no lid lag, and anicteric sclera Mouth: no lip lesions, mucus membranes moist Cardiovascular: regular rate and rhythm with normal S1S2, no murmur, positive posterior tibial pulses bilaterally, and cap refill < 2 seconds. Lungs: Respirations even, regular, and unlabored on room air. Lungs CTA bilaterally, no rhonchi, no rales, no wheezing, and no accessory muscle usage. Abdominal: soft, nontender to palpation, no guarding, no appreciable organ omegaly Ext: ROM intact. No gross muscle atrophy, no edema, no contractures Neuro: Speech clear, face symmetrical and CN II-XII grossly intact with no noted focal neuro deficits Psych: Alert and oriented to person, place, time, and situation. Appropriate and pleasant affect A total of 31 minutes of time were spent preparing this complex discharge summary. Patient was discharged on 01/02. Plan - Discharge Summary New Discharge Prescriptions: New Thiamine [Vitamin B-1] 100 mg PO DAILY #30 tablet Folic Acid 1 mg PO DAILY #30 tablet Discharge Medication List Folic Acid 1 mg PO DAILY #30 tablet 01/02/25 [Rx] Thiamine [Vitamin B-1] 100 mg PO DAILY #30 tablet 01/02/25 [Rx] Follow up Appointment(s)/Referral(s): None,Stated [Primary Care Provider] - 1-2 days Patient Instructions/Handouts: Thiamine (By mouth), Folic Acid (By mouth) Activity/Diet/Wound Care/Special Instructions: Mr. Roman, please, follow-up with your psychiatrist for possible medication management of your alcoholism, relapse prevention. As we discussed, participate in AA meetings, make sure you stay hydrated, eat balanced meals to reduce dehydration and malnutrition. Take vitamins to prevent nerve damage. Avoid mixing substances, if cutting down, up to 4 drinks with lower alcohol content. Set limits: Try to reduce the number of drinks per day or have alcohol 3 days. Avoid binge drinking by pacing, alternate with water. Never drink on an empty stomach. Use and measuring, avoid free protein, which can lead to excessive drinking. Avoid abrupt stopping, if experiencing withdrawal symptoms like shaking, sweating, anxiety, stopping suddenly can be dangerous. Instead, gradually reduce alcohol intake and seek medical supervision. If experiencing confusion, hallucinations, severe tremors, seizures, go to the ER immediately. Having a sober friend around can help in case of overdose or accidental, with in safe areas, drinking extreme temperatures, situations where injuries are more likely. Minimize contact with people who encourage heavy drinking. Discharge/Stand Alone Forms: Area PCPs Discharge Disposition: HOME SELF-CARE
== END 2025-01-02 11:47 | disposition home or self-care (01) ==
LOC: EC 18:40 → 6NMEDSUR 23:28 → 5NMEDONC 01-02 02:19
PROVIDERS: ADMIT Internal Medicine; ATTEND Internal Medicine
DX: F10.229 Alcohol dependence with intoxication, unspecified (principal); E87.0 Hyperosmolality and hypernatremia; R74.01 Elevation of levels of liver transaminase levels; Y90.8 Blood alcohol level of 240 mg/100 ml or more; F17.200 Nicotine dependence, unspecified, uncomplicated; Z59.00 Homelessness unspecified
CPT/HCPCS: 96372 ×2; 96374; 99285; 36415; 80053 ×2; 83605; 83735; 85025; G0378 ×3; G0480; J2060; J3411; J1650; 80320

== ENCOUNTER 2025-01-02 15:47 | Emergency (ER) | payer OTHER ==
[2025-01-02 15:52] VITALS: BP 124/80; PULSE 60; RESP 20; TEMP 97.4
--- NOTE | 2025-01-02 16:56 | ED ---
General Adult HPI - General Chief complaint: Alcohol Stated complaint: ETOH Time Seen by Provider: 01/02/25 16:00 Source: patient, EMS Mode of arrival: EMS - History of Present Illness Initial comments: Patient is a 39-year-old man with a past medical history of alcoholism presenting today for alcohol intoxication.Patient was found sleeping by an apartment complex after drinking 1/5 of vodka today. He was admitted to the sixth floor yesterday evening for alcohol intoxication but left AGAINST MEDICAL ADVICE because he was thirsty. Patient does endorse alcohol use today but denies any illicit drug use. Police were reportedly called when patient was seen passed out by department complex. Patient states he is here because he is intoxicated. He is requesting a sandwich. He denies any recent head injury, chest pain abdominal pain or any other complaints. He states he does feel sad but denies suicidal thoughts, intent or plan. - Related Data Home Medications Medication Instructions Recorded Confirmed Folic Acid 1 mg PO DIRECTED 01/02/25 01/02/25 Thiamine [Vitamin B-1] 100 mg PO DIRECTED 01/02/25 01/02/25 Allergies Allergy/AdvReac Type Severity Reaction Status Date / Time No Known Allergies Allergy Verified 01/03/25 12:35 Review of Systems ROS Statement: Those systems with pertinent positive or pertinent negative responses have been documented in the HPI. ROS Other: All systems not noted in ROS Statement are negative. Past Medical History Past Medical History: No Reported History Additional Past Medical History / Comment(s): ETOH History of Any Multi-Drug Resistant Organisms: None Reported Additional Past Surgical History / Comment(s): plastic surgery on left lip Past Anesthesia/Blood Transfusion Reactions: No Reported Reaction Past Psychological History: ADD/ADHD Smoking Status: Current every day smoker Past Alcohol Use History: Abuse, Daily, Heavy Past Drug Use History: None Reported General Exam - General Exam Comments Initial Comments: PE: CONSTITUTIONAL: No apparent distress, disheveled appearing, particularly loquacious, smells of alcohol awake and alert SKIN: Warm, dry, no jaundice, hives or petechiae EYES: Pupils are equally round, extraocular movements intact without nystagmus, erythematous conjunctiva, non-icteric sclera HENT: Normocephalic, atraumatic, moist mucus membranes, oropharynx clear without exudates NECK: , Full range of motion, normal appearance PULMONARY: Clear to auscultation without wheezes, rhonchi, or rales, normal excursion, no accessory muscle use and no stridor CARDIOVASCULAR: Regular rate, rhythm, normal S1 and S2. No appreciated murmurs, rubs or gallops. Strong radial pulses with intact distal perfusion. No lower extremity edema GASTROINTESTINAL: Soft, active bowel sounds throughout, non-tender, non- distended, no palpable masses, no rebound or guarding. No hepatosplenomegaly GENITOURINARY: MUSCULOSKELETAL: Extremities have no gross deformity NEUROLOGIC:_a/o x 3, GCS 15, normal mentation, speech is mildly slurred, however patient is able to hold a conversation, moves all extremities x 4 without motor or sensory deficit PSYCHIATRIC:_normal mood and affect, thought process is clear and linear, appears intoxicated, calm and cooperative Course Vital Signs 01/02/25 15:49 Temperature 97.4 F L Pulse Rate 60 Respiratory 20 Rate Blood Pressure 124/80 O2 Sat by Pulse 100 Oximetry Medical Decision Making - Medical Decision Making Was pt. sent in by a medical professional or institution ([facility] Barrientos, HIGH WORKER, urgent care, hospital, or fpc...) When possible be specific @ -No Did you speak to anyone other than the patient for history (EMS, parent, family, police, friend...)? What history was obtained from this source @ -No Did you review nursing and triage notes (agree or disagree)? Why? @ -I reviewed nursing and triage notes Were old charts reviewed (outside hosp., previous admission, EMS record, old EKG, old radiological studies, urgent care reports/EKG's, fpc records)? Report findings @ -Medical records reviewed on chart review patient has been to our emergency department for similar complaint multiple times in the last month alone. I reviewed discharge summary from admission yesterday, when patient had been admitted for a blood alcohol of 443. Patient was reported to have a CIWA score of 0 and oriented x 3. He did decline assistance with placement for drug and alcohol rehab.. He was discharged when clinically sober. Differential Diagnosis (chest pain, altered mental status, abdominal pain women, abdominal pain men, vaginal bleeding, weakness, fever, dyspnea, syncope, headache, dizziness, GI bleed, back pain, seizure, CVA, palpatations, mental health, musculoskeletal)? @Differential diagnosis remains broad however top considerations include hypoglycemia, alcohol intoxication, drug intoxication, this is not an all- inclusive list EKG interpreted by me (3pts min.). @ -As above X-rays interpreted by me (1pt min.). @ -None done CT interpreted by me (1pt min.). @ -None done U/S interpreted by me (1pt. min.). @ -None done What testing was considered but not performed or refused? (CT, X-rays, U/S, labs)? Why? @ -None What meds were considered but not given or refused? Why? @ -None Did you discuss the management of the patient with other professionals (professionals i.e. Dr., PA, HIGH WORKER, lab, RT, psych nurse, perinatal social worker, resourcing consultant, teacher, cra officer, piano case and bench assembler)? Give summary @ -No Was smoking cessation discussed for >3mins.? @ -No Was critical care preformed (if so, how long)? @ -No Were there social determinants of health that impacted care today? How? (Homelessness, low income, unemployed, alcoholism, drug addiction, transportation, low edu. Level, literacy, decrease access to med. care, half-way, rehab)? Homelessness Was there de-escalation of care discussed even if they declined (Discuss DNR or withdrawal of care, Hospice)? @ -No What co-morbidities impacted this encounter? (DM, HTN, Smoking, COPD, CAD, Cancer, CVA, ARF, Chemo, Hep., AIDS, mental health diagnosis, sleep apnea, morbid obesity)? @Alcoholism Was patient admitted / discharged? Hospital course, mention meds given and route, prescriptions, significant lab abnormalities, going to OR and other pertinent info. @ Discharged- this is a 39-year-old gentleman with a past medical history of alcoholism well-known to this emergency department. Brought in by police after found sleeping outside an apartment complex. Patient endorses alcohol use today.. As patient has known history of the same, exam history is congruent with alcohol intoxication, vital signs stable, patient was provided with a sandwich, blood glucose to be checked and he will be observed in the emergency department until clinically sober. POC glucose 95. Patient was able to ambulate independently to the bathroom with a steady gait. Requesting discharge. Patient advised to decrease his alcohol use. Discharged in stable condition. Undiagnosed new problem with uncertain prognosis? @ -No Drug Therapy requiring intensive monitoring for toxicity (Heparin, Nitro, Insulin, Cardizem)? @ -No Were any procedures done? @ -No Diagnosis/symptom? @ alcohol intoxication Acute, or Chronic, or Acute on Chronic? @ -acute Uncomplicated (without systemic symptoms) or Complicated (systemic symptoms)? uncomplicated Side effects of treatment? @ -No Exacerbation, Progression, or Severe Exacerbation? @ -No Poses a threat to life or bodily function? How? (Chest pain, [place], [place], pneumonia, PE, COPD, DKA, ARF, appy, cholecystitis, CVA, Diverticulitis, Homicidal, Suicidal, threat to staff... and all critical care pts) @ -No - Lab Data Lab Results 01/02/25 Range/Units 16:58 POC Glucose (mg/dL) 95 (70-110) mg/dL POC Glu Director [employer] Jeff Perry Disposition Clinical Impression: Alcohol intoxication Disposition: HOME SELF-CARE Condition: Stable Instructions (If sedation given, give patient instructions): Alcohol Intoxication (ED) Additional Instructions: Every disease is a spectrum and a small chance still exists that a serious condition could develop, for this reason, please monitor yourself closely for any symptoms of alcohol withdrawal such as increased shakiness, hallucinations, tremors, seizures, vomiting, fever, inability to tolerate/keep down fluids or your medications, inability to follow up with outpatient providers as instructed and should you experience these symptoms or should you have any further concerns for your wellbeing please return to the ED or call 911 immediately. Please drink responsibly and gradually decrease your alcohol use. PLEASE call your primary care physician as soon as possible to arrange / discuss plan for followup appointment. Appointment in the next 1-3 days is strongly encouraged if possible. PLEASE let us know here before you leave if there is anything further we can do to be of any assistance. Take care and feel Better! Is patient prescribed a controlled substance at d/c from ED?: No Referrals: None,Stated [Primary Care Provider] - 1-2 days
[2025-01-02 16:59] LABS: Glucose,Whole Blood 95 mg/dL (70-110)
== END 2025-01-02 17:10 | disposition home or self-care (01) ==
LOC: EC 15:47
DX: F10.129 Alcohol abuse with intoxication, unspecified (principal); F17.200 Nicotine dependence, unspecified, uncomplicated; Y90.9 Presence of alcohol in blood, level not specified
CPT/HCPCS: 36415; 99283

== ENCOUNTER 2025-01-02 23:22 | Emergency (ER) | payer OTHER ==
[2025-01-02 23:38] VITALS: BP 135/88; PULSE 88; RESP 18; TEMP 98.2
--- NOTE | 2025-01-03 00:12 | ED ---
Alcohol HPI - General Chief Complaint: Alcohol Stated Complaint: ETOH Time Seen by Provider: 01/03/25 00:04 Source: patient Mode of arrival: EMS Limitations: no limitations - History of Present Illness Initial Comments: 39-year-old male history of alcohol use disorder brought in by EMS for alcohol intoxication. Patient is calm and cooperative at this time. No nausea or vomiting. No abdominal pain chest pain or difficulty breathing. He is resting in the stretcher, limited history is unable to be obtained from patient. He has been seen here on multiple occasions for alcohol intoxication. - Related Data Home Medications Medication Instructions Recorded Confirmed Multivitamins, Thera [Multivitamin 1 tab PO DIRECTED 01/07/25 01/07/25 (formulary)] Sertraline [Zoloft] 100 mg PO DIRECTED 01/07/25 01/07/25 Thiamine [Vitamin B-1] 100 mg PO DIRECTED 01/07/25 01/07/25 Allergies Allergy/AdvReac Type Severity Reaction Status Date / Time No Known Allergies Allergy Verified 01/07/25 20:20 Review of Systems ROS Statement: Those systems with pertinent positive or pertinent negative responses have been documented in the HPI. ROS Other: All systems not noted in ROS Statement are negative. Past Medical History Past Medical History: No Reported History Additional Past Medical History / Comment(s): ETOH History of Any Multi-Drug Resistant Organisms: None Reported Additional Past Surgical History / Comment(s): plastic surgery on left lip Past Anesthesia/Blood Transfusion Reactions: No Reported Reaction Past Psychological History: ADD/ADHD Smoking Status: Current every day smoker Past Alcohol Use History: Abuse, Daily, Heavy Past Drug Use History: None Reported General Exam Limitations: no limitations General appearance: alert, in no apparent distress, appears intoxicated Head exam: Present: atraumatic, normocephalic, normal inspection Eye exam: Present: normal appearance, EOMI Neck exam: Present: normal inspection. Absent: meningismus Respiratory exam: Absent: respiratory distress Cardiovascular Exam: Present: regular rate Neurological exam: Present: alert, altered (Intoxicated) Skin exam: Present: normal color Course Vital Signs 01/02/25 23:36 Temperature 98.2 F Pulse Rate 88 Respiratory 18 Rate Blood Pressure 135/88 O2 Sat by Pulse 98 Oximetry Medical Decision Making - Medical Decision Making Was pt. sent in by a medical professional or institution (, PA, PHOTOLITHOGRAPHIC STRIPPER, urgent c are, hospital, or skilled nursing...) When possible be specific @ -No Did you speak to anyone other than the patient for history (EMS, parent, family, police, friend...)? What history was obtained from this source @ -No Did you review nursing and triage notes (agree or disagree)? Why? @ -I reviewed and agree with nursing and triage notes Were old charts reviewed (outside hosp., previous admission, EMS record, old EKG, old radiological studies, urgent care reports/EKG's, skilled nursing records)? Report findings @ -No old charts were reviewed Differential Diagnosis (chest pain, altered mental status, abdominal pain women, abdominal pain men, vaginal bleeding, weakness, fever, dyspnea, syncope, headache, dizziness, GI bleed, back pain, seizure, CVA, palpatations, mental health, musculoskeletal)? @ -Not applicable EKG interpreted by me (3pts min.). @ -As above X-rays interpreted by me (1pt min.). @ -None done CT interpreted by me (1pt min.). @ -None done U/S interpreted by me (1pt. min.). @ -None done What testing was considered but not performed or refused? (CT, X-rays, U/S, labs)? Why? @ -None What meds were considered but not given or refused? Why? @ -None Did you discuss the management of the patient with other professionals (professionals i.e. , PA, PHOTOLITHOGRAPHIC STRIPPER, lab, RT, psych nurse, home health care social worker, roller engraver, teacher, armor officer, rn case mgr)? Give summary @ -No Was smoking cessation discussed for >3mins.? @ -No Was critical care preformed (if so, how long)? @ -No Were there social determinants of health that impacted care today? How? (Homelessness, low income, unemployed, alcoholism, drug addiction, transportation, low edu. Level, literacy, decrease access to med. care, longterm, rehab)? @ -No Was there de-escalation of care discussed even if they declined (Discuss DNR or withdrawal of care, Hospice)? DNR status @ -No What co-morbidities impacted this encounter? (DM, HTN, Smoking, COPD, CAD, Cancer, CVA, ARF, Chemo, Hep., AIDS, mental health diagnosis, sleep apnea, morbid obesity)? @ -Alcohol use disorder Was patient admitted / discharged? Hospital course, mention meds given and route, prescriptions, significant lab abnormalities, going to OR and other pertinent info. @ -39-year-old male with history of alcohol use disorder presenting for intoxication. Patient admits to drinking today. History is limited secondary to intoxication. Patient is observed until clinically sober and able to ambulate without assistance. Discharged home. Advised alcohol cessation. Follow-up with PCP and report back to ER with any new or worsening symptoms. Discussed this case with my attending Dr. Contreras Undiagnosed new problem with uncertain prognosis? @ -No Drug Therapy requiring intensive monitoring for toxicity (Heparin, Nitro, Insulin, Cardizem)? @ -No Were any procedures done? @ -No Diagnosis/symptom? @ -Alcohol intoxication Acute, or Chronic, or Acute on Chronic? @ -Acute Uncomplicated (without systemic symptoms) or Complicated (systemic symptoms)? @ -complicated Side effects of treatment? @ -No Exacerbation, Progression, or Severe Exacerbation? @ -No Disposition Clinical Impression: Alcohol intoxication Disposition: HOME SELF-CARE Condition: Fair Instructions (If sedation given, give patient instructions): Alcohol Intoxication (ED) Additional Instructions: Follow-up with PCP. Report back to ER with any new or worsening symptoms. Alcoholism is a dangerous condition and I advise that you take measures to stop drinking alcohol, including attending rehab and/or sobriety meetings. Is patient prescribed a controlled substance at d/c from ED?: No Referrals: None,Stated [Primary Care Provider] - 1-2 days Forms: Area PCPs
== END 2025-01-03 06:45 | disposition home or self-care (01) ==
LOC: EC 23:22
DX: F10.129 Alcohol abuse with intoxication, unspecified (principal); F17.200 Nicotine dependence, unspecified, uncomplicated
CPT/HCPCS: 99284

== ENCOUNTER 2025-01-03 11:44 | Emergency (ER) | payer OTHER ==
--- NOTE | 2025-01-03 13:14 | CT ---
EXAMINATION TYPE: CT brain cspine wo con DATE OF EXAM: 01/03/2025 1:03 PM COMPARISON: 06/11/2024. CLINICAL INDICATION: Male, 39 years old with history of etoh, head injury; ETOH., pain TECHNIQUE: Brain: Multiple axial CT images of the brain were obtained without IV contrast. Cspine: Axial CT images from the skull base to the inferior aspect of T2 we obtained without intraven ous contrast. Coronal and sagittal reformatted images were also reviewed. . CT DLP: 1341.6 mGycm, Automated exposure control for dose reduction was used. FINDINGS: Brain: Extra-axial spaces: No abnormal extra-axial fluid collections. Ventricular system: Within normal limits Cerebral parenchyma: No acute intraparenchymal hemorrhage or mass effect. The bryant-white junction is well differentiated. Cerebellum: Unremarkable. Mass effect: No evidence of midline shift. Intracranial vasculature: unremarkable Soft tissues: Normal. Calvarium/osseous structures: No depressed skull fracture. The nasal bone demonstrates cortical buckl ing most pronounced on the right Paranasal sinuses and mastoid air cells: Mucosal thickening most pronounced in the left maxillary sin us. Visualized orbits: Orbital contents are intact. Cervical spine: Fracture: None. Osseous structures: Multilevel degenerative disc disease changes with endplate spurring and disc oste ophyte complex's. Large osteophytes anteriorly at C5-C6. Vertebral alignment: Within normal limits. Spinal canal/Neural Foramina: No evidence of significant spinal canal narrowing. No evidence for sign ificant neural foraminal stenosis. Neck soft tissues: Prevertebral soft tissues are within normal limits. Other: The airway is patent. The lung apices are clear. IMPRESSION: 1. No acute intracranial process. 2. No evidence of cervical spine fracture. 3. Similar Nasal bone deformity correlate with tenderness for acute on chronic fracture. 4. Mild multilevel degenerative disc disease. 5. Large osteophytes anteriorly at C5-C6. Correlate for dysphagia. [facility], , 01/03/2025 1:12 PM
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
[2025-01-03 16:42] LABS: Appearance,Urine Clear (Clear); Bilirubin,Urine Negative (Negative); Blood,Urine Negative (Negative); Color,Urine Light Yellow; Glucose,Urine (UA) 3+ (Negative); Leukocyte Esterase,Urine Negative (Negative); Nitrite,Urine Negative (Negative); PH, Urine 5.5 (5.0-8.0); Protein,Urine Trace (Negative); Specific Gravity,Urine 1.014 (1.001-1.035); Urobilinogen,Urine <2.0 mg/dL (<2.0)
[2025-01-03 16:54] LABS: Amphetamine Screen,Urine Not Detected (NotDetected); Barbiturate Screen,Urine Not Detected (NotDetected); Benzodiazepines Screen,Urine Detected (NotDetected); Cocaine Screen,Urine Not Detected (NotDetected); Methadone Screen, Urine Not Detected (NotDetected); Opiate Screen,Urine Not Detected (NotDetected); Oxycodone Screen, Urine Not Detected (NotDetected); Phencyclidine Screen,Urine Not Detected (NotDetected); Tricyclic Antidepressant,Urine Not Detected (NotDetected); Urn Cannabinoid Scrn Not Detected (NotDetected)
[2025-01-03 17:17] LABS: Ketones,Urine 2+ (Negative)
[2025-01-03] MEDS: LACTATED RINGERS 1,000 ML IV ONE (19:14)
[2025-01-03 19:20] LABS: Basophils % (A) 0 %; Eosinophils # (A) 0.1 k/uL (0-0.7); Eosinophils % (A) 2 %; HCT 44.7 % (39.0-53.0); HGB 14.9 gm/dL (13.0-17.5); Lymphocytes # (A) 1.6 k/uL (1.0-4.8); Lymphocytes % (A) 37 %; MCH 32.6 pg (25.0-35.0); MCHC 33.3 g/dL (31.0-37.0); MCV 97.9 fL (80.0-100.0); Mean Platelet Volume 7.2; Monocytes # (A) 0.3 k/uL (0-1.0); Monocytes % (A) 7 %; Neutrophils # (A) 2.2 k/uL (1.3-7.7); Neutrophils % (A) 52 %; Platelet Count 355 k/uL (150-450); RBC 4.57 m/uL (4.30-5.90); RDW 13.6 % (11.5-15.5); WBC 4.3 k/uL (3.8-10.6)
[2025-01-03 19:29] LABS: ALT 177 U/L (4-49); AST 113 U/L (17-59); African American GFR (CKD) >90 (>60 ml/min/1.73 sqM); Albumin 4.4 g/dL (3.5-5.0); Alkaline Phosphatase 75 U/L (38-126); Anion Gap 13 mmol/L; Blood Urea Nitrogen 11 mg/dL (9-20); Calcium 9.1 mg/dL (8.4-10.2); Carbon Dioxide 27 mmol/L (22-30); Chloride 100 mmol/L (98-107); Glucose 119 mg/dL (74-99); Magnesium 1.8 mg/dL (1.6-2.3); Non-African American GFR(CKD) >90 (>60 ml/min/1.73 sqM); Phosphorus 3.4 mg/dL (2.5-4.5); Potassium 3.8 mmol/L (3.5-5.1); Sodium 140 mmol/L (137-145); Total Bilirubin 0.5 mg/dL (0.2-1.3); Total Protein 6.9 g/dL (6.3-8.2)
[2025-01-03] MEDS: traZODone HCL 50 MG TAB PO ONE (22:36)
[2025-01-04 01:40] VITALS: BP 128/85; PULSE 80; RESP 18; TEMP 97.8
== END 2025-01-04 01:51 | disposition home or self-care (01) ==
LOC: EC 11:44
DX: Z00.8 Encounter for other general examination (principal); F10.129 Alcohol abuse with intoxication, unspecified; F17.200 Nicotine dependence, unspecified, uncomplicated; Y90.9 Presence of alcohol in blood, level not specified
CPT/HCPCS: 36415; 70450; 72125; 80053; 80306; 81003; 82009; 83735; 84100; 85025; 96360; 99284

== ENCOUNTER 2025-01-04 13:22 | Observation (INO) | payer OTHER ==
--- NOTE | 2025-01-04 14:06 | ED ---
General Adult HPI - General Chief complaint: Psychiatric Symptoms Stated complaint: ETOH Time Seen by Provider: 01/04/25 13:30 Source: patient Mode of arrival: EMS Limitations: no limitations - History of Present Illness Initial comments: 39-year-old male with past medical history of daily alcohol abuse, homelessness who presents to the emergency department with intoxication. Patient was found at a gas station underneath the pickup truck sleeping by police. Patient does have a history of alcohol abuse and was seen in the emergency department yester day for the same complaint. He did have a petition with him yesterday and was evaluated by EPS who reportedly told the patient he could go home. Patient presents today drooling, unable to provide any history due to his significant intoxication. Police found that the patient had a breathalyzer test of 0.28. No visible injuries known. No suicidal or homicidal ideations reported by EMS or police however patient repetitively keeps saying "I was supposed to ". HPI is difficult to obtain due to the patient's current status - Related Data Home Medications Medication Instructions Recorded Confirmed Folic Acid 1 mg PO DIRECTED 01/02/25 01/03/25 Thiamine [Vitamin B-1] 100 mg PO DIRECTED 01/02/25 01/03/25 Allergies Allergy/AdvReac Type Severity Reaction Status Date / Time No Known Allergies Allergy Verified 01/03/25 15:49 Review of Systems ROS Statement: Those systems with pertinent positive or pertinent negative responses have been documented in the HPI. ROS Other: All systems not noted in ROS Statement are negative. Past Medical History Past Medical History: No Reported History Additional Past Medical History / Comment(s): ETOH History of Any Multi-Drug Resistant Organisms: None Reported Additional Past Surgical History / Comment(s): plastic surgery on left lip Past Anesthesia/Blood Transfusion Reactions: No Reported Reaction Past Psychological History: ADD/ADHD, Depression Smoking Status: Current every day smoker Past Alcohol Use History: Abuse, Daily, Heavy Past Drug Use History: None Reported General Exam Limitations: altered mental status General appearance: appears intoxicated, lethargic Head exam: Present: atraumatic, normocephalic, normal inspection Eye exam: Present: normal appearance, PERRL, EOMI. Absent: scleral icterus, conjunctival injection, periorbital swelling ENT exam: Present: normal exam, mucous membranes moist Neck exam: Present: normal inspection. Absent: tenderness, meningismus, lymphadenopathy Respiratory exam: Present: normal lung sounds bilaterally. Absent: respiratory distress, wheezes, rales, rhonchi, stridor Cardiovascular Exam: Present: regular rate, normal rhythm, normal heart sounds. Absent: systolic murmur, diastolic murmur, rubs, gallop, clicks GI/Abdominal exam: Present: soft, normal bowel sounds. Absent: distended, tenderness, guarding, rebound, rigid Extremities exam: Present: normal inspection, full ROM, normal capillary refill. Absent: tenderness, pedal edema, joint swelling, calf tenderness Back exam: Present: normal inspection Neurological exam: Present: altered, CN II-XII intact Psychiatric exam: Present: depressed, flat affect Skin exam: Present: warm, dry, intact, normal color. Absent: rash Course Vital Signs 01/04/25 01/04/25 13:29 14:15 Temperature 98 F Pulse Rate 72 95 Respiratory 20 20 Rate Blood Pressure 135/94 135/68 O2 Sat by Pulse 96 98 Oximetry Medical Decision Making - Medical Decision Making Was pt. sent in by a medical professional or institution ([facility]rient[facility], [employer], urgent care, hospital, or fdc...) When possible be specific @ -[No] Did you speak to anyone other than the patient for history (EMS, parent, family, police, friend...)? What history was obtained from this source @ -[No] Did you review nursing and triage notes (agree or disagree)? Why? @ -[I reviewed and agree with nursing and triage notes] Were old charts reviewed (outside hosp., previous admission, EMS record, old EKG, old radiological studies, urgent care reports/EKG's, fdc records)? Report findings @ -[No old charts were reviewed] Differential Diagnosis (chest pain, altered mental status, abdominal pain women, abdominal pain men, vaginal bleeding, weakness, fever, dyspnea, syncope, headache, dizziness, GI bleed, back pain, seizure, CVA, palpatations, mental health, musculoskeletal)? @ -[not applicable] EKG interpreted by me (3pts min.). @ -[As above] X-rays interpreted by me (1pt min.). @ -[None done] CT interpreted by me (1pt min.). @ -[None done] U/S interpreted by me (1pt. min.). @ -[None done] What testing was considered but not performed or refused? (CT, X-rays, U/S, labs)? Why? @ -[None] What meds were considered but not given or refused? Why? @ -[None] Did you discuss the management of the patient with other professionals (professionals i.e. , PA, [employer], lab, RT, psych nurse, high school social studies teacher, garment patternmaker, teacher, general service officer, trimming caser)? Give summary @ -[No] Was smoking cessation discussed for >3mins.? @ -[No] Was critical care preformed (if so, how long)? @ -[No] Were there social determinants of health that impacted care today? How? (Homelessness, low income, unemployed, alcoholism, drug addiction, transportation, low edu. Level, literacy, decrease access to med. care, correction, rehab)? @ -[No] Was there de-escalation of care discussed even if they declined (Discuss DNR or withdrawal of care, Hospice)? DNR status @ -[No] What co-morbidities impacted this encounter? (DM, HTN, Smoking, COPD, CAD, Cancer, CVA, ARF, Chemo, Hep., AIDS, mental health diagnosis, sleep apnea, morbid obesity)? @ -[None] Was patient admitted / discharged? Hospital course, mention meds given and route, prescriptions, significant lab abnormalities, going to OR and other pertinent info. @ -[hospital course] Undiagnosed new problem with uncertain prognosis? @ -[No] Drug Therapy requiring intensive monitoring for toxicity (Heparin, Nitro, Insulin, Cardizem)? @ -[No] Were any procedures done? @ -[No] Diagnosis/symptom? @ -[default] Acute, or Chronic, or Acute on Chronic? @ -[default] Uncomplicated (without systemic symptoms) or Complicated (systemic symptoms)? @ -[default] Side effects of treatment? @ -[No] Exacerbation, Progression, or Severe Exacerbation? @ -[No] Poses a threat to life or bodily function? How? (Chest pain, [place], [place], pneumonia, PE, COPD, DKA, ARF, appy, cholecystitis, CVA, Diverticulitis, Homicidal, Suicidal, threat to staff... and all critical care pts) @ -[No] - Lab Data Result diagrams: 01/04/25 14:15 Lab Results 01/04/25 Range/Units 14:15 WBC 4.9 (3.8-10.6) k/uL RBC 4.63 (4.30-5.90) m/uL Hgb 15.0 (13.0-17.5) gm/dL Hct 45.8 (39.0-53.0) % MCV 99.0 (80.0-100.0) fL MCH 32.4 (25.0-35.0) pg MCHC 32.7 (31.0-37.0) g/dL RDW 13.6 (11.5-15.5) % Plt Count 307 (150-450) k/uL MPV 7.2 Neutrophils % 66 % Lymphocytes % 28 % Monocytes % 3 % Eosinophils % 1 % Basophils % 0 % Neutrophils # 3.2 (1.3-7.7) k/uL Lymphocytes # 1.4 (1.0-4.8) k/uL Monocytes # 0.2 (0-1.0) k/uL Eosinophils # 0.1 (0-0.7) k/uL Basophils # 0.0 (0-0.2) k/uL Disposition Clinical Impression: Suicidal ideation, Homelessness, Alcohol abuse, Alcoholic intoxication Disposition: ADMITTED IP TO THIS [facility] Condition: Stable Is patient prescribed a controlled substance at d/c from ED?: No Referrals: None,Stated [Primary Care Provider] - 1-2 days Time of Disposition: 14:52 Decision to Admit Reason: Admit from EC Decision Date: 01/04/25 Decision Time: 14:52
[2025-01-04 14:25] LABS: Basophils % (A) 0 %; Eosinophils # (A) 0.1 k/uL (0-0.7); Eosinophils % (A) 1 %; HCT 45.8 % (39.0-53.0); Lymphocytes # (A) 1.4 k/uL (1.0-4.8); Lymphocytes % (A) 28 %; MCH 32.4 pg (25.0-35.0); MCHC 32.7 g/dL (31.0-37.0); Mean Platelet Volume 7.2; Monocytes # (A) 0.2 k/uL (0-1.0); Monocytes % (A) 3 %; Neutrophils # (A) 3.2 k/uL (1.3-7.7); Neutrophils % (A) 66 %; Platelet Count 307 k/uL (150-450); RBC 4.63 m/uL (4.30-5.90); RDW 13.6 % (11.5-15.5); WBC 4.9 k/uL (3.8-10.6)
[2025-01-04 14:36] LABS: ALT 158 U/L (4-49); AST 101 U/L (17-59); African American GFR (CKD) >90 (>60 ml/min/1.73 sqM); Albumin 4.6 g/dL (3.5-5.0); Alkaline Phosphatase 74 U/L (38-126); Anion Gap 16 mmol/L; Blood Urea Nitrogen 5 mg/dL (9-20); Calcium 8.8 mg/dL (8.4-10.2); Carbon Dioxide 25 mmol/L (22-30); Chloride 105 mmol/L (98-107); Glucose 118 mg/dL (74-99); Non-African American GFR(CKD) >90 (>60 ml/min/1.73 sqM); Potassium 3.7 mmol/L (3.5-5.1); Sodium 146 mmol/L (137-145); Total Bilirubin 0.9 mg/dL (0.2-1.3)
[2025-01-04] MEDS ORDERED: NALOXONE 0.4 MG/ML 1 ML VIAL IV PRN (14:52)
[2025-01-04] MEDS ORDERED: LORazepam 2 MG/ML INJ IV PRN ×3 (14:56)
[2025-01-04 15:00] LABS: Alcohol 460 mg/dL
[2025-01-04] MEDS: SODIUM CHLORIDE 0.9% 1,000 ML IV SCH (15:50)
[2025-01-04] MEDS: THIAMINE 100 MG TAB PO SCH (19:50)
[2025-01-04] MEDS: FAMOTIDINE 20 MG TAB PO SCH (21:26)
[2025-01-04] MEDS: LORazepam 1 MG/0.5 ML VIAL IV PRN (22:10)
--- NOTE | 2025-01-04 22:37 | P.HPIM ---
History of Present Illness H&P Date: 01/04/25 Chief Complaint: Alcohol intoxication Patient is a 39-year-old male with a past medical history of ADD/ADHD, depression, currently everyday smoker and heavy alcohol abuse was brought to the hospital with alcohol intoxication. Patient was found by police sleeping at a gas station underneath the pickup truck. He was seen in the ER yesterday. .He did have a petition with him yesterday and was evaluated by EPS who reportedly told the patient he could go home. Patient was intoxicated and is unable to provide any history at this time. Patient repeatedly keeps saying I was supposed to . But denies any suicidal or homicidal ideation reported by EMS or police. Laboratory data showed serum alcohol level 460 sodium 146 potassium 3.7 chloride 105 bicarb is 25 BUN 5 and creatinine 0.59 and blood sugar 118 AST 101 ALT 158 and alk phos 74. Review of Systems Home complete review of systems could not be obtained from the patient Past Medical History Past Medical History: No Reported History Additional Past Medical History / Comment(s): ETOH History of Any Multi-Drug Resistant Organisms: None Reported Additional Past Surgical History / Comment(s): plastic surgery on left lip Past Anesthesia/Blood Transfusion Reactions: No Reported Reaction Past Psychological History: ADD/ADHD, Depression Smoking Status: Current every day smoker Past Alcohol Use History: Abuse, Daily, Heavy Past Drug Use History: None Reported Medications and Allergies Home Medications Medication Instructions Recorded Confirmed Type No Known Home Medications 01/04/25 01/04/25 History Allergies Allergy/AdvReac Type Severity Reaction Status Date / Time No Known Allergies Allergy Verified 01/04/25 15:33 Physical Exam Vitals: Vital Signs Temp Pulse Resp BP Pulse Ox 01/04/25 14:15 95 20 135/68 98 01/04/25 13:29 98 F 72 20 135/94 96 Intake and Output 01/04/25 01/04/25 01/04/25 06:59 14:59 22:59 Other: Weight 77.111 kg PHYSICAL EXAMINATION: Patient is lying in the bed, no acute distress, awake alert but not oriented un able to provide history. Intoxicated.. HEENT: Normocephalic. Neck is supple. Pupils reactive. Nostrils clear. Oral cavity is moist. Neck reveals no JVD, carotid bruits, or thyromegaly. CHEST EXAMINATION: Trachea is central. Symmetrical expansion. Lung zavala clear to auscultation and percussion. CARDIAC: Normal S1, S2 with no gallops. No murmurs ABDOMEN: Soft. Bowel sounds normal. No organomegaly. No abdominal bruits. Extremities: reveal no edema. No clubbing or cyanosis Neurologically. Awake and alert, able to move all extremities. No gross focal deficits noted Skin: No rash or skin lesions. Psychiatric: Noncooperative. Musculoskeletal: No joint swelling or deformity. Results CBC & Chem 7: 01/04/25 14:15 01/04/25 14:15 Labs: Abnormal Lab Results - Last 24 Hours (Table) 01/04/25 Range/Units 14:15 Sodium 146 H (137-145) mmol/L BUN 5 L (9-20) mg/dL Creatinine 0.59 L (0.66-1.25) mg/dL Glucose 118 H (74-99) mg/dL AST 101 H (17-59) U/L ALT 158 H (4-49) U/L Serum Alcohol 460 H* mg/dL Thrombosis Risk Factor Assmnt - DVT/VTE Prophylaxis DVT/VTE Prophylaxis: Pharmacologic Prophylaxis ordered Assessment and Plan Assessment: Acute alcohol intoxication/toxic encephalopathy with alcohol level 460 on admission Suicidal ideation as the patient kept saying ' I was supposed to ' Severe alcohol abuse Homelessness Alcoholic hepatitis with elevated AST and ALT GI and DVT prophylaxis with Pepcid and heparin subcu Plan: Patient will continue on IV hydration with normal saline. Monitor for alcohol withdrawal symptoms. Started on multivitamins and thiamine. Follow-up psychiatry recommendations. Continue supportive care and follow-up closely. Time with Patient: Greater than 30
[2025-01-05] MEDS: HEPARIN SODIUM,PORCINE 5,000 UNIT/ML 1 ML VIAL SQ SCH (02:00)
[2025-01-05 07:15] LABS: Basophils % (A) 0 %; Eosinophils # (A) 0.1 k/uL (0-0.7); Eosinophils % (A) 2 %; HCT 42.7 % (39.0-53.0); HGB 13.8 gm/dL (13.0-17.5); Lymphocytes # (A) 1.3 k/uL (1.0-4.8); Lymphocytes % (A) 29 %; MCHC 32.4 g/dL (31.0-37.0); MCV 101.9 fL (80.0-100.0); Macrocytosis Slight; Mean Platelet Volume 7.8; Monocytes # (A) 0.3 k/uL (0-1.0); Monocytes % (A) 6 %; Neutrophils # (A) 2.8 k/uL (1.3-7.7); Neutrophils % (A) 61 %; Platelet Count 270 k/uL (150-450); RBC 4.19 m/uL (4.30-5.90); RDW 13.8 % (11.5-15.5); WBC 4.5 k/uL (3.8-10.6)
[2025-01-05 07:36] LABS: African American GFR (CKD) >90 (>60 ml/min/1.73 sqM); Anion Gap 10 mmol/L; Blood Urea Nitrogen 8 mg/dL (9-20); Carbon Dioxide 28 mmol/L (22-30); Chloride 100 mmol/L (98-107); Glucose 84 mg/dL (74-99); Non-African American GFR(CKD) >90 (>60 ml/min/1.73 sqM); Potassium 3.6 mmol/L (3.5-5.1); Sodium 138 mmol/L (137-145)
[2025-01-05] MEDS: MULTIVITAMINS, THERA 1 EACH TAB PO SCH (08:09)
[2025-01-05 08:16] VITALS: RESP 16
[2025-01-05] MEDS ORDERED: LORazepam 1 MG/0.5 ML VIAL IV PRN ×2 (08:53)
--- NOTE | 2025-01-05 13:31 | P.CN ---
Psychiatric Consult - . Consult date: 01/05/25 Consult:: 01/05/25 13:24 IDENTIFYING DATA: This patient is a 39-year-old male, homeless and unemployed REASON FOR REFERRAL: Psychiatry was consulted for SI HISTORY OF PRESENT ILLNESS: The patient presented to the hospital with alcohol intoxication with a breathalyzer being 0.28. Patient was placed on CIWA with as needed Ativan and made comments about dying. Patient seen and evaluated with sitter at bedside. Patient was unable to recall the previous days events, stating that he left the hospital at 3:30 AM the previous day and slept on a bench in the cold and woke up at 6:30 AM to go to [employer] to buy 1/5 of vodka. He does not recall anything after this. Patient reports drinking due to staying warm. Patient appeared precontemplative in his willingness to stop alcohol as he claims he wants to decrease this use however is not willing to make any actions to achieve this such as going to rehab or starting naltrexone for cravings. He claims to have gone to rehab several times most recent being 3 weeks ago at [facility] and does not find them helpful at all. Patient reports nonadherence with his psychotropic medications and this was encouraged given his depressive symptoms. Patient reports he has been homeless and unemployed for the past 3 months. He reports his withdrawal symptoms are well on the as needed Ativan. At this time patient denies any suicidal or homicidal ideations, intent or plan. Patient denies any auditory, visual hallucinations and denies any paranoia or delusions. Patients admits to using the fifth of vodka. PAST PSYCHIATRIC HISTORY: Patient has a history of MDD, alcohol use disorder, anxiety. Patient reports being nonadherent with his Zoloft 100 mg daily, trazodone 50 mg at bedtime. Patient was recently admitted to the [facility] from 11/03- 11/07/2024. Patient denies any psychiatric outpatient follow-up. Patient denies any history of suicide attempts in the past. PAST MEDICAL HISTORY: Denies. ALLERGIES: as per EMR. CHEMICAL DEPENDENCY HISTORY: as per HPI. FAMILY PSYCHIATRIC/SUBSTANCE USE HISTORY: Denies SOCIAL HISTORY: Patient is homeless and unemployed. He completed high school. He is single and has no children. MENTAL STATUS EXAM: General Appearance: Patient appears to be stated age is alert, pleasant, and cooperative. Patient appears to have fair hygiene and grooming wearing hospital gown with fair eye contact. Behavior: Patient is calmly lying in bed without any agitated behavior. Speech: Patient's speech is fluent and nonpressured. Mood/Affect: Patient reports their mood is "better", affect is congruent Suicidality/Homicidality: Patient denies having any suicidal or homicidal ideation intent or plan. Perceptions: Patient denies any visual hallucinations and denies any auditory hallucinations Though content/process: There is no evidence of any delusional thought content and thought process is linear. Memory and concentration: AOX3, grossly intact for the purposes of this session. Can spell "WORLD" backwards Judgment and insight: Poor IMPRESSIONS: Alcohol use disorder, severe in withdrawal Major depressive disorder, recurrent PLAN: -At this time patient DOES NOT meet criteria for inpatient psychiatric admission. -Would recommend the following medication changes/additions: Resume Zoloft 100 mg daily for depression, patient encouraged to take this medication consistently to get the max benefits. Patient declined naltrexone given his previous adverse effects -CIWA protocol with PRN Ativan for alcohol withdrawal. Continue to monitor vital signs. -Can discontinue 1:1 sitter at this time as patient is not currently an imminent threat to themselves -grain ii farmworker to provide patient substance use treatment resources including AA/NA meetings in the community. -Communicated plan to patient's nurse -Psychiatry will sign off at this time -Please contact with any questions.
[2025-01-05] MEDS: SERTRALINE 100 MG TAB PO SCH (14:36)
[2025-01-05] MEDS: SODIUM CHLORIDE 0.9% 1,000 ML IV SCH (14:37)
--- NOTE | 2025-01-05 22:06 | P.PN ---
Subjective Progress Note Date: 01/05/25 Patient is a 39-year-old male with a past medical history of ADD/ADHD, depression, currently everyday smoker and heavy alcohol abuse was brought to the hospital with alcohol intoxication. Patient was found by police sleeping at a gas station underneath the pickup truck. He was seen in the ER yesterday. .He did have a petition with him yesterday and was evaluated by EPS who reportedly told the patient he could go home. Patient was intoxicated and is unable to provide any history at this time. Patient repeatedly keeps saying I was supposed to . But denies any suicidal or homicidal ideation reported by EMS or police. Laboratory data showed serum alcohol level 460 sodium 146 potassium 3.7 chloride 105 bicarb is 25 BUN 5 and creatinine 0.59 and blood sugar 118 AST 101 ALT 158 and alk phos 74. 01/05/2025 Patient is resting in the bed. Patient is more awake and oriented today. No complaints of chest pain or shortness of breath. No nausea vomiting abdominal pain or diarrhea. Patient was started on Zoloft as per psychiatry recommendations. No need for inpatient psychiatric admission. Laboratory data showed sodium 138 potassium 3.6 chloride 100 bicarb is 28 BUN 10 and creatinine 0.71 and blood sugar 84. Patient is being continued on alcohol withdrawal protocol. Tolerating oral diet. Anticipate discharge in the next 24 hours. Current medications reviewed. Objective - Vital Signs Vital signs: Vital Signs Temp 98.1 F 01/05/25 12:22 Pulse 75 01/05/25 12:22 Resp 16 01/05/25 12:22 BP 146/82 01/05/25 12:22 Pulse Ox 100 01/05/25 12:22 FiO2 Intake & Output 01/04/25 01/05/25 01/05/25 18:59 06:59 18:59 Intake Total 240 Balance 240 Weight 77.111 kg 77.111 kg Intake: Oral 240 Other: Voiding Method Urinal - Exam PHYSICAL EXAMINATION: Patient is lying in the bed comfortably, no acute distress, awake alert and oriented.. HEENT: Normocephalic. Neck is supple. Pupils reactive. Nostrils clear. Oral cavity is moist. Neck reveals no JVD, carotid bruits, or thyromegaly. CHEST EXAMINATION: Trachea is central. Symmetrical expansion. Lung zavala clear to auscultation and percussion. CARDIAC: Normal S1, S2 with no gallops. No murmurs ABDOMEN: Soft. Bowel sounds normal. No organomegaly. No abdominal bruits. Extremities: reveal no edema. No clubbing or cyanosis Neurologically awake, alert, oriented x3 with well-coordinated movements. No focal deficits noted Skin: No rash or skin lesions. Psychiatric: Coperative. Nonsuicidal Musculoskeletal: No joint swelling or deformity. Normal range of motion. - Labs CBC & Chem 7: 01/05/25 06:31 01/05/25 06:31 Labs: Abnormal Lab Results - Last 24 Hours (Table) 01/04/25 01/05/25 01/05/25 Range/Units 14:15 06:31 06:31 RBC 4.19 L (4.30-5.90) m/uL MCV 101.9 H (80.0-100.0) fL Sodium 146 H (137-145) mmol/L BUN 5 L 8 L (9-20) mg/dL Creatinine 0.59 L (0.66-1.25) mg/dL Glucose 118 H (74-99) mg/dL AST 101 H (17-59) U/L ALT 158 H (4-49) U/L Serum Alcohol 460 H* mg/dL Assessment and Plan Assessment: Acute alcohol intoxication/toxic encephalopathy with alcohol level 460 on admis zainab Suicidal ideation as the patient kept saying ' I was supposed to ' Major depression Severe alcohol abuse Homelessness Alcoholic hepatitis with elevated AST and ALT GI and DVT prophylaxis with Pepcid and heparin subcu Plan: Patient will continue on IV hydration with normal saline. Reduced to 75 cc/h. Continue to monitor for alcohol withdrawal symptoms. On multivitamins and thiamine. Patient was seen by psychiatry. No inpatient psych admission was recommended. Continue with Zoloft. Anticipate discharge in next 24 hours. Time with Patient: Greater than 30
[2025-01-06 09:24] LABS: ALT 119 U/L (10-49); AST 66 U/L (14-35); Albumin 3.9 g/dL (3.8-4.9); Albumin/Globulin Ratio 2.29 Ratio (1.60-3.17); Alkaline Phosphatase 78 U/L (41-126); Carbon Dioxide 25.3 mmol/L (21.6-31.8); Chloride 99 mmol/L (96-109); Globulin 1.7 g/dL (1.6-3.3); Glucose 98 mg/dL (70-110); Potassium 3.5 mmol/L (3.5-5.5); Sodium 137 mmol/L (135-145); Total Protein 5.6 g/dL (6.2-8.2)
[2025-01-06 10:13] LABS: Basophils # (A) 0.04 X 10*3/uL (0.00-0.10); Basophils % (A) 0.6 %; Eosinophils # (A) 0.11 X 10*3/uL (0.04-0.35); Eosinophils % (A) 1.7 %; HCT 39.8 % (39.6-50.0); HGB 13.5 g/dL (13.0-17.0); Lymphocytes # (A) 1.38 X 10*3/uL (0.90-5.00); Lymphocytes % (A) 21.6 %; MCH 33.6 pg (27.0-32.0); MCHC 33.9 g/dL (32.0-37.0); Monocytes # (A) 0.76 X 10*3/uL (0.20-1.00); Monocytes % (A) 11.9 %; NRBC Per 100 WBC 0 X 10*3/uL (0.00-0.01); Neutrophils # (A) 4.07 X 10*3/uL (1.80-7.70); Neutrophils % (A) 63.9 %; Platelet Count 280 X 10*3/uL (140-440); RBC 4.02 X 10*6/uL (4.40-5.60); RDW 12.9 % (11.5-14.5); WBC 6.38 X 10*3/uL (4.50-10.00)
[2025-01-06 12:31] VITALS: BP 147/95; PULSE 68; TEMP 98.2
--- NOTE | 2025-01-08 10:32 | P.DS ---
Providers Date of admission: 01/04/25 14:52 Expected date of discharge: 01/06/25 Attending physician: Zain Huston MD Consults: 01/04/25 14:52 Consult Physician Urgent Consulting Provider: Psychiatry - [facility] Psychiatry Consult Reason/Comments: suicidal ideations Do you want consulting provider notified?: Yes Primary care physician: Stated None Hospital Course: Final diagnosis Acute alcohol intoxication/toxic encephalopathy with alcohol level 460 on admission Suicidal ideation as the patient kept saying ' I was supposed to ', evaluated by psych and cleared, denies suicidal ideation or homicidal ideation Major depression Severe alcohol abuse Homelessness Alcoholic hepatitis with elevated AST and ALT GI and DVT prophylaxis with Pepcid and heparin subcu Discharge disposition Patient is being discharged in a stable condition with guarded prognosis to homeless shelters. Patient will follow-up with Dr. Daniel Dotson in the outpatient setting upon discharge. Patient is to continue with following up with inpatient alcohol rehab as scheduled. Total time taken is greater than 35 minutes. Hospital course This is a 39-year-old male who was recently admitted with acute severe alcohol intoxication with toxic encephalopathy being closely monitored on CIWA protocol. Patient also mentions some suicidal ideations while in the ER and was evaluated by psychiatry and denies any suicidal ideations or thoughts of wanting to harm himself. Patient has reserved about going to inpatient alcohol rehab as he reports he has been there before and it does not help. Patient is alert and oriented x 3 and would like to go home. Patient will be discharged today. Patient has no intentions of quitting drinking at this time. Currently no reports of chest pain, shortness of breath, or palpitations. Patient is afebrile. No reports of nausea or vomiting and patient is tolerating diet. Patient will be discharged home today. High risk for readmissions and has had multiple hospitalizations and ER visits due to continued ongoing alcohol abuse and homelessness. Patient reports his mother lives in [place] somewhere although will not tell him where because she does not want him there. Physical exam: Gen: This is a 39-year-old male who is awake, alert and oriented x 3, well- developed, well-nourished, appears older than stated age HEENT: Head is atraumatic, normocephalic. Pupils equal, round. Sclerae is anicteric. NECK: Supple. No JVD. No lymphadenopathy. No thyromegaly. LUNGS: Clear to auscultation. No wheezes or rhonchi. No intercostal retractions. HEART: Regular rate and rhythm. No murmur. ABDOMEN: Soft. Bowel sounds are present. No masses. No tenderness. EXTREMITIES: No pedal edema. No calf tenderness. NEUROLOGICAL: Patient is awake, alert and oriented x3. Cranial nerves 2 through 12 are grossly intact. Please refer to medication reconciliation sheet for a list of medications. The impression and plan of care has been dictated by Rachelle Vieira, Nurse Practitioner as directed. Dr. Mauri MD I have performed a history and examination and MDM of this patient, discussed the same with the dictator, and agree with the dictator's assessment and plan as written ,documented as a scribe. Based on total visit time, I have performed more than 50% of the visit. Patient Condition at Discharge: Stable Plan - Discharge Summary Discharge Rx Participant: No New Discharge Prescriptions: No Action Thiamine [Vitamin B-1] 100 mg PO DIRECTED Multivitamins, Thera [Multivitamin (formulary)] 1 tab PO DIRECTED Sertraline [Zoloft] 100 mg PO DIRECTED Discharge Medication List Multivitamins, Thera [Multivitamin (formulary)] 1 tab PO DIRECTED 01/07/25 [History] Sertraline [Zoloft] 100 mg PO DIRECTED 01/07/25 [History] Thiamine [Vitamin B-1] 100 mg PO DIRECTED 01/07/25 [History] Follow up Appointment(s)/Referral(s): Tamar Holland MD [STAFF PHYSICIAN] - 1 Week (please call to schedule a follow up appointment. (ext [phone])) Patient Instructions/Handouts: Sertraline (By mouth) Activity/Diet/Wound Care/Special Instructions: Activity limited until follow-up Follow-up and establish with primary care provider Strongly recommend inpatient alcohol rehab Continue with medications as prescribed Discharge/Stand Alone Forms: AA Meetings [facility], [facility] Resources Discharge Disposition: HOME SELF-CARE
== END 2025-01-06 14:27 | disposition home or self-care (01) ==
LOC: EC 13:22 → 5NMEDONC 14:52
PROVIDERS: ADMIT Internal Medicine; ATTEND Internal Medicine
DX: F10.229 Alcohol dependence with intoxication, unspecified (principal); G92.8 Other toxic encephalopathy; K70.10 Alcoholic hepatitis without ascites; F10.239 Alcohol dependence with withdrawal, unspecified; F33.9 Major depressive disorder, recurrent, unspecified; F90.9 Attention-deficit hyperactivity disorder, unspecified type; Y90.8 Blood alcohol level of 240 mg/100 ml or more; T43.226A Underdosing of selective serotonin reuptake inhibitors, initial encounter; T43.216A Underdosing of selective serotonin and norepinephrine reuptake inhibitors, initial encounter; Z91.128 Patient's intentional underdosing of medication regimen for other reason; F17.200 Nicotine dependence, unspecified, uncomplicated; R45.851 Suicidal ideations; Z74.3 Need for continuous supervision; Z56.0 Unemployment, unspecified; Z59.02 Unsheltered homelessness
CPT/HCPCS: 96376; 96361 ×3; 96372 ×3; 82075; 96374; 99285; 36415; 80053 ×2; 80048; 85025 ×3; G0378 ×3; G0480; J2060 ×2; J1644 ×2; 80320

== ENCOUNTER 2025-01-07 18:30 | Emergency (ER) | payer OTHER ==
--- NOTE | 2025-01-07 18:42 | ED ---
Alcohol HPI - General Stated Complaint: ETOH Time Seen by Provider: 01/07/25 18:42 Source: RN notes reviewed, old records reviewed Limitations: no limitations - History of Present Illness Initial Comments: This is a 39-year-old male for severe alcohol intoxication unable to give history and significantly intoxicated here in the ER patient's multiple multiple daily visit this month and this year MD Complaint: alcohol intoxication Last Drink: just [employer] -: minute(s) Previous Visits for Alcohol Intoxication?: Yes Recent Trauma: Yes Treatments Prior to Arrival: none Chronic Alcohol Use: Yes - Related Data Previous Rx's Medication Instructions Recorded Multivitamins, Thera [Multivitamin 1 each PO DAILY #30 tab 01/06/25 (formulary)] Sertraline [Zoloft] 100 mg PO DAILY #30 tab 01/06/25 Thiamine [Vitamin B-1] 100 mg PO DAILY #30 tab 01/06/25 Allergies Allergy/AdvReac Type Severity Reaction Status Date / Time No Known Allergies Allergy Verified 01/04/25 15:33 Review of Systems ROS Statement: Those systems with pertinent positive or pertinent negative responses have been documented in the HPI. ROS Other: All systems not noted in ROS Statement are negative. Past Medical History Past Medical History: No Reported History Additional Past Medical History / Comment(s): ETOH History of Any Multi-Drug Resistant Organisms: None Reported Additional Past Surgical History / Comment(s): plastic surgery on left lip Past Anesthesia/Blood Transfusion Reactions: No Reported Reaction Past Psychological History: ADD/ADHD General Exam Limitations: altered mental status, physical limitation General appearance: alert, appears intoxicated Head exam: Present: atraumatic, normocephalic, normal inspection Eye exam: Present: normal appearance, PERRL, EOMI. Absent: scleral icterus, conjunctival injection, periorbital swelling ENT exam: Present: normal exam, mucous membranes moist Neck exam: Present: normal inspection. Absent: tenderness, meningismus, lymphadenopathy Respiratory exam: Present: normal lung sounds bilaterally. Absent: respiratory distress, wheezes, rales, rhonchi, stridor Cardiovascular Exam: Present: regular rate, normal rhythm, normal heart sounds. Absent: systolic murmur, diastolic murmur, rubs, gallop, clicks GI/Abdominal exam: Present: soft, normal bowel sounds. Absent: distended, tenderness, guarding, rebound, rigid Extremities exam: Present: normal inspection, full ROM, normal capillary refill. Absent: tenderness, pedal edema, joint swelling, calf tenderness Back exam: Present: normal inspection Neurological exam: Present: alert, oriented X3, CN II-XII intact Psychiatric exam: Present: normal affect, normal mood Skin exam: Present: warm, dry, intact, normal color. Absent: rash Course Vital Signs 01/07/25 18:31 Temperature 97.2 F L Pulse Rate 64 Respiratory 18 Rate Blood Pressure 130/81 O2 Sat by Pulse 97 Oximetry - Reevaluation(s) Reevaluation #1: 01/07/25 20:16 Is reviewed Reevaluation #2: 01/07/25 20:16 Severely intoxicated Disposition Clinical Impression: Alcohol abuse, Acute alcohol intoxication Disposition: HOME SELF-CARE Condition: Fair Instructions (If sedation given, give patient instructions): Alcohol Intoxication (ED) Is patient prescribed a controlled substance at d/c from ED?: No Referrals: None,Stated [Primary Care Provider] - 1-2 days Time of Disposition: 20:17
[2025-01-07 18:52] VITALS: RESP 18
[2025-01-08 05:16] VITALS: BP 127/84; PULSE 80; TEMP 97.7
== END 2025-01-08 05:17 | disposition home or self-care (01) ==
LOC: EC 18:30
DX: F10.129 Alcohol abuse with intoxication, unspecified (principal)
CPT/HCPCS: 99284

== ENCOUNTER 2025-02-23 18:14 | Emergency (ER) | payer OTHER ==
--- NOTE | 2025-02-23 18:16 | ED ---
Alcohol HPI - General Stated Complaint: ETOH Time Seen by Provider: 02/23/25 18:16 Source: RN notes reviewed, old records reviewed Mode of arrival: EMS Limitations: altered mental status - History of Present Illness Initial Comments: This is a 39-year-old male to the ER for evaluation patient was found outside suspected public intoxication, patient does admit to being homeless and acutely intoxicated. Patient is not depressed not suicidal and does not want his family called. MD Complaint: alcohol intoxication Last Drink: just MANUAL QA TESTER -: minute(s) Previous Visits for Alcohol Intoxication?: Yes Recent Trauma: Yes Associated Symptoms: denies other symptoms Treatments Prior to Arrival: none Chronic Alcohol Use: Yes - Related Data Home Medications Medication Instructions Recorded Confirmed Multivitamins, Thera [Multivitamin 1 tab PO DIRECTED 01/07/25 01/07/25 (formulary)] Sertraline [Zoloft] 100 mg PO DIRECTED 01/07/25 01/07/25 Thiamine [Vitamin B-1] 100 mg PO DIRECTED 01/07/25 01/07/25 Allergies Allergy/AdvReac Type Severity Reaction Status Date / Time No Known Allergies Allergy Verified 02/23/25 18:36 Review of Systems ROS Statement: Those systems with pertinent positive or pertinent negative responses have been documented in the HPI. ROS Other: All systems not noted in ROS Statement are negative. Past Medical History Past Medical History: No Reported History Additional Past Medical History / Comment(s): ETOH History of Any Multi-Drug Resistant Organisms: None Reported Additional Past Surgical History / Comment(s): plastic surgery on left lip Past Anesthesia/Blood Transfusion Reactions: No Reported Reaction Past Psychological History: ADD/ADHD General Exam General appearance: alert, in no apparent distress Head exam: Present: atraumatic, normocephalic, normal inspection Eye exam: Present: normal appearance, PERRL, EOMI. Absent: scleral icterus, conjunctival injection, periorbital swelling ENT exam: Present: normal exam, mucous membranes moist Neck exam: Present: normal inspection. Absent: tenderness, meningismus, lymphadenopathy Respiratory exam: Present: normal lung sounds bilaterally. Absent: respiratory distress, wheezes, rales, rhonchi, stridor Cardiovascular Exam: Present: regular rate, normal rhythm, normal heart sounds. Absent: systolic murmur, diastolic murmur, rubs, gallop, clicks GI/Abdominal exam: Present: soft, normal bowel sounds. Absent: distended, tenderness, guarding, rebound, rigid Extremities exam: Present: normal inspection, full ROM, normal capillary refill. Absent: tenderness, pedal edema, joint swelling, calf tenderness Back exam: Present: normal inspection Neurological exam: Present: alert, oriented X3, CN II-XII intact Psychiatric exam: Present: normal affect, normal mood Skin exam: Present: warm, dry, intact, normal color. Absent: rash Course Vital Signs 02/23/25 18:30 Temperature 97.8 F Pulse Rate 78 Respiratory 17 Rate Blood Pressure 143/109 O2 Sat by Pulse 97 Oximetry - Reevaluation(s) Reevaluation #1: 02/23/25 18:54 Medical records reviewed Reevaluation #4: Was pt. sent in by a medical professional or institution (ZOLTAN Barrientos, [employer], urgent care, hospital, or longterm...) When possible be specific @ -no Did you speak to anyone other than the patient for history (EMS, parent, family, police, friend...)? What history was obtained from this source @ -no Did you review nursing and triage notes (agree or disagree)? Why? @ -agree Are old charts reviewed (outside hosp., previous admission, EMS record, old EKG, old radiological studies, urgent care reports/EKG's, longterm records)? Report findings @ -yes Differential Diagnosis (chest pain, altered mental status, abdominal pain women, abdominal pain men, vaginal bleeding, weakness, fever, dyspnea, syncope, headache, dizziness, GI bleed, back pain, seizure, CVA, palpatations, mental health, musculoskeletal)? @ -prior EKG interpreted by me (3pts min.). @ -yes X-rays interpreted by me (1pt min.). @ -yes negative for acute disease CT interpreted by me (1pt min.). @ -no U/S interpreted by me (1pt. min.). @ -no What testing was considered but not performed or refused? (CT, X-rays, U/S, labs)? Why? @ -none What meds were considered but not given or refused? Why? @ -none Did you discuss the management of the patient with other professionals (professionals i.e. ZOLTAN Barrientos, [employer], lab, RT, psych nurse, social and human services assistant, lawyers, teacher, protective services officer, senior case manager)? Give summary @ -no Was smoking cessation discussed for >3mins.? @ -no Was critical care preformed (if so, how long)? @ -no Were there social determinants of health that impacted care today? How? (Homelessness, low income, unemployed, alcoholism, drug addiction, transportation, low edu. Level, literacy, decrease access to med. care, fpc, rehab)? @ -none Was there de-escalation of care discussed even if they declined (Discuss DNR or withdrawal of care, Hospice)? DNR status @ -no What co-morbidities impacted this encounter? (DM, HTN, Smoking, COPD, CAD, C ancer, CVA, ARF, Chemo, Hep., AIDS, mental health diagnosis, sleep apnea, morbid obesity)? @ -none Was patient admitted / discharged? Hospital course, mention meds given and route, prescriptions, significant lab abnormalities, going to OR and other pertinent info. @ - Undiagnosed new problem with uncertain prognosis? @ -no Drug Therapy requiring intensive monitoring for toxicity (Heparin, Nitro, Insulin, Cardizem)? @ -no Were any procedures done? @ -no Diagnosis/symptom? @ - Acute, or Chronic, or Acute on Chronic? @ -Acute Uncomplicated (without systemic symptoms) or Complicated (systemic symptoms)? @ -Complicated Side effects of treatment? @ -no Exacerbation, Progression, or Severe Exacerbation? @ -exacerbation Poses a threat to life or bodily function? How? (Chest pain, [place], [place], pneumonia, PE, COPD, DKA, ARF, appy, cholecystitis, CVA, Diverticulitis, Homicidal, Suicidal, threat to staff... and all critical care pts) @ -yes Disposition Clinical Impression: Alcohol abuse, Homelessness, Alcohol use disorder, severe, dependence Disposition: HOME SELF-CARE Condition: Fair Instructions (If sedation given, give patient instructions): Alcohol Intoxication (ED) Is patient prescribed a controlled substance at d/c from ED?: No Referrals: None,Stated [Primary Care Provider] - 1-2 days
[2025-02-24 01:47] VITALS: BP 141/111; PULSE 107; RESP 20; TEMP 98.1
== END 2025-02-24 01:47 | disposition home or self-care (01) ==
LOC: EC 18:14
DX: F10.229 Alcohol dependence with intoxication, unspecified (principal); Z59.00 Homelessness unspecified; Y90.9 Presence of alcohol in blood, level not specified
CPT/HCPCS: 99284

== ENCOUNTER 2025-03-20 22:50 | Emergency (ER) | payer OTHER ==
--- NOTE | 2025-03-20 23:18 | ED ---
General Adult HPI - General Chief complaint: Alcohol Stated complaint: Mental Health Time Seen by Provider: 03/20/25 22:56 Source: patient, EMS, RN notes reviewed, old records reviewed Mode of arrival: EMS Limitations: no limitations - History of Present Illness Initial comments: 39-year-old male presenting with alcohol intoxication. Patient states he is homeless and admits to drinking heavily today. He denies suicidal or homicidal ideation. Patient does state that he is hungry. Patient reports a cut to the bottom of his right foot. - Related Data Home Medications Medication Instructions Recorded Confirmed Sertraline [Zoloft] 100 mg PO DAILY 01/07/25 02/25/25 traZODone HCL 150 mg PO HS 02/25/25 02/25/25 Previous Rx's Medication Instructions Recorded Folic Acid 1 mg PO DAILY #30 tab 02/28/25 Thiamine [Vitamin B-1] 100 mg PO DAILY #30 tab 02/28/25 Allergies Allergy/AdvReac Type Severity Reaction Status Date / Time No Known Allergies Allergy Verified 03/20/25 23:00 Review of Systems ROS Statement: Those systems with pertinent positive or pertinent negative responses have been documented in the HPI. ROS Other: All systems not noted in ROS Statement are negative. Past Medical History Past Medical History: No Reported History Additional Past Medical History / Comment(s): ETOH History of Any Multi-Drug Resistant Organisms: None Reported Past Surgical History: Orthopedic Surgery Additional Past Surgical History / Comment(s): plastic surgery on left lip Past Anesthesia/Blood Transfusion Reactions: No Reported Reaction Past Psychological History: ADD/ADHD Smoking Status: Current every day smoker Past Alcohol Use History: Abuse, Daily, Heavy Past Drug Use History: None Reported - Past Family History Mother Family Medical History: Diabetes Mellitus Father History Unknown: Yes General Exam General appearance: alert, in no apparent distress, appears intoxicated Head exam: Present: atraumatic, normocephalic Eye exam: Present: normal appearance, PERRL Neck exam: Present: normal inspection. Absent: tenderness, meningismus Respiratory exam: Present: normal lung sounds bilaterally. Absent: respiratory distress, wheezes Cardiovascular Exam: Present: regular rate, normal rhythm GI/Abdominal exam: Present: soft. Absent: distended, tenderness Extremities exam: Present: other (Superficial laceration to the bottom of the right foot) Neurological exam: Present: alert, oriented X3 Psychiatric exam: Present: normal affect, normal mood Skin exam: Present: warm, dry Course Vital Signs 03/20/25 22:56 Temperature 97.8 F Pulse Rate 101 H Respiratory 20 Rate Blood Pressure 155/91 O2 Sat by Pulse 97 Oximetry Medical Decision Making - Medical Decision Making Was pt. sent in by a medical professional or institution (ZOLTAN Barrientos, [employer], urgent care, hospital, or long term...) When possible be specific @ -No Did you speak to anyone other than the patient for history (EMS, parent, family, police, friend...)? What history was obtained from this source @ -No Did you review nursing and triage notes (agree or disagree)? Why? @ -I reviewed and agree with nursing and triage notes Were old charts reviewed (outside hosp., previous admission, EMS record, old EKG, old radiological studies, urgent care reports/EKG's, long term records)? Report findings @ -No old charts were reviewed Differential Mental Health Depression, anxiety, bipolar, psychosis, schizophrenia, borderline personality, situational depression, adjustment disorder, behavioral disorder, brain tumor, malingering, substance abuse, encephalopathy, medication reaction, dementia, hypothyroidism, degenerative neurologic disorder, lupus.... This is not meant to be all-inclusive list EKG interpreted by me (3pts min.). @ -As above X-rays interpreted by me (1pt min.). @ -None done CT interpreted by me (1pt min.). @ -None done U/S interpreted by me (1pt. min.). @ -None done What testing was considered but not performed or refused? (CT, X-rays, U/S, labs)? Why? @ -None What meds were considered but not given or refused? Why? @ -None Did you discuss the management of the patient with other professionals (professionals i.e. ZOLTAN Barrientos, [employer], lab, RT, psych nurse, psych social worker, statement request clerk, teacher, disability hearing officer, mental health case manager)? Give summary @ -No Was smoking cessation discussed for >3mins.? @ -No Was critical care preformed (if so, how long)? @ -No Were there social determinants of health that impacted care today? How? (Homelessness, low income, unemployed, alcoholism, drug addiction, transportation, low edu. Level, literacy, decrease access to med. care, care home, rehab)? @ -No Was there de-escalation of care discussed even if they declined (Discuss DNR or withdrawal of care, Hospice)? DNR status @ -No What co-morbidities impacted this encounter? (DM, HTN, Smoking, COPD, CAD, Cancer, CVA, ARF, Chemo, Hep., AIDS, mental health diagnosis, sleep apnea, morbid obesity)? @ -[Alcohol abuse Was patient admitted / discharged? Hospital course, mention meds given and route, prescriptions, significant lab abnormalities, going to OR and other pertinent info. @ -39-year-old male presenting with acute alcohol intoxication. No physical complaints. Patient is awake and alert, intoxicated. Patient is allowed to sleep in the emergency department as he is currently homeless. He is observed until he is sober and stable for discharge. Undiagnosed new problem with uncertain prognosis? @ -[No Drug Therapy requiring intensive monitoring for toxicity (Heparin, Nitro, Insulin, Cardizem)? @ -No Were any procedures done? @ -No Diagnosis/symptom? @ -Alcohol intoxication Acute, or Chronic, or Acute on Chronic? @ -Acute Uncomplicated (without systemic symptoms) or Complicated (systemic symptoms)? @ -Default Side effects of treatment? @ -No Exacerbation, Progression, or Severe Exacerbation? @ -No Poses a threat to life or bodily function? How? (Chest pain, [place], [place], pneumonia, PE, COPD, DKA, ARF, appy, cholecystitis, CVA, Diverticulitis, Homicidal, Suicidal, threat to staff... and all critical care pts) @ -No Disposition Clinical Impression: Alcoholic intoxication Disposition: HOME SELF-CARE Condition: Fair Instructions (If sedation given, give patient instructions): Alcohol Intoxication (ED) Is patient prescribed a controlled substance at d/c from ED?: No Referrals: None,Stated [Primary Care Provider] - 1-2 days Time of Disposition: 06:30
[2025-03-21] MEDS: BACITRACIN OINT 1 EACH PACKET TOPICAL ONE (02:37)
[2025-03-21 05:55] VITALS: RESP 18
[2025-03-21 07:05] VITALS: BP 124/86; PULSE 85; TEMP 98.1
[2025-03-21] MEDS: ACETAMINOPHEN TAB 500 MG TAB PO STA (07:11)
== END 2025-03-21 07:14 | disposition home or self-care (01) ==
LOC: EC 22:50
DX: F10.129 Alcohol abuse with intoxication, unspecified (principal); F17.200 Nicotine dependence, unspecified, uncomplicated; Y90.9 Presence of alcohol in blood, level not specified
CPT/HCPCS: 99284

== ENCOUNTER 2025-03-29 03:03 | Emergency (ER) | payer OTHER ==
[2025-03-29 03:08] VITALS: BP 124/88; PULSE 87; RESP 18; TEMP 97.5
--- NOTE | 2025-03-29 05:38 | ED ---
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) Previous Visits for Alcohol Intoxication?: Yes Recent Trauma: Yes Associated Symptoms: denies other symptoms Treatments Prior to Arrival: none Chronic Alcohol Use: Yes - Related Data Home Medications Medication Instructions Recorded Confirmed Sertraline [Zoloft] 100 mg PO DAILY 01/07/25 02/25/25 traZODone HCL 150 mg PO HS 02/25/25 02/25/25 Previous Rx's Medication Instructions Recorded Folic Acid 1 mg PO DAILY #30 tab 02/28/25 Thiamine [Vitamin B-1] 100 mg PO DAILY #30 tab 02/28/25 Allergies Allergy/AdvReac Type Severity Reaction Status Date / Time No Known Allergies Allergy Verified 03/29/25 03:05 Review of Systems ROS Statement: Those systems with pertinent positive or pertinent negative responses have been documented in the HPI. ROS Other: All systems not noted in ROS Statement are negative. Past Medical History Past Medical History: No Reported History Additional Past Medical History / Comment(s): ETOH History of Any Multi-Drug Resistant Organisms: None Reported Past Surgical History: Orthopedic Surgery Additional Past Surgical History / Comment(s): plastic surgery on left lip Past Anesthesia/Blood Transfusion Reactions: No Reported Reaction Past Psychological History: ADD/ADHD Smoking Status: Current every day smoker Past Alcohol Use History: Abuse, Daily, Heavy Past Drug Use History: None Reported - Past Family History Mother Family Medical History: Diabetes Mellitus Father History Unknown: Yes General Exam Limitations: no limitations General appearance: appears intoxicated Head exam: Present: atraumatic, normocephalic, normal inspection Eye exam: Present: normal appearance, PERRL, EOMI. Absent: scleral icterus, conjunctival injection, periorbital swelling ENT exam: Present: normal exam, mucous membranes moist Neck exam: Present: normal inspection. Absent: tenderness, meningismus, lymphadenopathy Respiratory exam: Present: normal lung sounds bilaterally. Absent: respiratory distress, wheezes, rales, rhonchi, stridor Cardiovascular Exam: Present: regular rate, normal rhythm, normal heart sounds. Absent: systolic murmur, diastolic murmur, rubs, gallop, clicks GI/Abdominal exam: Present: soft, normal bowel sounds. Absent: distended, tenderness, guarding, rebound, rigid Extremities exam: Present: normal inspection, full ROM, normal capillary refill. Absent: tenderness, pedal edema, joint swelling, calf tenderness Back exam: Present: normal inspection Neurological exam: Present: alert, oriented X3, CN II-XII intact Psychiatric exam: Present: normal affect, normal mood Skin exam: Present: warm, dry, intact, normal color. Absent: rash Course Vital Signs 03/29/25 03:05 Temperature 97.5 F L Pulse Rate 87 Respiratory 18 Rate Blood Pressure 124/88 O2 Sat by Pulse 99 Oximetry - Reevaluation(s) Reevaluation #1: 03/29/25 05:37 Medical records reviewed Reevaluation #2: 03/29/25 05:37 Patient symptoms continue to gradually improve here in the ER Reevaluation #3: 03/29/25 05:37 Patient informed of results questions answered Reevaluation #4: Was pt. sent in by a medical professional or institution (, PA, NURSING CLERK, urgent care, hospital, or senior living...) When possible be specific @ -no Did you speak to anyone other than the patient for history (EMS, parent, family, police, friend...)? What history was obtained from this source @ -no Did you review nursing and triage notes (agree or disagree)? Why? @ -agree Are old charts reviewed (outside hosp., previous admission, EMS record, old EKG, old radiological studies, urgent care reports/EKG's, senior living records)? Report findings @ -yes Differential Diagnosis (chest pain, altered mental status, abdominal pain women, abdominal pain men, vaginal bleeding, weakness, fever, dyspnea, syncope, headache, dizziness, GI bleed, back pain, seizure, CVA, palpatations, mental health, musculoskeletal)? @ -prior EKG interpreted by me (3pts min.). @ -yes X-rays interpreted by me (1pt min.). @ -yes negative for acute disease CT interpreted by me (1pt min.). @ -no U/S interpreted by me (1pt. min.). @ -no What testing was considered but not performed or refused? (CT, X-rays, U/S, labs)? Why? @ -none What meds were considered but not given or refused? Why? @ -none Did you discuss the management of the patient with other professionals (professionals i.e. , PA, NURSING CLERK, lab, RT, psych nurse, social media analyst, stitchdown toe former, teacher, bank operations officer, onsite case manager)? Give summary @ -no Was smoking cessation discussed for >3mins.? @ -no Was critical care preformed (if so, how long)? @ -no Were there social determinants of health that impacted care today? How? (Homelessness, low income, unemployed, alcoholism, drug addiction, transportation, low edu. Level, literacy, decrease access to med. care, group home, rehab)? @ -none Was there de-escalation of care discussed even if they declined (Discuss DNR or withdrawal of care, Hospice)? DNR status @ -no What co-morbidities impacted this encounter? (DM, HTN, Smoking, COPD, CAD, Cancer, CVA, ARF, Chemo, Hep., AIDS, mental health diagnosis, sleep apnea, morbid obesity)? @ -none Was patient admitted / discharged? Hospital course, mention meds given and route, prescriptions, significant lab abnormalities, going to OR and other pertinent info. @ - Undiagnosed new problem with uncertain prognosis? @ -no Drug Therapy requiring intensive monitoring for toxicity (Heparin, Nitro, Insulin, Cardizem)? @ -no Were any procedures done? @ -no Diagnosis/symptom? @ - Acute, or Chronic, or Acute on Chronic? @ -Acute Uncomplicated (without systemic symptoms) or Complicated (systemic symptoms)? @ -Complicated Side effects of treatment? @ -no Exacerbation, Progression, or Severe Exacerbation? @ -exacerbation Poses a threat to life or bodily function? How? (Chest pain, [place], [place], pneumonia, PE, COPD, DKA, ARF, appy, cholecystitis, CVA, Diverticulitis, Homicidal, Suicidal, threat to staff... and all critical care pts) @ -yes Reevaluation #5: Differential Altered Mental Status: Hypoglycemia, DKA, hypercapnia, ETOH, overdose, CO poisoning, trauma, myxedema coma, HTN encephalopathy, infection, encephalitis, psychosis, intercranial hemorrhage, hepatic encephalopathy, meningitis, CVA, this is not meant to be an all-inclusive list Medical Decision Making - Medical Decision Making 39 male to the ER for evaluation under severe alcohol intoxication with symptoms continue to improve throughout ER stay Disposition Clinical Impression: Alcohol use disorder, severe, dependence, Alcohol abuse Disposition: HOME SELF-CARE Condition: Fair Instructions (If sedation given, give patient instructions): Alcohol Intoxication (ED) Is patient prescribed a controlled substance at d/c from ED?: No Referrals: None,Stated [Primary Care Provider] - 1-2 days Time of Disposition: 07:00
== END 2025-03-29 07:00 | disposition left against medical advice (07) ==
LOC: EC 03:03
DX: F10.20 Alcohol dependence, uncomplicated (principal); F17.200 Nicotine dependence, unspecified, uncomplicated; Z53.29 Procedure and treatment not carried out because of patient's decision for other reasons
CPT/HCPCS: 99284

== ENCOUNTER 2025-03-29 14:12 | Inpatient (IN) | payer OTHER ==
--- NOTE | 2025-03-29 15:11 | ED ---
General Adult HPI - General Chief complaint: Alcohol Stated complaint: ETOH Time Seen by Provider: 03/29/25 14:15 Source: patient, EMS, RN notes reviewed, old records reviewed Mode of arrival: EMS Limitations: altered mental status - History of Present Illness Initial comments: 39-year-old male presenting for evaluation of acute alcohol intoxication. P atient well-known to this emergency department. Patient was found at [place] bus stop significantly intoxicated admitting to drinking large volume of vodka. Patient is intoxicated but able to answer simple questions. No pain complaints. No injuries reported. - Related Data Home Medications Medication Instructions Recorded Confirmed Sertraline [Zoloft] 100 mg PO DAILY 01/07/25 02/25/25 traZODone HCL 150 mg PO HS 02/25/25 02/25/25 Previous Rx's Medication Instructions Recorded Folic Acid 1 mg PO DAILY #30 tab 02/28/25 Thiamine [Vitamin B-1] 100 mg PO DAILY #30 tab 02/28/25 Allergies Allergy/AdvReac Type Severity Reaction Status Date / Time No Known Allergies Allergy Verified 03/29/25 14:18 Review of Systems ROS Statement: Those systems with pertinent positive or pertinent negative responses have been documented in the HPI. ROS Other: All systems not noted in ROS Statement are negative. Past Medical History Past Medical History: No Reported History Additional Past Medical History / Comment(s): ETOH History of Any Multi-Drug Resistant Organisms: None Reported Past Surgical History: Orthopedic Surgery Additional Past Surgical History / Comment(s): plastic surgery on left lip Past Anesthesia/Blood Transfusion Reactions: No Reported Reaction Past Psychological History: ADD/ADHD Smoking Status: Current every day smoker Past Alcohol Use History: Abuse, Daily, Heavy Past Drug Use History: None Reported - Past Family History Mother Family Medical History: Diabetes Mellitus Father History Unknown: Yes General Exam General appearance: alert, appears intoxicated Head exam: Present: atraumatic, normocephalic Eye exam: Present: normal appearance, PERRL ENT exam: Present: normal exam Neck exam: Present: normal inspection. Absent: tenderness, meningismus Respiratory exam: Present: normal lung sounds bilaterally. Absent: respiratory distress, wheezes Cardiovascular Exam: Present: normal rhythm, tachycardia GI/Abdominal exam: Present: soft. Absent: distended, tenderness, guarding Neurological exam: Present: alert, CN II-XII intact. Absent: motor sensory deficit Skin exam: Present: warm, dry, intact Course Vital Signs 03/29/25 03/29/25 14:14 15:57 Temperature 98.2 F Pulse Rate 129 H 111 H Respiratory 18 18 Rate Blood Pressure 134/85 116/73 O2 Sat by Pulse 95 99 Oximetry Medical Decision Making - Medical Decision Making Was pt. sent in by a medical professional or institution (, ZOLTAN, BIOMASS POWER PLANT SUPERINTENDENT, urgent care, hospital, or snf...) When possible be specific @ -No Did you speak to anyone other than the patient for history (EMS, parent, family, police, friend...)? What history was obtained from this source @ -No Did you review nursing and triage notes (agree or disagree)? Why? @ -I reviewed and agree with nursing and triage notes Were old charts reviewed (outside hosp., previous admission, EMS record, old EKG, old radiological studies, urgent care reports/EKG's, snf records)? Report findings @ -No old charts were reviewed Differential Diagnosis alcohol intoxication, alcohol withdrawal, delirium tremens EKG interpreted by me (3pts min.). @ -As above X-rays interpreted by me (1pt min.). @ -None done CT interpreted by me (1pt min.). @ -None done U/S interpreted by me (1pt. min.). @ -None done What testing was considered but not performed or refused? (CT, X-rays, U/S, labs)? Why? @ -None What meds were considered but not given or refused? Why? @ -None Did you discuss the management of the patient with other professionals (professionals i.e. , ZOLTAN, BIOMASS POWER PLANT SUPERINTENDENT, lab, RT, psych nurse, addiction social worker, digital content coordinator, teacher, correctional officer chief, correctional case manager)? Give summary @ -[facility] Was smoking cessation discussed for >3mins.? @ -No Was critical care preformed (if so, how long)? @ -No Were there social determinants of health that impacted care today? How? (Homelessness, low income, unemployed, alcoholism, drug addiction, transportation, low edu. Level, literacy, decrease access to med. care, [facility], rehab)? @ -No Was there de-escalation of care discussed even if they declined (Discuss DNR or withdrawal of care, Hospice)? DNR status @ -No What co-morbidities impacted this encounter? (DM, HTN, Smoking, COPD, CAD, Cancer, CVA, ARF, Chemo, Hep., AIDS, mental health diagnosis, sleep apnea, morbid obesity)? @ -Alcohol abuse Was patient admitted / discharged? Hospital course, mention meds given and route, prescriptions, significant lab abnormalities, going to OR and other pertinent info. @ -39-year-old male with alcohol intoxication, serum alcohol is 500. Patient will require observation and will be admitted to [facility]. Undiagnosed new problem with uncertain prognosis? @ -No Drug Therapy requiring intensive monitoring for toxicity (Heparin, Nitro, Insulin, Cardizem)? @ -No Were any procedures done? @ -No Diagnosis/symptom? @Poisoning by alcohol, severe alcohol intoxication Acute, or Chronic, or Acute on Chronic? @Acute on chronic Uncomplicated (without systemic symptoms) or Complicated (systemic symptoms)? @ -Default Side effects of treatment? @ -No Exacerbation, Progression, or Severe Exacerbation? @ -No Poses a threat to life or bodily function? How? (Chest pain, [place], [place], pneumonia, PE, COPD, DKA, ARF, appy, cholecystitis, CVA, Diverticulitis, Homicidal, Suicidal, threat to staff... and all critical care pts) @Yes, alcohol withdrawal, delirium tremens - Lab Data Result diagrams: 03/29/25 15:53 03/29/25 15:53 Lab Results 03/29/25 03/29/25 03/29/25 Range/Units 15:53 15:53 16:35 WBC 6.44 (4.50-10.00) 10*3/uL RBC 4.48 (4.40-5.60) 10*6/uL Hgb 15.3 (13.0-17.0) g/dL Hct 42.7 (39.6-50.0) % MCV 95.3 (80.0-97.0) fL MCH 34.2 H (27.0-32.0) pg MCHC 35.8 (32.0-37.0) g/dL Plt Count 284 (140-440) 10*3/uL MPV 9.5 (9.5-12.2) fL Immature Gran % (Auto) 0.3 % Neutrophils % 60.5 % Lymphocytes % 28.7 % Monocytes % 6.8 % Eosinophils % 3.1 % Basophils % 0.6 % Immature Gran # 0.02 (0.00-0.04) 10*3/uL Neutrophils # 3.89 (1.80-7.70) 10*3/uL Lymphocytes # 1.85 (0.90-5.00) 10*3/uL Monocytes # 0.44 (0.20-1.00) 10*3/uL Eosinophils # 0.20 (0.04-0.35) 10*3/uL Basophils # 0.04 (0.00-0.10) 10*3/uL Sodium 145 (137-145) mmol/L Potassium 3.7 (3.5-5.1) mmol/L Chloride 103 (98-107) mmol/L Carbon Dioxide 25 (22-30) mmol/L Anion Gap 17 mmol/L BUN 9 (9-20) mg/dL Creatinine 0.68 (0.66-1.25) mg/dL Est GFR (CKD-EPI)AfAm >90 (>60 ml/min/1.73 sqM) Est GFR (CKD-EPI)NonAf >90 (>60 ml/min/1.73 sqM) Glucose 104 H (74-99) mg/dL Calcium 8.7 (8.4-10.2) mg/dL Magnesium 1.8 (1.6-2.3) mg/dL Total Bilirubin 1.2 (0.2-1.3) mg/dL AST 117 H (17-59) U/L ALT 94 H (4-49) U/L Alkaline Phosphatase 74 (38-126) U/L Total Protein 6.7 (6.3-8.2) g/dL Albumin 4.5 (3.5-5.0) g/dL Serum Alcohol 498 H* mg/dL Disposition Clinical Impression: Alcoholic intoxication Disposition: ADMITTED IP TO THIS HOSP Condition: Serious Is patient prescribed a controlled substance at d/c from ED?: No Referrals: None,Stated [Primary Care Provider] - 1-2 days Time of Disposition: 17:43
[2025-03-29 16:08] LABS: Basophils # (A) 0.04 10*3/uL (0.00-0.10); Basophils % (A) 0.6 %; Eosinophils % (A) 3.1 %; HCT 42.7 % (39.6-50.0); HGB 15.3 g/dL (13.0-17.0); Lymphocytes # (A) 1.85 10*3/uL (0.90-5.00); Lymphocytes % (A) 28.7 %; MCH 34.2 pg (27.0-32.0); MCHC 35.8 g/dL (32.0-37.0); MCV 95.3 fL (80.0-97.0); Mean Platelet Volume 9.5 fL (9.5-12.2); Monocytes # (A) 0.44 10*3/uL (0.20-1.00); Monocytes % (A) 6.8 %; Neutrophils # (A) 3.89 10*3/uL (1.80-7.70); Neutrophils % (A) 60.5 %; Platelet Count 284 10*3/uL (140-440); RBC 4.48 10*6/uL (4.40-5.60); RDW 11.9 % (11.5-14.5); WBC 6.44 10*3/uL (4.50-10.00)
[2025-03-29 16:19] LABS: ALT 94 U/L (4-49); AST 117 U/L (17-59); African American GFR (CKD) >90 (>60 ml/min/1.73 sqM); Albumin 4.5 g/dL (3.5-5.0); Alkaline Phosphatase 74 U/L (38-126); Anion Gap 17 mmol/L; Blood Urea Nitrogen 9 mg/dL (9-20); Calcium 8.7 mg/dL (8.4-10.2); Carbon Dioxide 25 mmol/L (22-30); Chloride 103 mmol/L (98-107); Glucose 104 mg/dL (74-99); Magnesium 1.8 mg/dL (1.6-2.3); Non-African American GFR(CKD) >90 (>60 ml/min/1.73 sqM); Potassium 3.7 mmol/L (3.5-5.1); Sodium 145 mmol/L (137-145); Total Bilirubin 1.2 mg/dL (0.2-1.3); Total Protein 6.7 g/dL (6.3-8.2)
[2025-03-29] MEDS: SODIUM CHLORIDE 0.9% 1,000 ML IV ONE (17:01)
[2025-03-29] MEDS ORDERED: NALOXONE 0.4 MG/ML 1 ML VIAL IV PRN (17:40)
[2025-03-29] MEDS ORDERED: LORazepam 1 MG/0.5 ML VIAL IV PRN ×3 (20:25→23:58)
[2025-03-29] MEDS ORDERED: LORazepam 1 MG TAB PO PRN ×2 (20:25)
[2025-03-29] MEDS: SODIUM CHLORIDE 0.9% 1,000 ML IV SCH (20:33)
[2025-03-29] MEDS: MULTIVITAMINS, THERA 1 EACH TAB PO SCH (22:02)
[2025-03-29] MEDS: THIAMINE 100 MG TAB PO SCH (22:02)
[2025-03-29] MEDS: FOLIC ACID 1 MG TAB PO SCH (22:24)
[2025-03-29] MEDS: SERTRALINE 100 MG TAB PO SCH (22:24)
--- NOTE | 2025-03-29 22:35 | P.HPIM ---
History of Present Illness H&P Date: 03/29/25 Chief Complaint: Acute alcohol intoxication Patient is a 39 year old male presented to the ED after he was found at a bus stop significantly intoxicated. Patient admits to drinking large volume of vodka. He drinks a [id number]/ day of vodka. He is also a current every day s moker as well as admits to using cannabinoids, benzodiazepines. He reports having withdrawal seizures in the past. Currently he reports tremors, abdominal pain as well as chills. His last drink was last night. He mentions being homeless. Denies fever, chills, shortness of breath, cough, chest pain, palpitations, nausea, vomiting, hematuria, dysuria, hematochezia, melena, headache, slurred speech, numbness, tingling, dizziness, lightheadedness, blurred vision, double vision. ED documentation reviewed. In the ED patient was treated with 0.9 Normal Saline. Vitals on admission T 98.2 F, [place] 129 bpm, RR 18, BP 134/85, SpO2 95% on room air Most recent vital [place] 74 bpm, RR 18, BP 116/73, SpO2 97% on room air Labs on admission show WBC 6.44, hemoglobin 15.3, platelet 284, sodium 145, potassium 3.7, creatinine 0.68, glucose 104, AST 117, ALT 94, magnesium 1.8 Serum alcohol 498 Review of systems: Pertinent positives and negatives as discussed in HPI, a complete review of systems was performed and all other systems are negative. Physical examination: Vital signs reviewed General: nontoxic, no distress, appears at stated age Derm: warm, dry, intact Head: atraumatic, normocephalic, symmetric Eyes: EOMI, anicteric sclera Mouth: no lip lesion, mucus membranes moist Cardiovascular: S1 S2 reg, no murmur Lungs: CTA bilateral, no rhonchi, no rales, no accessory muscle use Abdominal: soft, non-tender to palpation Extremities: No cyanosis, clubbing, or pedal edema. Neuro: Alert, Oriented, Gross neurological examination did not reveal any focal deficits. Psych: well appearing, appropriate affect Assessment/Plan: Patient is a 39 year old male presented to the ED after he was found at a bus stop significantly intoxicated. Patient admits to drinking large volume of vodka. Patient admitted to internal medicine service. Active: #. Alcohol intoxication #. Alcohol withdrawal #. Transaminitis Serum alcohol 498 Assess CIWA scale Ativan PRN Thiamine 100 mg PO daily, Folic acid 1 mg PO daily, Multivitamin PO daily Continue 0.9 normal saline at 75 mL/h Obtain Liver ultrasound seizure and fall precautions #. Anxiety/depression Continue sertraline 100 mg p.o. daily F: 0.9 normal saline at 110 mL/h E: Replete as required N: Regular diet A: Ambulatory DVT prophylaxis: Lovenox 40 mg SQ daily gi PPX protonix 40 po daily The patient is admitted with an anticipated more than 2 midnight stay for evaluation of alcohol intoxication CODE STATUS: Full code Discussed with: Patient Anticipated discharge place: Pending clinical course Dictation was produced using [employer] dictation software. please excuse any grammatical, word or spelling errors. Tye Steel MD PGY-1 IM I have seen and evaluated the patient today. I Discussed the case with the resident and agree with the resident's findings I edited the assessment and plan as necessary as documented in the resident's note. Past Medical History Past Medical History: No Reported History Additional Past Medical History / Comment(s): ETOH History of Any Multi-Drug Resistant Organisms: None Reported Past Surgical History: Orthopedic Surgery Additional Past Surgical History / Comment(s): plastic surgery on left lip Past Anesthesia/Blood Transfusion Reactions: No Reported Reaction Past Psychological History: ADD/ADHD Smoking Status: Current every day smoker Past Alcohol Use History: Abuse, Daily, Heavy Past Drug Use History: None Reported - Past Family History Mother Family Medical History: Diabetes Mellitus Father History Unknown: Yes Medications and Allergies Home Medications Medication Instructions Recorded Confirmed Type Sertraline [Zoloft] 100 mg PO DIRECTED 01/07/25 03/29/25 History traZODone HCL 150 mg PO HS 02/25/25 03/29/25 History Folic Acid 1 mg PO DIRECTED 03/29/25 03/29/25 History Thiamine [Vitamin B-1] 100 mg PO DIRECTED 03/29/25 03/29/25 History Allergies Allergy/AdvReac Type Severity Reaction Status Date / Time No Known Allergies Allergy Verified 03/29/25 19:26 Physical Exam Vitals: Vital Signs Temp Pulse Resp BP Pulse Ox 03/29/25 18:00 74 18 97 03/29/25 15:57 111 H 18 116/73 99 03/29/25 14:14 98.2 F 129 H 18 134/85 95 Intake and Output 03/29/25 03/29/25 03/29/25 06:59 14:59 22:59 Other: Weight 68.039 kg Results CBC & Chem 7: 03/29/25 15:53 03/29/25 15:53 Labs: Abnormal Lab Results - Last 24 Hours (Table) 03/29/25 03/29/25 03/29/25 Range/Units 15:53 15:53 16:35 MCH 34.2 H (27.0-32.0) pg Glucose 104 H (74-99) mg/dL AST 117 H (17-59) U/L ALT 94 H (4-49) U/L Serum Alcohol 498 H* mg/dL
[2025-03-29] MEDS ORDERED: LORazepam 0.5 MG TAB PO PRN (23:58)
[2025-03-30] MEDS: PANTOPRAZOLE 40 MG TABLET PO SCH (07:56)
[2025-03-30] MEDS: ENOXAPARIN 40 MG/0.4 ML SYRINGE SQ SCH (07:57)
[2025-03-30] MEDS: LORazepam 1 MG/0.5 ML VIAL IV PRN (07:57)
[2025-03-30 08:43] LABS: HCT 38.4 % (39.6-50.0); HGB 13.5 g/dL (13.0-17.0); MCH 34.1 pg (27.0-32.0); MCHC 35.2 g/dL (32.0-37.0); Mean Platelet Volume 9.2 fL (9.5-12.2); Platelet Count 211 10*3/uL (140-440); RBC 3.96 10*6/uL (4.40-5.60); WBC 4.88 10*3/uL (4.50-10.00)
[2025-03-30 09:00] LABS: ALT 80 U/L (4-49); AST 89 U/L (17-59); African American GFR (CKD) >90 (>60 ml/min/1.73 sqM); Albumin 3.9 g/dL (3.5-5.0); Albumin/Globulin Ratio 1.9; Alkaline Phosphatase 68 U/L (38-126); Anion Gap 12 mmol/L; Blood Urea Nitrogen 9 mg/dL (9-20); Calcium 8.5 mg/dL (8.4-10.2); Carbon Dioxide 24 mmol/L (22-30); Chloride 103 mmol/L (98-107); Globulin 2.1 g/dL; Glucose 89 mg/dL (74-99); Non-African American GFR(CKD) >90 (>60 ml/min/1.73 sqM); Potassium 3.5 mmol/L (3.5-5.1); Sodium 139 mmol/L (137-145); Total Bilirubin 1.5 mg/dL (0.2-1.3)
--- NOTE | 2025-03-30 09:09 | US ---
EXAMINATION TYPE: US liver DATE OF EXAM: 03/30/2025 COMPARISON: NONE CLINICAL INDICATION: Male, 39 years old with history of abdominal pain; TECHNIQUE: Grayscale and color Doppler imaging of the right upper quadrant. FINDINGS: EXAM MEASUREMENTS: Liver Length: 17.1 cm Gallbladder Wall: 0.2 cm CBD: 0.2 cm, color Doppler imaging was utilized to isolate the common bile duct for measurement. Right Kidney: 10.7x6.3x5.8 cm MANAGER OF ADMINISTRATION NOTES: slightly limited exam due to overlying bowel Pancreas: Obscured by bowel gas Liver: Increased attenuation, decreased visualization of vessels suggestive of fatty infiltrate Gallbladder: No stones seen Evidence for sonographic Wolff's sign: No CBD: wnl Right Kidney: No hydronephrosis or masses seen IMPRESSION: 1. Borderline liver size with no focal liver mass 2. Mild increased echotexture with attenuation suggesting mild hepatocellular disease or mild steatos is. 3. Normal gallbladder and biliary tree. 4. Pancreas obscured by bowel gas. [facility], Workstation: MOUNA 03/30/2025 9:07 AM
[2025-03-30] MEDS: ACETAMINOPHEN TAB 325 MG TAB PO PRN (10:08)
[2025-03-30] MEDS: ONDANSETRON 4 MG/2 ML VIAL IVP PRN (10:08)
--- NOTE | 2025-03-30 11:36 | P.PN ---
Subjective Progress Note Date: 03/30/25 Hospital Course: Patient is a 39-year-old male with a past medical history of homelessness, daily alcohol abuse reportedly drinking 1/5 or more of liquor daily, depression, and nicotine dependence. He presented to the ER on 03/29 significantly intoxicated. Labs on admission show WBC 6.44, hemoglobin 15.3, platelet 284, sodium 145, potassium 3.7, creatinine 0.68, glucose 104, AST 117, ALT 94, magnesium 1.8. alcohol 498 Patient is admitted for further management of alcohol intoxication impending withdrawal, this is 10/19 admission since the beginning of the year. Prognosis is very poor 03/30 started feeling withdrawal symptoms with lack of sleep, tremors, he nausea, headache. Denies abdominal pain. Liver enzymes are trending down AST 89 and ALT 80, total bilirubin elevated 1.5. Will repeat in the morning. No leukocytosis, hemoglobin normal and stable. Liver ultrasound ordered by admitting team,, hepatocellular disease or mild steatosis, normal gallbladder. Pertinent positives and negatives as discussed above, a complete review of systems was performed and all other systems are negative. Vitals Signs Reviewed. General: [no distress], [appears at stated age] Derm: [warm], [dry] Head: [atraumatic], [normocephalic], [symmetric] Eyes: [EOMI], [no lid lag], [anicteric sclera] Mouth: [no lip lesion], [mucus membranes moist] Cardiovascular: [S1S2 reg], [no murmur] Lungs: [CTA bilateral], [no rhonchi, no rales] , [no accessory muscle use] Abdominal: [soft], [ nontender to palpation], [no guarding], [no appreciable organomegaly] Ext: [no gross muscle atrophy], [no edema], [no contractures] Neuro: [ CN II-XI grossly intact], [no focal neuro deficits] Psych: [Alert], [oriented], [appropriate affect] Assessment and Plan: Alcohol use disorder Ethanol intoxication, resolved Alcohol withdrawal - Recommend alcohol cessation - Social work consulted - Continue daily thiamine 100 oral, folic acid 1 mg p.o. daily -Continue CIWA with Ativan Elevated liver enzymes Hepatic steatosis Elevated bilirubin - Check CMP in the morning, the above findings likely related to alcohol use disorder Depression, anxiety: Continue trazodone 150 p.o. nightly, Zoloft 100 mg p.o. daily DVT ppx: Lovenox Code status: Full code Anticipated discharge place: [facility] Anticipated discharge time: 24 hours Objective - Vital Signs Vital signs: Vital Signs Temp 97.9 F 03/30/25 08:00 Pulse 65 03/30/25 08:00 Resp 16 03/30/25 08:00 BP 133/77 03/30/25 08:00 Pulse Ox 96 03/30/25 08:00 FiO2 Intake & Output 03/29/25 03/30/25 03/30/25 18:59 06:59 18:59 Weight 68.039 kg 77.111 kg - Labs CBC & Chem 7: 03/30/25 08:23 03/30/25 08:23 Labs: Abnormal Lab Results - Last 24 Hours (Table) 03/29/25 03/29/25 03/29/25 Range/Units 15:53 15:53 16:35 RBC (4.40-5.60) 10*6/uL Hct (39.6-50.0) % MCH 34.2 H (27.0-32.0) pg MPV (9.5-12.2) fL Glucose 104 H (74-99) mg/dL Total Bilirubin (0.2-1.3) mg/dL AST 117 H (17-59) U/L ALT 94 H (4-49) U/L Total Protein (6.3-8.2) g/dL Serum Alcohol 498 H* mg/dL 03/30/25 03/30/25 Range/Units 08:23 08:23 RBC 3.96 L (4.40-5.60) 10*6/uL Hct 38.4 L (39.6-50.0) % MCH 34.1 H (27.0-32.0) pg MPV 9.2 L (9.5-12.2) fL Glucose (74-99) mg/dL Total Bilirubin 1.5 H (0.2-1.3) mg/dL AST 89 H (17-59) U/L ALT 80 H (4-49) U/L Total Protein 6.0 L (6.3-8.2) g/dL Serum Alcohol mg/dL
[2025-03-30] MEDS: traZODone HCL 50 MG TAB PO SCH (20:44)
[2025-03-30] MEDS: LORazepam 1 MG TAB PO PRN (20:44)
[2025-03-31 10:26] LABS: ALT 61 U/L (10-49); AST 46 U/L (14-35); Albumin 3.6 g/dL (3.8-4.9); Albumin/Globulin Ratio 2.25 Ratio (1.60-3.17); Alkaline Phosphatase 67 U/L (41-126); Blood Urea Nitrogen 9.6 mg/dL (9.0-27.0); Calcium 8.6 mg/dL (8.7-10.3); Carbon Dioxide 27.1 mmol/L (21.6-31.8); Chloride 101 mmol/L (96-109); Globulin 1.6 g/dL (1.6-3.3); Glucose 103 mg/dL (70-110); Potassium 3.4 mmol/L (3.5-5.5); Sodium 138 mmol/L (135-145); Total Bilirubin 1.9 mg/dL (0.3-1.2); Total Protein 5.2 g/dL (6.2-8.2)
--- NOTE | 2025-03-31 16:02 | P.PN ---
Subjective Progress Note Date: 03/31/25 Patient was seen and examined. Reports nausea and tremors. CMP significant for K 3.4, Ca 8.6, T. BIli 1.9, AST 46, ALT 61, alb 3.6. General: non toxic, no distress, appears at stated age Derm: warm, dry Head: atraumatic, normocephalic, symmetric Eyes: EOMI, no lid lag, anicteric sclera Mouth: no lip lesion, mucus membranes moist Cardiovascular: S1S2 reg, no murmur Lungs: Decreased BS bilateral, no rhonchi, no rales , no accessory muscle use Ext: no gross muscle atrophy, no edema, no contractures, tremors outstretched hands Neuro: no focal neuro deficits Psych: Alert, oriented, appropriate affect Based on my assessment of this patient, this patient meets a high complexity level of care. Alcohol withdrawal: CIWA protocol with Ativan PRN per protocol. Add Librium 20 mg PO QID. Thiamine 100 mg PO QD. Folic acid 1 mg PO QD. Hyperbiliriumemia with transaminitis: Liver US shows hepatocellular disease likely due to above. HypoK: KCl 20 meq PO x 1. Depression and anxiety: Continue Trazodone 150 mg PO QHS, Zoloft 100 mg PO QD. CODE STATUS: FULL CODE DVT Prophylaxis: Lovenox SQ. GI Prophylaxis: Protonix PO Designated medical POA if patient is not able to make medical decisions for themselves: I have reviewed the following quantitative consultant notes: I have reviewed the results of the following tests: CMP, Liver US I have ordered the following tests: CMP in the AM. I have discussed the care of this patient with the following independent historian: AMADOR. I have independently interpreted the following test below: I have discussed the management of this patient with the following physician: Objective - Vital Signs Vital signs: Vital Signs Temp 98.3 F 03/31/25 14:00 Pulse 68 03/31/25 14:00 Resp 16 03/31/25 14:00 BP 132/82 03/31/25 14:00 Pulse Ox 96 03/31/25 14:00 FiO2 Intake & Output 03/30/25 03/31/25 03/31/25 18:59 06:59 18:59 Intake Total 1080 1080 Output Total 800 Balance 280 1080 Weight 77.111 kg Intake: Oral 1080 1080 Output: Urine 800 Other: Voiding Method Toilet Toilet Toilet # Voids 1 - Labs CBC & Chem 7: 03/30/25 08:23 03/31/25 04:43 Labs: Abnormal Lab Results - Last 24 Hours (Table) 03/31/25 Range/Units 04:43 Potassium 3.4 L (3.5-5.5) mmol/L Calcium 8.6 L (8.7-10.3) mg/dL Total Bilirubin 1.9 H (0.3-1.2) mg/dL AST 46 H (14-35) U/L ALT 61 H (10-49) U/L Total Protein 5.2 L (6.2-8.2) g/dL Albumin 3.6 L (3.8-4.9) g/dL
[2025-03-31] MEDS: POTASSIUM CHLORIDE ER 20 MEQ TAB.ER PO STA (16:18)
[2025-04-01 01:45] VITALS: RESP 18
[2025-04-01 05:55] LABS: ALT 57 U/L (4-49); AST 48 U/L (17-59); African American GFR (CKD) >90 (>60 ml/min/1.73 sqM); Albumin 3.6 g/dL (3.5-5.0); Albumin/Globulin Ratio 1.6; Alkaline Phosphatase 63 U/L (38-126); Anion Gap 5 mmol/L; Blood Urea Nitrogen 4 mg/dL (9-20); Calcium 9.7 mg/dL (8.4-10.2); Carbon Dioxide 29 mmol/L (22-30); Chloride 102 mmol/L (98-107); Globulin 2.2 g/dL; Glucose 94 mg/dL (74-99); Non-African American GFR(CKD) >90 (>60 ml/min/1.73 sqM); Potassium 3.6 mmol/L (3.5-5.1); Sodium 136 mmol/L (137-145); Total Bilirubin 1.1 mg/dL (0.2-1.3); Total Protein 5.8 g/dL (6.3-8.2)
[2025-04-01 07:48] VITALS: BP 126/80; PULSE 58; TEMP 98.2
[2025-04-01] MEDS: LOPERAMIDE 2 MG CAP PO STA (10:17)
--- NOTE | 2025-04-01 12:11 | P.DS ---
Providers Date of admission: 03/29/25 17:41 Attending physician: Bobby Thapa Primary care physician: Stated None Hospital Course: Discharge Diagnosis: Alcohol withdraw. Patient clinically sober. CIWA score is 2. Patient being discharged at this time as he continues to deny wanting to go to inpatient rehab at this time. Provided with outpatient community resources available to him. Patient strongly encouraged cessation of any and all alcohol use. Alcohol intoxication in active alcoholic upon arrival. Transaminitis, secondary to daily alcohol abuse. Nicotine dependence Hospital Course: Patient is a 39-year-old male with a past medical history of daily alcohol abuse reportedly drinking 1/5 or more of liquor daily and nicotine dependence. .Patient states he is homeless and has been drinking at least 1/5 of alcohol daily. He presented to our facility on 03/29/2025 via EMS for alcohol intoxication after patient was found passed out by bus stop. Vital signs upon arrival show blood pressure 134/85, heart rate 129, respiratory rate 18, temp 98.2 F, and SpO2 of 95% on room air. Labs were completed and reviewed. CBC showing elevated MCH of 34.2 otherwise normal findings. BMP normal findings. Blood glucose 104. Calcium 8.7. Magnesium was 1.8. Liver profile showing transaminitis with AST of 117 and ALT of 94. Blood alcohol level was 498. Patient was admitted under services for alcohol intoxication pending withdrawal. Patient received IV fluid hydration and symptom triggered management with benzodiazepines for alcohol withdrawal. He had further elevation of bilirubin up to 1.9 and a liver ultrasound was completed revealing mild hepatocellular steatosis with normal gallbladder and biliary tree. Patient has only required 1 mg of Ativan over the past 24 hours. He reports he does not want to go back to rehab. Patient clinically sober and medically optimized for discharge at this time. Patient strongly encouraged to avoid any and all further alcohol use. Despite not wanting to go back to inpatient drug and alcohol rehabilitation facility patient was provided with list of available facilities as well as outpatient resources including local AA meetings, homeless shelters, outpatient counseling, and personal physician primary care sports medicine.. Physical exam: Vital signs reviewed and stable. General: Nontoxic, no distress and appears stated age. Derm: Skin warm and dry, normal coloration for ethnicity. Head: Atraumatic, normocephalic and symmetric. Eyes: EOM's intact, no lid lag, and anicteric sclera Mouth: no lip lesions, mucus membranes moist Cardiovascular: regular rate and rhythm with normal S1S2, no murmur, positive posterior tibial pulses bilaterally, and cap refill < 2 seconds. Lungs: Respirations even, regular, and unlabored on room air. Lungs CTA bilaterally, no rhonchi, no rales, no wheezing, and no accessory muscle usage. Abdominal: soft, nontender to palpation, no guarding, no appreciable organomegaly Ext: ROM intact. No gross muscle atrophy, no edema, no contractures Neuro: Speech clear, face symmetrical and CN II-XII grossly intact with no noted focal neuro deficits Psych: Alert and oriented to person, place, time, and situation. Appropriate and pleasant affect. A total of 31 minutes of time were spent preparing this complex discharge summary. Pt was discharged on 04/01/2025 at 9:37 AM Patient was seen independently by Nurse Practitioner. This document was prepared using [employer] dictation software. Please allow for errors in cloth piecer while rare they do occur. Trevin Patel NP rendered care for this patient independently, reviewed the findings and plan as documented in the note above. I did not physically speak with or examine the patient on this date. Patient Condition at Discharge: Stable Plan - Discharge Summary Discharge Rx Participant: Yes New Discharge Prescriptions: New Folic Acid 1 mg PO DAILY 30 Days #30 tab Multivitamins, Thera [Multivitamin (formulary)] 1 each PO DAILY 30 Days #30 tab Thiamine [Vitamin B-1] 100 mg PO DAILY 30 Days #30 tab Continue Sertraline [Zoloft] 100 mg PO DAILY traZODone HCL 150 mg PO HS Discharge Medication List Sertraline [Zoloft] 100 mg PO DAILY 01/07/25 [History] traZODone HCL 150 mg PO HS 02/25/25 [History] Folic Acid 1 mg PO DAILY 30 Days #30 tab 04/01/25 [Rx] Multivitamins, Thera [Multivitamin (formulary)] 1 each PO DAILY 30 Days #30 tab 04/01/25 [Rx] Thiamine [Vitamin B-1] 100 mg PO DAILY 30 Days #30 tab 04/01/25 [Rx] Follow up Appointment(s)/Referral(s): [facility] [NON-STAFF] - 1-2 days (Contact a primary care office to become established with a provider. ) None,Stated [Primary Care Provider] - 1-2 days Patient Instructions/Handouts: Thiamine (By mouth), Folic Acid (By mouth), Multivitamins, Adult Formula (By mouth), Abuse of Alcohol (DC), Alcohol Withdr awal (DC) Activity/Diet/Wound Care/Special Instructions: Activity: As tolerated. Diet: Resume regular diet. Special Instructions: Strongly recommend avoiding any and all alcohol use. Recommend reconsideration of inpatient drug and alcohol rehabilitation facility. You have been provided with outpatient resources available to you including local AA meetings, tpatie counseling, local shelters, and inpatient substance abuse facilities if you change your mind. Thank you for allowing us to participate in your care, it was truly a pleasure having you for our patient!!! Discharge/Stand Alone Forms: AA Meetings [facility] Shelters, Outpatient Counseling, In Substance Abuse Facilities, Personal Inspector Publications Discharge Disposition: HOME SELF-CARE
== END 2025-04-01 10:49 | disposition home or self-care (01) | DRG 775 ==
LOC: EC 14:12 → 5NMEDONC 17:41
PROVIDERS: ADMIT Student in an Organized Health Care Education/Training Program; ATTEND Student in an Organized Health Care Education/Training Program
PROC: HZ2ZZZZ Detoxification Services for Substance Abuse Treatment (ICD-10-PCS; principal; 2025-03-29)
DX: F10.231 Alcohol dependence with withdrawal delirium (principal); E87.6 Hypokalemia; R74.01 Elevation of levels of liver transaminase levels; F17.210 Nicotine dependence, cigarettes, uncomplicated; F10.229 Alcohol dependence with intoxication, unspecified; Z71.41 Alcohol abuse counseling and surveillance of alcoholic; Z71.6 Tobacco abuse counseling; F32.A Depression, unspecified; F41.9 Anxiety disorder, unspecified; F90.9 Attention-deficit hyperactivity disorder, unspecified type; K76.0 Fatty (change of) liver, not elsewhere classified; Y90.8 Blood alcohol level of 240 mg/100 ml or more; Z79.899 Other long term (current) drug therapy
CPT/HCPCS: 36415; 76705; 80053; 80320; 83735; 85025; 85027; 96360; 96361; 99285

== ENCOUNTER 2025-04-05 16:53 | Emergency (ER) | payer OTHER ==
[2025-04-05 17:07] VITALS: TEMP 97.2
--- NOTE | 2025-04-05 19:21 | ED ---
Alcohol HPI - General Chief Complaint: Alcohol Stated Complaint: ETOH Time Seen by Provider: 04/05/25 17:10 Source: EMS Mode of arrival: EMS Limitations: altered mental status - History of Present Illness Initial Comments: 39-year-old male with history of alcohol abuse who presents emergency department with alcohol intoxication. Patient was found at the bus stop significantly intoxicated. Bystanders called EMS who thought that the patient needed to come to the emergency department for evaluation. Patient does not provide much history but does admit to drinking alcohol today. Denies abuse of any other substances and denies trauma - Related Data Home Medications Medication Instructions Recorded Confirmed Sertraline [Zoloft] 100 mg PO DAILY 01/07/25 03/31/25 traZODone HCL 150 mg PO HS 02/25/25 03/29/25 Previous Rx's Medication Instructions Recorded Folic Acid 1 mg PO DAILY 30 Days #30 tab 04/01/25 Multivitamins, Thera [Multivitamin 1 each PO DAILY 30 Days #30 tab 04/01/25 (formulary)] Thiamine [Vitamin B-1] 100 mg PO DAILY 30 Days #30 tab 04/01/25 Allergies Allergy/AdvReac Type Severity Reaction Status Date / Time No Known Allergies Allergy Verified 04/09/25 20:44 Review of Systems ROS Statement: Those systems with pertinent positive or pertinent negative responses have been documented in the HPI. ROS Other: All systems not noted in ROS Statement are negative. Past Medical History Past Medical History: No Reported History Additional Past Medical History / Comment(s): ETOH History of Any Multi-Drug Resistant Organisms: None Reported Past Surgical History: Orthopedic Surgery Additional Past Surgical History / Comment(s): plastic surgery on left lip Past Anesthesia/Blood Transfusion Reactions: No Reported Reaction Past Psychological History: ADD/ADHD Smoking Status: Former smoker Past Alcohol Use History: Abuse, Daily, Heavy Past Drug Use History: None Reported - Past Family History Mother Family Medical History: Diabetes Mellitus Father History Unknown: Yes General Exam Limitations: altered mental status General appearance: alert, appears intoxicated Head exam: Present: atraumatic, normocephalic, normal inspection Eye exam: Present: normal appearance, PERRL, EOMI. Absent: scleral icterus, conjunctival injection, periorbital swelling ENT exam: Present: normal exam, mucous membranes moist Neck exam: Present: normal inspection. Absent: tenderness, meningismus, lymphadenopathy Respiratory exam: Present: normal lung sounds bilaterally. Absent: respiratory distress, wheezes, rales, rhonchi, stridor Cardiovascular Exam: Present: regular rate, normal rhythm, normal heart sounds. Absent: systolic murmur, diastolic murmur, rubs, gallop, clicks GI/Abdominal exam: Present: soft, normal bowel sounds. Absent: distended, tenderness, guarding, rebound, rigid Extremities exam: Present: normal inspection, full ROM, normal capillary refill. Absent: tenderness, pedal edema, joint swelling, calf tenderness Back exam: Present: normal inspection Neurological exam: Present: altered, CN II-XII intact Psychiatric exam: Present: depressed, agitated Skin exam: Present: warm, dry, intact, normal color. Absent: rash Course Vital Signs 04/05/25 04/06/25 17:04 06:35 Temperature 97.2 F L Pulse Rate 82 88 Respiratory 18 16 Rate Blood Pressure 137/91 114/77 O2 Sat by Pulse 94 L 98 Oximetry Medical Decision Making - Medical Decision Making Was pt. sent in by a medical professional or institution ( PA, [employer], urgent care, hospital, or usp...) When possible be specific @ -No Did you speak to anyone other than the patient for history (EMS, parent, family, police, friend...)? What history was obtained from this source @ -With EMS for history Did you review nursing and triage notes (agree or disagree)? Why? @ -I reviewed and agree with nursing and triage notes Were old charts reviewed (outside hosp., previous admission, EMS record, old EKG, old radiological studies, urgent care reports/EKG's, usp records)? Report findings @ -No old charts were reviewed Differential Diagnosis (chest pain, altered mental status, abdominal pain women, abdominal pain men, vaginal bleeding, weakness, fever, dyspnea, syncope, headache, dizziness, GI bleed, back pain, seizure, CVA, palpatations, mental health, musculoskeletal)? @ -Differential Altered Mental Status: Hypoglycemia, DKA, hypercapnia, ETOH, overdose, CO poisoning, trauma, myxedema coma, HTN encephalopathy, infection, encephalitis, psychosis, intercranial hemorrhage, hepatic encephalopathy, meningitis, CVA, this is not meant to be an all-inclusive list EKG interpreted by me (3pts min.). @ -Not done X-rays interpreted by me (1pt min.). @ -None done CT interpreted by me (1pt min.). @ -None done U/S interpreted by me (1pt. min.). @ -None done What testing was considered but not performed or refused? (CT, X-rays, U/S, labs)? Why? @ -None What meds were considered but not given or refused? Why? @ -None Did you discuss the management of the patient with other professionals (professionals i.e. , PA, [employer], lab, RT, psych nurse, social economist, apron worker, teacher, safety instruction police officer, pillowcase folder)? Give summary @ -No Was smoking cessation discussed for >3mins.? @ -No Was critical care preformed (if so, how long)? @ -No Were there social determinants of health that impacted care today? How? (H omelessness, low income, unemployed, alcoholism, drug addiction, transportation, low edu. Level, literacy, decrease access to med. care, residential, rehab)? @ -No Was there de-escalation of care discussed even if they declined (Discuss DNR or withdrawal of care, Hospice)? DNR status @ -No What co-morbidities impacted this encounter? (DM, HTN, Smoking, COPD, CAD, Cancer, CVA, ARF, Chemo, Hep., AIDS, mental health diagnosis, sleep apnea, morbid obesity)? @ -Alcohol abuse Was patient admitted / discharged? Hospital course, mention meds given and route, prescriptions, significant lab abnormalities, going to OR and other pertinent info. @ -On arrival patient seen and evaluated in bed 9. Thorough history and physical exam was performed. IV access was established. Laboratory studies are conducted. Patient is monitored for several hours and does sober up in the emergency department. He is not depressed, suicidal or homicidal. Patient will be discharged home at this time. Instructed to stop drinking. Follow-up with rehab return for any new or worsening symptoms Undiagnosed new problem with uncertain prognosis? @ -No Drug Therapy requiring intensive monitoring for toxicity (Heparin, Nitro, Insulin, Cardizem)? @ -No Were any procedures done? @ -No Diagnosis/symptom? @ -Acute toxic encephalopathy, acute alcohol intoxication Acute, or Chronic, or Acute on Chronic? @ -Acute on chronic Uncomplicated (without systemic symptoms) or Complicated (systemic symptoms)? @ -Complicated Side effects of treatment? @ -No Exacerbation, Progression, or Severe Exacerbation? @ -No Poses a threat to life or bodily function? How? (Chest pain, [place], NM, pneumonia, PE, COPD, DKA, ARF, appy, cholecystitis, CVA, Diverticulitis, Homicidal, Suicidal, threat to staff... and all critical care pts) @ -No Disposition Clinical Impression: Alcohol abuse, Alcoholic intoxication Disposition: HOME SELF-CARE Condition: Stable Instructions (If sedation given, give patient instructions): Alcohol Intoxication (ED) Additional Instructions: please stop drinking Is patient prescribed a controlled substance at d/c from ED?: No Referrals: None,Stated [Primary Care Provider] - 1-2 days Time of Disposition: 22:23
[2025-04-06 06:36] VITALS: BP 114/77; PULSE 88; RESP 16
== END 2025-04-06 06:35 | disposition home or self-care (01) ==
LOC: EC 16:53
DX: F10.129 Alcohol abuse with intoxication, unspecified (principal); Z87.891 Personal history of nicotine dependence
CPT/HCPCS: 82075; 99284

== ENCOUNTER 2025-04-09 01:27 | Emergency (ER) | payer OTHER ==
[2025-04-09 01:44] VITALS: RESP 18
--- NOTE | 2025-04-09 03:11 | ED ---
General Adult HPI - General Chief complaint: Recheck/Abnormal Lab/Rx Stated complaint: Dehydration Time Seen by Provider: 04/09/25 01:50 Source: patient Mode of arrival: wheelchair Limitations: no limitations - History of Present Illness Initial comments: Patient is a 39-year-old gentleman with past medical history of alcoholism, homelessness presenting today for homelessness. Patient states that he was sleeping outside in a tent on some rocks and sustained abrasions to his right side. He denies additional injury. States he has to go to court this morning at 10:30 AM and he did drink alcohol tonight. He states he is looking for a place to stay. Denies chest pain, shortness of breath, fevers or chills. Denies additional complaints. - Related Data Home Medications Medication Instructions Recorded Confirmed Sertraline [Zoloft] 100 mg PO DAILY 01/07/25 03/31/25 traZODone HCL 150 mg PO HS 02/25/25 03/29/25 Previous Rx's Medication Instructions Recorded Folic Acid 1 mg PO DAILY 30 Days #30 tab 04/01/25 Multivitamins, Thera [Multivitamin 1 each PO DAILY 30 Days #30 tab 04/01/25 (formulary)] Thiamine [Vitamin B-1] 100 mg PO DAILY 30 Days #30 tab 04/01/25 Allergies Allergy/AdvReac Type Severity Reaction Status Date / Time No Known Allergies Allergy Verified 04/09/25 01:39 Review of Systems ROS Statement: Those systems with pertinent positive or pertinent negative responses have been documented in the HPI. ROS Other: All systems not noted in ROS Statement are negative. Past Medical History Past Medical History: No Reported History Additional Past Medical History / Comment(s): ETOH History of Any Multi-Drug Resistant Organisms: None Reported Past Surgical History: Orthopedic Surgery Additional Past Surgical History / Comment(s): plastic surgery on left lip Past Anesthesia/Blood Transfusion Reactions: No Reported Reaction Past Psychological History: ADD/ADHD Smoking Status: Former smoker Past Alcohol Use History: Abuse, Daily, Heavy Past Drug Use History: None Reported - Past Family History Mother Family Medical History: Diabetes Mellitus Father History Unknown: Yes General Exam - General Exam Comments Initial Comments: PE: CONSTITUTIONAL: No apparent distress, well appearing, disheveled SKIN: Warm, dry, no jaundice, hives or petechiae, few small superficial abrasions and surrounding erythema to the right flank, no active bleeding, no large lacerations, contusions, bruising or other signs of injury EYES: Pupils are equally round, extraocular movements intact without nystagmus, clear conjunctiva, non-icteric sclera HENT: Normocephalic, atraumatic, moist mucus membranes, oropharynx clear without exudates NECK: , Full range of motion, normal appearance PULMONARY: Clear to auscultation without wheezes, rhonchi, or rales, normal excursion, no accessory muscle use and no stridor CARDIOVASCULAR: Regular rate, rhythm, normal S1 and S2. No appreciated murmurs, rubs or gallops. Extremities are well-perfused GASTROINTESTINAL: Soft, active bowel sounds throughout, non-tender, non- distended, no palpable masses, no rebound or guarding. No hepatosplenomegaly GENITOURINARY: MUSCULOSKELETAL: Extremities have no gross deformity, no edema, redness, or swelling. No calf swelling NEUROLOGIC:_a/o x 3, GCS 15, normal mentation and speech. Moves all extremities x 4 without motor or sensory deficit PSYCHIATRIC:_normal mood and affect, thought process is clear and linear Limitations: no limitations Course Vital Signs 04/09/25 04/09/25 04/09/25 01:39 02:12 06:44 Temperature 97.4 F L 98.1 F Pulse Rate 78 70 77 Respiratory 18 18 18 Rate Blood Pressure 145/84 139/96 136/88 O2 Sat by Pulse 99 100 97 Oximetry Medical Decision Making - Medical Decision Making Was pt. sent in by a medical professional or institution (, PA, INVENTORY CONTROL CLERK, urgent care, hospital, or fdc...) When possible be specific @ -No Did you speak to anyone other than the patient for history (EMS, parent, family, police, friend...)? What history was obtained from this source @ -No Did you review nursing and triage notes (agree or disagree)? Why? @ -I reviewed nursing and triage notes agree with triage notes Were old charts reviewed (outside hosp., previous admission, EMS record, old EK G, old radiological studies, urgent care reports/EKG's, fdc records)? Report findings @ -Medical records reviewed patient was recently admitted to the hospital for alcohol intoxication on 03/29/2025, and review of discharge summary, patient did not wish to go to rehab and was discharged once sober Differential Diagnosis (chest pain, altered mental status, abdominal pain women, abdominal pain men, vaginal bleeding, weakness, fever, dyspnea, syncope, headache, dizziness, GI bleed, back pain, seizure, CVA, palpatations, mental health, musculoskeletal)? @ -Not applicable EKG interpreted by me (3pts min.). @ -As above X-rays interpreted by me (1pt min.). @ -None done CT interpreted by me (1pt min.). @ -None done U/S interpreted by me (1pt. min.). @ -None done What testing was considered but not performed or refused? (CT, X-rays, U/S, labs)? Why? @ -None What meds were considered but not given or refused? Why? @ -None Did you discuss the management of the patient with other professionals (professionals i.e. , PA, INVENTORY CONTROL CLERK, lab, RT, psych nurse, social service worker, decision science analyst, teacher, logistics officer, patient case manager)? Give summary @ -No Was smoking cessation discussed for >3mins.? @ -No Was critical care preformed (if so, how long)? @ -No Were there social determinants of health that impacted care today? How? (Homelessness, low income, unemployed, alcoholism, drug addiction, transportatio n, low edu. Level, literacy, decrease access to med. care, correction, rehab)? @ -Homelessness Was there de-escalation of care discussed even if they declined (Discuss DNR or withdrawal of care, Hospice)? @ -No What co-morbidities impacted this encounter? (DM, HTN, Smoking, COPD, CAD, Cancer, CVA, ARF, Chemo, Hep., AIDS, mental health diagnosis, sleep apnea, morbid obesity)? @ -Alcoholism Was patient admitted / discharged? Hospital course, mention meds given and route, prescriptions, significant lab abnormalities, going to OR and other pertinent info. @ -Discharged- Patient is a 39-year-old gentleman, well-known to this emergency department, presenting today for homelessness. He is resting comfortably and sleeping comfortably on my assessment. Has very superficial abrasions over the right flank. No injuries. Easily awakens, oriented, well appearing. Patient observed in the ER and given a warm and comfortable place to sleep. No further complaints while in the ER. Discharged in stable condition. In my medical judgment there is currently no evidence of an immediate life- threatening or surgical condition. Discharge is therefore indicated at this time. Discharge treatment instructions, follow up instructions, and appropriate emergency department return precautions were provided to the patient and/or medical decision maker. Patient and/or medical decision maker expressed unde rstanding of and agreed with the treatment plan, follow up instructions, and emergency department return precaution. Undiagnosed new problem with uncertain prognosis? @ -No Drug Therapy requiring intensive monitoring for toxicity (Heparin, Nitro, Insulin, Cardizem)? @ -No Were any procedures done? @ -No Diagnosis/symptom? @homelessness Acute, or Chronic, or Acute on Chronic? @acute Uncomplicated (without systemic symptoms) or Complicated (systemic symptoms)? @ -uncomplicated Side effects of treatment? @ -No Exacerbation, Progression, or Severe Exacerbation? @ -No Poses a threat to life or bodily function? How? (Chest pain, [place], [place], pneumonia, PE, COPD, DKA, ARF, appy, cholecystitis, CVA, Diverticulitis, Homicidal, Suicidal, threat to staff... and all critical care pts) @ -No Disposition Clinical Impression: Homelessness Disposition: HOME SELF-CARE Condition: Good Instructions (If sedation given, give patient instructions): Alcohol Intoxication (ED) Additional Instructions: Every disease is a spectrum and a small chance still exists that a serious condition could develop, for this reason, please monitor yourself closely for new, changing or worsening symptoms, inability to tolerate/keep down fluids or your medications, inability to follow up with outpatient providers as instructed and should you experience these symptoms or should you have any further concerns for your wellbeing please return to the ED or call 911 immediately. PLEASE call your primary care physician as soon as possible to arrange / discuss plan for followup appointment. Appointment in the next 1-3 days is strongly encouraged if possible. PLEASE let us know here before you leave if there is anything further we can do to be of any assistance. Take care and feel Better! Is patient prescribed a controlled substance at d/c from ED?: No Referrals: None,Stated [Primary Care Provider] - 1-2 days Forms: [facility], [facility], Area PCPs
[2025-04-09 06:47] VITALS: BP 136/88; PULSE 77; TEMP 98.1
== END 2025-04-09 06:47 | disposition home or self-care (01) ==
LOC: EC 01:27
DX: S30.811A Abrasion of abdominal wall, initial encounter (principal); F10.20 Alcohol dependence, uncomplicated; Z59.00 Homelessness unspecified; Z87.891 Personal history of nicotine dependence; X58.XXXA Exposure to other specified factors, initial encounter
CPT/HCPCS: 99284

== ENCOUNTER 2025-04-09 20:36 | Emergency (ER) | payer OTHER ==
[2025-04-09 20:44] VITALS: RESP 18; TEMP 97.8
--- NOTE | 2025-04-09 21:14 | ED ---
General Adult HPI <Nile Cervantes - Last Filed: 04/10/25 09:48> - General Source: EMS Mode of arrival: EMS <Araceli Coppola - Last Filed: 04/11/25 10:28> - General Chief complaint: Alcohol Stated complaint: ETOH Time Seen by Provider: 04/09/25 20:57 - History of Present Illness Initial comments: Patient is a 39-year-old gentleman well-known to this emergency department history of homelessness, alcoholism presenting today for alcohol intoxication and suicidal statements made to police. History is provided by police and the patient. They state [place], wet and intoxicated stating that he "was afraid that he someone was going to kill him because he was suicidal". Patient was petitioned by police. On my assessment patient endorses alcohol use tonight stating that he drank "a pint and then more". When asked about his suicidal statements, he states that "I might have said that" but now states he is no longer suicidal and denies suicidal or homicidal ideation. He denies any injuries or any additional complaints. Has not injured his head. Denies illicit drug use. States he is homeless and he is sad because of the state of his life. Denies auditory or visual hallucinations. (Araceli Coppola) - Related Data Home Medications Medication Instructions Recorded Confirmed Sertraline [Zoloft] 100 mg PO DAILY 01/07/25 03/31/25 traZODone HCL 150 mg PO HS 02/25/25 03/29/25 Previous Rx's Medication Instructions Recorded Folic Acid 1 mg PO DAILY 30 Days #30 tab 04/01/25 Multivitamins, Thera [Multivitamin 1 each PO DAILY 30 Days #30 tab 04/01/25 (formulary)] Thiamine [Vitamin B-1] 100 mg PO DAILY 30 Days #30 tab 04/01/25 Allergies Allergy/AdvReac Type Severity Reaction Status Date / Time No Known Allergies Allergy Verified 04/09/25 20:44 Review of Systems ROS Other: All systems not noted in ROS Statement are negative. <Nile Cervantes - Last Filed: 04/10/25 09:48> ROS Other: All systems not noted in ROS Statement are negative. <Araceli Coppola - Last Filed: 04/11/25 10:28> ROS Statement: Those systems with pertinent positive or pertinent negative responses have been documented in the HPI. Past Medical History Past Medical History: No Reported History Additional Past Medical History / Comment(s): ETOH History of Any Multi-Drug Resistant Organisms: None Reported Past Surgical History: Orthopedic Surgery Additional Past Surgical History / Comment(s): plastic surgery on left lip Past Anesthesia/Blood Transfusion Reactions: No Reported Reaction Past Psychological History: ADD/ADHD Smoking Status: Former smoker Past Alcohol Use History: Abuse, Daily, Heavy Past Drug Use History: None Reported - Past Family History Mother Family Medical History: Diabetes Mellitus Father History Unknown: Yes <Araceli Coppola - Last Filed: 04/11/25 10:28> General Exam <Araceli Coppola - Last Filed: 04/11/25 10:28> - General Exam Comments Initial Comments: PE: CONSTITUTIONAL: No apparent distress, sleeping comfortably, upon wakening tearful, disheveled, nontoxic SKIN: Warm, dry, no jaundice, hives or petechiae EYES: Pupils are equally round, extraocular movements intact without nystagmus, mildly erythematous conjunctiva bilaterally without discharge, non-icteric sclera HENT: Normocephalic, atraumatic, moist mucus membranes, oropharynx clear without exudates NECK: , Full range of motion, normal appearance PULMONARY: Respirations unlabored, equal chest rise and chest fall CARDIOVASCULAR: Extremities are pink and well perfused MUSCULOSKELETAL: Extremities have no gross deformity, no edema, redness, or swelling. NEUROLOGIC:_a/o x 3, GCS 15, appears intoxicated but otherwise normal mentation and speech. Moves all extremities x 4 without motor or sensory deficit PSYCHIATRIC: Tearful mood and affect, denies SI/HI, does not appear to be responding to internal stimuli pt is visibly intoxicated however thought process is linear, able to give me details of what brought him here today (Araceli Coppola) Course Vital Signs 04/09/25 04/10/25 20:38 03:47 Temperature 97.8 F Pulse Rate 80 76 Respiratory 18 18 Rate Blood Pressure 136/98 108/79 O2 Sat by Pulse 97 96 Oximetry Medical Decision Making <Nile Cervantes - Last Filed: 04/10/25 09:48> <Araceli Coppola - Last Filed: 04/11/25 10:28> - Medical Decision Making Was patient admitted / discharged? Hospital course, mention meds given and route, prescriptions, significant lab abnormalities, going to OR and other pertinent info. @ -Patient was clinically sober and at about 930 [facility] came to pick him up to take him to rehabilitation for alcohol abuse. Undiagnosed new problem with uncertain prognosis? @ -No Drug Therapy requiring intensive monitoring for toxicity (Heparin, Nitro, Insulin, Cardizem)? @ -No Were any procedures done? @ -No Diagnosis/symptom? @ -Alcohol intoxication Acute, or Chronic, or Acute on Chronic? @ -Acute Uncomplicated (without systemic symptoms) or Complicated (systemic symptoms)? @ -Complicated Side effects of treatment? @ -No Exacerbation, Progression, or Severe Exacerbation? @ -No Poses a threat to life or bodily function? How? (Chest pain, [place], [place], pneumonia, PE, COPD, DKA, ARF, appy, cholecystitis, CVA, Diverticulitis, Homicidal, Suicidal, threat to staff... and all critical care pts) @ -No (Nile Cervantes) Was pt. sent in by a medical professional or institution (, PA, [employer] WMS CONSULTANT, urgent care, hospital, or long term...) When possible be specific @ -[No] Did you speak to anyone other than the patient for history (EMS, parent, family, police, friend...)? What history was obtained from this source @ -With police, state they [place], made suicidal statements, intoxicated Did you review nursing and triage notes (agree or disagree)? Why? @ -[I reviewed nursing and triage notes] Were old charts reviewed (outside hosp., previous admission, EMS record, old EKG, old radiological studies, urgent care reports/EKG's, long term records)? Report findings @ -[Medical records reviewed]-patient has had multiple recent visits for similar, in fact patient was here earlier this morning for alcohol tox occasional homelessness, seen by myself Differential Diagnosis (chest pain, altered mental status, abdominal pain women, abdominal pain men, vaginal bleeding, weakness, fever, dyspnea, syncope, headache, dizziness, GI bleed, back pain, seizure, CVA, palpatations, mental health, musculoskeletal)? @Differential Mental Health Depression, anxiety, bipolar, psychosis, schizophrenia, borderline personality, situational depression, adjustment disorder, behavioral disorder, brain tumor, malingering, substance abuse, encephalopathy, medication reaction, dementia, hypothyroidism, degenerative neurologic disorder, lupus.... This is not meant to be all-inclusive list EKG interpreted by me (3pts min.). @ -[As above] X-rays interpreted by me (1pt min.). @ -[None done] CT interpreted by me (1pt min.). @ -[None done] U/S interpreted by me (1pt. min.). @ -[None done] What testing was considered but not performed or refused? (CT, X-rays, U/S, labs)? Why? @ -[None] What meds were considered but not given or refused? Why? @ -[None] Did you discuss the management of the patient with other professionals (professionals i.e. , PA, [employer] WMS CONSULTANT, lab, RT, psych nurse, social media intern, hydrogen operator, teacher, probation and parole officer, porter sample case)? Give summary @no Was smoking cessation discussed for >3mins.? @ -[No] Was critical care preformed (if so, how long)? @ -[No] Were there social determinants of health that impacted care today? How? (Homelessness, low income, unemployed, alcoholism, drug addiction, transportation, low edu. Level, literacy, decrease access to med. care, halfway, rehab)? @ -[Homelessness Was there de-escalation of care discussed even if they declined (Discuss DNR or withdrawal of care, Hospice)? @ -[No] What co-morbidities impacted this encounter? (DM, HTN, Smoking, COPD, CAD, Cancer, CVA, ARF, Chemo, Hep., AIDS, mental health diagnosis, sleep apnea, morbid obesity)? @Alcoholism Was patient admitted / discharged? Hospital course, mention meds given and route, prescriptions, significant lab abnormalities, going to OR and other pertinent info. @Signed out pending sober ride to rehab- This is a 39-year-old gentleman well- known to this emergency department presenting today for alcohol intoxication and suicidal statements. On my assessment patient is visibly intoxicated however he awakens easily, he is tearful, denies SI or HI. He does not appear appear to be responding internal stimuli. He is calm and cooperative. Visibly disheveled covered in sand. Head is atraumatic, extremities are atraumatic, denies additional complaints. He is tearful, erythematous conjunctiva, appears intoxicated. Will obtain alcohol breath test, currently denies SI, will reassess again when more sober. I was contacted by patient's mother, Alecia, regarding patient's visit to the ER today. I obtained patient's permission to discuss his care with his mother. She states patient had a court date yesterday, he was sentenced to alcohol abuse rehab to begin tomorrow at 11 AM. Patient's mother verbalized frustration that patient was allowed to go home between his court date and going to rehab tomorrow. Patient's mother is hoping that patient can be kept in the emergency department until he is set to go to inpatient rehab tomorrow at 11 AM. She states that a worker from [facility] will come and get the patient to take him directly to rehab. Pt's mother provides contact information for [facility], , who would be willing to come and get the patient in the morning. I discussed with pt's mother that pt will need to remain in the ED until clinically sober or until he has a safe and sober ride. Pt's mother understanding. Pt's BAT was ~270 at 1:00 AM, will be sober at ~11-11:30. Did consider admission due to alcohol intoxication however I feel pt will likely benefit more from discharge to his court ordered rehab. On reassessment at ~7:00AM , patient appears much more sober. He has clear speech, continues to denie SI, is apologetic for his behavior. He is agreeable with awaiting transport to [facility] to enter rehab. Pt signed out to [facility] physician, Dr. Cervantes, pending transport to [facility]. (Araceli Coppola) Disposition Is patient prescribed a controlled substance at d/c from ED?: No Time of Disposition: 09:49 <Nile Cervantes - Last Filed: 04/10/25 09:48> <Araceli Coppola - Last Filed: 04/11/25 10:28> Clinical Impression: Alcohol intoxication Disposition: HOME SELF-CARE Instructions (If sedation given, give patient instructions): Alcohol Intoxication (ED) Additional Instructions: Patient should go to rehabilitation immediately Referrals: None,Stated [Primary Care Provider] - 1-2 days
[2025-04-10] MEDS ORDERED: SODIUM CHLORIDE 0.9% 1,000 ML IV STA (01:26)
[2025-04-10 03:49] VITALS: BP 108/79; PULSE 76
== END 2025-04-10 09:58 | disposition home or self-care (01) ==
LOC: EC 20:36
DX: F10.129 Alcohol abuse with intoxication, unspecified (principal); Z87.891 Personal history of nicotine dependence
CPT/HCPCS: 82075; 99284